=== PATIENT | male | born 1945 | race Caucasian/White ===

== ENCOUNTER 2016-09-07 09:17 | Inpatient (IN) ==
[2016-09-07] MEDS ORDERED: ONDANSETRON 4 MG/2 ML VIAL ONE (09:23)
[2016-09-07] MEDS ORDERED: HYDROmorphone 2 MG/1 ML VIAL ONE (09:23)
[2016-09-07] MEDS ORDERED: methylPREDNISolone SOD SUC 125 MG/2 ML VIAL IV STA (10:00)
[2016-09-07] MEDS ORDERED: cefTRIAXone 1,000 MG in SODIUM CHLORIDE 0.9% 100 ML IV STA (10:00)
[2016-09-07] MEDS ORDERED: ALBUTEROL/IPRATROPIUM 3 ML NEB RESP TX STA (10:00)
[2016-09-07] MEDS ORDERED: KETOROLAC 30 MG/1 ML VIAL IV STA (10:00)
--- NOTE | 2016-09-07 10:21 | Emergency Department Note ---
Arrival - Arrival Chief Complaint: Fall Stated Complaint: fall ED Nursing Triage Note: pt was found by a home health worker this morning on the floor without his o2 on. pt reports that he fell last night. pt has congested cough that he reports started last night. c/o pain to back of head and neck. Mode of Arrival: Stretcher Limitations: No Limitations Source: Patient Time Seen by Provider: 09/07/16 10:00 - History of Present Illness HPI Narrative: This 71-year-old white male chronic pain patient with multiple cervical and lumbar disc disorders presents after falling last night and not being able to get up. Both he and the family reports this would be the case if he did fall because of his chronic pain syndrome and in fact, the patient denies any significant injuries with the fall, he just could not get himself back up again. Of note the patient has had significant problems with a flare of his COPD and has just recently come off antibiotics for bronchitis and was bothered by particularly severe paroxysm of cough when he tripped and fell. In association with this he does have complaints of chills, fever, wheeze, and purulent secretions even after antibiotic therapy. He does not state any of his chronic pain is any worse after the fall though his neck was particularly uncomfortable immediately after the fall but has resolved to a great extent. Currently he appears in no acute distress. Onset (ago): hour(s) (Patient presents 8 hours post incident) Allergies/Adverse Reactions: Allergies Allergy/AdvReac Type Severity Reaction Status Date / Time No Known Allergies Allergy Verified 11/04/15 12:24 Review of System - Review of System 12 point system: reviewed and no additional remarkable complaints except as stated - Review of System Constitutional: Present: as per HPI Respiratory: Present: as per HPI Musculoskeletal: Present: as per HPI Neurological: Present: as per HPI Medical,Surgical,& Family Hx - Medical History Cardio: History of: Hypertension Respiratory: History of: COPD Musculoskeletal: History of: Back/Neck Problems - Social History Smoking Status: Unknown if ever smoked Exam Physical Examination: GENERAL: Well developed, well nourished white male in no acute distress. HEENT: Normocephalic. No trauma. Moist mucous membranes. Absent right eye. ENT NML NECK: Supple. Paraspinal muscular spasm with limitations to range of motion due to long-standing pain. No adenopathy. CARDIAC: Regular. No murmurs. Heart rate 100 CHEST: Scattered expiratory wheeze. No respiratory distress. O2 sat 91% ABDOMEN: Soft. Nontender. Active bowel sounds. EXTREMITIES: No trauma. Limited range of motion lumbar spine. No pedal edema. SKIN: No diaphoresis. No rash. NEURO: Alert. Oriented 3. Motor, sensory, vibratory intact, no focal deficits. Vital Signs: Vital Signs Temperature 98.2 F 09/07/16 11:40 Pulse Rate 94 H 09/07/16 11:40 Respiratory Rate 20 09/07/16 11:40 Blood Pressure 137/64 09/07/16 11:40 O2 Sat by Pulse Oximetry 93 L 09/07/16 10:57 Course - Reevaluation(s) Reevaluation #1: Discussed situation with patient and family and the need for hospitalization. - Consultations Consultation #1: Discussed with hospitalist service who will admit for further evaluation treatment. Results - Labs CBC & BMP: 09/07/16 10:58 09/07/16 10:58 Labs: I reviewed the laboratory and noted the elevated white blood cell count. - Diagnostic Findings Procedure: Chest x-ray: image reviewed by me, report reviewed by me (Right- sided infiltrate versus mass), CT - chest: image reviewed by me, report reviewed by me (50 x 42 cm right hilar mass with postobstructive pneumonia.), CT : image reviewed by me, report reviewed by me (Head: Microvascular ischemia and cerebral atrophy with no acute injury noted. Sinuses revealed right maxillary frontal and ethmoid sinusitis disease. 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 Likewise C7- T1 extensive DJD disease.), X-ray: image reviewed by me, report reviewed by me ( Pelvis: No acute fractures) Disposition Clinical Impression: Right hilar mass, Postobstructive pneumonia, Severe cervical disc disease, Chronic pain syndrome Case discussed with: patient, patient's family Disposition: Still a Patient Condition: Guarded Time of Disposition: 13:05
[2016-09-07] MEDS ORDERED: methylPREDNISolone SOD SUC 125 MG/2 ML VIAL ONE (10:31)
[2016-09-07] MEDS ORDERED: cefTRIAXone 1,000 MG VIAL ONE (10:31)
[2016-09-07] MEDS ORDERED: KETOROLAC 30 MG/1 ML VIAL ONE (10:31)
--- NOTE | 2016-09-07 10:36 | CT Report ---
CT head/brain wo con Indication: Fall. CT BRAIN WITHOUT CONTRAST DLP: 1073 mGy*cm. One or more of the following dose reduction techniques was used: Automated exposure control, adjustment of the mA and/or kV according the patient size, or use of iterative reconstruction techniques. Comparison: 02/17/2008. Date of admission: 09/07/2016. Technique: Axial noncontrast CT images of the brain were obtained. Findings: A nucleated right globe again shown. Mucosal thickening of the right frontal, ethmoid and right maxillary sinuses present. No bony destruction. No calvarial fractures. No intracranial hemorrhage, mass or mass effect. Patchy periventricular white matter hypodensity is present and there is mild generalized atrophy. 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 Cortical antony-white junction is maintained. Impression: No acute intracranial pathology. Generalized atrophy and chronic small vessel ischemic change. Sinusitis. PROCEDURE INTERPRETED AT [facility] DEPARTMENT OF RADIOLOGY Final Report Signed by: Braulio Contreras M.D.
--- NOTE | 2016-09-07 10:41 | CT Report ---
CT cervical spine wo con Indication: Neck pain. Fall. CT CERVICAL SPINE WITHOUT CONTRAST DLP: 375 mGy*cm. One or more of the following dose reduction techniques was used: Automated exposure control, adjustment of the mA and/or kV according the patient size, or use of iterative reconstruction techniques. Comparison: 04/19/2009 Technique: Axial noncontrast CT images of the cervical spine were obtained. Coronal and sagittal reconstructions were provided. Findings: Cervical spine is not immobilized. Reversal of cervical lordosis noted, likely positional. There is, however, stairstep anterolisthesis of C2 on 3, C3 on 4, C4 on 5 and C5 on C6, never greater than 2 mm, likely degenerative in nature and/or positional. C6-7 and C7-T1 alignment is normal. C6-7 disc space narrowing is severe with endplate reactive sclerosis and endplate osteophytes. These changes are stable since previous study. Pannus development at the tip of the odontoid is moderately severe, also stable. Diffuse facet joint arthropathy is present. Mild bilateral C3-4, C4-5 and C5-6 foraminal stenosis is present. Left C6-7 is narrowed as well. No acute fracture identified. No paraspinous hematoma. No cervical chain lymphadenopathy. Airways patent. Visualized pulmonary apices demonstrate emphysema but appear otherwise clear. Impression: Extensive degenerative changes as described. No acute bony injury is shown. Emphysema. PROCEDURE INTERPRETED AT [facility] DEPARTMENT OF RADIOLOGY Final Report Signed by: Braulio Contreras M.D.
--- NOTE | 2016-09-07 11:05 | XRay Report ---
Portable chest Date: 09/07/2016 Clinical history: Shortness of breath, fall Comparison: 03/13/2012 Technique: Portable AP supine chest Findings: The heart is borderline in size with uncoiling of the aorta. The parenchymal findings in the right infrahilar location extending to the right lung base with atelectasis and possible small pleural effusion. There is irregular increased density in the right infrahilar location. Minimal atelectasis at the left lung base. Degenerative changes are noted. Impression: Interval development of parenchymal pathology in the right infrahilar location extending to the right lung base. These findings could be related to pneumonia with associated atelectasis but it is difficult to exclude underlying mass with possible small right pleural effusion. Minimal atelectasis at the left lung base. CT recommended for further evaluation. PROCEDURE INTERPRETED AT [facility] DEPARTMENT OF RADIOLOGY Final Report Signed by: Dr. Patricia Kendrick
--- NOTE | 2016-09-07 11:07 | XRay Report ---
Exam: XR pelvis AP 1 or 2 Views Date: 09/07/2016 10:01 AM Comparison: None Indication: Pelvic pain, fall Technique:[AP pelvis] Findings: Bilateral hip joint space narrowing with sclerosis and osteophytes. Vascular, articular, and prostate calcifications are noted. No definite fracture or dislocation. Impression: Minimal to moderate DJD with findings more pronounced in the right hip. It is difficult to exclude small loose bodies with the articular calcification. No definite fracture dislocation is identified. Arterial and prostate calcifications. PROCEDURE INTERPRETED AT [facility] DEPARTMENT OF RADIOLOGY Final Report Signed by: Dr. Patricia Kendrick
[2016-09-07 11:26] LABS: Basophils % 0.2 % (0.0-0.8); Eosinophils # 0.1 10*3/uL (0.0-0.87); Eosinophils % 0.4 % (0.00-10.9); Hemoglobin 13.4 GM/DL (14.0-18.0); Immature Granulocytes % 0.3 %; Immature Granulocytes Absolute 0.05 #; Lymphocytes # 2.1 10*3/uL (1.4-4.0); Lymphocytes % 12.8 % (21.2-54.2); Mean Corpuscular HGB Conc 34.4 GM/DL (32-36); Mean Corpuscular Hemoglobin 34 PG (27-34); Mean Corpuscular Volume 97.7 FL (87-102); Mean Platelet Volume 9.7 FL (9.6-12.0); Monocytes # 1.2 10*3/uL (0.11-0.8); Monocytes % 7.4 % (1.7-12.7); Neutrophils # 12.8 10*3/uL (1.4-7.4); Neutrophils % 78.9 % (38.7-73.9); Platelet Count 291 T/CUMM (130-400); Red Blood Count 3.99 MC/CUMM (3.8-5.5); Red Cell Distribution Width 12.7 % (9.3-17.3); White Blood Count 16.2 T/CUMM (4-12)
[2016-09-07 11:35] LABS: INR 1.1; PT Patient Result 11.2 SECS
[2016-09-07 11:46] LABS: Band Neutrophils 5 % (0-10); Hypochromasia 1+; Lymphocytes 11 % (20-55); Platelet Estimate Adequate; Segmented Neutrophils 74 % (50-85)
[2016-09-07 11:48] LABS: Total Cells Counted 100
[2016-09-07 12:04] LABS: Alanine Aminotransferase 36 U/L (16-61); Albumin 3.6 G/DL (3.4-5.0); Alkaline Phosphatase 94 U/L (45-117); Aspartate Amino Transferase 37 U/L (0-37); Blood Urea Nitrogen 17 MG/DL (7-18); Calcium 8.4 MG/DL (8.5-10.1); Glucose 121 MG/DL (74-106); Osmolality,Calculated 277.7 MOS/KG (273-304); Potassium 3.9 MMOL/L (3.5-5.1); Sodium 138 MMOL/L (136-145); Total Protein 6.9 G/DL (6.4-8.3); Troponin I Only < 0.015 NG/ML (0.00-0.045)
--- NOTE | 2016-09-07 12:56 | CT Report ---
Exam: CT chest w con Date: 09/07/2016 11:24 AM Comparison: Chest x-ray 09/07/2016 Indication: Right hilar mass Technique:[Sequential scans of the chest were obtained following the injection 80 cc of Omnipaque 350. Coronal and sagittal 2-D reconstructions were obtained. Total DLP: 339.90] Findings: The heart is minimally enlarged with cardiac fat pads and coronary artery calcifications. No evidence of aortic dissection or definite pulmonary emboli. 50 x 42 x 40 mm right hilar mass which extends into the right lower lobe. There is associated right hilar adenopathy. Additional mediastinal nodes which are borderline in size to minimally enlarged. There is associated bronchial compression with peripheral atelectasis/consolidation which extends to the pleural surface in the right lower lobe. Mixed type bullous emphysema with additional multifocal areas of atelectasis/infiltration especially in the right middle lobe, lingula, and left lower lobe. Associated cylindrical bronchiectasis essentially in the right middle lobe. Left subcutaneous pleural fat deposition. Fatty infiltration of the liver with prior cholecystectomy. Impression: 50 x 42 x 40 mm right hilar mass consistent with probable carcinoma of the lung. There is associated mediastinal and hilar adenopathy which could be related to graciela metastasis and postobstructive pneumonia. Additional multifocal areas of atelectasis/infiltration/scarring in both lungs with minimal bullous emphysema. Minimal cardiomegaly with coronary artery calcifications, fatty infiltration of the liver, and prior cholecystectomy. This CT exam was performed using one or more the following dose reduction techniques: Automated exposure control, adjustment of the MA and/or KV according to patient size, or use of iterative reconstruction technique. PROCEDURE INTERPRETED AT [facility] DEPARTMENT OF RADIOLOGY Final Report Signed by: Dr. Patricia Kendrick
[2016-09-07] MEDS ORDERED: ONDANSETRON 4 MG/2 ML VIAL IV PRN (13:55)
[2016-09-07] MEDS ORDERED: diphenhydrAMINE CAP 25 MG CAPSULE PO PRN (13:55)
[2016-09-07] MEDS ORDERED: ACETAMINOPHEN 325 MG TABLET PO PRN (13:55)
[2016-09-07] MEDS ORDERED: DOCUSATE SODIUM 100 MG CAPSULE PO PRN (13:55)
[2016-09-07] MEDS ORDERED: MORPHINE 2 MG/1 ML SYRINGE IV PRN (13:55)
--- NOTE | 2016-09-07 13:55 | Hospitalist History & Physical ---
<Julissa Daniel - Last Filed: 09/07/16 13:42> Assessment and Plan - Time spent with patient Time spent with patient: Greater than 30 minutes (1) Pneumonia Status: Acute Assessment and plan: Mr. Gabriel is a 71-year-old white male with history of hypertension, COPD on home O2, and chronic pain admitted by the hospitalist service with pneumonia and a new right hilar mass with adenopathy. Will consult Dr. Bailey his pulmonary doctor for further evaluation. We will go ahead and start antibiotics , breathing treatments, steroids if indicated. Patient's home medicines have not been entered in the chart yet so these will be restarted once they are posted. Patient's case has been discussed with and further recommendations to follow. Current Visit: Yes (2) Leukocytosis Status: Acute Current Visit: Yes (3) Hilar mass Status: Acute Current Visit: Yes (4) Adenopathy, hilar Status: Acute Current Visit: Yes History of Present Illness Chief complaint: Shortness of breath History of present illness: Mr. Gabriel is a 71 year old male with history of COPD, hypertension, and chronic pain presenting to the ED after falling last night and spending the night on the floor. History was obtained from the daughter who is in the room. Patient was lethargic from pain medicine given in the ED since patient missed his normal dose of pain medicines this morning. Patient's daughter states that about 8:00 last night he fell getting up from his recliner and he could not get up off the floor. She states that he was able to drag himself to an upright position against the back of the couch. He could not reach his phone to call for help. His cleaning lady came over this morning and found him on the floor. Patient's daughter also states he has been complaining of increased epigastric pain for the last couple of months. Patient had recently come off antibiotics for bronchitis. He told the ED physician that he was still having chills, fever, wheezing, and purulent secretions even after the antibiotics were stopped. Patient is normally on home oxygen, his pulmonary doctor is Dr. Bailey, and his family doctor is Dr. Vargas. Patient denies headache, dysphasia, chest pain, abdominal pain, constipation, or lower extremity swelling. Patient had C-spine CT, head CT, and pelvic x-ray in the ED that were all showing no acute process. His chest x-ray showed an interval development of parenchymal pathology in the right infrahilar location extending into the right lung base. He was questionable pneumonia with associated atelectasis but it was difficult to exclude an underlying mass with right pleural effusion. CT of the chest was done where they found a 50 x 42 x 40 mm right hilar mass consistent with probable carcinoma of the lung. There was associated mediastinal and hilar adenopathy and postobstructive pneumonia. Patient is afebrile and his vital signs are stable and he is satting 93% percent on 2 L. Patient is lethargic due to his pain medicine. He will awaken but he is difficult to understand and can not answer questions appropriately. Patient is audibly coarse bilaterally you can hear from the doorway. Patient's WBCs are elevated at 16.2. After discussion with Dr. Krueger in the ED and Dr. Garvin the hospitalist it was decided patient will be admitted for further [facility] Medications Medication Instructions Recorded Confirmed Type Baclofen Tab [Lioresal] 10 mg PO TID 09/07/16 09/07/16 History Biotin 5,000 mcg PO DAILY 09/07/16 09/07/16 History [place] Oil 1 tablespoon PO DIRECTED 09/07/16 09/07/16 History Cholecalciferol (Vitamin D3) 1 capsule DIRECTED 09/07/16 09/07/16 History [Vitamin D3] Docusate Sodium 250 mg PO DAILY 09/07/16 09/07/16 History Docusate Sodium [Colace] 1 capsule PO DIRECTED 09/07/16 09/07/16 History Gabapentin 400 mg PO TID 09/07/16 09/07/16 History HYDROcodone/ACETAMIN 10-325 [[place] 1 tablet PO TID 09/07/16 09/07/16 History 10-325] Hydrocodone/Acetaminophen [[place] 1 each PO TID PRN 09/07/16 09/07/16 History 10-325 Tablet] Meloxicam 15 mg PO DAILY 09/07/16 09/07/16 History Methadone [(None)] 10 mg PO QID 09/07/16 09/07/16 History Mirtazapine 30 mg PO BEDTIME 09/07/16 09/07/16 History Mv-Mins/Folic/Lycopene/Ginkgo [One 1 each PO DAILY 09/07/16 09/07/16 History Daily Men's 50+ Tablet] Potassium Chloride 20 meq PO DAILY 09/07/16 09/07/16 History Potassium Chloride [Klor-Con 10] 20 meq PO DAILY 09/07/16 09/07/16 History Pravastatin Sodium 80 mg PO DAILY 09/07/16 09/07/16 History Venlafaxine HCl [Venlafaxine HCl 150 mg PO BID 09/07/16 09/07/16 History ER] cloNIDine TAB [Catapres Tab] 0.1 mg PO BID 09/07/16 09/07/16 History clonazePAM [Clonazepam] 1 mg PO DAILY 09/07/16 09/07/16 History Allergies Allergy/AdvReac Type Severity Reaction Status Date / Time No Known Allergies Allergy Verified 11/04/15 12:24 Medical,Surgical,& Family Hx - Medical History Cardio: History of: Hypertension Respiratory: History of: COPD Musculoskeletal: History of: Back/Neck Problems - Surgical History HEENT Surgeries: Surgical HX of: Eye Surgery Abdominal Surgeries: Surgical HX of: Cholecystectomy - Family History Family History: Reports;: Family Heart Disease - Social History Smoking Status: Former smoker Frequency of Alcohol Use: None Type of Drug Use: None Lives With:: Alone Functional capacity: independent ambulation Review of systems: A complete 10 system review of systems was obtained and pertinent negatives and positives per HPI Exam - Constitutional Vitals: Period Temp Pulse Resp BP Sys/Yanes Pulse Ox Last 24 Hr 98.2 F-98.2 F 94-105 20-22 137-137/64-64 91-93 Exam: Constitutional System: No distress. No tremulousness. Head: Normocephalic, atraumatic. Ears, Nose and Throat System: No evidence of Otitis or Mastoiditis. No epistaxis or discharge Eyes System: Pupils on the left equal, round, and reactive. Extraocular muscles intact. 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 No thyromegaly, neck mass, or prior surgery apparent. Respiratory System: Chest coarse bilaterally to auscultation. Cardiovascular System: Heart with regular rate and rhythm. No murmur. GI System: Abdomen soft, nontender. Normo active bowel sounds present. Musculoskeletal System: limbs with no pedal edema. Full distal pulses. Neurological System: No discernable sensory deficit. No aphasia Psychiatric System: Conversation is difficult to understand Results - Labs CBC & BMP: 09/07/16 10:58 09/07/16 10:58 Lab Results: I have reviewed the past 24 hour labs - Diagnostic Findings Procedure: Chest x-ray: report reviewed by me (Interval development of parenchymal pathology in the right infrahilar location extending to the right lung base. Could be related to pneumonia with associated atelectasis but difficult to exclude underlying mass with possible small right pleural effusion) , CT - chest: report reviewed by me (55 42 x 40 mm right hilar mass consistent with probable carcinoma of the lung. Associated mediastinal and hilar adenopathy which could be related to known metastatic cysts and postobstructive pneumonia), X-ray: report reviewed by me (Pelvic x-ray shows minimal to moderate DJD) <Ansley Garvin - Last Filed: 09/07/16 17:11> History of Present Illness History of present illness: Mr. Gabriel is a 71 year old male with multiple medical issues is on admission of pneumonia. CT chest revealed a lung mass. Plan Pulm consult IR consult IV antibiotics continue with pain meds, home meds. Exam - Constitutional Vitals: Period Temp Pulse Resp BP Sys/Yanes Pulse Ox Last 24 Hr 97.4 F 79-80 16-16 123-126/64-66 90-90 Results - Labs CBC & BMP: 09/07/16 10:58 09/07/16 10:58
[2016-09-07] MEDS ORDERED: ALBUTEROL 2.5 MG/3 ML NEB RESP TX PRN (14:00)
[2016-09-07] MEDS: PANTOPRAZOLE 40 MG TABLET PO SCH (15:21)
[2016-09-07] MEDS ORDERED: LEVOFLOXACIN INJ 750 MG in PREMIX 1 EACH IV SCH (15:30)
[2016-09-07] MEDS: ENOXAPARIN 40 MG/0.4 ML SYRINGE SUBCUT SCH (16:01)
[2016-09-07] MEDS: SODIUM CHLORIDE 0.9% 1,000 ML IV SCH (16:01)
--- NOTE | 2016-09-07 16:53 | Pulmonology Consult Note ---
History of Present Illness Chief complaint: None resolved pneumonia. Right chest mass. COPD. History of present illness: Mr. 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 I been asked see this patient in pulmonary consultation. I saw him along with his daughter and several other family members and Guicho Wang nurse practitioner. This patient was found on the floor this morning by his patternmaker helper. He could not get up. He was lethargic. He had fallen getting up out of his recliner. He could not get up off the floor. Daughter says he has been having increased problems with epigastric pain and increased gastroesophageal reflux. He was tender in the mid upper epigastrium when I pressed in this area. The patient has been treated for several weeks as an outpatient with for a right lower lung pneumonia. The remainder the review of systems is negative. Allergies. None listed in the hospital. Patient has previously said that he was allergic to Keflex and sulfur. Home medicines. See below Hospital medicines. See below Past history. Degenerative joint disease. History of abscess of the chin secondary to MRSA in 2009. Perirectal abscess secondary to MRSA in 2009. Chronic pain managed by Dr. huerta. COPD. High blood pressure. Pernicious anemia secondary to B12 deficiency. Hyperlipidemia. High blood pressure. Chronic anxiety depression. Eye surgery. Cholecystectomy. Hernia surgery. Knee surgery. Tonsillectomy. Uses home oxygen. Social history. Patient smoked for 27 years. He stopped smoking somewhere between 2009 and 2011. He is a retired network security administrator [employer]. He denies alcohol. He is previously been followed by Dr. Tacho Ruiz and more recently he has seen Dr. Iam medrano and Guicho Wang nurse practitioner. He has been followed from a urology standpoint by Dr. Oscar anne. Family history. His mother had arthritis colon polyps diabetes type 2 and kidney stones. Pulmonary function test done 530 2000-04-09 showed moderate obstructive lung disease. Echocardiogram done [address] Mik Aguilar showed an ejection fraction of 60% with mild diastolic dysfunction and trace of tricuspid regurgitation. Chest x-ray. 09/07/2016. mild cardiomegaly. Prominent right hilum. Mass- effect that is in the area of the inferior right hilum. This is a E PA film only. Right lower lung infiltrate CT of the chest. 09/07/2016. Hilar and mediastinal adenopathy and right lower lung mass that measures 40 x 42 x 52 mm. Right lower lung infiltrate compatible with pneumonia. CT of the brain. 09/07/2016. Generalized cerebral atrophy. Microvascular disease. Cervical x-rays. 09/07/2016. Severe degenerative disease. No acute changes. Lab. H&H 13.4/39.0 with normal indices red blood cell distribution with platelets of 291,000 with normal MPV white blood cell count is 16,279 segs 13 lymphs. INR is 1.1. Electrolytes are normal. Creatinine is 0.8 with a BUN of 17. Glucoses are normal. Calcium is slightly low at 8.4. Liver function tests are normal. Troponin is normal. Protein albumin and globulins are normal. Microbiology. No reports. Physical exam. Vital signs. See below General. Lethargic and hard to wake up. Able to answer questions appropriately but falls right back to sleep. His daughter says he is this way often. Neurologic. Cranial nerves are intact. Moves all 4 extremities. Sensory exam was not done. Gait was not tested. Pupils irises sclera conjunctiva normal. Face is symmetrical. Salivary glands are normal. Lips and tongue are normal. Neck. Kyphotic. No masses. No meningismus. Decreased range of motion. Lymphatics. No submandibular cervical supraclavicular adenopathy Chest. No chest wall tenderness. Large airway congestion. Few inspiratory squeaks at the bases. Heart. No gallop. Abdomen. Obese. Tender in the mid upper epigastrium. No organs can be palpated bowel sounds are present Lower extremities. No edema. No evidence of deep venous thrombophlebitis. Skin. Hands face feet show no infectious or cancerous lesions. No other areas of skin were examined. Venous exam of the neck upper and lower extremities are normal. The remainder the physical exam is negative. Impression. 1. Right lower lung pneumonia. Outpatient treatment failure. Possibly complicated by partial obstruction from lung mass 2. Right lung lung mass. Suspicious for cancer. Next #3 long history of tobacco abuse. Stop smoking 2009 2011 4. COPD 5. Lethargy. Look for CO2 retention. 6. Chronic pain. The care of Dr. Michael huerta 7. Degenerative joint disease 8. See past history 9. Mid upper epigastric pain and increased gastroesophageal reflux. Consider GI evaluation Plan 1. ABGs #2 thyroid function tests 3. Follow-up chest x-ray 4. Decrease Levaquin 500 mg daily 5. Add Fortaz 1 g IV piggyback every 8 hours. Begin with test dose. 6. Inhalation therapy 4 times daily 7. Sputum for Gram stain culture and sensitivity 8. Cold agglutinins 9. Legionella titer #10 see orders. Home Medications Medication Instructions Recorded Confirmed Type Baclofen Tab [Lioresal] 10 mg PO TID 09/07/16 09/07/16 History Biotin 5,000 mcg PO DAILY 09/07/16 09/07/16 History [place] Oil 1 tablespoon PO DIRECTED 09/07/16 09/07/16 History Cholecalciferol (Vitamin D3) 1 capsule DIRECTED 09/07/16 09/07/16 History [Vitamin D3] Docusate Sodium 250 mg PO DAILY 09/07/16 09/07/16 History Docusate Sodium [Colace] 1 capsule PO DIRECTED 09/07/16 09/07/16 History Gabapentin 400 mg PO TID 09/07/16 09/07/16 History HYDROcodone/ACETAMIN 10-325 [Filley 1 tablet PO TID 09/07/16 09/07/16 History 10-325] Hydrocodone/Acetaminophen [Filley 1 each PO TID PRN 09/07/16 09/07/16 History 10-325 Tablet] Meloxicam 15 mg PO DAILY 09/07/16 09/07/16 History Methadone [(None)] 10 mg PO QID 09/07/16 09/07/16 History Mirtazapine 30 mg PO BEDTIME 09/07/16 09/07/16 History Mv-Mins/Folic/Lycopene/Ginkgo [One 1 each PO DAILY 09/07/16 09/07/16 History Daily Men's 50+ Tablet] Potassium Chloride 20 meq PO DAILY 09/07/16 09/07/16 History Potassium Chloride [Klor-Con 10] 20 meq PO DAILY 09/07/16 09/07/16 History Pravastatin Sodium 80 mg PO DAILY 09/07/16 09/07/16 History Venlafaxine HCl [Venlafaxine HCl 150 mg PO BID 09/07/16 09/07/16 History ER] cloNIDine TAB [Catapres Tab] 0.1 mg PO BID 09/07/16 09/07/16 History clonazePAM [Clonazepam] 1 mg PO DAILY 09/07/16 09/07/16 History Allergies Allergy/AdvReac Type Severity Reaction Status Date / Time No Known Allergies Allergy Verified 11/04/15 12:24 Exam (Pulmonay) H&P - Constitutional Vitals: Period Temp Pulse Resp BP Sys/Yanes Pulse Ox Last 24 Hr 97.4 F 79-80 16-16 123-126/64-66 90-90 Medical,Surgical,& Family Hx - Medical History Cardio: History of: Hypertension Respiratory: History of: COPD Musculoskeletal: History of: Back/Neck Problems - Surgical History HEENT Surgeries: Surgical HX of: Eye Surgery Abdominal Surgeries: Surgical HX of: Cholecystectomy - Family History Family History: Reports;: Family Heart Disease - Social History Smoking Status: Former smoker Frequency of Alcohol Use: None Type of Drug Use: None Results - Labs CBC & BMP: 09/07/16 10:58 09/07/16 10:58
[2016-09-07] MEDS ORDERED: DOCUSATE SODIUM 100 MG CAPSULE PO SCH (17:00)
[2016-09-07 17:04] LABS: Thyroid Stimulating Hormone 1.94 uIU/ml (0.358-3.74)
[2016-09-07 18:02] LABS: ABG Base Excess -2.9 MMOL/L (-2.5-2.5); ABG HCO3 21.8 MMOL/L (20-26); ABG Oxygen Saturation 89.2 % (95-100); ABG PCO2 34.4 MM HG (35-48); ABG PH 7.397 (7.35-7.45); ABG PO2 55.4 MM HG (80-95); ABG TCO2 18.5 MMOL/L (23-27)
[2016-09-07] MEDS: ALBUTEROL/IPRATROPIUM 3 ML NEB RESP TX SCH (19:05)
[2016-09-07] MEDS: BACLOFEN 10 MG TABLET PO SCH (20:52)
[2016-09-07] MEDS: VENLAFAXINE XR 75 MG CAPSULE PO SCH (20:52)
[2016-09-07] MEDS: MIRTAZAPINE 30 MG TABLET PO SCH (20:52)
[2016-09-07] MEDS: METHADONE 10 MG TABLET PO SCH (21:31)
[2016-09-08] MEDS: ALBUTEROL/IPRATROPIUM 3 ML NEB RESP TX SCH ×4 (01:06→20:00)
[2016-09-08] MEDS: SODIUM CHLORIDE 0.9% 1,000 ML IV SCH ×2 (03:18→17:16)
[2016-09-08 07:10] LABS: Basophils % 0.1 % (0.0-0.8); Eosinophils % 0.1 % (0.00-10.9); Hematocrit 34.7 VOL% (42.0-52.0); Hemoglobin 11.8 GM/DL (14.0-18.0); Immature Granulocytes % 0.3 %; Immature Granulocytes Absolute 0.05 #; Lymphocytes # 2.2 10*3/uL (1.4-4.0); Lymphocytes % 14.9 % (21.2-54.2); Mean Corpuscular Hemoglobin 33 PG (27-34); Mean Corpuscular Volume 97.7 FL (87-102); Mean Platelet Volume 9.6 FL (9.6-12.0); Monocytes % 6.5 % (1.7-12.7); Neutrophils # 11.7 10*3/uL (1.4-7.4); Neutrophils % 78.1 % (38.7-73.9); Platelet Count 260 T/CUMM (130-400); Red Blood Count 3.55 MC/CUMM (3.8-5.5); Red Cell Distribution Width 12.7 % (9.3-17.3)
[2016-09-08 07:40] LABS: Calcium 8.2 MG/DL (8.5-10.1); Potassium 3.8 MMOL/L (3.5-5.1)
[2016-09-08 07:49] LABS: Hypochromasia 1+
--- NOTE | 2016-09-08 09:09 | XRay Report ---
XR chest 2V Indication: Shortness of breath Comparison: 07 Sep 2016 Findings: The heart and mediastinum are stable in size and configuration. The pulmonary vascularity is normal in caliber. Right lower lung density is similar to previous exam. No other lung infiltrates, effusions, pneumothorax or other abnormality is demonstrated. Impression: No significant change PROCEDURE INTERPRETED AT [facility] DEPARTMENT OF RADIOLOGY Final Report Signed by: Dr. Ha Manley
[2016-09-08] MEDS: METHADONE 10 MG TABLET PO SCH ×4 (09:25→20:42)
[2016-09-08] MEDS: PRAVASTATIN 40 MG TABLET PO SCH (09:25)
[2016-09-08] MEDS: PANTOPRAZOLE 40 MG TABLET PO SCH (09:25)
[2016-09-08] MEDS: BACLOFEN 10 MG TABLET PO SCH ×3 (09:25→20:42)
[2016-09-08] MEDS: MELOXICAM 7.5 MG TABLET PO SCH (09:26)
[2016-09-08] MEDS: VENLAFAXINE XR 75 MG CAPSULE PO SCH ×2 (09:26→20:42)
--- NOTE | 2016-09-08 12:16 | CT Report ---
CT brain Indication: Confusion, metastasis Comparison: 07 Sep 2016 Technique: Axial CT imaging of the brain is performed without contrast with 3 mm increments. Findings: No evidence of hemorrhage, mass mass effect midline shift or acute infarct seen. There is moderate diffuse cerebral atrophy. Otherwise the brain parenchyma attenuation and differentiation appears within normal limits. The ventricles and cisterns are normal in caliber. No cranial or skull base abnormality is identified. Impression: No evidence of acute process or interval change. This CT exam was performed using one or more the following dose reduction techniques: Automated exposure control, adjustment of the MA and/or KV according to patient size, or use of iterative reconstruction technique. PROCEDURE INTERPRETED AT [facility] DEPARTMENT OF RADIOLOGY Final Report Signed by: Dr. Ha Manley
[2016-09-08] MEDS: ENOXAPARIN 40 MG/0.4 ML SYRINGE SUBCUT SCH (15:54)
[2016-09-08] MEDS: LEVOFLOXACIN INJ 500 MG in PREMIX 1 EACH IV SCH (15:54)
--- NOTE | 2016-09-08 16:04 | Hospitalist Progress Note ---
Assessment and Plan (1) Pneumonia Status: Acute Assessment and plan: CT of the chest. 09/07/2016. Hilar and mediastinal adenopathy and right lower lung mass that measures 40 x 42 x 52 mm. Right lower lung infiltrate compatible with pneumonia.BC-negative so far. continue with IV antibiotics, follow Pulm's recommendations. Current Visit: Yes (2) Hilar mass Status: Acute Assessment and plan: with adenopathy. Pulm is following Current Visit: Yes (3) HTN (hypertension) Status: Acute Assessment and plan: resume home meds, follow response Current Visit: Yes (4) Hyperlipidemia Status: Acute Assessment and plan: on statins Current Visit: Yes (5) COPD (chronic obstructive pulmonary disease) Status: Acute Assessment and plan: stable Current Visit: Yes Hospitalist: Subjective Interval history: Patient was sitting up on his bed. He seemed a bit forgetful but CT head was unremarkable. Exam - Constitutional Vitals: Period Temp Pulse Resp BP Sys/Yanes Pulse Ox Last 24 Hr 97.4 F-98.8 F 75-108 12-20 117-163/57-81 87-99 General appearance: no acute distress - Head Head exam: Present: normal inspection - Respiratory Respiratory exam: Present: clear to auscultation bilaterally - Cardiovascular Cardiovascular exam: Present: regular rate and rhythm - GI/Abdominal GI/Abdominal exam: Present: normal bowel sounds - Extremities Exam Extremities exam: Present: normal inspection Results - Labs CBC & BMP: 09/08/16 06:38 09/08/16 06:38 Lab Results: I have reviewed the past 24 hour labs
--- NOTE | 2016-09-08 18:26 | Pulmonology Progress Note ---
Pulmonary - PN: Subj Interval history: 71-year-old male admitted for non-resolving pneumonia and found to have a right pulmonary parenchymal mass. Patient did well overnight without acute events. This morning he admits to significant improvement in symptoms. He continues on antibiotics with sputum cultures pending. No new events or concerns today. Exam (Progress Note) - Constitutional Vitals: Period Temp Pulse Resp BP Sys/Yanes Pulse Ox Last 24 Hr 97.4 F-98.8 F 75-108 12-20 117-163/57-81 87-99 General appearance: over weight - Head Head exam: Present: normal inspection - Eye Eye exam: Present: EOMI Pupils: Present: NATE - Neck Neck exam: Present: normal inspection - Respiratory Respiratory exam: Present: clear to auscultation bilaterally. Absent: wheezes - Cardiovascular Cardiovascular exam: Present: regular rate and rhythm - GI/Abdominal GI/Abdominal exam: Present: normal bowel sounds, soft. Absent: tenderness - Extremities Exam Extremities exam: Present: normal inspection - Neurological Exam Neurological exam: Present: alert, oriented X3 - Psychiatric Psychiatric exam: Present: normal affect, normal mood - Skin Skin exam: Present: warm, dry Results - Labs CBC & BMP: 09/08/16 06:38 09/08/16 06:38 - Diagnostic Findings Procedure: Chest x-ray: report reviewed by me, image reviewed by me (Right hilar mass and right lower lung infiltrate unchanged.), CT: report reviewed by me (No acute intracranial pathology.) Assessment and Plan (1) Hilar mass Status: Acute Assessment and plan: Suspicious for cancer. Patient will likely need bronchoscopy early next week for further evaluation. Current Visit: Yes (2) Pneumonia Status: Acute Assessment and plan: Patient admits to significant clinical improvement this morning with current therapy. Pneumonia is concerning for postobstructive pneumonia due to lung mass. Continue antibiotics and he will likely need bronchoscopy early next week. Current Visit: Yes Qualifiers: Pneumonia type: due to unspecified organism Laterality: right Lung location: lower lobe of lung Qualified Code(s): J18.1 - Lobar pneumonia, unspecified organism
[2016-09-08] MEDS: cloNIDine 0.1 MG TABLET PO SCH (20:42)
[2016-09-08] MEDS: MIRTAZAPINE 30 MG TABLET PO SCH (20:42)
[2016-09-09] MEDS: SODIUM CHLORIDE 0.9% 1,000 ML IV SCH ×2 (00:05→14:20)
[2016-09-09] MEDS: ALBUTEROL/IPRATROPIUM 3 ML NEB RESP TX SCH ×4 (01:20→19:24)
[2016-09-09] MEDS: DOCUSATE SODIUM 100 MG CAPSULE PO SCH ×2 (09:18→09:19)
[2016-09-09] MEDS: VENLAFAXINE XR 75 MG CAPSULE PO SCH ×2 (09:18→20:04)
[2016-09-09] MEDS: cloNIDine 0.1 MG TABLET PO SCH ×2 (09:18→20:04)
[2016-09-09] MEDS: MELOXICAM 7.5 MG TABLET PO SCH (09:18)
[2016-09-09] MEDS: BACLOFEN 10 MG TABLET PO SCH ×3 (09:18→20:04)
[2016-09-09] MEDS: PANTOPRAZOLE 40 MG TABLET PO SCH (09:20)
[2016-09-09] MEDS: CASTOR OIL PO SCH ×2 (09:20→17:22)
[2016-09-09] MEDS: Biotin [Biotin] 5,000 MCG PO SCH ×2 (09:21)
[2016-09-09] MEDS: METHADONE 10 MG TABLET PO SCH ×4 (09:27→20:04)
[2016-09-09] MEDS: PRAVASTATIN 40 MG TABLET PO SCH (09:27)
--- NOTE | 2016-09-09 14:57 | Hospitalist Progress Note ---
Assessment and Plan (1) Pneumonia Status: Acute Assessment and plan: CT of the chest. 09/07/2016. Hilar and mediastinal adenopathy and right lower lung mass that measures 40 x 42 x 52 mm. Right lower lung infiltrate compatible with pneumonia.BC-negative so far. continue with IV antibiotics, Patient will likely need bronchoscopy early next week for further evaluation.Pulm is following. Current Visit: Yes Qualifiers: Pneumonia type: due to unspecified organism Laterality: right Lung location: lower lobe of lung Qualified Code(s): J18.1 - Lobar pneumonia, unspecified organism (2) Hilar mass Status: Acute Assessment and plan: with adenopathy. Patient will likely need bronchoscopy early next week for further evaluation. Pulm is following Current Visit: Yes (3) HTN (hypertension) Status: Acute Assessment and plan: stable Current Visit: Yes (4) Hyperlipidemia Status: Acute Assessment and plan: on statins Current Visit: Yes (5) COPD (chronic obstructive pulmonary disease) Status: Acute Assessment and plan: stable Current Visit: Yes Hospitalist: Subjective Interval history: Patient states he feels a lot better.He had a good night. Exam - Constitutional Vitals: Period Temp Pulse Resp BP Sys/Yanes Pulse Ox Last 24 Hr 97.7 F-98.9 F 77-108 12-95 135-164/62-87 88-99 General appearance: no acute distress - Respiratory Respiratory exam: Present: clear to auscultation bilaterally - Cardiovascular Cardiovascular exam: Present: regular rate and rhythm - GI/Abdominal GI/Abdominal exam: Present: normal bowel sounds - Extremities Exam Extremities exam: Present: normal inspection Results - Labs CBC & BMP: 09/08/16 06:38 09/08/16 06:38 Lab Results: I have reviewed the past 24 hour labs
[2016-09-09] MEDS: ENOXAPARIN 40 MG/0.4 ML SYRINGE SUBCUT SCH (17:21)
[2016-09-09] MEDS: LEVOFLOXACIN INJ 500 MG in PREMIX 1 EACH IV SCH (17:21)
--- NOTE | 2016-09-09 17:32 | Pulmonology Progress Note ---
Pulmonary - PN: Subj Interval history: 71-year-old male admitted for non-resolving pneumonia and found to have a right pulmonary parenchymal mass. Patient did well overnight without acute events. Today he admits to significant improvement in symptoms. He continues on antibiotics with sputum cultures pending. No new events or concerns today. Exam (Progress Note) - Constitutional Vitals: Period Temp Pulse Resp BP Sys/Yanes Pulse Ox Last 24 Hr 97.7 F-98.9 F 77-98 16-95 135-164/62-87 90-99 General appearance: over weight - Head Head exam: Present: normal inspection - Eye Eye exam: Present: EOMI Pupils: Present: NATE - Neck Neck exam: Present: normal inspection - Respiratory Respiratory exam: Present: clear to auscultation bilaterally. Absent: rales, rhonchi, wheezes - Cardiovascular Cardiovascular exam: Present: regular rate and rhythm - GI/Abdominal GI/Abdominal exam: Present: normal bowel sounds, soft. Absent: tenderness - Extremities Exam Extremities exam: Present: normal inspection - Neurological Exam Neurological exam: Present: alert, oriented X3 - Psychiatric Psychiatric exam: Present: normal affect, normal mood - Skin Skin exam: Present: warm, dry Results - Labs CBC & BMP: 09/08/16 06:38 09/08/16 06:38 Assessment and Plan (1) Hilar mass Status: Acute Assessment and plan: Suspicious for cancer. Patient will likely need bronchoscopy early next week for further evaluation. Will make patient n.p.o. after midnight and hold Lovenox for possibility of bronchoscopy tomorrow. Current Visit: Yes (2) Pneumonia Status: Acute Assessment and plan: Patient admits to significant clinical improvement this morning with current therapy. Pneumonia is concerning for postobstructive pneumonia due to lung mass. Continue antibiotics and he will likely need bronchoscopy early next week , possibly tomorrow. Will repeat chest x-ray in the morning Current Visit: Yes Qualifiers: Pneumonia type: due to unspecified organism Laterality: right Lung location: lower lobe of lung Qualified Code(s): J18.1 - Lobar pneumonia, unspecified organism
[2016-09-09] MEDS: MIRTAZAPINE 30 MG TABLET PO SCH (20:05)
[2016-09-10] MEDS: ALBUTEROL/IPRATROPIUM 3 ML NEB RESP TX SCH ×5 (00:56→19:58)
[2016-09-10 07:04] LABS: Basophils % 0.2 % (0.0-0.8); Eosinophils # 0.5 10*3/uL (0.0-0.87); Eosinophils % 5.1 % (0.00-10.9); Hematocrit 33.5 VOL% (42.0-52.0); Hemoglobin 11.5 GM/DL (14.0-18.0); Immature Granulocytes % 0.4 %; Immature Granulocytes Absolute 0.04 #; Lymphocytes # 2.8 10*3/uL (1.4-4.0); Mean Corpuscular HGB Conc 34.3 GM/DL (32-36); Mean Corpuscular Hemoglobin 33 PG (27-34); Mean Corpuscular Volume 96.8 FL (87-102); Mean Platelet Volume 10.1 FL (9.6-12.0); Monocytes # 0.6 10*3/uL (0.11-0.8); Monocytes % 6.3 % (1.7-12.7); Neutrophils # 5.2 10*3/uL (1.4-7.4); Platelet Count 272 T/CUMM (130-400); Red Blood Count 3.46 MC/CUMM (3.8-5.5); Red Cell Distribution Width 12.7 % (9.3-17.3); White Blood Count 9.2 T/CUMM (4-12)
[2016-09-10] MEDS: SODIUM CHLORIDE 0.9% 1,000 ML IV SCH ×2 (07:05→21:35)
[2016-09-10 07:10] LABS: PT Patient Result 10.9 SECS
[2016-09-10 07:25] LABS: Giant Platelets Few; Hypochromasia Slight; Platelet Estimate Adequate
[2016-09-10 07:28] LABS: Magnesium 1.9 MG/DL (1.8-2.4); Osmolality,Calculated 277.3 MOS/KG (273-304); Potassium 3.6 MMOL/L (3.5-5.1)
[2016-09-10] MEDS: cloNIDine 0.1 MG TABLET PO SCH ×3 (08:13→21:15)
[2016-09-10] MEDS: guaiFENesin/DM ER 600-30 MG TABLET PO PRN (08:13)
[2016-09-10] MEDS: MELOXICAM 7.5 MG TABLET PO SCH (08:13)
[2016-09-10] MEDS: VENLAFAXINE XR 75 MG CAPSULE PO SCH ×2 (08:13→21:13)
[2016-09-10] MEDS: BACLOFEN 10 MG TABLET PO SCH ×3 (08:13→21:13)
[2016-09-10] MEDS: PRAVASTATIN 40 MG TABLET PO SCH (08:15)
[2016-09-10] MEDS: METHADONE 10 MG TABLET PO SCH ×4 (08:15→21:31)
[2016-09-10] MEDS: PANTOPRAZOLE 40 MG TABLET PO SCH (08:15)
[2016-09-10] MEDS: Biotin [Biotin] 5,000 MCG PO SCH (08:15)
[2016-09-10] MEDS: DOCUSATE SODIUM 100 MG CAPSULE PO SCH (08:15)
--- NOTE | 2016-09-10 09:10 | XRay Report ---
XR chest 2V Date: 09/10/2016 4:00 AM History: Pneumonia Comparison: 09/08/2016 Technique: PA and lateral chest Findings: The heart is normal in size. The lungs remain overexpanded with progressive atelectasis/infiltration at the right lung base with irregular density in the right infrahilar location. No definite change in the appearance of the left lung are osseous structures. Prior cholecystectomy. Impression: Progressive atelectasis/infiltration of right lung base with underlying right hilar mass. COPD. PROCEDURE INTERPRETED AT [facility] DEPARTMENT OF RADIOLOGY Final Report Signed by: Dr. Patricia Kendrick
--- NOTE | 2016-09-10 10:44 | Physician Query Form ---
CLICK EDIT DOCUMENT TO SELECT QUERY ANSWER --> OK --> SIGN Lauren Lozada RN Clinical Development Rep W) [phone] (f) [phone] [email or web address] PROVIDERS: Make your selection(s) from the choices in EACH section by typing an "x" and enter comments in the comment section. Please use your independent medical judgment in providing your response. This request does not imply that any particular answer is desired or expected. CLINICAL INDICATORS: (Providers should not edit this section) Pt. has a history of COPD. Based on documentation of "on home O2". Based on the above, could you clarify the appropriate diagnosis, if significant , that supports the above abnormalities and additional evaluation, monitoring, and/or treatment rendered: (x ) Pt. has chronic respiratory failure ( ) Pt. does not have chronic respiratory failure ( ) Other, please specify: ( ) Clinically unable to determine COMMENTS: PLEASE ALSO DOCUMENT RESPONSE IN PROGRESS NOTES AND/OR DISCHARGE SUMMARY Use of terms such as suspected, likely, or probable (associated with a specific diagnosis that is being evaluated, monitored, or treated as if it exists) are acceptable and can be restated in the discharge summary if not ruled out. NELYD
--- NOTE | 2016-09-10 11:27 | Pulmonology Progress Note ---
Pulmonary - PN: Subj Interval history: Guicho Wang, ANP-BC, GNP-BC, acting as scribe for Dr. Tristen Bailey Mr. Gabriel is a 71-year-old white male who we saw in initial pulmonary consultation on 09/07/2016. At that time, our impressions were: 1. Right lower lung pneumonia. Outpatient treatment failure. Possibly complicated by partial obstruction from lung mass 2. Right lung lung mass. Suspicious for cancer. Next #3 long history of tobacco abuse. Stop smoking 2009 2011 4. COPD 5. Lethargy. Look for CO2 retention. 6. Chronic pain. The care of Dr. Michael huerta 7. Degenerative joint disease 8. See past history 9. Mid upper epigastric pain and increased gastroesophageal reflux. Consider GI evaluation. 09/10/2016. Patient was seen today along with Mary Stewart RN, and the patient' s daughter. Today the patient is much more awake and alert. He states that he is feeling better. We discussed the CT changes with the patient and his daughter to their understanding. We feel he is now medically stable to proceed with fiberoptic bronchoscopy. The preop orders have been placed in the EMR. Will proceed with bronchoscopy in the morning under fluoroscopy. 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 He is concerned about this coming out during bronchoscopy. Will order a patch placed over the right eye prior to bronch. Medications have been reviewed. Labs have been reviewed. White count is 9200 with a normal differential; H&H 11.5/33.5; platelet count 272,000; INR 1.0; creatinine 0.60, BUN 11, electrolytes are normal ABGs on 09/07/2016 on an unlisted FiO2 showed a pH of 7.397, PCO2 34.4, PO2 55.4 , bicarb 21.8, and oxygen saturation 89.2%. Exam (Progress Note) - Constitutional Vitals: Period Temp Pulse Resp BP Sys/Yanes Pulse Ox Last 24 Hr 97.0 F-99 F 69-91 16-20 135-167/69-95 90-99 Exam: Chest is fairly clear Heart no gallop Abdomen is nontender nondistended; bowel sounds are positive 4 Extremities with nothing to suggest acute deep venous femoral phlebitis Psychiatric oriented 3 Neurologic unchanged Plan: Repeat ABGs today on present FiO2. Ammonia level. Bronchoscopy under fluoroscopy on 09/11/2016 at approximately 0830. Preop orders are in the EMR. Results - Labs CBC & BMP: 09/10/16 05:56 09/10/16 05:56
--- NOTE | 2016-09-10 13:08 | Hospitalist Progress Note ---
Assessment and Plan (1) Pneumonia Status: Acute Assessment and plan: CT of the chest. 09/07/2016. Hilar and mediastinal adenopathy and right lower lung mass that measures 40 x 42 x 52 mm. Right lower lung infiltrate compatible with pneumonia.BC-negative so far. continue with IV antibiotics, Patient will likely need bronchoscopy early next week for further evaluation.Pulm is following. Current Visit: Yes Qualifiers: Pneumonia type: due to unspecified organism Laterality: right Lung location: lower lobe of lung Qualified Code(s): J18.1 - Lobar pneumonia, unspecified organism (2) Hilar mass Status: Acute Assessment and plan: with adenopathy. Patient will likely need bronchoscopy early next week for further evaluation. Pulm is following Current Visit: Yes (3) HTN (hypertension) Status: Acute Assessment and plan: will increase Clonidine to tid, follow response. Current Visit: Yes (4) Hyperlipidemia Status: Acute Assessment and plan: on statins Current Visit: Yes (5) COPD (chronic obstructive pulmonary disease) Status: Acute Assessment and plan: stable Current Visit: Yes Hospitalist: Subjective Interval history: Patient requests for his klonopin to be restarted for his restless leg syndrome Exam - Constitutional Vitals: Period Temp Pulse Resp BP Sys/Yanes Pulse Ox Last 24 Hr 97.0 F-99 F 69-92 16-18 138-167/70-95 91-98 General appearance: no acute distress - Head Head exam: Present: normal inspection - Respiratory Respiratory exam: Present: clear to auscultation bilaterally - Cardiovascular Cardiovascular exam: Present: regular rate and rhythm - GI/Abdominal GI/Abdominal exam: Present: normal bowel sounds - Extremities Exam Extremities exam: Present: normal inspection Results - Labs CBC & BMP: 09/10/16 05:56 09/10/16 05:56 Lab Results: I have reviewed the past 24 hour labs
[2016-09-10] MEDS: clonazePAM 0.5 MG TABLET PO SCH ×3 (13:39→21:13)
[2016-09-10 13:46] LABS: ABG Base Excess -1.8 MMOL/L (-2.5-2.5); ABG HCO3 22.8 MMOL/L (20-26); ABG Oxygen Saturation 92.5 % (95-100); ABG PCO2 37.5 MM HG (35-48); ABG PH 7.391 (7.35-7.45); ABG PO2 65.8 MM HG (80-95); ABG TCO2 20.2 MMOL/L (23-27); Allen Test Positive
[2016-09-10] MEDS: GABAPENTIN 400 MG CAPSULE PO SCH ×2 (14:04→21:31)
[2016-09-10] MEDS: CASTOR OIL PO SCH (15:45)
[2016-09-10] MEDS: LEVOFLOXACIN INJ 500 MG in PREMIX 1 EACH IV SCH (15:58)
[2016-09-10] MEDS: MIRTAZAPINE 30 MG TABLET PO SCH (21:13)
[2016-09-11] MEDS: ALBUTEROL/IPRATROPIUM 3 ML NEB RESP TX SCH ×4 (01:06→20:35)
[2016-09-11 05:29] LABS: Basophils % 0.2 % (0.0-0.8); Eosinophils # 0.4 10*3/uL (0.0-0.87); Eosinophils % 3.5 % (0.00-10.9); Hematocrit 33.3 VOL% (42.0-52.0); Hemoglobin 11.2 GM/DL (14.0-18.0); Immature Granulocytes % 0.8 %; Immature Granulocytes Absolute 0.08 #; Lymphocytes # 3.8 10*3/uL (1.4-4.0); Lymphocytes % 35.5 % (21.2-54.2); Mean Corpuscular HGB Conc 33.6 GM/DL (32-36); Mean Corpuscular Hemoglobin 33 PG (27-34); Mean Corpuscular Volume 96.8 FL (87-102); Mean Platelet Volume 9.3 FL (9.6-12.0); Monocytes # 0.6 10*3/uL (0.11-0.8); Monocytes % 5.9 % (1.7-12.7); Neutrophils # 5.7 10*3/uL (1.4-7.4); Neutrophils % 54.1 % (38.7-73.9); Platelet Count 319 T/CUMM (130-400); Red Blood Count 3.44 MC/CUMM (3.8-5.5); Red Cell Distribution Width 12.7 % (9.3-17.3); White Blood Count 10.6 T/CUMM (4-12)
[2016-09-11 05:46] LABS: PT Patient Result 10.9 SECS; Partial Thromboplastin Time 29.4 SECS (0-40)
[2016-09-11] MEDS ORDERED: BENZONATATE 100 MG CAPSULE PO ONE (07:00)
[2016-09-11] MEDS ORDERED: diphenhydrAMINE 50 MG/1 ML VIAL IM ONE (07:00)
[2016-09-11] MEDS ORDERED: MEPERIDINE 50 MG/1 ML VIAL IM ONE (07:00)
[2016-09-11] MEDS ORDERED: LIDOCAINE 1% 20 ML VIAL MISC INJ ONE (07:30)
[2016-09-11] MEDS ORDERED: LIDOCAINE 4% TOP SOLN 50 ML BOTTLE RESP TX ONE (07:30)
[2016-09-11] MEDS ORDERED: LIDOCAINE 2% VISCOUS 100 ML BOTTLE SWISH/SPIT ONE (07:30)
[2016-09-11] MEDS ORDERED: EPINEPHrine 1 MG/ML VIAL ET ONE (09:21)
[2016-09-11] MEDS ORDERED: EPINEPHrine 1 MG/ML VIAL ONE (09:51)
--- NOTE | 2016-09-11 10:36 | Event Note ---
In hospital diagnostic and therapeutic fiberoptic bronchoscopy. Biopsies from the right lower lung medial basal segment and the right lower lung superior segment were sent. Brushes under fluoroscopic guidance from the superior segment and the medial basal segment of the right lower lung were sent for studies. Studies requested include cytology, pathology, Gram stain, bacterial cultures, AFB stains and culture, fungal stains and cultures. Specimens labeled bilateral lavage were sent and these involved lavages from the right upper lobe right middle lung right lower lung left upper lung and left lower lung. Also specimens were sent and label lavage from superior segment and medial basal segment of the right lower lung. This was a long detailed procedure. This is a 71-year-old white male. He has COPD. He has a chronic cough. His cough is ineffective and is unable to mobilize his sputum. His chest x-ray and CT scans have shown a mass in the right lower lung. This is medial and behind the inferior right hilum. It tends to be posterior but not quite as far posterior as one would expect with either the superior segment or the medial basal segment. These reasons patient's evaluated with fiberoptic bronchoscopy. Vocal cords were normal. Trachea was normal. Jayashree was sharp. The left mainstem bronchus was nearly totally occluded by thick tenacious secretions. These were removed with suctioning. These involve the left upper lung and the left lower lung. Both of these lobes were lavaged until clear. There was mild to moderate collapsibility of large and small airways. There were areas of erythema. There were no endobronchial lesion to suggest cancer. Lavage from this area were sent for the studies mentioned above The right mainstem bronchus was occluded with thick tenacious secretions which extended into the right upper lung the right middle lung and right lower lung. These areas were lavaged until clear and the specimens were sent for the studies mentioned above. Afterwards lavages were taken from the superior segment and the medial basal segment of the right lower lung. The orifice to the superior segment and the orifice to the medial basal segment of the right lower lung were erythematous and friable. These areas were biopsied. Attempts were made to brush the right lower lung seen on chest x-ray and CT scan. These were done under fluoroscopy. The lesion could never be entered and it appeared that this lesion did not connect to any subsegmental bronchi. There was easy bleeding from these areas and topical dilute epinephrine and iced saline were required to control the bleeding. This was controlled at the end of the procedure. Patient tolerated procedure well. There were no complications. Follow-up chest x-rays pending. Findings were discussed with the patient and with his daughter. Impression. 1. COPD 2. Retained secretions 3. Ineffective cough 4. Erosive friable bronchitis in the superior segment medial basal segment of the right lower lung. 5. Right lower lung mass that does not appear to have an endobronchial connection. 6. History of tobacco abuse Plan. 1. Follow-up chest x-ray 2. Check bronchoscopy specimens 3. There is a small possibility of a mass will disappear with the largest that were done today. If that happens this means that it is an atypical infiltrate. If not at a later date we need to consider transthoracic needle biopsy. This will be done by interventional radiology.
--- NOTE | 2016-09-11 10:46 | Pulmonology Progress Note ---
Pulmonary - PN: Subj Interval history: Mr. Gabriel is a 71-year-old white male who we saw in initial pulmonary consultation on 09/07/2016. At that time, our impressions were: 1. Right lower lung pneumonia. Outpatient treatment failure. Possibly complicated by partial obstruction from lung mass 2. Right lung lung mass. Suspicious for cancer. Next #3 long history of tobacco abuse. Stop smoking 2009 2011 4. COPD 5. Lethargy. Look for CO2 retention. 6. Chronic pain. The care of Dr. Michael huerta 7. Degenerative joint disease 8. See past history 9. Mid upper epigastric pain and increased gastroesophageal reflux. Consider GI evaluation. 09/10/2016. Patient was seen today along with Mary Stewart RN, and the patient' s daughter. Today the patient is much more awake and alert. He states that he is feeling better. We discussed the CT changes with the patient and his daughter to their understanding. We feel he is now medically stable to proceed with fiberoptic bronchoscopy. The preop orders have been placed in the EMR. Will proceed with bronchoscopy in the morning under fluoroscopy. 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 He is concerned about this coming out during bronchoscopy. Will order a patch placed over the right eye prior to bronch. 09/11/2016. Earlier today the patient had a fiberoptic bronchoscopy. He was loaded with secretions bilaterally. These were removed. He had erosive friable bronchitis in the superior segment and the medial basal segment of the right lower lung. Biopsies were taken from these areas and segments were lavaged. Attempt was made to brush right lower lung mass under fluoroscopic guidance but it did not appear that there was an endobronchial connection. Each segment was lavaged and the specimens have been sent for cytology as well as studies for bacterial fungus and AFB. Follow-up chest x-ray is ordered for tomorrow. There is a small possibility that lavage could have resolved an atypical appearing pneumonia. If not we are left with a mass cannot be reached with bronchoscope and will require a transthoracic biopsy. This would be done by interventional radiology. So far there are no positive cultures. CBC is stable. INR is 1.0. Medications have been reviewed. Labs have been reviewed. White count is 9200 with a normal differential; H&H 11.5/33.5; platelet count 272,000; INR 1.0; creatinine 0.60, BUN 11, electrolytes are normal ABGs on 09/07/2016 on an unlisted FiO2 showed a pH of 7.397, PCO2 34.4, PO2 55.4 , bicarb 21.8, and oxygen saturation 89.2%. Physical exam. Vital signs. See below Psychiatric. Oriented 3 alert and oriented Neurologic. Cranial nerves are intact long track motor functions intact Face is symmetrical with a false eye on the right. Lips and tongue are normal. Neck. Symmetrical. No meningismus. Lymphatics. No submandibular cervical supraclavicular or epitrochlear adenopathy Chest. Large airway congestion. No chest wall tenderness Heart. No gallop. Abdomen. Nontender. Positive bowel sounds Lower extremities. Nothing to suggest deep venous thrombophlebitis The remainder the physical exam is negative. Plan. 1. Check fiberoptic bronchoscopy specimens. (09/11/2016) 2. Pending the results of #1 we may want to consider a transthoracic needle biopsy of the right lower lung mass. 3. 09/11/2016. Continue present treatment. Ex Exam (Progress Note) - Constitutional Vitals: Period Temp Pulse Resp BP Sys/Yanes Pulse Ox Last 24 Hr 97.5 F-98.8 F 76-108 12-26 141-195/71-98 88-99 Results - Labs CBC & BMP: 09/11/16 05:14 09/10/16 05:56
[2016-09-11] MEDS: Biotin [Biotin] 5,000 MCG PO SCH (11:52)
[2016-09-11] MEDS: PRAVASTATIN 40 MG TABLET PO SCH (11:52)
[2016-09-11] MEDS: PANTOPRAZOLE 40 MG TABLET PO SCH (11:53)
[2016-09-11] MEDS: MELOXICAM 7.5 MG TABLET PO SCH (11:53)
[2016-09-11] MEDS: DOCUSATE SODIUM 100 MG CAPSULE PO SCH (11:53)
[2016-09-11] MEDS: METHADONE 10 MG TABLET PO SCH ×4 (11:54→20:58)
[2016-09-11] MEDS: VENLAFAXINE XR 75 MG CAPSULE PO SCH ×2 (11:55→20:57)
[2016-09-11] MEDS: cloNIDine 0.1 MG TABLET PO SCH ×3 (11:55→20:58)
[2016-09-11] MEDS: GABAPENTIN 400 MG CAPSULE PO SCH ×3 (11:55→20:58)
[2016-09-11] MEDS: BACLOFEN 10 MG TABLET PO SCH ×3 (11:55→20:57)
[2016-09-11] MEDS: SODIUM CHLORIDE 0.9% 1,000 ML IV SCH ×2 (13:28→17:03)
--- NOTE | 2016-09-11 13:36 | Hospitalist Progress Note ---
Assessment and Plan (1) Pneumonia Status: Acute Assessment and plan: CT of the chest. 09/07/2016. Hilar and mediastinal adenopathy and right lower lung mass that measures 40 x 42 x 52 mm. Right lower lung infiltrate compatible with pneumonia.BC-negative so far. Patient had a fiberoptic bronchoscopy today. If bronchosopy was not enough for the biopsy, IR may need to do a transthoracic biopsy. So far there are no positive cultures. Plan continue with IV antibiotics, follow Pulm's recommendations Current Visit: Yes Qualifiers: Pneumonia type: due to unspecified organism Laterality: right Lung location: lower lobe of lung Qualified Code(s): J18.1 - Lobar pneumonia, unspecified organism (2) Hilar mass Status: Acute Assessment and plan: with adenopathy. Patient will likely need bronchoscopy early next week for further evaluation. Pulm is following, as stated above Current Visit: Yes (3) HTN (hypertension) Status: Acute Assessment and plan: will add Coreg 12.5 mg bid, follow response. TSH, UA Current Visit: Yes (4) Hyperlipidemia Status: Acute Assessment and plan: on statins Current Visit: Yes (5) COPD (chronic obstructive pulmonary disease) Status: Acute Assessment and plan: stable Current Visit: Yes Hospitalist: Subjective Interval history: Patient had a fibreroptic bronchoscopy today. Exam - Constitutional Vitals: Period Temp Pulse Resp BP Sys/Yanes Pulse Ox Last 24 Hr 97.5 F-98.8 F 76-108 12-26 141-195/71-98 88-99 General appearance: no acute distress, other (artificial right eye) - Head Head exam: Present: normal inspection - Respiratory Respiratory exam: Present: rales - Cardiovascular Cardiovascular exam: Present: regular rate and rhythm - GI/Abdominal GI/Abdominal exam: Present: normal bowel sounds - Extremities Exam Extremities exam: Present: normal inspection Results - Labs CBC & BMP: 09/11/16 05:14 09/10/16 05:56 Lab Results: I have reviewed the past 24 hour labs
[2016-09-11 14:06] LABS: Free T4 (Free Thyroxine) 1.14 NG/DL (0.76-1.46); Thyroid Stimulating Hormone 3.21 uIU/ml (0.358-3.74)
[2016-09-11] MEDS: CARVEDILOL 12.5 MG TABLET PO SCH ×2 (17:01→20:59)
[2016-09-11] MEDS: ENOXAPARIN 40 MG/0.4 ML SYRINGE SUBCUT SCH (17:02)
[2016-09-11] MEDS: CASTOR OIL PO SCH (17:03)
[2016-09-11] MEDS: LEVOFLOXACIN INJ 500 MG in PREMIX 1 EACH IV SCH (17:03)
[2016-09-11] MEDS: MIRTAZAPINE 30 MG TABLET PO SCH (20:57)
[2016-09-11] MEDS: clonazePAM 0.5 MG TABLET PO SCH (20:58)
[2016-09-11 23:22] LABS: Apearance,Urine CLEAR (Clear); Bilirubin,Urine Negative (Negative); Blood, Urine Negative (Negative); Glucose,Urine (UA) Negative (Negative); Ketones,Urine 20 mg/dL (Negative); Mucus,Urine Moderate /LPF (Occasional); Nitrite,Urine Negative (Negative); Protein,Urine 30 MG/DL; RBC,Urine 4 /HPF (0-4); Urine Color Yellow (Yellow); Urine Specific Gravity 1.023 (1.001-1.035); Urine Urobilinogen < 2.0 EU/DL (0.2-1.0); WBC,Urine 4 /HPF (0-6)
[2016-09-12] MEDS: ALBUTEROL/IPRATROPIUM 3 ML NEB RESP TX SCH ×4 (00:59→18:55)
--- NOTE | 2016-09-12 08:52 | XRay Report ---
Exam: XR chest 2V Date: 09/12/2016 4:00 AM Indication: Pneumonia post bronchoscopy Comparison: 09/10/2016 Technical:PA lateral Findings: A left-sided PICC line has been placed. There is a low volume right effusion and atelectatic change. The examination reveals a masslike density in the right infrahilar region measuring approximately 4.8 x 3.3 cm. Bony structures are unremarkable. The mediastinum is intact. Impression: 1. Interval placement of a left-sided PICC line with the distal tip in the right atrium 2. Mass lesion in the right infrahilar region posteriorly medially measuring up to 4.[address] scan revealed mass in this region. This is highly suspicious for malignancy PROCEDURE INTERPRETED AT [facility] DEPARTMENT OF RADIOLOGY Final Report Signed by: Dr. Tristen Turner
--- NOTE | 2016-09-12 09:16 | Post Interventional Procedure ---
Pre-op diagnosis: Pneumonia Post-op diagnosis: same Procedure: Left upper extremity PICC line Flouroscopy: 0.1 minute Radiologist: Braulio Contreras Anesthesia: local Specimens: none sent Estimated blood loss: none Complications: none Condition: stable
[2016-09-12] MEDS: cloNIDine 0.1 MG TABLET PO SCH ×3 (09:26→21:15)
[2016-09-12] MEDS: GABAPENTIN 400 MG CAPSULE PO SCH ×3 (09:26→21:15)
[2016-09-12] MEDS: BACLOFEN 10 MG TABLET PO SCH ×3 (09:26→21:15)
[2016-09-12] MEDS: CARVEDILOL 12.5 MG TABLET PO SCH ×2 (09:26→21:15)
[2016-09-12] MEDS: MELOXICAM 7.5 MG TABLET PO SCH (09:26)
[2016-09-12] MEDS: PRAVASTATIN 40 MG TABLET PO SCH (09:26)
[2016-09-12] MEDS: DOCUSATE SODIUM 100 MG CAPSULE PO SCH (09:27)
[2016-09-12] MEDS: PANTOPRAZOLE 40 MG TABLET PO SCH (09:27)
[2016-09-12] MEDS: Biotin [Biotin] 5,000 MCG PO SCH (09:27)
[2016-09-12] MEDS: METHADONE 10 MG TABLET PO SCH ×4 (09:35→21:26)
[2016-09-12] MEDS: VENLAFAXINE XR 75 MG CAPSULE PO SCH ×2 (09:35→21:14)
--- NOTE | 2016-09-12 10:43 | Interventional Radiology Rpt ---
IR PICC line insertion, US guide vascular access Indication: Pneumonia requiring IV antibiotics. Unable to maintain peripheral IV access. PICC LINE Description: A formal timeout was performed. Maximum sterile barrier technique was used. Sonographic evaluation of the right upper extremity demonstrates patent and compressible basilic vein. The upper arm was prepped and draped in sterile fashion. 3 cc 1% lidocaine was administered subcutaneously. Under sonographic guidance, a micropuncture needle was advanced into the vein. A captured sonographic image documents the position of the needle. Needle was exchanged over a wire for a peel-away sheath. A dual lumen power PICC, cut to 48 cm, was advanced over the wire until the tip was at the RA-SVC junction. The position of the catheter was confirmed with fluoroscopic guidance and an image stored in PACS. The wire and sheath were removed. Both ports of the PICC were aspirated and flushed with heparinized saline. The device was secured with a StatLock. Fluoroscopy: 0.1 minute. Impression: PICC line ready for immediate use. Routine catheter care. PROCEDURE INTERPRETED AT [facility] DEPARTMENT OF RADIOLOGY Final Report Signed by: Braulio Contreras M.D.
--- NOTE | 2016-09-12 12:06 | Pulmonology Progress Note ---
Pulmonary - PN: Subj Interval history: Guicho Wang, ANP-BC, GNP-BC, acting as scribe for Dr. Tristen Bailey Mr. Gabriel is a 71-year-old white male who we saw in initial pulmonary consultation on 09/07/2016. At that time, our impressions were: 1. Right lower lung pneumonia. Outpatient treatment failure. Possibly complicated by partial obstruction from lung mass 2. Right lung lung mass. Suspicious for cancer. Next #3 long history of tobacco abuse. Stop smoking 2009 2011 4. COPD 5. Lethargy. Look for CO2 retention. 6. Chronic pain. The care of Dr. Michael huerta 7. Degenerative joint disease 8. See past history 9. Mid upper epigastric pain and increased gastroesophageal reflux. Consider GI evaluation. 09/10/2016. Patient was seen today along with Mary Stewart RN, and the patient' s daughter. Today the patient is much more awake and alert. He states that he is feeling better. We discussed the CT changes with the patient and his daughter to their understanding. We feel he is now medically stable to proceed with fiberoptic bronchoscopy. The preop orders have been placed in the EMR. Will proceed with bronchoscopy in the morning under fluoroscopy. 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 He is concerned about this coming out during bronchoscopy. Will order a patch placed over the right eye prior to bronch. 09/11/2016. Earlier today the patient had a fiberoptic bronchoscopy. He was loaded with secretions bilaterally. These were removed. He had erosive friable bronchitis in the superior segment and the medial basal segment of the right lower lung. Biopsies were taken from these areas and segments were lavaged. Attempt was made to brush right lower lung mass under fluoroscopic guidance but it did not appear that there was an endobronchial connection. Each segment was lavaged and the specimens have been sent for cytology as well as studies for bacterial fungus and AFB. Follow-up chest x-ray is ordered for tomorrow. There is a small possibility that lavage could have resolved an atypical appearing pneumonia. If not we are left with a mass cannot be reached with bronchoscope and will require a transthoracic biopsy. This would be done by interventional radiology. So far there are no positive cultures. CBC is stable. INR is 1.0. 09/12/16. The patient was seen today along with his daughter and Marguerite Leach RN. The patient underwent FOB yesterday. The official report has not been completed, but Dr. Bailey spoke with Dr. Anderson and there were no malignant cells. Dr. Bailey was unable to access this area by bronchoscopy. Please see the FOB event note for more information. We discussed this with the patient and his daughter. We will consult IR for possible needle biopsy. The patient had a PICC placed earlier today. Medications have been reviewed. Labs have been reviewed. ABGs on 09/07/2016 on an unlisted FiO2 showed a pH of 7.397, PCO2 34.4, PO2 55.4 , bicarb 21.8, and oxygen saturation 89.2%. Exam (Progress Note) - Constitutional Vitals: Period Temp Pulse Resp BP Sys/Yanes Pulse Ox Last 24 Hr 97.3 F-98.6 F 62-116 17-20 103-162/57-84 90-98 Exam: Chest is fairly clear Heart no gallop Abdomen is nontender nondistended; bowel sounds are positive 4 Extremities with nothing to suggest acute deep venous thrombophlebitis Psychiatric oriented 3 Neurologic unchanged Plan: Consult IR for consideration of needle biopsy. Continue present treatment. See orders. Results - Labs CBC & BMP: 09/11/16 05:14 09/10/16 05:56
[2016-09-12] MEDS: ENOXAPARIN 40 MG/0.4 ML SYRINGE SUBCUT SCH (14:30)
--- NOTE | 2016-09-12 15:58 | IR History and Physical Update ---
IR Pre-Procedure - History and Physical H&P was reviewed, the patient examined and there: are no changes in the patients condition since last H&P was completed. Reason for procedure:: 71-year-old male with right hilar mass, unknown etiology. Needs biopsy. Nondiagnostic bronchoscopy. - Dictation Physical: refer to H&P completed by admitting physician - Physical Exam Vital Signs: Last Vital Signs Temp 98.1 F 09/12/16 11:37 Pulse 62 09/12/16 13:19 Resp 18 09/12/16 13:19 BP 162/80 09/12/16 11:37 Pulse Ox 99 09/12/16 13:19 Mental Status: alert and oriented - Sedation IR anesthesia plan for sedation: none ASA Class: II - Risks Risks: Procedures explained. Risks discussed include, but not limited to, the following:[Pneumothorax, chest tube placement, bleeding including hemoptysis ] All questions answered. The following alternatives were discussed:[ observation, surgery] Risks and benefits discussed with: patient Consent obtained from: patient Assessment and Plan - Time spent with patient Time spent with patient: Less than 30 minutes (1) Hilar mass Status: Acute Assessment and plan: Assessment: Right perihilar mass. Plan: CT guided biopsy tomorrow morning. N.p.o. after midnight tonight. Current Visit: Yes
[2016-09-12] MEDS: SODIUM CHLORIDE 0.45% 1,000 ML IV SCH (16:10)
[2016-09-12] MEDS: CASTOR OIL PO SCH (16:45)
[2016-09-12] MEDS: LEVOFLOXACIN INJ 500 MG in PREMIX 1 EACH IV SCH (16:45)
--- NOTE | 2016-09-12 19:33 | Hospitalist Progress Note ---
Assessment and Plan (1) Pneumonia Status: Acute Assessment and plan: CT of the chest. 09/07/2016. Hilar and mediastinal adenopathy and right lower lung mass that measures 40 x 42 x 52 mm. Right lower lung infiltrate compatible with pneumonia.BC-negative so far. S/P fiberoptic bronchoscopy today. IR to do a CT guided biopsy of Right perihilar mass tomorrow. Plan continue with IV antibiotics, follow Pulm's recommendations Current Visit: Yes Qualifiers: Pneumonia type: due to unspecified organism Laterality: right Lung location: lower lobe of lung Qualified Code(s): J18.1 - Lobar pneumonia, unspecified organism (2) Hilar mass Status: Acute Assessment and plan: with adenopathy. Pulm is following, as stated above Current Visit: Yes (3) HTN (hypertension) Status: Acute Assessment and plan: stable Current Visit: Yes (4) Hyperlipidemia Status: Acute Assessment and plan: on statins Current Visit: Yes (5) COPD (chronic obstructive pulmonary disease) Status: Acute Assessment and plan: stable Current Visit: Yes Hospitalist: Subjective Interval history: Patient seen sitting up in a chair and has no new complaints. He is scheduled for a CT guided biopsy of Right perihilar mass tomorrow. Exam - Constitutional Vitals: Period Temp Pulse Resp BP Sys/Yanes Pulse Ox Last 24 Hr 97.3 F-98.5 F 62-88 17-20 103-162/57-80 90-99 General appearance: no acute distress, other (right artificial eye) - Head Head exam: Present: normal inspection - Respiratory Respiratory exam: Present: clear to auscultation bilaterally - Cardiovascular Cardiovascular exam: Present: regular rate and rhythm - GI/Abdominal GI/Abdominal exam: Present: normal bowel sounds - Extremities Exam Extremities exam: Present: normal inspection Results - Labs CBC & BMP: 09/11/16 05:14 09/10/16 05:56 Lab Results: I have reviewed the past 24 hour labs
[2016-09-12] MEDS: MIRTAZAPINE 30 MG TABLET PO SCH (21:14)
[2016-09-12] MEDS: clonazePAM 0.5 MG TABLET PO SCH (21:16)
[2016-09-13] MEDS: ALBUTEROL/IPRATROPIUM 3 ML NEB RESP TX SCH ×4 (00:17→19:16)
[2016-09-13] MEDS ORDERED: DIAZEPAM 5 MG TABLET PO ONE (05:00)
[2016-09-13] MEDS: BENZONATATE 100 MG CAPSULE PO PRN (09:19)
[2016-09-13] MEDS: BACLOFEN 10 MG TABLET PO SCH ×4 (10:18→20:49)
[2016-09-13] MEDS: VENLAFAXINE XR 75 MG CAPSULE PO SCH ×3 (10:18→20:48)
[2016-09-13] MEDS: Biotin [Biotin] 5,000 MCG PO SCH (10:18)
[2016-09-13] MEDS: CARVEDILOL 12.5 MG TABLET PO SCH ×3 (10:18→20:49)
[2016-09-13] MEDS: cloNIDine 0.1 MG TABLET PO SCH ×4 (10:18→20:48)
[2016-09-13] MEDS: DOCUSATE SODIUM 100 MG CAPSULE PO SCH (10:18)
[2016-09-13] MEDS: METHADONE 10 MG TABLET PO SCH ×5 (10:18→20:49)
[2016-09-13] MEDS: PRAVASTATIN 40 MG TABLET PO SCH ×2 (10:19→11:03)
[2016-09-13] MEDS: PANTOPRAZOLE 40 MG TABLET PO SCH ×2 (10:19→11:02)
[2016-09-13] MEDS: MELOXICAM 7.5 MG TABLET PO SCH ×2 (10:19→11:04)
[2016-09-13] MEDS: GABAPENTIN 400 MG CAPSULE PO SCH ×4 (10:19→20:49)
--- NOTE | 2016-09-13 10:26 | Post Interventional Procedure ---
Pre-op diagnosis: Right hilar mass Post-op diagnosis: same Procedure: CT guided bx Radiologist: Braulio Contreras Anesthesia: local Specimens: other (2 x 18 ga cores) Estimated blood loss: none Complications: none Condition: stable Assessment and Plan - Time spent with patient Time spent with patient: Less than 30 minutes (1) Hilar mass Status: Acute Assessment and plan: Assessment: Right perihilar mass. Plan: CT guided biopsy tomorrow morning. N.p.o. after midnight tonight. Current Visit: Yes
--- NOTE | 2016-09-13 10:34 | XRay Report ---
Exam: XR chest post procedure Date: 09/13/2016 Indication: Post lung biopsy Comparison: 09/12/2016 Technical: Inspiration and expiration imaging. Findings: Left-sided PICC line is present. A mass is present in the right infrahilar region. Low volume right effusion. No pneumothorax. The heart is normal in size. Mediastinum is otherwise intact. Impression: 1. Right infrahilar mass without pneumothorax with tiny low volume effusion. 2. Stable position of left-sided PICC line with distal tip in the superior vena cava. PROCEDURE INTERPRETED AT [facility] DEPARTMENT OF RADIOLOGY Final Report Signed by: Dr. Tristen Turner
--- NOTE | 2016-09-13 10:40 | Pulmonology Progress Note ---
Pulmonary - PN: Subj Interval history: Mr. Gabriel is a 71-year-old white male who we saw in initial pulmonary consultation on 09/07/2016. At that time, our impressions were: 1. Right lower lung pneumonia. Outpatient treatment failure. Possibly complicated by partial obstruction from lung mass 2. Right lung lung mass. Suspicious for cancer. Next #3 long history of tobacco abuse. Stop smoking 2009 2011 4. COPD 5. Lethargy. Look for CO2 retention. 6. Chronic pain. The care of Dr. Michael huerta 7. Degenerative joint disease 8. See past history 9. Mid upper epigastric pain and increased gastroesophageal reflux. Consider GI evaluation. 09/10/2016. Patient was seen today along with Mary Stewart RN, and the patient' s daughter. Today the patient is much more awake and alert. He states that he is feeling better. We discussed the CT changes with the patient and his daughter to their understanding. We feel he is now medically stable to proceed with fiberoptic bronchoscopy. The preop orders have been placed in the EMR. Will proceed with bronchoscopy in the morning under fluoroscopy. 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 He is concerned about this coming out during bronchoscopy. Will order a patch placed over the right eye prior to bronch. 09/11/2016. Earlier today the patient had a fiberoptic bronchoscopy. He was loaded with secretions bilaterally. These were removed. He had erosive friable bronchitis in the superior segment and the medial basal segment of the right lower lung. Biopsies were taken from these areas and segments were lavaged. Attempt was made to brush right lower lung mass under fluoroscopic guidance but it did not appear that there was an endobronchial connection. Each segment was lavaged and the specimens have been sent for cytology as well as studies for bacterial fungus and AFB. Follow-up chest x-ray is ordered for tomorrow. There is a small possibility that lavage could have resolved an atypical appearing pneumonia. If not we are left with a mass cannot be reached with bronchoscope and will require a transthoracic biopsy. This would be done by interventional radiology. So far there are no positive cultures. CBC is stable. INR is 1.0. 09/12/16. The patient was seen today along with his daughter and Marguerite Leach RN. The patient underwent FOB yesterday. The official report has not been completed, but Dr. Bailey spoke with Dr. Sprayberry and there were no malignant cells. Dr. Bailey was unable to access this area by bronchoscopy. Please see the FOB event note for more information. We discussed this with the patient and his daughter. We will consult IR for possible needle biopsy. The patient had a PICC placed earlier today. Medications have been reviewed. Labs have been reviewed. ABGs on 09/07/2016 on an unlisted FiO2 showed a pH of 7.397, PCO2 34.4, PO2 55.4 , bicarb 21.8, and oxygen saturation 89.2%. 09/13/2016. Patient's for interventional radiology transthoracic biopsy of right lower lung mass today. His chest is clear and he is breathing comfortably lying flat in bed. He has no new complaints no new requests. His bronchoscopy specimens are growing a gram-positive cocci which has not been identified and there are no sensitivities available. INR is 1.0. Thyroid function tests are normal. Labs been reviewed. Medicines have been reviewed. Exam (Progress Note) - Constitutional Vitals: Period Temp Pulse Resp BP Sys/Yanes Pulse Ox Last 24 Hr 97.3 F-98.6 F 62-116 17-20 103-162/57-84 90-98 Exam: Face. Symmetrical. Lips and tongue are normal. Neck. Symmetrical. No meningismus. Lymphatics. No submandibular cervical supraclavicular or epitrochlear adenopathy. Chest is fairly clear Heart no gallop Abdomen is nontender nondistended; bowel sounds are positive 4 Extremities with nothing to suggest acute deep venous thrombophlebitis Psychiatric oriented 3 Neurologic unchanged. Cranial nerves are intact long track motor functions intact The remainder the physical exam is noncontributory and negative Plan. 1. Transthoracic biopsy of right lower lung mass today. 2. Continue present medicines. Patient made very good progress from a pulmonary standpoint. Exam (Progress Note) - Constitutional Vitals: Period Temp Pulse Resp BP Sys/Yanes Pulse Ox Last 24 Hr 97.1 F-98.5 F 62-88 16-24 132-179/64-81 30-99 Results - Labs CBC & BMP: 09/11/16 05:14 09/10/16 05:56
--- NOTE | 2016-09-13 11:37 | CT Report ---
CT biopsy lung wo coreRT Indication: Right hilar mass. CT-GUIDED BIOPSY RIGHT HILAR MASS Description: A formal timeout was performed. Patient was placed right lateral decubitus on the CT table and relocation specialist imaging obtained. The right back skin overlying the target lesion was prepped and draped in a sterile fashion. 5 cc 1% lidocaine was injected. Under CT fluoroscopic guidance, a 17-gauge guide needle was advanced into the lesion. Multiple 18-gauge core biopsies were obtained. Specimen was sent for routine pathology. The needle was removed and final CT imaging showed no evidence of pneumothorax. Patient tolerated the procedure well. Specimen: 3 x 18 gauge core samples right hilar mass. Impression: CT-guided biopsy right hilar pulmonary mass. PROCEDURE INTERPRETED AT [facility] DEPARTMENT OF RADIOLOGY Final Report Signed by: Braulio Contreras M.D.
--- NOTE | 2016-09-13 12:56 | CT Report ---
Exam: CT abdomen pelvis w con Date: 09/13/2016 8:44 AM Comparison: CT chest 09/07/2016 Indication: Mass right lung Total DLP: 1010.5 mGy*cm Technical: Oral contrast was administered. Images were obtained from the lung bases to the iliac crest continuation through the pelvis with 100 cc of Omnipaque 350 with axial sagittal coronal imaging available for review. Dose reduction was performed with decreasing kv and mA and automated exposure Findings: Lung bases: Large mass in the right base posteriorly measuring approximately 3.5 x 4.2 cm with an area of satellite nodularity present in the right base posteriorly measuring 2 cm with some postobstructive pneumonitis changes. Left lung is clear. Small area of nodularity is present in the anterior right base measuring 2.2 cm. Liver and Spleen: Mild fatty infiltration of the liver present. The hepatic and portal veins unremarkable. The spleen is intact. Gallbladder and Pancreas: Prior cholecystectomy. The pancreas reveals mild fatty infiltration. Adrenals: Unremarkable Kidneys: Both kidneys are equally perfused and demonstrate no evidence for obstructive uropathy. Stomach: Incomplete distended with air-fluid and debris with contrast present. Retroperitoneum: No enlarged lymph nodes. Aorta and IVC: Vascular plaque in the aortoiliac vessels. Near occlusion of the right common iliac artery is present. The IVC is patent. Bowel and Mesentery: Large findings stool in the right colon. Diverticular changes present in the rectosigmoid colon. Pelvis: Bladder: Incompletely distended with contrast Fluid: No free fluid identified. Lymph nodes: No enlarged lymph nodes. Fat-containing inguinal canal present on the left Pelvic organs: Prostate calcifications are present. The prostate gland is not significantly enlarged. Osseous structures: No suspicious appearing osseous abnormalities noted. Impression: 1. Mass lesions multiple levels in the right chest with post obstructive pneumonitis changes. 2. Fatty infiltration of the liver 3. Diverticulosis without diverticulitis. 4. Prostate calcifications 5. Prior cholecystectomy. PROCEDURE INTERPRETED AT [facility] DEPARTMENT OF RADIOLOGY Final Report Signed by: Dr. Tristen Turner
--- NOTE | 2016-09-13 13:03 | XRay Report ---
Exam: XR chest inspiration/expiration Date: 09/13/2016 1:00 PM Indication: Postbiopsy Comparison: 10:08 AM same date Technical: Inspiration and expiration imaging Findings: Left-sided PICC line is present. A right infrahilar hilar mass present with atelectatic change trading effusion in the right base without pneumothorax. Oxygen tubing is present. Heart is mildly prominent. Left lung is clear Impression: 1. No pneumothorax following lung biopsy with stable position of the PICC line left-sided approach with mass in the right hilar infrahilar region and right basilar atelectatic change and effusion PROCEDURE INTERPRETED AT [facility] DEPARTMENT OF RADIOLOGY Final Report Signed by: Dr. Tristen Turner
--- NOTE | 2016-09-13 13:38 | Hospitalist Progress Note ---
Assessment and Plan (1) Pneumonia Status: Acute Assessment and plan: CT of the chest. 09/07/2016. Hilar and mediastinal adenopathy and right lower lung mass that measures 40 x 42 x 52 mm. Right lower lung infiltrate compatible with pneumonia.BC-negative so far. S/P fiberoptic bronchoscopy, bronchial washings growing a gram-positive cocci which has not been identified and there are no sensitivities available IR to do a CT guided biopsy of Right perihilar mass today Plan will give a dose of IV vanc continue with IV Levaquin Follow Pulm's recommendations and biopsy report when taken Current Visit: Yes Qualifiers: Pneumonia type: due to unspecified organism Laterality: right Lung location: lower lobe of lung Qualified Code(s): J18.1 - Lobar pneumonia, unspecified organism (2) Hilar mass Status: Acute Assessment and plan: with adenopathy. Pulm is following, as stated above CT abd/pelvis-noted Current Visit: Yes (3) HTN (hypertension) Status: Acute Assessment and plan: stable Current Visit: Yes (4) Hyperlipidemia Status: Acute Assessment and plan: on statins Current Visit: Yes (5) COPD (chronic obstructive pulmonary disease) Status: Acute Assessment and plan: stable Current Visit: Yes Hospitalist: Subjective Interval history: 71yr old admitted for pneumonia, CT showing a lung mass which is scheduled for a CT guided biopsy today. Pt had no new issues this am.. Exam - Constitutional Vitals: Period Temp Pulse Resp BP Sys/Yanes Pulse Ox Last 24 Hr 97.1 F-98.5 F 63-88 16-24 132-179/64-92 30-98 General appearance: no acute distress, other (right artificial eye) - Head Head exam: Present: normal inspection - Respiratory Respiratory exam: Present: clear to auscultation bilaterally - Cardiovascular Cardiovascular exam: Present: regular rate and rhythm - GI/Abdominal GI/Abdominal exam: Present: normal bowel sounds - Extremities Exam Extremities exam: Present: normal inspection Results - Labs CBC & BMP: 09/11/16 05:14 09/10/16 05:56 Lab Results: I have reviewed the past 24 hour labs
[2016-09-13] MEDS ORDERED: VANCOMYCIN INJ 1,000 MG in SODIUM CHLORIDE 0.9% 250 ML IV ONE (14:00)
[2016-09-13] MEDS: ENOXAPARIN 40 MG/0.4 ML SYRINGE SUBCUT SCH (15:34)
[2016-09-13] MEDS: SODIUM CHLORIDE 0.45% 1,000 ML IV SCH (15:48)
[2016-09-13] MEDS: CASTOR OIL PO SCH (16:47)
[2016-09-13] MEDS: LEVOFLOXACIN INJ 500 MG in PREMIX 1 EACH IV SCH (17:30)
[2016-09-13] MEDS: clonazePAM 0.5 MG TABLET PO SCH (20:48)
[2016-09-13] MEDS: MIRTAZAPINE 30 MG TABLET PO SCH (20:49)
[2016-09-14] MEDS: ALBUTEROL/IPRATROPIUM 3 ML NEB RESP TX SCH ×4 (00:30→18:50)
[2016-09-14 07:35] LABS: Basophils % 0.2 % (0.0-0.8); Eosinophils # 0.4 10*3/uL (0.0-0.87); Eosinophils % 4.5 % (0.00-10.9); Hematocrit 32.6 VOL% (42.0-52.0); Hemoglobin 10.9 GM/DL (14.0-18.0); Immature Granulocytes % 0.6 %; Immature Granulocytes Absolute 0.06 #; Lymphocytes # 3.4 10*3/uL (1.4-4.0); Lymphocytes % 35.3 % (21.2-54.2); Mean Corpuscular HGB Conc 33.4 GM/DL (32-36); Mean Corpuscular Hemoglobin 33 PG (27-34); Mean Corpuscular Volume 97.9 FL (87-102); Mean Platelet Volume 9.4 FL (9.6-12.0); Monocytes # 0.8 10*3/uL (0.11-0.8); Monocytes % 8.5 % (1.7-12.7); Neutrophils # 4.9 10*3/uL (1.4-7.4); Neutrophils % 50.9 % (38.7-73.9); Platelet Count 291 T/CUMM (130-400); Red Blood Count 3.33 MC/CUMM (3.8-5.5); Red Cell Distribution Width 13.2 % (9.3-17.3); White Blood Count 9.7 T/CUMM (4-12)
[2016-09-14 08:07] LABS: Bilirubin,Total 0.5 MG/DL (0.2-1.0); Calcium 8.4 MG/DL (8.5-10.1); Osmolality,Calculated 281.1 MOS/KG (273-304); Potassium 3.5 MMOL/L (3.5-5.1)
[2016-09-14] MEDS: CARVEDILOL 12.5 MG TABLET PO SCH ×2 (08:07→22:37)
[2016-09-14] MEDS: VENLAFAXINE XR 75 MG CAPSULE PO SCH ×2 (08:07→22:37)
[2016-09-14] MEDS: BACLOFEN 10 MG TABLET PO SCH ×3 (08:07→22:36)
[2016-09-14] MEDS: GABAPENTIN 400 MG CAPSULE PO SCH ×3 (08:08→22:35)
[2016-09-14] MEDS: METHADONE 10 MG TABLET PO SCH ×4 (08:08→22:35)
[2016-09-14] MEDS: MELOXICAM 7.5 MG TABLET PO SCH (08:08)
[2016-09-14] MEDS: PANTOPRAZOLE 40 MG TABLET PO SCH (08:08)
[2016-09-14] MEDS: DOCUSATE SODIUM 100 MG CAPSULE PO SCH (08:08)
[2016-09-14] MEDS: PRAVASTATIN 40 MG TABLET PO SCH (08:08)
[2016-09-14] MEDS: cloNIDine 0.1 MG TABLET PO SCH ×3 (08:08→22:36)
[2016-09-14] MEDS: Biotin [Biotin] 5,000 MCG PO SCH (08:08)
--- NOTE | 2016-09-14 09:32 | XRay Report ---
History: Status post lung biopsy. Right hilar mass Date: 09/14/2016 at 9:20 AM Study: Chest x-ray PA and lateral Comparison exam: 09/13/2016 The left PICC line is well-positioned. The cardiac silhouette is not enlarged. The mediastinal contour is unchanged. There is soft tissue mass in the right infrahilar area as before. There is a small right-sided pleural effusion. There is mild strandy subsegmental atelectasis in the right lung base. There is no pneumothorax. Osseous structures are unchanged. Impression: There is no evidence of a pneumothorax. Mild right basilar subsegmental atelectasis and pleural effusion. Right infrahilar mass as before. Stable appearance of the PICC line PROCEDURE INTERPRETED AT [facility] DEPARTMENT OF RADIOLOGY Final Report Signed by: Dr. Rebecca Michael
--- NOTE | 2016-09-14 11:12 | Pulmonology Progress Note ---
Pulmonary - PN: Subj Interval history: Guicho Wang, ANP-BC, GNP-BC, acting as scribe for Dr. Tristen Bailey Mr. Gabriel is a 71-year-old white male who we saw in initial pulmonary consultation on 09/07/2016. At that time, our impressions were: 1. Right lower lung pneumonia. Outpatient treatment failure. Possibly complicated by partial obstruction from lung mass 2. Right lung lung mass. Suspicious for cancer. Next #3 long history of tobacco abuse. Stop smoking 2009 2011 4. COPD 5. Lethargy. Look for CO2 retention. 6. Chronic pain. The care of Dr. Michael huerta 7. Degenerative joint disease 8. See past history 9. Mid upper epigastric pain and increased gastroesophageal reflux. Consider GI evaluation. 09/10/2016. Patient was seen today along with Mary Stewart RN, and the patient' s daughter. Today the patient is much more awake and alert. He states that he is feeling better. We discussed the CT changes with the patient and his daughter to their understanding. We feel he is now medically stable to proceed with fiberoptic bronchoscopy. The preop orders have been placed in the EMR. Will proceed with bronchoscopy in the morning under fluoroscopy. 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 He is concerned about this coming out during bronchoscopy. Will order a patch placed over the right eye prior to bronch. 09/11/2016. Earlier today the patient had a fiberoptic bronchoscopy. He was loaded with secretions bilaterally. These were removed. He had erosive friable bronchitis in the superior segment and the medial basal segment of the right lower lung. Biopsies were taken from these areas and segments were lavaged. Attempt was made to brush right lower lung mass under fluoroscopic guidance but it did not appear that there was an endobronchial connection. Each segment was lavaged and the specimens have been sent for cytology as well as studies for bacterial fungus and AFB. Follow-up chest x-ray is ordered for tomorrow. There is a small possibility that lavage could have resolved an atypical appearing pneumonia. If not we are left with a mass cannot be reached with bronchoscope and will require a transthoracic biopsy. This would be done by interventional radiology. So far there are no positive cultures. CBC is stable. INR is 1.0. 09/12/16. The patient was seen today along with his daughter and Marguerite Leach RN. The patient underwent FOB yesterday. The official report has not been completed, but Dr. Bailey spoke with Dr. Anderson and there were no malignant cells. Dr. Bailey was unable to access this area by bronchoscopy. Please see the FOB event note for more information. We discussed this with the patient and his daughter. We will consult IR for possible needle biopsy. The patient had a PICC placed earlier today. 09/13/2016. Patient's for interventional radiology transthoracic biopsy of right lower lung mass today. His chest is clear and he is breathing comfortably lying flat in bed. He has no new complaints no new requests. His bronchoscopy specimens are growing a gram-positive cocci which has not been identified and there are no sensitivities available. INR is 1.0. Thyroid function tests are normal. Labs been reviewed. Medicines have been reviewed. 09/14/2016. Patient was seen today along with Kaveh Howell RN. Patient underwent needle biopsy by interventional radiology yesterday. Pathology is pending. CT of the abdomen and pelvis was done yesterday. This showed a large mass in the right base posteriorly measuring approximately 3.5 x 4.2 cm with an area of satellite nodularity present in the right base posteriorly measuring 2 cm with some postobstructive pneumonitis changes. Left lung is clear. There is a small area of nodularity present in the anterior right base measuring 2.2 cm. There is fatty infiltration of the liver, diverticulosis without diverticulitis , prostate calcifications, and evidence of prior cholecystectomy. Bronchoscopy lavage culture has grown MRSA. He is on Fortaz and Levaquin. Medications have been reviewed. We made no changes today. Labs have been reviewed. White count is 9700 with 50.9% segs; H&H 10.9/32.6; platelet count 291,000; creatinine 0.50, BUN 13, electrolytes are normal; liver function tests are normal ABGs on 09/07/2016 on an unlisted FiO2 showed a pH of 7.397, PCO2 34.4, PO2 55.4 , bicarb 21.8, and oxygen saturation 89.2%. Exam (Progress Note) - Constitutional Vitals: Period Temp Pulse Resp BP Sys/Yanes Pulse Ox Last 24 Hr 96.3 F-98.2 F 65-86 16-20 120-158/69-92 90-98 Exam: Chest is fairly clear Heart no gallop Abdomen is nontender nondistended; bowel sounds are positive 4 Extremities with nothing to suggest acute deep venous thrombophlebitis Psychiatric oriented 3 Neurologic unchanged Plan: Follow-up needle biopsy pathology when available. Repeat chest x-ray on Saturday. Continue present treatment. See orders. Results - Labs CBC & BMP: 09/14/16 06:51 09/14/16 06:51
--- NOTE | 2016-09-14 14:42 | Hospitalist Progress Note ---
Assessment and Plan (1) Pneumonia Status: Acute Assessment and plan: Continue current antibiotics that include Levofloxacin 500 mg IV every 24 hours vancomycin was 1 g IV every 12 and ceftazidime 1 g every 8. I will raise the levofloxacin to 750 mg daily. Involved pharmacy in pharmacokinetics of vancomycin. Current Visit: Yes Qualifiers: Pneumonia type: due to unspecified organism Laterality: right Lung location: lower lobe of lung Qualified Code(s): J18.1 - Lobar pneumonia, unspecified organism (2) Leukocytosis Status: Acute Assessment and plan: Vision has pneumonia or repeated serial hemograms Current Visit: Yes (3) Hilar mass Status: Acute Assessment and plan: Patient has had biopsy of this mass. From what I get it is neuroendocrine tumor small cell high-grade pulmonary is on the case, We need to involve oncology. Current Visit: Yes (4) HTN (hypertension) Status: Acute Assessment and plan: Continue current medication this is controlled Current Visit: Yes (5) COPD (chronic obstructive pulmonary disease) Status: Acute Assessment and plan: Continue current treatment Current Visit: Yes Hospitalist: Subjective Interval history: Patient has been seen interviewed and examined and chart has been reviewed.This is my first encounter on assignment with this patient. On 07 September this patient was admitted to the hospital with right-sided pneumonia associated with a right perihilar mass. Patient is consulted to pulmonology. The attention is greatly appreciated. Patient has had a biopsy of this mass. 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 Exam - Constitutional Vitals: Period Temp Pulse Resp BP Sys/Yanes Pulse Ox Last 24 Hr 96.3 F-98.2 F 62-77 16-20 120-158/64-80 88-98 General appearance: normal weight - Head Head exam: Present: normal inspection - Eye Eye exam: Present: EOMI Pupils: Present: NATE - ENT ENT exam: Present: normal exam - Neck Neck exam: Present: normal inspection - Respiratory Respiratory exam: Present: other (There are to auscultation the right upper lung but no respiratory distress) - Cardiovascular Cardiovascular exam: Present: regular rate and rhythm - GI/Abdominal GI/Abdominal exam: Present: normal bowel sounds - Extremities Exam Extremities exam: Present: normal inspection, full ROM - Back Exam Back exam: Present: normal inspection, other (Has a bandage in the mid upper lung chest wall posteriorly site of recent biopsy) - Neurological Exam Neurological exam: Present: alert, oriented X3, CN II-XII intact - Psychiatric Psychiatric exam: Present: normal affect, normal mood - Skin Skin exam: Present: normal color, warm, dry Results - Labs CBC & BMP: 09/14/16 06:51 09/14/16 06:51 Lab Results: I have reviewed the past 24 hour labs
[2016-09-14] MEDS: LEVOFLOXACIN INJ 500 MG in PREMIX 1 EACH IV SCH (15:02)
[2016-09-14] MEDS: SODIUM CHLORIDE 0.45% 1,000 ML IV SCH (15:02)
[2016-09-14] MEDS: ENOXAPARIN 40 MG/0.4 ML SYRINGE SUBCUT SCH (15:02)
[2016-09-14] MEDS: CASTOR OIL PO SCH (15:58)
[2016-09-14] MEDS: VANCOMYCIN INJ 1,250 MG in SODIUM CHLORIDE 0.9% 250 ML IV SCH (17:25)
[2016-09-14] MEDS ORDERED: TUBERCULIN SKIN TEST 0.1 ML SYRINGE INTRADERM ONE (19:00)
[2016-09-14] MEDS: MIRTAZAPINE 30 MG TABLET PO SCH (22:36)
[2016-09-14] MEDS: clonazePAM 0.5 MG TABLET PO SCH (22:37)
[2016-09-14] MEDS: BENZONATATE 100 MG CAPSULE PO PRN (22:46)
[2016-09-15] MEDS: ALBUTEROL/IPRATROPIUM 3 ML NEB RESP TX SCH ×4 (00:30→19:00)
[2016-09-15] MEDS: VANCOMYCIN INJ 1,250 MG in SODIUM CHLORIDE 0.9% 250 ML IV SCH ×2 (05:00→17:55)
[2016-09-15] MEDS: PANTOPRAZOLE 40 MG TABLET PO SCH (08:07)
[2016-09-15] MEDS: PRAVASTATIN 40 MG TABLET PO SCH (08:08)
[2016-09-15] MEDS: CARVEDILOL 12.5 MG TABLET PO SCH ×2 (08:08→20:48)
[2016-09-15] MEDS: METHADONE 10 MG TABLET PO SCH ×5 (08:08→20:47)
[2016-09-15] MEDS: DOCUSATE SODIUM 100 MG CAPSULE PO SCH (08:08)
[2016-09-15] MEDS: BENZONATATE 100 MG CAPSULE PO PRN ×2 (08:08→20:48)
[2016-09-15] MEDS: BACLOFEN 10 MG TABLET PO SCH ×3 (08:09→20:48)
[2016-09-15] MEDS: GABAPENTIN 400 MG CAPSULE PO SCH ×3 (08:09→20:48)
[2016-09-15] MEDS: MELOXICAM 7.5 MG TABLET PO SCH (08:09)
[2016-09-15] MEDS: VENLAFAXINE XR 75 MG CAPSULE PO SCH ×2 (08:09→20:47)
[2016-09-15] MEDS: cloNIDine 0.1 MG TABLET PO SCH ×3 (08:09→20:48)
[2016-09-15] MEDS: Biotin [Biotin] 5,000 MCG PO SCH (08:12)
--- NOTE | 2016-09-15 09:51 | Oncology Consult Note ---
History of Present Illness History of present illness: Mr. Gabriel is a 71 year old male who has been diagnosed as having neuroendocrine carcinoma, small cell, high-grade from right hilar mass biopsy was done September 13, 2016. The pathology report number is [id number]. From the pulmonary standpoint, he had very few symptoms. He had a cough but no hemoptysis or any type of painful respiration or pleurisy. On this admission, the patient was found on the floor this morning by his ict support engineer. He could not get up. He was lethargic. He had fallen getting up out of his recliner. He could not get up off the floor. His daughter stated that he has been having increased problems with epigastric pain and increased gastroesophageal reflux. He was tender in the mid upper epigastrium when I pressed in this area. However, he has had no upper or lower GI bleeding. He has had a cholecystectomy in the past. The patient has been treated for several weeks as an outpatient with for a right lower lung pneumonia. Studies done recently included a chest x-ray on September 07, 2016 that demonstrated prominence of the right hilum and a mass-effect in the inferior right hilum. He had a CT of the chest done Sep 07 2016 that demonstrated hilar and mediastinal adenopathy with a right lower lung mass measures 40 x 42 [address] brain scan done September 07, 2016 demonstrates microvascular disease and generalized cerebral atrophy. Cervical spine x-rays done September 07, 2016 demonstrate degenerative changes. Echocardiogram done [address] Mik Aguilar showed an ejection fraction of 60% with mild diastolic dysfunction and trace of tricuspid regurgitation. Lab work done September 14, 2016 demonstrates a hemoglobin of 10.9 with a white cell counts that she normal at 9700 with an absolute neutrophil count of 4900. His platelet count is 291,000. The comprehensive metabolic profile done September 14 demonstrates a low serum creatinine of 0.5 with a low total protein of 6.0 and a low serum albumin of 3.0 suggesting malnutrition. A TSH done September 11 was 3.21 which is within normal range and free T4 was normal at 1.14. Allergies. None listed in the hospital. Patient has previously said that he was allergic to Keflex and sulfur. Past history. Degenerative joint disease. History of abscess of the chin secondary to MRSA in 2009. Perirectal abscess secondary to MRSA in 2009. Chronic pain managed by Dr. huerta. COPD. High blood pressure. Pernicious anemia secondary to B12 deficiency. Hyperlipidemia. High blood pressure. Chronic anxiety depression. Eye surgery. Cholecystectomy. Hernia surgery. Knee surgery. Tonsillectomy. Uses home oxygen. Social history. Patient smoked for 27 years. He stopped smoking somewhere between 2009 and 2011. 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 He denies alcohol. He is previously been followed by Dr. Tacho Ruiz and more recently he has seen Dr. Iam medrano and Guicho Wang nurse practitioner. He has been followed from a urology standpoint by Dr. Oscar anne. 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 Family history. His mother had arthritis colon polyps diabetes type 2 and kidney stones. ROS Gen.: He has had years of arthritic complaints including neck and lumbar spine. Eyes: He has lost vision in his right eye after undergoing multiple retinal and other surgical procedures. He has had cataract surgery of the left eye as well as a retinal detachment of the left eye. ENT: No history of chronic infections, epistaxis, chronic sore throat Lungs: No history of asthma, emphysema, hemoptysis, chronic pleurisy or long- term or chronic infections Cardiovascular: He has not been followed by atmospheric physics professor in the past. No history of angina, coronary artery disease, congestive heart failure, cardiovascular surgery or DVT/VTE GI: He has had cholecystectomy. No history of upper or lower GI bleeding, melena, dysphagia, odynophagia, liver disease or pancreatic disease. : No history of kidney stones, chronic kidney infections or hematuria. Musculoskeletal: He has had significant arthritic problems involving the cervical and the lumbar spine. Neurologic: No history of seizures, convulsions or paralysis. Psychiatric: No history of chronic psychiatric illness or psychiatric medications. Lymphatic: No history of significant or long-term lymphadenopathy Hematologic: No history of anemia, bleeding disorders or blood dyscrasias or long-term elevation or depression white cell count or petechiae. Skin: No history of chronic skin infections or rashes or significant skin lesions. Physical examination: General: He appears somewhat chronically ill and although he is oriented and alert he seems lethargic. 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 The left demonstrates prior cataract surgery. ENT: His teeth are in only fair repair. His hearing appears normal. His oral mucosa and pharynx are normal. Neck: Decreased range of motion. His thyroid is normal. There are no neck masses. Lungs: He has coarse breath sounds without rubs, rales or rhonchi. There is symmetrical unlabored chest motion with respiration. Breath sounds are decreased generally. Cardiovascular: His heart rhythm is regular without murmur, gallop or rub. There is no jugular venous distention, clubbing or cyanosis. Radial pulses are normal. Abdomen: There is no abdominal distention, ascites, tenderness or organomegaly and I feel no masses. Musculoskeletal: He appears to have relatively significant degenerative change with decreased range of motion of the axial spine. Neurologic: Cranial nerves II through XII are intact except that he is blind in his right eye. Nodes: There is no submental, submandibular, cervical, supraclavicular or axillary adenopathy. Skin: Cursory examination is normal. Psychiatric: The patient is oriented to time, place, person and situation. Impression: #1: Small cell, high-grade, neuroendocrine carcinoma of the right lung. Staging is not complete yet. #2: COPD, although the patient has surprisingly clear lungs. #3: long history of tobacco abuse. Stop smoking 2009 2011 #4. COPD #5: Significant degenerative disease of the axial spine. I have given the patient information from Up[facility]To[facility]Date on small cell neuroendocrine carcinoma of the lung. I am going to go ahead and order a bone scan and CT of the abdomen and pelvis with contrast in order to stage him further. In addition, if he elects to take treatment, we will need to consider a PET scan. Also, if he elects to undergo treatment, they will. He certainly include chemotherapy and he will need a Mediport. I explained to him that response rate of this cancer to chemotherapy is approximately 85% but deteriorated significantly less. Treatment plan would include chemotherapy using etoposide and carboplatin as well as radiation therapy. Thank you. Home Medications Medication Instructions Recorded Confirmed Type Baclofen Tab [Lioresal] 10 mg PO TID 09/07/16 09/07/16 History Biotin 5,000 mcg PO DAILY 09/07/16 09/07/16 History Avery Oil 1 tablespoon PO DIRECTED 09/07/16 09/07/16 History Cholecalciferol (Vitamin D3) 1 capsule DIRECTED 09/07/16 09/07/16 History [Vitamin D3] Docusate Sodium 250 mg PO DAILY 09/07/16 09/07/16 History Docusate Sodium [Colace] 1 capsule PO DIRECTED 09/07/16 09/07/16 History Gabapentin 400 mg PO TID 09/07/16 09/07/16 History HYDROcodone/ACETAMIN 10-325 [Max 1 tablet PO TID 09/07/16 09/07/16 History 10-325] Hydrocodone/Acetaminophen [Max 1 each PO TID PRN 09/07/16 09/07/16 History 10-325 Tablet] Meloxicam 15 mg PO DAILY 09/07/16 09/07/16 History Methadone [(None)] 10 mg PO QID 09/07/16 09/07/16 History Mirtazapine 30 mg PO BEDTIME 09/07/16 09/07/16 History Mv-Mins/Folic/Lycopene/Ginkgo [One 1 each PO DAILY 09/07/16 09/07/16 History Daily Men's 50+ Tablet] Potassium Chloride 20 meq PO DAILY 09/07/16 09/07/16 History Potassium Chloride [Klor-Con 10] 20 meq PO DAILY 09/07/16 09/07/16 History Pravastatin Sodium 80 mg PO DAILY 09/07/16 09/07/16 History Venlafaxine HCl [Venlafaxine HCl 150 mg PO BID 09/07/16 09/07/16 History ER] cloNIDine TAB [Catapres Tab] 0.1 mg PO BID 09/07/16 09/07/16 History clonazePAM [Clonazepam] 1 mg PO DAILY 09/07/16 09/07/16 History Allergies Allergy/AdvReac Type Severity Reaction Status Date / Time No Known Allergies Allergy Verified 11/04/15 12:24 Medical,Surgical,& Family Hx - Medical History Cardio: History of: Hypertension Neurology: No history of: Seizures Respiratory: History of: COPD Musculoskeletal: History of: Back/Neck Problems - Surgical History HEENT Surgeries: Surgical HX of: Eye Surgery Abdominal Surgeries: Surgical HX of: Cholecystectomy - Family History Family History: Reports;: Family Heart Disease - Social History Smoking Status: Former smoker Frequency of Alcohol Use: None Type of Drug Use: None Exam - Constitutional Vitals: Period Temp Pulse Resp BP Sys/Yanes Pulse Ox Last 24 Hr 97.2 F-98.9 F 62-84 18-20 126-159/64-82 87-98 Results - Labs CBC & BMP: 09/14/16 06:51 09/14/16 06:51
--- NOTE | 2016-09-15 09:56 | Pulmonology Progress Note ---
Pulmonary - PN: Subj Interval history: This 71-year-old white male had a needle biopsy of a right lung mass 2 days ago. 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 Oncology has been consulted. Dr. Hamm is to see him today. Patient is feeling a little better. Not coughing up blood. No fever. 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 Will need further evaluation for staging. Dr. Hamm is to see today for oncology. Likely will be treated with chemotherapy. Exam (Progress Note) - Constitutional Vitals: Period Temp Pulse Resp BP Sys/Yanes Pulse Ox Last 24 Hr 97.2 F-98.9 F 62-84 18-20 126-159/64-82 87-98 Exam: He is alert oriented afebrile. Throat is clear. Neck supple no bruits. Chest reveals some rhonchi at the right base. Heart normal rate rhythm no murmurs. Abdomen soft nontender no masses. Extremities no clubbing cyanosis edema. Results - Labs CBC & BMP: 09/14/16 06:51 09/14/16 06:51 Lab Results: I have reviewed the past 24 hour labs
[2016-09-15] MEDS: ENOXAPARIN 40 MG/0.4 ML SYRINGE SUBCUT SCH (14:19)
[2016-09-15] MEDS: LEVOFLOXACIN INJ 500 MG in PREMIX 1 EACH IV SCH (15:34)
--- NOTE | 2016-09-15 15:43 | CT Report ---
CT abdomen pelvis w con Indication: Small cell lung carcinoma. Comparison: CT abdomen and pelvis 09/13/2016. Technique: CT of the abdomen and pelvis was performed following administration of intravenous contrast. The CT examination was performed using one or more of the following dose reduction techniques: Automatic exposure control, adjustment of the mA and kV according to patient size, or iterative reconstruction techniques. Findings: Subpleural pulmonary nodule within the right lower lobe has changed little in size since comparison study measuring up to 17-18 mm in transverse dimension. Distally within the right lower lobe, there are minimally thickened intralobular septal lines and areas of low attenuation possibly within bronchi or pulmonary arteries thickened reflecting a thrombus within the vessels. These have heterogeneous attenuation and possible enhancement but is not completely imaged. Additional subpleural pulmonary nodule medial right lower lobe image #7 is probably changed little since comparison study. Diffusely low attenuation of the liver compatible with hepatic steatosis is present. The gallbladder is surgically absent. Spleen is normal in size. Punctate calcifications within the spleen could reflect sequelae of prior granulomatous disease. Pancreas demonstrates no significant abnormality. Adrenal glands and kidneys demonstrate no significant abnormality. Stomach, duodenum, and small bowel demonstrate no significant abnormalities. Colonic diverticula are demonstrated within the sigmoid colon and descending colon. No inflammatory changes are present. Large and small bowel otherwise demonstrate no significant abnormalities. Portacaval lymph nodes are stable in size and appearance. No pathologically enlarged lymph nodes are suggested within abdomen or pelvis. Diffuse intimal calcification of the aorta and iliac arteries appears stable. Bony structures demonstrate no specific evidence of osseous metastatic disease. No acute osseous pathology is demonstrated. Soft tissues and muscular structures of the body wall demonstrate no significant abnormalities. Impression: 1. There is no evidence of metastatic disease within the abdomen or pelvis. 2. Pulmonary nodules within the right lower lobe remain present. Additional linear areas of low attenuation that heterogeneous appearance could reflect tumor within the right lower lobe vasculature. [place] thrombus could be considered. This imaging feature is only partially imaged on this study. 3. Subpleural pulmonary nodule image #1 has changed little in size since comparison. 4. Not mentioned above oval-shaped attenuating structure adjacent to the right atrial margin is stable in size and appearance and may represent pericardial cyst. 09/15/2016 3:35 PM PROCEDURE INTERPRETED AT [facility] DEPARTMENT OF RADIOLOGY Final Report Signed by: Dr. Juan Francisco Rodriguez
--- NOTE | 2016-09-15 15:51 | Hospitalist Progress Note ---
Assessment and Plan (1) Pneumonia Status: Acute Assessment and plan: Continue current antibiotics that include Levofloxacin 500 mg IV every 24 hours vancomycin was 1 g IV every 12 and ceftazidime 1 g every 8. I will raise the levofloxacin to 750 mg daily. Involved pharmacy in pharmacokinetics of vancomycin. Current Visit: Yes Qualifiers: Pneumonia type: due to unspecified organism Laterality: right Lung location: lower lobe of lung Qualified Code(s): J18.1 - Lobar pneumonia, unspecified organism (2) Leukocytosis Status: Acute Assessment and plan: Vision has pneumonia or repeated serial hemograms, To be done tomorrow Current Visit: Yes (3) Hilar mass Status: Acute Assessment and plan: Patient has had biopsy of this mass. From what I get it is neuroendocrine tumor small cell high-grade pulmonary is on the case, We need to involve oncology. Please attend to the recommendation from oncology. Current Visit: Yes (4) HTN (hypertension) Status: Acute Assessment and plan: Continue current medication this is controlled Current Visit: Yes (5) COPD (chronic obstructive pulmonary disease) Status: Acute Assessment and plan: Continue current treatment Current Visit: Yes Hospitalist: Subjective Interval history: Patient has been seen interviewed and examined and chart has been reviewed. He has no particular complaints at this point. Gentleman is rather elderly man with neuroendocrine tumor found on biopsy of the home mass. He is consulted to oncology and pulmonary. Recommendations from oncology is this point to do bone scan and CT of the abdomen and pelvis. The CT scan was done with contrast. These were purposes of staging. On the limited patient will consider PET scan. For discussion on the treatment is not been done however chemotherapy seems to be soft that will help to be considered. Details of these is in oncology note. Exam - Constitutional Vitals: Period Temp Pulse Resp BP Sys/Yanes Pulse Ox Last 24 Hr 97.2 F-98.9 F 64-84 12-20 126-159/61-82 92-98 General appearance: normal weight - Head Head exam: Present: normocephalic, atraumatic - Eye Eye exam: Present: EOMI Pupils: Present: NATE - ENT ENT exam: Present: normal oropharynx - Neck Neck exam: Present: normal inspection, other (Midline trachea supple neck no generalized adenopathy) - Respiratory Respiratory exam: Present: clear to auscultation bilaterally - Cardiovascular Cardiovascular exam: Present: regular rate and rhythm - GI/Abdominal GI/Abdominal exam: Present: normal bowel sounds, soft - Extremities Exam Extremities exam: Present: full ROM, other (Slow transfer was generalized with) - Neurological Exam Neurological exam: Present: alert, oriented X3, CN II-XII intact - Psychiatric Psychiatric exam: Present: normal affect, normal mood - Skin Skin exam: Present: normal color, warm, dry Results - Labs CBC & BMP: 09/14/16 06:51 09/14/16 06:51 Lab Results: I have reviewed the past 24 hour labs
[2016-09-15] MEDS: SODIUM CHLORIDE 0.45% 1,000 ML IV SCH (16:40)
[2016-09-15] MEDS: CASTOR OIL PO SCH (16:40)
[2016-09-15] MEDS: MIRTAZAPINE 30 MG TABLET PO SCH (20:47)
[2016-09-15] MEDS: clonazePAM 0.5 MG TABLET PO SCH (20:48)
[2016-09-15] MEDS ORDERED: HEPARIN LOCK FLUSH 500 UNIT/5 ML SYRINGE IV SCH (21:00)
[2016-09-15] MEDS ORDERED: BISACODYL 5 MG TABLET PO ONE (21:00)
[2016-09-16] MEDS: ALBUTEROL/IPRATROPIUM 3 ML NEB RESP TX SCH ×4 (00:20→19:15)
[2016-09-16] MEDS: VANCOMYCIN INJ 1,250 MG in SODIUM CHLORIDE 0.9% 250 ML IV SCH ×2 (05:46→18:39)
[2016-09-16 06:52] LABS: Basophils % 0.3 % (0.0-0.8); Eosinophils # 0.4 10*3/uL (0.0-0.87); Eosinophils % 3.7 % (0.00-10.9); Hematocrit 35.4 VOL% (42.0-52.0); Hemoglobin 11.7 GM/DL (14.0-18.0); Immature Granulocytes % 0.6 %; Immature Granulocytes Absolute 0.06 #; Lymphocytes # 2.6 10*3/uL (1.4-4.0); Lymphocytes % 24.7 % (21.2-54.2); Mean Corpuscular HGB Conc 33.1 GM/DL (32-36); Mean Corpuscular Hemoglobin 33 PG (27-34); Mean Corpuscular Volume 99.2 FL (87-102); Mean Platelet Volume 9.2 FL (9.6-12.0); Monocytes # 0.7 10*3/uL (0.11-0.8); Neutrophils # 6.8 10*3/uL (1.4-7.4); Neutrophils % 63.7 % (38.7-73.9); Platelet Count 310 T/CUMM (130-400); Red Blood Count 3.57 MC/CUMM (3.8-5.5); Red Cell Distribution Width 13.4 % (9.3-17.3); White Blood Count 10.6 T/CUMM (4-12)
[2016-09-16 07:27] LABS: Calcium 8.6 MG/DL (8.5-10.1); Magnesium 1.9 MG/DL (1.8-2.4); Potassium 3.5 MMOL/L (3.5-5.1)
[2016-09-16] MEDS: Biotin [Biotin] 5,000 MCG PO SCH (08:11)
[2016-09-16] MEDS: VENLAFAXINE XR 75 MG CAPSULE PO SCH ×2 (08:22→22:01)
[2016-09-16] MEDS: BACLOFEN 10 MG TABLET PO SCH ×3 (08:22→22:00)
[2016-09-16] MEDS: cloNIDine 0.1 MG TABLET PO SCH ×3 (08:22→21:59)
[2016-09-16] MEDS: BENZONATATE 100 MG CAPSULE PO PRN ×2 (08:22→22:01)
[2016-09-16] MEDS: MELOXICAM 7.5 MG TABLET PO SCH (08:22)
[2016-09-16] MEDS: PANTOPRAZOLE 40 MG TABLET PO SCH (08:22)
[2016-09-16] MEDS: METHADONE 10 MG TABLET PO SCH ×4 (08:22→22:00)
[2016-09-16] MEDS: DOCUSATE SODIUM 100 MG CAPSULE PO SCH (08:22)
[2016-09-16] MEDS: PRAVASTATIN 40 MG TABLET PO SCH (08:22)
[2016-09-16] MEDS: GABAPENTIN 400 MG CAPSULE PO SCH ×3 (08:23→22:01)
[2016-09-16] MEDS: CARVEDILOL 12.5 MG TABLET PO SCH ×2 (08:23→22:01)
--- NOTE | 2016-09-16 09:50 | Oncology Progress Note ---
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 I have given him information only from [facility]. Staging is in progress. On CT of the abdomen and pelvis the patient appears to have parietal and visceral pleural involvement but I do not see any mention of abdominal involvement including liver metastases. My plan is to give the patient information on the etoposide and carboplatin and possibly even proceed with a course of chemotherapy using a PICC line before placing a Mediport catheter. However, if we could get a Mediport placed quickly , that would be acceptable. Exam - Constitutional Vitals: Period Temp Pulse Resp BP Sys/Yanes Pulse Ox Last 24 Hr 96.1 F-98.0 F 64-96 12-20 133-162/61-89 92-98 Results - Labs CBC & BMP: 09/16/16 06:18 09/16/16 06:18
--- NOTE | 2016-09-16 10:49 | Pulmonology Progress Note ---
Pulmonary - PN: Subj Interval history: This 71-year-old white male had a needle biopsy of a right lung mass 2 days ago. 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 Oncology has been consulted. Dr. Hamm is to see him today. Patient is feeling a little better. Not coughing up blood. No fever. 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 Will need further evaluation for staging. Dr. Hamm is to see today for oncology. Likely will be treated with chemotherapy. 09/16/16 patient has been seen by Dr. Hamm. Chemotherapy plans being arranged. Abdominal CT did not show any signs of abdominal or pelvic metastatic disease. Exam (Progress Note) - Constitutional Vitals: Period Temp Pulse Resp BP Sys/Yanes Pulse Ox Last 24 Hr 96.1 F-98.0 F 64-96 12-20 133-162/61-89 92-98 Exam: He is alert oriented afebrile. Throat is clear. Neck supple no bruits. Chest reveals some rhonchi at the right base. Heart normal rate rhythm no murmurs. Abdomen soft nontender no masses. Extremities no clubbing cyanosis edema. Little change from yesterday. Results - Labs CBC & BMP: 09/16/16 06:18 09/16/16 06:18 Lab Results: I have reviewed the past 24 hour labs Assessment and Plan (1) Small cell lung cancer Status: Acute Assessment and plan: Being addressed by oncology. Metastatic survey underway. Current Visit: Yes (2) COPD (chronic obstructive pulmonary disease) Status: Acute Assessment and plan: Continuing bronchodilators Current Visit: Yes
--- NOTE | 2016-09-16 12:48 | Hospitalist Progress Note ---
Assessment and Plan (1) Pneumonia Status: Acute Assessment and plan: Continue current antibiotics that include Levofloxacin 500 mg IV every 24 hours vancomycin was 1 g IV every 12 and ceftazidime 1 g every 8. I will raise the levofloxacin to 750 mg daily. Involved pharmacy in pharmacokinetics of vancomycin. Intention is to reevaluate the patient tomorrow with the plan to de -escalating the antibiotics. Repeat his CBC amongst the labs to be done tomorrow. Current Visit: Yes Qualifiers: Pneumonia type: due to unspecified organism Laterality: right Lung location: lower lobe of lung Qualified Code(s): J18.1 - Lobar pneumonia, unspecified organism (2) Leukocytosis Status: Acute Assessment and plan: Repeat CBC to be done tomorrow Current Visit: Yes (3) Hilar mass Status: Acute Assessment and plan: Patient has had biopsy of this mass. From what I get it is neuroendocrine tumor small cell high-grade pulmonary is on the case, oncology is on the case. This plan to start chemotherapy as soon as possible. Patient needs a Mediport Current Visit: Yes (4) HTN (hypertension) Status: Acute Assessment and plan: Continue current medication this is controlled Current Visit: Yes (5) COPD (chronic obstructive pulmonary disease) Status: Acute Assessment and plan: Patient is a lot better in this regard. Continue current treatment Current Visit: Yes Hospitalist: Subjective Interval history: Patient has been seen interviewed and examined chart has been reviewed no acute complaints today. Gentleman is made of the hospital with pneumonia, exacerbation of COPD and incidental finding of mediastinal lung mass. This turns out to be a small cell neuroendocrine tumor. He is consulted to both pulmonology and oncology at this point. And is to start him on chemotherapy possibly etoposide and carboplatin. Notes from the consulting services have been reviewed and recommendations are greatly appreciated. Putting in a consultation to neurosurgery for [facility] in preparation for his chemotherapy. Exam - Constitutional Vitals: Period Temp Pulse Resp BP Sys/Yanes Pulse Ox Last 24 Hr 96.1 F-97.8 F 66-96 16-20 135-162/70-89 92-98 General appearance: normal weight - Head Head exam: Present: normal inspection, normocephalic, atraumatic - Eye Eye exam: Present: EOMI - ENT ENT exam: Present: normal exam - Neck Neck exam: Present: normal inspection - Respiratory Respiratory exam: Present: clear to auscultation bilaterally - Cardiovascular Cardiovascular exam: Present: regular rate and rhythm - Extremities Exam Extremities exam: Present: full ROM - Back Exam Back exam: Present: normal inspection - Neurological Exam Neurological exam: Present: alert, oriented X3, CN II-XII intact - Psychiatric Psychiatric exam: Present: normal affect, normal mood - Skin Skin exam: Present: normal color, warm, dry Results - Labs CBC & BMP: 09/16/16 06:18 09/16/16 06:18 Lab Results: I have reviewed the past 24 hour labs
--- NOTE | 2016-09-16 12:52 | Oncology Progress Note ---
Oncology Subjective PN Interval history: I have given Mr. Gabriel information from [facility] on small cell neuroendocrine lung cancer. I am giving him information today only etoposide and carboplatin. I will be discussing chemotherapy with him further as well. Exam - Constitutional Vitals: Period Temp Pulse Resp BP Sys/Yanes Pulse Ox Last 24 Hr 96.1 F-97.8 F 66-96 16-20 135-162/70-89 92-98 Results - Labs CBC & BMP: 09/16/16 06:18 09/16/16 06:18
[2016-09-16] MEDS: LEVOFLOXACIN INJ 500 MG in PREMIX 1 EACH IV SCH (16:32)
[2016-09-16] MEDS: SODIUM CHLORIDE 0.45% 1,000 ML IV SCH (16:32)
[2016-09-16] MEDS: CASTOR OIL PO SCH (16:32)
[2016-09-16] MEDS: ENOXAPARIN 40 MG/0.4 ML SYRINGE SUBCUT SCH (16:38)
[2016-09-16] MEDS: MIRTAZAPINE 30 MG TABLET PO SCH (21:59)
[2016-09-16] MEDS: clonazePAM 0.5 MG TABLET PO SCH (22:00)
[2016-09-17] MEDS: ALBUTEROL/IPRATROPIUM 3 ML NEB RESP TX SCH ×4 (00:22→19:28)
[2016-09-17] MEDS: VANCOMYCIN INJ 1,250 MG in SODIUM CHLORIDE 0.9% 250 ML IV SCH (06:32)
--- NOTE | 2016-09-17 08:09 | Oncology Progress Note ---
Oncology Subjective PN Interval history: CAT scan results reviewed. I did not see the previous reported CT scans of the abdomen and pelvis that were done recently. The patient was drowsy when I questioned him about them and he told me that he had not had them done. However , some were done. He has no evidence of metastatic disease below the diaphragm. He is receptive to chemotherapy so far and he needs a Mediport catheter. My plan is to proceed with his first course of chemotherapy and patient in order to monitor him for side effects and for toxicity including tumor lysis. He is oriented and alert today. We spent a lot of time discussing side effects of chemotherapy and treatment plan. My plan is to proceed with at least 4 and possibly 8 courses of this chemotherapy with consideration for radiation therapy at some point during the chemotherapy or after the chemotherapy. He has debility that was present prior to this present illness and I plan to watch him closely for side effects. I have explained to him that the response rate is high but the cure rate is significantly lower and I have discussed the acute and chronic toxicities with him. Exam - Constitutional Vitals: Period Temp Pulse Resp BP Sys/Yanes Pulse Ox Last 24 Hr 96.9 F-98.2 F 66-87 16-20 128-160/70-87 90-99 Results - Labs CBC & BMP: 09/21/16 04:05 09/21/16 04:05
--- NOTE | 2016-09-17 08:44 | XRay Report ---
XR chest 2V Date: 09/17/2016 4:00 AM History: Pneumonia, lung mass Comparison: 09/14/2016 Technique: PA and lateral chest Findings: The heart is normal in size. A left arm PICC line. The lungs remain underexpanded with stable mass in the right infrahilar location. Residual small right pleural effusion with additional mass noted posteriorly in the right lower lobe location. Stable mediastinum and osseous structures. Impression: COPD with residual atelectasis/infiltration at the lung bases with small right pleural effusion. Right infrahilar mass with additional mass projecting posteriorly in the right lower lobe with known carcinoma the lung. PROCEDURE INTERPRETED AT [facility] DEPARTMENT OF RADIOLOGY Final Report Signed by: Dr. Patricia Kendrick
--- NOTE | 2016-09-17 09:08 | General Surgery Consult Note ---
Assessment and Plan - Time spent with patient Time spent with patient: Less than 30 minutes (1) Small cell lung cancer Status: Acute Assessment and plan: Impression: 1. Small spell cancer of the right lung needs venous access for chemotherapy Plan: Mediport placement left cephalic or subclavian vein Current Visit: Yes History of Present Illness Chief complaint: Small cell cancer of the lung History of present illness: Mr. Gabriel is a 71 year old male white who has small cell cancer of the right lung and now needs some venous access for chemotherapy. Patient is alert and awake and seems to be fairly stable no unusual history of any other surgical problems other than his right hand that he is going to need surgery on. Because of that we will try to go on the left side so that if he does does have to have future surgery on the right than the Mediport to be other way. Home Medications Medication Instructions Recorded Confirmed Type Baclofen Tab [Lioresal] 10 mg PO TID 09/07/16 09/07/16 History Biotin 5,000 mcg PO DAILY 09/07/16 09/07/16 History [place] Oil 1 tablespoon PO DIRECTED 09/07/16 09/07/16 History Cholecalciferol (Vitamin D3) 1 capsule DIRECTED 09/07/16 09/07/16 History [Vitamin D3] Docusate Sodium 250 mg PO DAILY 09/07/16 09/07/16 History Docusate Sodium [Colace] 1 capsule PO DIRECTED 09/07/16 09/07/16 History Gabapentin 400 mg PO TID 09/07/16 09/07/16 History HYDROcodone/ACETAMIN 10-325 [[place] 1 tablet PO TID 09/07/16 09/07/16 History 10-325] Hydrocodone/Acetaminophen [[place] 1 each PO TID PRN 09/07/16 09/07/16 History 10-325 Tablet] Meloxicam 15 mg PO DAILY 09/07/16 09/07/16 History Methadone [(None)] 10 mg PO QID 09/07/16 09/07/16 History Mirtazapine 30 mg PO BEDTIME 09/07/16 09/07/16 History Mv-Mins/Folic/Lycopene/Ginkgo [One 1 each PO DAILY 09/07/16 09/07/16 History Daily Men's 50+ Tablet] Potassium Chloride 20 meq PO DAILY 09/07/16 09/07/16 History Potassium Chloride [Klor-Con 10] 20 meq PO DAILY 09/07/16 09/07/16 History Pravastatin Sodium 80 mg PO DAILY 09/07/16 09/07/16 History Venlafaxine HCl [Venlafaxine HCl 150 mg PO BID 09/07/16 09/07/16 History ER] cloNIDine TAB [Catapres Tab] 0.1 mg PO BID 09/07/16 09/07/16 History clonazePAM [Clonazepam] 1 mg PO DAILY 09/07/16 09/07/16 History Allergies Allergy/AdvReac Type Severity Reaction Status Date / Time No Known Allergies Allergy Verified 11/04/15 12:24 Medical,Surgical,& Family Hx - Medical History Cardio: History of: Hypertension Neurology: No history of: Seizures Respiratory: History of: COPD Musculoskeletal: History of: Back/Neck Problems - Surgical History HEENT Surgeries: Surgical HX of: Eye Surgery Abdominal Surgeries: Surgical HX of: Cholecystectomy - Family History Family History: Reports;: Family Heart Disease - Social History Smoking Status: Former smoker Frequency of Alcohol Use: None Type of Drug Use: None 12 point system: reviewed and no additional remarkable complaints except as stated Exam - Constitutional Vitals: Period Temp Pulse Resp BP Sys/Yanes Pulse Ox Last 24 Hr 96.9 F-98.2 F 66-87 16-20 128-160/70-87 90-99 General appearance: mild distress - Head Head exam: Present: normal inspection - ENT ENT exam: Present: normal exam - Neck Neck exam: Present: normal inspection - Respiratory Respiratory exam: Present: rales, rhonchi - Cardiovascular Cardiovascular exam: Present: RRR - GI/Abdominal GI/Abdominal exam: Present: normal bowel sounds, soft - Extremities Exam Extremities exam: Present: normal inspection - Back Exam Back exam: Present: normal inspection - Neurological Exam Neurological exam: Present: alert, oriented X3, CN II-XII intact - Skin Skin exam: Present: normal color, warm, dry Results - Labs CBC & BMP: 09/16/16 06:18 09/16/16 06:18 Lab Results: I have reviewed the past 24 hour labs
--- NOTE | 2016-09-17 09:24 | EKG Report ---
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
[2016-09-17] MEDS: cloNIDine 0.1 MG TABLET PO SCH ×3 (09:48→23:09)
[2016-09-17] MEDS: Biotin [Biotin] 5,000 MCG PO SCH (09:48)
[2016-09-17] MEDS: CARVEDILOL 12.5 MG TABLET PO SCH ×2 (09:49→20:46)
[2016-09-17] MEDS: BACLOFEN 10 MG TABLET PO SCH ×3 (09:49→20:46)
[2016-09-17] MEDS: VENLAFAXINE XR 75 MG CAPSULE PO SCH ×2 (09:49→20:47)
[2016-09-17] MEDS: MELOXICAM 7.5 MG TABLET PO SCH (09:49)
[2016-09-17] MEDS: DOCUSATE SODIUM 100 MG CAPSULE PO SCH (09:49)
[2016-09-17] MEDS: METHADONE 10 MG TABLET PO SCH ×4 (09:49→23:07)
[2016-09-17] MEDS: PANTOPRAZOLE 40 MG TABLET PO SCH (09:50)
[2016-09-17] MEDS: PRAVASTATIN 40 MG TABLET PO SCH (09:50)
[2016-09-17] MEDS: GABAPENTIN 400 MG CAPSULE PO SCH ×3 (09:50→20:47)
--- NOTE | 2016-09-17 10:37 | Pulmonology Progress Note ---
Pulmonary - PN: Subj Interval history: Guicho Wang, ANP-BC, GNP-BC, acting as scribe for Dr. Tristen Bailey Mr. Gabriel is a 71-year-old white male who we saw in initial pulmonary consultation on 09/07/2016. At that time, our impressions were: 1. Right lower lung pneumonia. Outpatient treatment failure. Possibly complicated by partial obstruction from lung mass 2. Right lung lung mass. Suspicious for cancer. Next #3 long history of tobacco abuse. Stop smoking 2009 2011 4. COPD 5. Lethargy. Look for CO2 retention. 6. Chronic pain. The care of Dr. Michael huerta 7. Degenerative joint disease 8. See past history 9. Mid upper epigastric pain and increased gastroesophageal reflux. Consider GI evaluation. 09/10/2016. Patient was seen today along with Mary Stewart RN, and the patient' s daughter. Today the patient is much more awake and alert. He states that he is feeling better. We discussed the CT changes with the patient and his daughter to their understanding. We feel he is now medically stable to proceed with fiberoptic bronchoscopy. The preop orders have been placed in the EMR. Will proceed with bronchoscopy in the morning under fluoroscopy. 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 He is concerned about this coming out during bronchoscopy. Will order a patch placed over the right eye prior to bronch. 09/11/2016. Earlier today the patient had a fiberoptic bronchoscopy. He was loaded with secretions bilaterally. These were removed. He had erosive friable bronchitis in the superior segment and the medial basal segment of the right lower lung. Biopsies were taken from these areas and segments were lavaged. Attempt was made to brush right lower lung mass under fluoroscopic guidance but it did not appear that there was an endobronchial connection. Each segment was lavaged and the specimens have been sent for cytology as well as studies for bacterial fungus and AFB. Follow-up chest x-ray is ordered for tomorrow. There is a small possibility that lavage could have resolved an atypical appearing pneumonia. If not we are left with a mass cannot be reached with bronchoscope and will require a transthoracic biopsy. This would be done by interventional radiology. So far there are no positive cultures. CBC is stable. INR is 1.0. 09/12/16. The patient was seen today along with his daughter and Marguerite Leach RN. The patient underwent FOB yesterday. The official report has not been completed, but Dr. Bailey spoke with Dr. Anderson and there were no malignant cells. Dr. Bailey was unable to access this area by bronchoscopy. Please see the FOB event note for more information. We discussed this with the patient and his daughter. We will consult IR for possible needle biopsy. The patient had a PICC placed earlier today. 09/13/2016. Patient's for interventional radiology transthoracic biopsy of right lower lung mass today. His chest is clear and he is breathing comfortably lying flat in bed. He has no new complaints no new requests. His bronchoscopy specimens are growing a gram-positive cocci which has not been identified and there are no sensitivities available. INR is 1.0. Thyroid function tests are normal. Labs been reviewed. Medicines have been reviewed. 09/14/2016. Patient was seen today along with Kaveh Howell RN. Patient underwent needle biopsy by interventional radiology yesterday. Pathology is pending. CT of the abdomen and pelvis was done yesterday. This showed a large mass in the right base posteriorly measuring approximately 3.5 x 4.2 cm with an area of satellite nodularity present in the right base posteriorly measuring 2 cm with some postobstructive pneumonitis changes. Left lung is clear. There is a small area of nodularity present in the anterior right base measuring 2.2 cm. There is fatty infiltration of the liver, diverticulosis without diverticulitis , prostate calcifications, and evidence of prior cholecystectomy. Bronchoscopy lavage culture has grown MRSA. He is on Fortaz and Levaquin. 09/17/2016. 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 He has been seen in oncology consultation by Dr. Hamm. He has been seen in surgery consultation by Dr. Pérez. Patient is for Mediport placement today to begin chemotherapy. CT of abdomen and pelvis done 09/15/2016 showed no evidence of metastatic disease within the abdomen or pelvis. He continues on IV Fortaz, vancomycin, and Levaquin. Previous bronchoscopy lavage grew MRSA. Medications have been reviewed. We made no changes today. Labs have been reviewed. No new labs were drawn today. Vancomycin is being managed by pharmacology. Vancomycin trough initially on 09/16/2016 was elevated at 23.9, but later that evening was 12.1. ABGs on 09/07/2016 on an unlisted FiO2 showed a pH of 7.397, PCO2 34.4, PO2 55.4 , bicarb 21.8, and oxygen saturation 89.2%. Exam (Progress Note) - Constitutional Vitals: Period Temp Pulse Resp BP Sys/Yanes Pulse Ox Last 24 Hr 96.4 F-98.2 F 66-87 16-20 128-160/67-87 90-99 Exam: Chest is fairly clear Heart no gallop Abdomen is nontender nondistended; bowel sounds are positive 4 Extremities with nothing to suggest acute deep venous thrombophlebitis Psychiatric oriented 3; somewhat flat affect today Neurologic unchanged Plan: Mediport placement today. Continue present treatment. Results - Labs CBC & BMP: 09/16/16 06:18 09/16/16 06:18
[2016-09-17] MEDS ORDERED: HEPARIN 5,000 UNIT/1 ML VIAL ONE (11:47)
[2016-09-17] MEDS ORDERED: BUPIVACAINE MPF 0.25% /EPI 30 ML VIAL ONE (11:47)
[2016-09-17] MEDS ORDERED: TISSUE ADHESIVE 1 EACH APPLICATOR TOP ONE (11:47)
--- NOTE | 2016-09-17 12:08 | Hospitalist Progress Note ---
Assessment and Plan (1) Pneumonia Status: Acute Assessment and plan: Today we did would de-escalate the antibiotics. Discontinue vancomycin. Put patient on levofloxacin 500 mg daily for the next 5 days. Gently will be started on chemotherapy. Recommendation of oncology. Attention paid to the patient is greatly appreciated. Current Visit: Yes Qualifiers: Pneumonia type: due to unspecified organism Laterality: right Lung location: lower lobe of lung Qualified Code(s): J18.1 - Lobar pneumonia, unspecified organism (2) Leukocytosis Status: Acute Assessment and plan: Repeat CBC white count is 10,600 which is a lot better. Antibiotics are being de-escalated. Current Visit: Yes (3) Hilar mass Status: Acute Assessment and plan: Patient has had biopsy of this mass. From what I get it is neuroendocrine tumor small cell high-grade pulmonary is on the case, oncology is on the case. This plan to start chemotherapy as soon as possible. Patient is getting Mediport Current Visit: Yes (4) HTN (hypertension) Status: Acute Assessment and plan: Continue current medication this is controlled Current Visit: Yes (5) COPD (chronic obstructive pulmonary disease) Status: Acute Assessment and plan: Patient is a lot better in this regard. Continue current treatment Current Visit: Yes Hospitalist: Subjective Interval history: Patient has been seen interviewed and examined and chart has been reviewed. Is gone for a MediPort placement this morning. This nice gentleman admitted to the hospital initially for management of exacerbation of COPD and pneumonia who was found to have a mediastinal lesion. Patient underwent biopsy of this region that reveals a high-grade small cell carcinoma that needs further treatment. Is consulted to oncology and as of now plan is to give him some chemotherapy with etoposide and carboplatin. For this he needed to have a Mediport placed. Exam - Constitutional Vitals: Period Temp Pulse Resp BP Sys/Yanes Pulse Ox Last 24 Hr 96.4 F-98.2 F 66-87 16-20 128-160/67-87 90-99 General appearance: normal weight - Head Head exam: Present: normocephalic, atraumatic - Eye Eye exam: Present: EOMI Pupils: Present: NATE - ENT ENT exam: Present: normal exam - Neck Neck exam: Present: normal inspection - Respiratory Respiratory exam: Present: other (No wheezing no rales. Breath sounds in the left base.) - Cardiovascular Cardiovascular exam: Present: regular rate and rhythm - GI/Abdominal GI/Abdominal exam: Present: normal bowel sounds, soft - Extremities Exam Extremities exam: Present: full ROM, other (Because of generalized weakness of chronic disease) - Psychiatric Psychiatric exam: Present: normal affect, normal mood - Skin Skin exam: Present: normal color, warm, dry Results - Labs CBC & BMP: 09/16/16 06:18 09/16/16 06:18 Lab Results: I have reviewed the past 24 hour labs Quality Measures - VTE Contraindication to Pharmacological VTE Prophylaxis: High Risk of Bleeding
[2016-09-17] MEDS ORDERED: ceFAZolin 1,000 MG VIAL ONE (12:17)
[2016-09-17] MEDS ORDERED: LIDOCAINE 2% 5 ML VIAL ONE (13:55)
[2016-09-17] MEDS ORDERED: PROPOFOL 200 MG/20 ML VIAL IV ONE (13:55)
[2016-09-17] MEDS ORDERED: oxyCODONE/ACETAMINOPHEN 5-325 MG TABLET PO PRN (15:12)
[2016-09-17] MEDS ORDERED: HYDROmorphone 2 MG/1 ML VIAL IV PRN (15:12)
--- NOTE | 2016-09-17 15:25 | Operative Note ---
Date of procedure: 09/17/16 Pre-op diagnosis: Cancer of the right lung needing venous access for chemotherapy Post-op diagnosis: same Procedure: Operative note: Preoperative diagnosis: Carcinoma of the right long needing venous access for chemotherapy Postoperative diagnosis: Same Procedure: Insertion of PowerPort left subclavian vein Surgeon Dr. Pérez Payroll Accounting Clerk Tiffanie Galdamez, [facility] ACN Anesthesia was managed anesthetic care with local Brief history: 71-year-old white male with small spelled cancer of the right lung needing venous access for chemotherapy for long-term treatment. Generally in fair shape at this time I will no anticoagulation so would like to bring them down at this time get this inserted. Procedure: With patient in supine position prepped and draped in a sterile fashion timeout and antibiotics completed approaches area of the left subclavian region where the deltopectoral groove was noted in the left chest the infraclavicular area. We then infiltrated in this area of the deltopectoral groove and then made an incision with a 15 knife blade through the skin subtenons tissue. Bleeding was controlled with electrocauterization. We carefully dissected down into the deltopectoral groove area and identified the vein but look pretty small. I was able to isolate approximately with a 2-0 Vicryl tie and did not get beyond as far as I could distally to get around it. We had him in Trendelenburg at this time I made a small venotomy incision and attempted a dilated up to thread the catheter. But was clearly too small and the vein Tearing at this point. I had to go ahead and clipped the ends of the veins to secure the area and then plan to go ahead with a subclavian stick. At this point we went ahead and put some local underneath clavicle at this time that I took the needle and syringe and made 2 passes the first 1 with no resultant cycle we got into the vein and it was allowed us to thread the wire easily without any problems. We then brought C arm up and the detail with the wire was in good position. With C arm guidance we were able to put the introducer dilator into the subclavian vein without difficulty. Once we did that we were able to advance the peel-away sheath and removed the wire and the inner cannula so that we could put a catheter through the peel-away sheath into the vein. Carefully position the vein and position and we carefully backed out the peel-away sheath peeling it away as we did. Once peel-away sheath was completely out we went back and reposition the tip of the catheter to we had it in the position and we warranted. In the right atrium superior vena caval area. We then aspirated and irrigated and aspirated irrigated easily. At that point we then put a pursestring suture of 2-0 Vicryl around the entrance of the catheter into the muscle and tied that down securely and then tied that Vicryl to the catheter itself. Once we did that and everything looked in good position and we began to create a pocket inferior to this on top of the muscle using sharp and blunt dissection. Once we had a good pocket then we cut off the excess of the catheter and placed it onto the reservoir and locked it in position with a locking device. We then aspirated and irrigated through the reservoir and aspirated irrigated easily through the reservoir. At that point we sutured the reservoir into the pocket with 2-0 Vicryl suture in the distal part of the pocket on either side keep it from rotating. Once that was in good position and s.c. arm came up and gave her some individual pictures showing that we had a good smooth course and it was in good position at this time and we began to irrigate out the pocket with the Ancef solution. We then closed subtenons tissue with a running 4-0 Vicryl we closed the skin running 4-0 Monocryl Dermabond was applied. The reservoir was then accessed and irrigated and the and flushed easily. With that completed then dressings were applied and the patient taken recovery room. Sponge counts correct 2 Drains none Complications none Condition stable satisfactory Anesthesia: MAC, local (0.25% Marcaine with epinephrine mixed [id number] 1% Xylocaine plain) Surgeon / Physician: Louis Pérez Payroll Accounting Clerk: Tiffanie Galdamez Estimated blood loss: other (10 cc) Specimens: none sent Condition: stable Disposition: floor Results - Labs CBC & BMP: 09/16/16 06:18 09/16/16 06:18 Discharge Plan - Discharge Medications No Action Mv-Mins/Folic/Lycopene/Ginkgo [One Daily Men's 50+ Tablet] 1 each PO DAILY Biotin 5,000 mcg PO DAILY Mirtazapine 30 mg PO BEDTIME Baclofen Tab [Lioresal] 10 mg PO TID cloNIDine TAB [Catapres Tab] 0.1 mg PO BID Pravastatin Sodium 80 mg PO DAILY Hydrocodone/Acetaminophen [[place] 10-325 Tablet] 1 each PO TID PRN PRN Reason: Pain Potassium Chloride 20 meq PO DAILY Gabapentin 400 mg PO TID HYDROcodone/ACETAMIN 10-325 [[place] 10-325] 1 tablet PO TID Methadone [(None)] 10 mg PO QID Docusate Sodium 250 mg PO DAILY Meloxicam 15 mg PO DAILY Venlafaxine HCl [Venlafaxine HCl ER] 150 mg PO BID clonazePAM [Clonazepam] 1 mg PO DAILY Potassium Chloride [Klor-Con 10] 20 meq PO DAILY Docusate Sodium [Colace] 1 capsule PO DIRECTED Cholecalciferol (Vitamin D3) [Vitamin D3] 1 capsule DIRECTED [place] Oil 1 tablespoon PO DIRECTED - Follow Up or Referral - Forms/Instructions
--- NOTE | 2016-09-17 15:49 | XRay Report ---
Portable chest Date: 09/17/2016 Clinical history: MediPort placement Comparison: 09/17/2016 Technique: Portable AP sitting chest Findings: The heart is slightly larger in size with interval removal of a left arm PICC line. Insertion of left Mediport catheter with tip in right atrium. No pneumothorax is identified. Progressive parenchymal findings at the lung bases with larger small right pleural effusion. Persistent right infrahilar mass. Degenerative changes are noted. Impression: Removal of the left arm PICC line. Insertion of left Mediport catheter with tip in right atrium. No pneumothorax. Persistent right infrahilar mass with progressive atelectasis/infiltration/edema at the lung bases with larger small right pleural effusion. PROCEDURE INTERPRETED AT [facility] DEPARTMENT OF RADIOLOGY Final Report Signed by: Dr. Patricia Kendrick
--- NOTE | 2016-09-17 16:19 | Interventional Radiology Rpt ---
Exam: IR fluoro guide cv cath Date: 09/17/2016 12:00 AM Comparison: 05/04/2009 Indication: MediPort insertion Technique:[Fluoroscopy time of 1.36 minutes documented. 2 AP films were submitted for review.] Findings: Insertion left subclavian MediPort catheter with tip in right atrium. Impression: Insertion of left Mediport catheter with tip in right atrium. PROCEDURE INTERPRETED AT [facility] DEPARTMENT OF RADIOLOGY Final Report Signed by: Dr. Patricia Kendrick
[2016-09-17] MEDS: ENOXAPARIN 40 MG/0.4 ML SYRINGE SUBCUT SCH (16:32)
[2016-09-17] MEDS: SODIUM CHLORIDE 0.45% 1,000 ML IV SCH (16:32)
[2016-09-17] MEDS: LEVOFLOXACIN INJ 500 MG in PREMIX 1 EACH IV SCH (17:27)
[2016-09-17] MEDS: CASTOR OIL PO SCH (17:30)
[2016-09-17] MEDS: clonazePAM 0.5 MG TABLET PO SCH (20:47)
[2016-09-17] MEDS: MIRTAZAPINE 30 MG TABLET PO SCH (20:47)
[2016-09-17] MEDS: VANCOMYCIN INJ 1,500 MG in SODIUM CHLORIDE 0.9% 500 ML IV SCH (22:46)
[2016-09-18] MEDS ORDERED: KETAMINE 500 MG/10 ML VIAL ONE (00:28)
[2016-09-18] MEDS ORDERED: MIDAZOLAM 2 MG/2 ML VIAL ONE (00:28)
--- NOTE | 2016-09-18 00:36 | Anesthesia Post-Op ---
Anesthesia Post OP - Post Ansesthetic Evaluation Patient seen in post op: Yes Resp: within normal limits CV: within normal limits Mental: within normal limits Temp: within normal limits [id number]: within normal limits Nausea and Vomiting: within normal limits Pain: within normal limits
[2016-09-18] MEDS: ALBUTEROL/IPRATROPIUM 3 ML NEB RESP TX SCH ×4 (01:20→19:25)
[2016-09-18] MEDS: ceFAZolin 2,000 MG in PREMIX 1 EACH IV SCH ×2 (01:50→04:31)
[2016-09-18] MEDS: VANCOMYCIN INJ 1,500 MG in SODIUM CHLORIDE 0.9% 500 ML IV SCH (05:04)
--- NOTE | 2016-09-18 07:38 | Oncology Progress Note ---
Oncology Subjective PN Interval history: Mr. Gabriel will have a Mediport catheter placed later today. It will need to heal so he can be discharged after his placed if he is strong enough to go home. I would actually prefer to start chemotherapy next week but we can proceed with it this week with the patient inpatient if he is too debilitated to go home. He probably needs to be monitored closely with this first course of chemotherapy anyway since the first course causes most of the acute side effects including tumor lysis syndrome and anaphylactic reactions. I am starting him on allopurinol today and will probably proceed with chemotherapy tomorrow. He could not lie on the hard surface for the bone scan. The nurses tried twice. We will not try it again but will consider a possible PET scan at some point although it may be after we complete the initial chemotherapy. I anticipate beginning chemotherapy tomorrow so that we can go ahead with the first course as an inpatient and monitor him for toxicity. Exam - Constitutional Vitals: Period Temp Pulse Resp BP Sys/Yanes Pulse Ox Last 24 Hr 96.4 F-99 F 62-104 13-103 130-188/65-89 93-99 Results - Labs CBC & BMP: 09/16/16 06:18 09/16/16 06:18 Quality Measures - VTE Contraindication to Pharmacological VTE Prophylaxis: High Risk of Bleeding
[2016-09-18 09:21] LABS: Basophils % 0.3 % (0.0-0.8); Eosinophils # 0.3 10*3/uL (0.0-0.87); Eosinophils % 2.8 % (0.00-10.9); Hematocrit 35.4 VOL% (42.0-52.0); Hemoglobin 12.2 GM/DL (14.0-18.0); Immature Granulocytes % 0.5 %; Immature Granulocytes Absolute 0.05 #; Lymphocytes # 2.5 10*3/uL (1.4-4.0); Lymphocytes % 25.8 % (21.2-54.2); Mean Corpuscular HGB Conc 34.5 GM/DL (32-36); Mean Corpuscular Hemoglobin 33 PG (27-34); Mean Corpuscular Volume 96.2 FL (87-102); Mean Platelet Volume 9.5 FL (9.6-12.0); Monocytes # 0.6 10*3/uL (0.11-0.8); Monocytes % 5.9 % (1.7-12.7); Neutrophils # 6.3 10*3/uL (1.4-7.4); Neutrophils % 64.7 % (38.7-73.9); Platelet Count 320 T/CUMM (130-400); Red Blood Count 3.68 MC/CUMM (3.8-5.5); Red Cell Distribution Width 13.2 % (9.3-17.3); White Blood Count 9.8 T/CUMM (4-12)
[2016-09-18] MEDS: MELOXICAM 7.5 MG TABLET PO SCH (09:26)
[2016-09-18] MEDS: BACLOFEN 10 MG TABLET PO SCH ×3 (09:26→21:54)
[2016-09-18] MEDS: Biotin [Biotin] 5,000 MCG PO SCH (09:26)
[2016-09-18] MEDS: METHADONE 10 MG TABLET PO SCH ×4 (09:27→21:55)
[2016-09-18] MEDS: DOCUSATE SODIUM 100 MG CAPSULE PO SCH (09:27)
[2016-09-18] MEDS: GABAPENTIN 400 MG CAPSULE PO SCH ×3 (09:27→21:55)
[2016-09-18] MEDS: VENLAFAXINE XR 75 MG CAPSULE PO SCH ×2 (09:27→21:54)
[2016-09-18] MEDS: CARVEDILOL 12.5 MG TABLET PO SCH ×2 (09:27→22:16)
[2016-09-18] MEDS: PANTOPRAZOLE 40 MG TABLET PO SCH (09:27)
[2016-09-18] MEDS: cloNIDine 0.1 MG TABLET PO SCH ×3 (09:27→21:56)
[2016-09-18] MEDS: guaiFENesin/DM ER 600-30 MG TABLET PO PRN (09:27)
[2016-09-18] MEDS: PRAVASTATIN 40 MG TABLET PO SCH (09:27)
[2016-09-18] MEDS: ALLOPURINOL 300 MG TABLET PO SCH (09:31)
[2016-09-18 09:58] LABS: Calcium 8.5 MG/DL (8.5-10.1); Osmolality,Calculated 281.1 MOS/KG (273-304); Potassium 3.4 MMOL/L (3.5-5.1)
--- NOTE | 2016-09-18 10:21 | Pulmonology Progress Note ---
Pulmonary - PN: Subj Interval history: Guicho Wang, ANP-BC, GNP-BC, acting as scribe for Dr. Tristen Bailey Mr. Gabriel is a 71-year-old white male who we saw in initial pulmonary consultation on 09/07/2016. At that time, our impressions were: 1. Right lower lung pneumonia. Outpatient treatment failure. Possibly complicated by partial obstruction from lung mass 2. Right lung lung mass. Suspicious for cancer. Next #3 long history of tobacco abuse. Stop smoking 2009 2011 4. COPD 5. Lethargy. Look for CO2 retention. 6. Chronic pain. The care of Dr. Michael huerta 7. Degenerative joint disease 8. See past history 9. Mid upper epigastric pain and increased gastroesophageal reflux. Consider GI evaluation. 09/10/2016. Patient was seen today along with Mary Stewart RN, and the patient' s daughter. Today the patient is much more awake and alert. He states that he is feeling better. We discussed the CT changes with the patient and his daughter to their understanding. We feel he is now medically stable to proceed with fiberoptic bronchoscopy. The preop orders have been placed in the EMR. Will proceed with bronchoscopy in the morning under fluoroscopy. 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 He is concerned about this coming out during bronchoscopy. Will order a patch placed over the right eye prior to bronch. 09/11/2016. Earlier today the patient had a fiberoptic bronchoscopy. He was loaded with secretions bilaterally. These were removed. He had erosive friable bronchitis in the superior segment and the medial basal segment of the right lower lung. Biopsies were taken from these areas and segments were lavaged. Attempt was made to brush right lower lung mass under fluoroscopic guidance but it did not appear that there was an endobronchial connection. Each segment was lavaged and the specimens have been sent for cytology as well as studies for bacterial fungus and AFB. Follow-up chest x-ray is ordered for tomorrow. There is a small possibility that lavage could have resolved an atypical appearing pneumonia. If not we are left with a mass cannot be reached with bronchoscope and will require a transthoracic biopsy. This would be done by interventional radiology. So far there are no positive cultures. CBC is stable. INR is 1.0. 09/12/16. The patient was seen today along with his daughter and Marguerite Leach RN. The patient underwent FOB yesterday. The official report has not been completed, but Dr. Bailey spoke with Dr. Anderson and there were no malignant cells. Dr. Bailey was unable to access this area by bronchoscopy. Please see the FOB event note for more information. We discussed this with the patient and his daughter. We will consult IR for possible needle biopsy. The patient had a PICC placed earlier today. 09/13/2016. Patient's for interventional radiology transthoracic biopsy of right lower lung mass today. His chest is clear and he is breathing comfortably lying flat in bed. He has no new complaints no new requests. His bronchoscopy specimens are growing a gram-positive cocci which has not been identified and there are no sensitivities available. INR is 1.0. Thyroid function tests are normal. Labs been reviewed. Medicines have been reviewed. 09/14/2016. Patient was seen today along with Kaveh Howell RN. Patient underwent needle biopsy by interventional radiology yesterday. Pathology is pending. CT of the abdomen and pelvis was done yesterday. This showed a large mass in the right base posteriorly measuring approximately 3.5 x 4.2 cm with an area of satellite nodularity present in the right base posteriorly measuring 2 cm with some postobstructive pneumonitis changes. Left lung is clear. There is a small area of nodularity present in the anterior right base measuring 2.2 cm. There is fatty infiltration of the liver, diverticulosis without diverticulitis , prostate calcifications, and evidence of prior cholecystectomy. Bronchoscopy lavage culture has grown MRSA. He is on Fortaz and Levaquin. 09/17/2016. 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 He has been seen in oncology consultation by Dr. Hamm. He has been seen in surgery consultation by Dr. Pérez. Patient is for Mediport placement today to begin chemotherapy. CT of abdomen and pelvis done 09/15/2016 showed no evidence of metastatic disease within the abdomen or pelvis. He continues on IV Fortaz, vancomycin, and Levaquin. Previous bronchoscopy lavage grew MRSA. 09/18/2016. The patient was seen today along with Kaveh Howell RN. Mr. Gabriel had a Mediport placed yesterday by Dr. Pérez. There were no complications from this. Patient is doing reasonably well this morning. He appears slightly depressed and understandably so. Dr. Hamm plans to give him his first dose of chemotherapy tomorrow. The patient states he is in agreement with this. Medications have been reviewed. We made no changes today. Labs have been reviewed. White count is 9800 with 64.7% segs, 25.8% lymphs, and 5.9% monos; H&H 12.2/35.4 with normal indices and normal red blood cell distribution with; platelet count 320,000; creatinine 0.60, BUN 9, sodium 142, potassium 3.4 ABGs on 09/07/2016 on an unlisted FiO2 showed a pH of 7.397, PCO2 34.4, PO2 55.4 , bicarb 21.8, and oxygen saturation 89.2%. ABGs on 09/10/2016 on an FiO2 of 28 % showed a pH of 7.391, PCO2 37.5, PO2 65.8, bicarb 22.8, and oxygen saturation 92.5%. Microbiology has been reviewed. Blood cultures grew no organisms. Bronchoscopy lavage Gram stain showed no organisms, but culture grew MRSA. There is no AFB or fungus seen on smears. AFB and fungal cultures are still pending. Exam (Progress Note) - Constitutional Vitals: Period Temp Pulse Resp BP Sys/Yanes Pulse Ox Last 24 Hr 97.7 F-99 F 62-104 13-103 130-188/65-89 93-99 Exam: Chest is fairly clear Heart no gallop Abdomen is nontender nondistended; bowel sounds are positive 4 Extremities with nothing to suggest acute deep venous thrombophlebitis Psychiatric oriented 3; somewhat flat affect Neurologic unchanged Plan: The patient is stable from a pulmonary standpoint. He had his Mediport placed yesterday. He is to get his first dose of chemotherapy tomorrow. We will sign off. Please reconsult as needed. Results - Labs CBC & BMP: 09/18/16 08:21 09/18/16 08:21
--- NOTE | 2016-09-18 11:36 | Hospitalist Progress Note ---
Assessment and Plan (1) Pneumonia Status: Acute Assessment and plan: Today we did would de-escalate the antibiotics. Discontinue vancomycin. Put patient on levofloxacin 500 mg daily for the next 5 days. Gently will be started on chemotherapy. Recommendation of oncology. Attention paid to the patient is greatly appreciated. Current Visit: Yes Qualifiers: Pneumonia type: due to unspecified organism Laterality: right Lung location: lower lobe of lung Qualified Code(s): J18.1 - Lobar pneumonia, unspecified organism (2) Leukocytosis Status: Acute Assessment and plan: Repeat CBC white count is 10,600 which is a lot better. Patient should be off antibiotics Current Visit: Yes (3) Hilar mass Status: Acute Assessment and plan: Patient has had biopsy of this mass. From what I get it is neuroendocrine tumor small cell high-grade pulmonary is on the case, oncology is on the case. This plan to start chemotherapy as soon as possible. Patient has a Mediport for cancer chemotherapy. Current Visit: Yes (4) HTN (hypertension) Status: Acute Assessment and plan: Continue current medication this is controlled Current Visit: Yes (5) COPD (chronic obstructive pulmonary disease) Status: Acute Assessment and plan: Patient is a lot better in this regard. Continue current treatment Current Visit: Yes Hospitalist: Subjective Interval history: Patient has been seen interviewed and examined and chart has been reviewed. I have reviewed oncology notes pulmonology notes. 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 Is been planned for chemotherapy. Mediport was put in yesterday. My understanding of the notes that this chemotherapy will be started while he is in the hospital and can be closely monitored for possibility of tumor lysis. Discharge therefore going to be pending initiation of decision for chemotherapy. Also discussed with Dr. Hamm she would like to assume total care of this patient. Once decision for treatment is made patient may need to be transferred to [facility]. Exam - Constitutional Vitals: Period Temp Pulse Resp BP Sys/Yanes Pulse Ox Last 24 Hr 96.7 F-99 F 62-104 13-103 130-188/65-89 93-99 General appearance: normal weight - Head Head exam: Present: normocephalic, atraumatic - Eye Eye exam: Present: other (Patient has 1eye) Pupils: Present: NATE - ENT ENT exam: Present: normal exam - Neck Neck exam: Present: normal inspection - Respiratory Respiratory exam: Present: clear to auscultation bilaterally - Cardiovascular Cardiovascular exam: Present: regular rate and rhythm - GI/Abdominal GI/Abdominal exam: Present: normal bowel sounds, soft - Extremities Exam Extremities exam: Present: full ROM - Back Exam Back exam: Present: normal inspection - Neurological Exam Neurological exam: Present: alert, oriented X3, CN II-XII intact Results - Labs CBC & BMP: 09/18/16 08:21 09/18/16 08:21 Lab Results: I have reviewed the past 24 hour labs Quality Measures - VTE Contraindication to Pharmacological VTE Prophylaxis: High Risk of Bleeding
--- NOTE | 2016-09-18 12:16 | General Surgery Progress Note ---
Assessment and Plan (1) Small cell lung cancer Status: Acute Assessment and plan: Impression: 1. Small spell cancer of the right lung needs venous access for chemotherapy Plan: Mediport placement left cephalic or subclavian vein 09/18/2016. Patient is stable post insertion Mediport left subclavian vein. He does have a slightly more induration than we normally see, so we will watch this closely for signs of hematoma. The port is usable at this time. Current Visit: Yes Exam - Constitutional Vitals: Period Temp Pulse Resp BP Sys/Yanes Pulse Ox Last 24 Hr 96.7 F-99 F 62-104 13-103 130-188/65-89 93-99 General appearance: no acute distress, other (Family is present.) - ENT Mouth exam: Present: normal external inspection, normal voice - Neck Neck exam: Present: other (Left infraclavicular port site has no drainage. There is a little more induration than one would expect, however very minimal ecchymosis or erythema. He is not tender. There is no subcu air. Chest x-ray reported no pneumothorax.) - Respiratory Respiratory exam: Present: rhonchi Results - Labs CBC & BMP: 09/18/16 08:21 09/18/16 08:21 Lab Results: I have reviewed the past 24 hour labs (Stop labs are stable. Chest x-ray obtained in PACU revealed no pneumothorax.) Quality Measures - VTE Contraindication to Pharmacological VTE Prophylaxis: High Risk of Bleeding
[2016-09-18] MEDS: ENOXAPARIN 40 MG/0.4 ML SYRINGE SUBCUT SCH (14:27)
[2016-09-18] MEDS: CASTOR OIL PO SCH (17:40)
[2016-09-18] MEDS: MIRTAZAPINE 30 MG TABLET PO SCH (21:57)
[2016-09-18] MEDS: SODIUM CHLORIDE 0.45% 1,000 ML IV SCH (22:16)
[2016-09-19] MEDS: ALBUTEROL/IPRATROPIUM 3 ML NEB RESP TX SCH ×4 (01:10→19:15)
[2016-09-19 05:04] LABS: Basophils % 0.4 % (0.0-0.8); Eosinophils # 0.4 10*3/uL (0.0-0.87); Eosinophils % 4.6 % (0.00-10.9); Hematocrit 32.2 VOL% (42.0-52.0); Immature Granulocytes % 0.4 %; Immature Granulocytes Absolute 0.03 #; Lymphocytes % 35.6 % (21.2-54.2); Mean Corpuscular HGB Conc 34.2 GM/DL (32-36); Mean Corpuscular Hemoglobin 33 PG (27-34); Mean Platelet Volume 9.4 FL (9.6-12.0); Monocytes # 0.5 10*3/uL (0.11-0.8); Neutrophils # 4.6 10*3/uL (1.4-7.4); Platelet Count 298 T/CUMM (130-400); Red Blood Count 3.32 MC/CUMM (3.8-5.5); Red Cell Distribution Width 13.1 % (9.3-17.3); White Blood Count 8.6 T/CUMM (4-12)
[2016-09-19 05:30] LABS: Alanine Aminotransferase 13 U/L (16-61); Albumin 3.1 G/DL (3.4-5.0); Alkaline Phosphatase 68 U/L (45-117); Aspartate Amino Transferase 20 U/L (0-37); Bilirubin,Total < 0.39 MG/DL (0.2-1.0); Blood Urea Nitrogen 12 MG/DL (7-18); Calcium 8.4 MG/DL (8.5-10.1); Glucose 92 MG/DL (74-106); Osmolality,Calculated 282.1 MOS/KG (273-304); Potassium 3.4 MMOL/L (3.5-5.1); Sodium 142 MMOL/L (136-145)
--- NOTE | 2016-09-19 08:26 | Oncology Progress Note ---
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 The carboplatin dose was reduced from what was actually calculated, which I considered excessive. I am checking lab work daily. And will continue to check it through this chemotherapy. I would hope to discharge him on Saturday if he has no adverse effects from the chemotherapy and we will plan to repeat this chemotherapy every 4 weeks, probably administering it daily for 3 days and repeating it for between 4 and 8 courses with consideration for possible radiation therapy at some point. He has COPD as well as the lung cancer. In addition, he is on pain medications measured by Dr. Serrano. Exam - Constitutional Vitals: Period Temp Pulse Resp BP Sys/Yanes Pulse Ox Last 24 Hr 97.9 F-98.5 F 59-82 18-20 147-181/73-83 91-99 Results - Labs CBC & BMP: 09/21/16 04:05 09/21/16 04:05 Quality Measures - VTE Contraindication to Pharmacological VTE Prophylaxis: High Risk of Bleeding
[2016-09-19] MEDS: GABAPENTIN 400 MG CAPSULE PO SCH ×3 (09:34→21:56)
[2016-09-19] MEDS: DOCUSATE SODIUM 100 MG CAPSULE PO SCH (09:34)
[2016-09-19] MEDS: VENLAFAXINE XR 75 MG CAPSULE PO SCH ×2 (09:34→21:55)
[2016-09-19] MEDS: CARVEDILOL 12.5 MG TABLET PO SCH ×2 (09:34→21:56)
[2016-09-19] MEDS: PRAVASTATIN 40 MG TABLET PO SCH (09:34)
[2016-09-19] MEDS: MELOXICAM 7.5 MG TABLET PO SCH (09:35)
[2016-09-19] MEDS: PANTOPRAZOLE 40 MG TABLET PO SCH (09:35)
[2016-09-19] MEDS: cloNIDine 0.1 MG TABLET PO SCH ×3 (09:35→21:56)
[2016-09-19] MEDS: BACLOFEN 10 MG TABLET PO SCH ×3 (09:35→21:55)
[2016-09-19] MEDS: METHADONE 10 MG TABLET PO SCH ×4 (09:35→21:56)
[2016-09-19] MEDS: ALLOPURINOL 300 MG TABLET PO SCH (09:35)
[2016-09-19] MEDS: Biotin [Biotin] 5,000 MCG PO SCH (09:37)
--- NOTE | 2016-09-19 10:27 | Pulmonology Progress Note ---
Pulmonary - PN: Subj Interval history: Chart reviewed. I agree with plans to place a Pleurx pleural drain. This should help the patient had a great deal. I will sign off. Reconsult whenever you need me. Exam (Progress Note) - Constitutional Vitals: Period Temp Pulse Resp BP Sys/Yanes Pulse Ox Last 24 Hr 97.9 F-98.5 F 59-82 18-20 147-181/73-83 90-99 Results - Labs CBC & BMP: 09/19/16 04:00 09/19/16 04:00
--- NOTE | 2016-09-19 10:54 | Event Note ---
09/19/2016. Patient has now been transferred to [facility] for initiation of chemotherapy. He is sitting up in the edge of bed with family present. Denies complaints. Denies pain. He said he is mildly uncomfortable in his port site, but not unusually so. His incision is clean and dry, there is no unusual swelling, no unusual ecchymosis or fluctuance to suggest seroma. I do not see evidence of an advancing hematoma at this time. It certainly perfectly safe to go ahead and continue using support, and there is nothing seen at this point to suggest a hematoma. We will continue following with you.
[2016-09-19] MEDS: DEXAMETHASONE INJ 20 MG in SODIUM CHLORIDE 0.9% 50 ML IV SCH (13:29)
[2016-09-19] MEDS: GRANISETRON 1 MG/1 ML VIAL IV SCH (13:29)
[2016-09-19] MEDS: ETOPOSIDE 200 MG in SODIUM CHLORIDE 0.9% 500 ML IV SCH (14:55)
[2016-09-19] MEDS: ENOXAPARIN 40 MG/0.4 ML SYRINGE SUBCUT SCH (15:38)
[2016-09-19] MEDS ORDERED: HEPARIN LOCK FLUSH 500 UNIT/5 ML SYRINGE IV ONE (16:02)
[2016-09-19] MEDS: CASTOR OIL PO SCH (17:49)
[2016-09-19] MEDS: MIRTAZAPINE 30 MG TABLET PO SCH (21:55)
[2016-09-20] MEDS: ALBUTEROL/IPRATROPIUM 3 ML NEB RESP TX SCH ×4 (00:40→20:53)
[2016-09-20 07:11] LABS: Calcium 8.5 MG/DL (8.5-10.1)
[2016-09-20 07:12] LABS: Alanine Aminotransferase 16 U/L (16-61); Albumin 3.4 G/DL (3.4-5.0); Aspartate Amino Transferase 19 U/L (0-37); Bilirubin,Total < 0.39 MG/DL (0.2-1.0); Blood Urea Nitrogen 18 MG/DL (7-18); Glucose 125 MG/DL (74-106); Total Protein 6.6 G/DL (6.4-8.3)
[2016-09-20 07:13] LABS: Alkaline Phosphatase 69 U/L (45-117); Osmolality,Calculated 279.5 MOS/KG (273-304); Potassium 3.7 MMOL/L (3.5-5.1); Sodium 139 MMOL/L (136-145)
[2016-09-20 07:36] LABS: Basophils % 0.1 % (0.0-0.8); Hematocrit 32.7 VOL% (42.0-52.0); Immature Granulocytes % 0.3 %; Immature Granulocytes Absolute 0.03 #; Lymphocytes # 1.1 10*3/uL (1.4-4.0); Lymphocytes % 10.4 % (21.2-54.2); Mean Corpuscular HGB Conc 33.6 GM/DL (32-36); Mean Corpuscular Hemoglobin 32 PG (27-34); Mean Corpuscular Volume 96.2 FL (87-102); Mean Platelet Volume 9.3 FL (9.6-12.0); Monocytes # 0.2 10*3/uL (0.11-0.8); Monocytes % 1.8 % (1.7-12.7); Neutrophils % 87.4 % (38.7-73.9); Platelet Count 328 T/CUMM (130-400); Red Cell Distribution Width 12.9 % (9.3-17.3); White Blood Count 10.3 T/CUMM (4-12)
[2016-09-20] MEDS ORDERED: CARBOplatin 600 MG in SODIUM CHLORIDE 0.9% 250 ML IV ONE (09:00)
[2016-09-20] MEDS: BACLOFEN 10 MG TABLET PO SCH ×3 (09:45→22:54)
[2016-09-20] MEDS: VENLAFAXINE XR 75 MG CAPSULE PO SCH ×2 (09:45→22:58)
[2016-09-20] MEDS: MELOXICAM 7.5 MG TABLET PO SCH (09:45)
[2016-09-20] MEDS: CARVEDILOL 12.5 MG TABLET PO SCH ×2 (09:46→22:55)
[2016-09-20] MEDS: METHADONE 10 MG TABLET PO SCH ×4 (09:46→22:54)
[2016-09-20] MEDS: PANTOPRAZOLE 40 MG TABLET PO SCH (09:46)
[2016-09-20] MEDS: ALLOPURINOL 300 MG TABLET PO SCH (09:46)
[2016-09-20] MEDS: GABAPENTIN 400 MG CAPSULE PO SCH ×3 (09:46→23:00)
[2016-09-20] MEDS: cloNIDine 0.1 MG TABLET PO SCH ×3 (09:46→22:55)
[2016-09-20] MEDS: DOCUSATE SODIUM 100 MG CAPSULE PO SCH (09:46)
[2016-09-20] MEDS: Biotin [Biotin] 5,000 MCG PO SCH (09:46)
[2016-09-20] MEDS: PRAVASTATIN 40 MG TABLET PO SCH ×2 (09:48→22:55)
--- NOTE | 2016-09-20 12:15 | Oncology Progress Note ---
Oncology Subjective PN Interval history: This patient has stage III small cell neuroendocrine carcinoma and was started on chemotherapy yesterday using etoposide and carboplatin. He will actually receive carboplatin today, which is day 2 of the chemotherapy. The etoposide is repeated daily for 3 days. If he tolerates it well, he will be discharged tomorrow. The remainder of his chemotherapy can be given outpatient as long as he is tolerating it well. Lab work today includes a white cell count of 10,300 with a hemoglobin of 11.0 and a platelet count of 328,000. The patient's comprehensive metabolic profile today is essentially normal except for an LDH of 272. His electrolytes are normal and he has a normal anion gap. We had a prolonged discussion today. He has had no nausea or vomiting and has had very little in the way of side effects from the chemotherapy. I answered quite a few of his questions including how long we would keep treating him. I told him that we would treat him with this combination for between 4 and 8 treatments and consider radiation sometime after about 4 treatments. He requested additional assistance at home. In fact, he is still weak and debilitated and expressed concern about being discharged before next week. I can understand this. He was already disabled and is now having to deal with this malignancy and the dyspnea from it. I will recheck lab work tomorrow and will discuss management of this cancer tomorrow again. Exam - Constitutional Vitals: Period Temp Pulse Resp BP Sys/Yanes Pulse Ox Last 24 Hr 97.4 F-98.3 F 57-89 18-20 149-179/66-80 90-98 Results - Labs CBC & BMP: 09/20/16 04:00 09/20/16 04:00 Quality Measures - VTE Contraindication to Pharmacological VTE Prophylaxis: High Risk of Bleeding
[2016-09-20] MEDS: GRANISETRON 1 MG/1 ML VIAL IV SCH (12:59)
[2016-09-20] MEDS: DEXAMETHASONE INJ 20 MG in SODIUM CHLORIDE 0.9% 50 ML IV SCH (13:02)
[2016-09-20] MEDS: ETOPOSIDE 200 MG in SODIUM CHLORIDE 0.9% 500 ML IV SCH (13:48)
[2016-09-20] MEDS: ENOXAPARIN 40 MG/0.4 ML SYRINGE SUBCUT SCH (14:59)
[2016-09-20] MEDS ORDERED: HEPARIN LOCK FLUSH 500 UNIT/5 ML SYRINGE IV ONE (16:20)
[2016-09-20] MEDS: CASTOR OIL PO SCH (16:23)
[2016-09-20] MEDS ORDERED: PANTOPRAZOLE 40 MG TABLET PO SCH (21:00)
[2016-09-20] MEDS: guaiFENesin/DM ER 600-30 MG TABLET PO PRN (22:54)
[2016-09-20] MEDS: MIRTAZAPINE 30 MG TABLET PO SCH (22:54)
[2016-09-21] MEDS: ALBUTEROL/IPRATROPIUM 3 ML NEB RESP TX SCH ×4 (00:10→19:36)
[2016-09-21 05:25] LABS: Basophils % 0.1 % (0.0-0.8); Hematocrit 33.5 VOL% (42.0-52.0); Hemoglobin 11.3 GM/DL (14.0-18.0); Immature Granulocytes % 0.4 %; Immature Granulocytes Absolute 0.04 #; Lymphocytes # 1.3 10*3/uL (1.4-4.0); Lymphocytes % 11.3 % (21.2-54.2); Mean Corpuscular HGB Conc 33.7 GM/DL (32-36); Mean Corpuscular Hemoglobin 33 PG (27-34); Mean Corpuscular Volume 96.8 FL (87-102); Mean Platelet Volume 10.3 FL (9.6-12.0); Monocytes # 0.4 10*3/uL (0.11-0.8); Neutrophils # 9.3 10*3/uL (1.4-7.4); Neutrophils % 84.2 % (38.7-73.9); Platelet Count 398 T/CUMM (130-400); Red Blood Count 3.46 MC/CUMM (3.8-5.5); White Blood Count 11.1 T/CUMM (4-12)
[2016-09-21 05:43] LABS: Alanine Aminotransferase 17 U/L (16-61); Albumin 3.7 G/DL (3.4-5.0); Alkaline Phosphatase 72 U/L (45-117); Aspartate Amino Transferase 17 U/L (0-37); Bilirubin,Total < 0.39 MG/DL (0.2-1.0); Blood Urea Nitrogen 23 MG/DL (7-18); Calcium 8.8 MG/DL (8.5-10.1); Glucose 119 MG/DL (74-106); Osmolality,Calculated 277.8 MOS/KG (273-304); Potassium 4.3 MMOL/L (3.5-5.1); Sodium 137 MMOL/L (136-145)
--- NOTE | 2016-09-21 07:51 | Oncology Progress Note ---
Oncology Subjective PN Interval history: This is day #3 of this patient's first course of chemotherapy for small cell carcinoma of the lung. He has had very little in the way of side effects. He has had essentially no nausea or vomiting and no discomfort. His white cell count is 11,100 with a hemoglobin of 11.3 and a platelet count of 398,000. His comprehensive metabolic profile and LDH are essentially normal except for a slightly high urea nitrogen of 23 but he is on steroids. His LDH is also slightly high at 272. He has a new problem. He is growing yeast in his sputum. This was actually documented on bronchial washings. I am starting voriconazole. He has extensive arthritic problems of the cervical and thoracic spine and Dr. Serrano is his pain doctor. I am not managing his medications. I will start him on treatment for the yeast infection and will continue to observe him at least for couple more days. I am going to go ahead and set up an appointment for him to see me in 3 weeks for follow-up in case he is well enough to discharge later this weekend. Exam - Constitutional Vitals: Period Temp Pulse Resp BP Sys/Yanes Pulse Ox Last 24 Hr 96.7 F-98.1 F 66-80 16-20 132-192/74-89 90-98 Results - Labs CBC & BMP: 09/21/16 04:05 09/21/16 04:05 Quality Measures - VTE Contraindication to Pharmacological VTE Prophylaxis: High Risk of Bleeding
[2016-09-21] MEDS: ALLOPURINOL 300 MG TABLET PO SCH (08:55)
[2016-09-21] MEDS: BACLOFEN 10 MG TABLET PO SCH ×3 (08:55→21:14)
[2016-09-21] MEDS: GABAPENTIN 400 MG CAPSULE PO SCH ×3 (08:55→21:12)
[2016-09-21] MEDS: MELOXICAM 7.5 MG TABLET PO SCH (08:56)
[2016-09-21] MEDS: DOCUSATE SODIUM 100 MG CAPSULE PO SCH (08:56)
[2016-09-21] MEDS: PANTOPRAZOLE 40 MG TABLET PO SCH (08:57)
[2016-09-21] MEDS: METHADONE 10 MG TABLET PO SCH ×4 (08:58→21:13)
[2016-09-21] MEDS: VENLAFAXINE XR 75 MG CAPSULE PO SCH ×2 (08:59→21:13)
[2016-09-21] MEDS: CARVEDILOL 12.5 MG TABLET PO SCH ×2 (08:59→21:14)
[2016-09-21] MEDS: cloNIDine 0.1 MG TABLET PO SCH ×3 (08:59→21:14)
[2016-09-21] MEDS: GRANISETRON 1 MG/1 ML VIAL IV SCH (09:00)
[2016-09-21] MEDS: Biotin [Biotin] 5,000 MCG PO SCH (10:14)
[2016-09-21] MEDS: VORICONAZOLE 200 MG TABLET PO SCH (11:25)
[2016-09-21] MEDS: DEXAMETHASONE INJ 20 MG in SODIUM CHLORIDE 0.9% 50 ML IV SCH (11:26)
[2016-09-21] MEDS: ETOPOSIDE 200 MG in SODIUM CHLORIDE 0.9% 500 ML IV SCH (12:07)
[2016-09-21] MEDS: ENOXAPARIN 40 MG/0.4 ML SYRINGE SUBCUT SCH (16:14)
[2016-09-21] MEDS: CASTOR OIL PO SCH (17:23)
[2016-09-21] MEDS: PRAVASTATIN 40 MG TABLET PO SCH (21:13)
[2016-09-21] MEDS: MIRTAZAPINE 30 MG TABLET PO SCH (21:14)
[2016-09-22] MEDS: ALBUTEROL/IPRATROPIUM 3 ML NEB RESP TX SCH ×4 (01:07→19:58)
[2016-09-22 05:06] LABS: Hematocrit 32.9 VOL% (42.0-52.0); Hemoglobin 11.2 GM/DL (14.0-18.0); Immature Granulocytes % 0.2 %; Immature Granulocytes Absolute 0.01 #; Lymphocytes # 0.8 10*3/uL (1.4-4.0); Lymphocytes % 12.9 % (21.2-54.2); Mean Corpuscular Hemoglobin 33 PG (27-34); Mean Corpuscular Volume 97.3 FL (87-102); Mean Platelet Volume 10.1 FL (9.6-12.0); Monocytes # 0.1 10*3/uL (0.11-0.8); Monocytes % 2.4 % (1.7-12.7); Neutrophils # 4.9 10*3/uL (1.4-7.4); Neutrophils % 84.5 % (38.7-73.9); Platelet Count 356 T/CUMM (130-400); Red Blood Count 3.38 MC/CUMM (3.8-5.5); Red Cell Distribution Width 12.8 % (9.3-17.3); White Blood Count 5.8 T/CUMM (4-12)
[2016-09-22 05:38] LABS: Albumin 3.6 G/DL (3.4-5.0); Bilirubin,Total 0.4 MG/DL (0.2-1.0); Calcium 8.8 MG/DL (8.5-10.1); Osmolality,Calculated 278.8 MOS/KG (273-304); Potassium 4.1 MMOL/L (3.5-5.1); Total Protein 6.9 G/DL (6.4-8.3)
[2016-09-22] MEDS: METHADONE 10 MG TABLET PO SCH ×4 (09:00→21:45)
[2016-09-22] MEDS: VENLAFAXINE XR 75 MG CAPSULE PO SCH ×2 (09:00→21:46)
[2016-09-22] MEDS: PANTOPRAZOLE 40 MG TABLET PO SCH (09:01)
[2016-09-22] MEDS: guaiFENesin/DM ER 600-30 MG TABLET PO PRN (09:02)
[2016-09-22] MEDS: VORICONAZOLE 200 MG TABLET PO SCH (09:02)
[2016-09-22] MEDS: DOCUSATE SODIUM 100 MG CAPSULE PO SCH (09:02)
[2016-09-22] MEDS: BACLOFEN 10 MG TABLET PO SCH ×3 (09:03→21:45)
[2016-09-22] MEDS: MELOXICAM 7.5 MG TABLET PO SCH (09:03)
[2016-09-22] MEDS: GABAPENTIN 400 MG CAPSULE PO SCH ×3 (09:04→21:45)
[2016-09-22] MEDS: CARVEDILOL 12.5 MG TABLET PO SCH ×2 (09:04→21:45)
[2016-09-22] MEDS: ALLOPURINOL 300 MG TABLET PO SCH (09:04)
[2016-09-22] MEDS: cloNIDine 0.1 MG TABLET PO SCH ×3 (09:04→21:45)
[2016-09-22] MEDS: Biotin [Biotin] 5,000 MCG PO SCH (11:53)
--- NOTE | 2016-09-22 14:22 | Oncology Progress Note ---
Oncology Subjective PN Interval history: Patient with small cell lung cancer recently diagnosed in fact during this hospitalization as I believe. He was admitted September 07. He completed chemotherapy earlier this week. He is ambulatory and nontoxic in appearance. Awake alert and oriented. He is breathing comfortable but does have supplemental O2 in place. His basic labs are unremarkable. His bronc washings are notable for Saritha albicans and MRSA. Voriconazole is his only antimicrobial at this point Exam - Constitutional Vitals: Period Temp Pulse Resp BP Sys/Yanes Pulse Ox Last 24 Hr 97.1 F-98.5 F 60-87 16-20 168-200/72-94 92-99 Results - Labs CBC & BMP: 09/22/16 03:49 09/22/16 03:49 Quality Measures - VTE Contraindication to Pharmacological VTE Prophylaxis: High Risk of Bleeding
[2016-09-22] MEDS: ENOXAPARIN 40 MG/0.4 ML SYRINGE SUBCUT SCH (15:55)
[2016-09-22] MEDS ORDERED: MAGNESIUM HYDROXIDE SUSP 30 ML UDCUP PO PRN (20:21)
[2016-09-22] MEDS: MIRTAZAPINE 30 MG TABLET PO SCH (21:45)
[2016-09-22] MEDS: PRAVASTATIN 40 MG TABLET PO SCH (21:45)
[2016-09-22] MEDS: CASTOR OIL PO SCH (21:46)
[2016-09-23] MEDS: ALBUTEROL/IPRATROPIUM 3 ML NEB RESP TX SCH ×4 (01:00→19:15)
[2016-09-23 05:19] LABS: Basophils % 0.1 % (0.0-0.8); Eosinophils % 0.2 % (0.00-10.9); Hematocrit 33.7 VOL% (42.0-52.0); Hemoglobin 11.3 GM/DL (14.0-18.0); Immature Granulocytes % 0.5 %; Immature Granulocytes Absolute 0.04 #; Lymphocytes # 2.3 10*3/uL (1.4-4.0); Lymphocytes % 25.4 % (21.2-54.2); Mean Corpuscular HGB Conc 33.5 GM/DL (32-36); Mean Corpuscular Hemoglobin 33 PG (27-34); Mean Corpuscular Volume 96.8 FL (87-102); Mean Platelet Volume 10.2 FL (9.6-12.0); Monocytes # 0.2 10*3/uL (0.11-0.8); Monocytes % 2.6 % (1.7-12.7); Neutrophils # 6.3 10*3/uL (1.4-7.4); Neutrophils % 71.2 % (38.7-73.9); Platelet Count 407 T/CUMM (130-400); Red Blood Count 3.48 MC/CUMM (3.8-5.5); Red Cell Distribution Width 12.6 % (9.3-17.3); White Blood Count 8.9 T/CUMM (4-12)
[2016-09-23 05:51] LABS: Albumin 3.9 G/DL (3.4-5.0); Bilirubin,Total 0.6 MG/DL (0.2-1.0); Osmolality,Calculated 277.1 MOS/KG (273-304); Potassium 4.2 MMOL/L (3.5-5.1); Total Protein 6.9 G/DL (6.4-8.3)
[2016-09-23] MEDS: VENLAFAXINE XR 75 MG CAPSULE PO SCH ×2 (09:38→21:08)
[2016-09-23] MEDS: PANTOPRAZOLE 40 MG TABLET PO SCH (09:38)
[2016-09-23] MEDS: VORICONAZOLE 200 MG TABLET PO SCH (09:38)
[2016-09-23] MEDS: METHADONE 10 MG TABLET PO SCH ×4 (09:38→21:08)
[2016-09-23] MEDS: GABAPENTIN 400 MG CAPSULE PO SCH ×3 (09:38→21:08)
[2016-09-23] MEDS: CARVEDILOL 12.5 MG TABLET PO SCH ×2 (09:39→21:09)
[2016-09-23] MEDS: ALLOPURINOL 300 MG TABLET PO SCH (09:39)
[2016-09-23] MEDS: MELOXICAM 7.5 MG TABLET PO SCH (09:39)
[2016-09-23] MEDS: cloNIDine 0.1 MG TABLET PO SCH ×3 (09:39→21:09)
[2016-09-23] MEDS: BACLOFEN 10 MG TABLET PO SCH ×3 (09:39→21:08)
[2016-09-23] MEDS: DOCUSATE SODIUM 100 MG CAPSULE PO SCH (09:40)
[2016-09-23] MEDS: Biotin [Biotin] 5,000 MCG PO SCH (09:44)
--- NOTE | 2016-09-23 11:11 | Oncology Progress Note ---
Oncology Subjective PN Interval history: Patient remained stable with small cell lung cancer, underlying COPD, and Saritha albicans from bronchial specimens. Patient also with positive MRSA. He is stable this morning lying flat comfortable on 2 L of O2. He has no peripheral edema and heart rhythm is regular. He should be able to be discharged soon Exam - Constitutional Vitals: Period Temp Pulse Resp BP Sys/Yanes Pulse Ox Last 24 Hr 96.3 F-98.6 F 63-87 17-20 155-182/72-83 91-98 Results - Labs CBC & BMP: 09/23/16 04:13 09/23/16 04:13 Quality Measures - VTE Contraindication to Pharmacological VTE Prophylaxis: High Risk of Bleeding
[2016-09-23] MEDS: ENOXAPARIN 40 MG/0.4 ML SYRINGE SUBCUT SCH (14:39)
[2016-09-23] MEDS: MIRTAZAPINE 30 MG TABLET PO SCH (21:08)
[2016-09-23] MEDS: PRAVASTATIN 40 MG TABLET PO SCH (21:09)
[2016-09-23] MEDS: CASTOR OIL PO SCH (21:10)
[2016-09-24] MEDS: ALBUTEROL/IPRATROPIUM 3 ML NEB RESP TX SCH ×4 (01:15→19:26)
[2016-09-24 06:37] LABS: Basophils % 0.2 % (0.0-0.8); Eosinophils # 0.1 10*3/uL (0.0-0.87); Eosinophils % 1.9 % (0.00-10.9); Hematocrit 35.1 VOL% (42.0-52.0); Hemoglobin 11.7 GM/DL (14.0-18.0); Immature Granulocytes % 0.2 %; Immature Granulocytes Absolute 0.01 #; Lymphocytes # 2.7 10*3/uL (1.4-4.0); Lymphocytes % 46.2 % (21.2-54.2); Mean Corpuscular HGB Conc 33.3 GM/DL (32-36); Mean Corpuscular Hemoglobin 33 PG (27-34); Mean Corpuscular Volume 97.8 FL (87-102); Mean Platelet Volume 10.2 FL (9.6-12.0); Monocytes # 0.1 10*3/uL (0.11-0.8); Neutrophils % 50.5 % (38.7-73.9); Platelet Count 404 T/CUMM (130-400); Red Blood Count 3.59 MC/CUMM (3.8-5.5); Red Cell Distribution Width 12.8 % (9.3-17.3); White Blood Count 5.8 T/CUMM (4-12)
[2016-09-24 07:18] LABS: Albumin 3.7 G/DL (3.4-5.0); Bilirubin,Total 0.4 MG/DL (0.2-1.0); Calcium 8.7 MG/DL (8.5-10.1); Total Protein 6.8 G/DL (6.4-8.3)
[2016-09-24 07:19] LABS: Osmolality,Calculated 278.8 MOS/KG (273-304); Potassium 4.4 MMOL/L (3.5-5.1)
[2016-09-24] MEDS: cloNIDine 0.1 MG TABLET PO SCH ×3 (08:54→21:05)
[2016-09-24] MEDS: MELOXICAM 7.5 MG TABLET PO SCH (08:54)
[2016-09-24] MEDS: GABAPENTIN 400 MG CAPSULE PO SCH ×3 (08:54→21:08)
[2016-09-24] MEDS: ALLOPURINOL 300 MG TABLET PO SCH (08:54)
[2016-09-24] MEDS: VENLAFAXINE XR 75 MG CAPSULE PO SCH ×2 (08:54→21:06)
[2016-09-24] MEDS: VORICONAZOLE 200 MG TABLET PO SCH (08:54)
[2016-09-24] MEDS: PANTOPRAZOLE 40 MG TABLET PO SCH (08:54)
[2016-09-24] MEDS: BACLOFEN 10 MG TABLET PO SCH ×3 (08:54→21:06)
[2016-09-24] MEDS: CARVEDILOL 12.5 MG TABLET PO SCH ×2 (08:54→21:05)
[2016-09-24] MEDS: DOCUSATE SODIUM 100 MG CAPSULE PO SCH (08:54)
[2016-09-24] MEDS: Biotin [Biotin] 5,000 MCG PO SCH (08:55)
[2016-09-24] MEDS: METHADONE 10 MG TABLET PO SCH ×4 (08:55→21:07)
[2016-09-24] MEDS: ENOXAPARIN 40 MG/0.4 ML SYRINGE SUBCUT SCH (14:10)
--- NOTE | 2016-09-24 15:27 | Oncology Progress Note ---
Oncology Subjective PN Interval history: Small cell lung cancer status post cycle 1 chemotherapy. Patient appears stable and nontoxic today. Consider for discharge tomorrow Exam - Constitutional Vitals: Period Temp Pulse Resp BP Sys/Yanes Pulse Ox Last 24 Hr 97.0 F-98.1 F 61-77 17-169 110-164/60-82 92-99 Results - Labs CBC & BMP: 09/24/16 04:00 09/24/16 04:00 Quality Measures - VTE Contraindication to Pharmacological VTE Prophylaxis: High Risk of Bleeding
[2016-09-24] MEDS: CASTOR OIL PO SCH (17:29)
[2016-09-24] MEDS: MIRTAZAPINE 30 MG TABLET PO SCH (21:08)
[2016-09-24] MEDS: PRAVASTATIN 40 MG TABLET PO SCH (21:08)
[2016-09-25] MEDS: ALBUTEROL/IPRATROPIUM 3 ML NEB RESP TX SCH ×2 (00:49→07:23)
--- NOTE | 2016-09-25 06:49 | Oncology Progress Note ---
Oncology Subjective PN Interval history: Diagnoses: (1) postobstructive pneumonia with MRSA reported on bronchoscopy (2) small cell neuroendocrine lung carcinoma, stage IIIB (3) HTN (hypertension) (4) Hyperlipidemia (5) COPD (chronic obstructive pulmonary disease) (7) chronic pain due to extensive degenerative arthritis, managed by Dr. Serrano. I do not plan to prescribe pain medications. 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 Gabriel remains hospitalized with small cell neuroendocrine carcinoma of the lung complicated by severe COPD and severe degenerative degenerative arthritis. He has chronic pain and is being followed by Dr. Serrano for this. His first chemotherapy was given September 19 - September 21 and it consisted of etoposide 200 mg IV on all 3 days along with carboplatin 600 mg IV on September 20 only. Lab work done today includes white cell count of 6100 with a hemoglobin of 11.4 and a platelet count of 328,000. Absolute neutrophil count is 2400 and falling. X-rays done on this patient include: CT brain scan without contrast done September 07, 2016 that does not demonstrate any acute abnormalities or evidence of metastatic disease CT of the abdomen and pelvis with contrast done September 15, 2016 that was negative for evidence of metastatic disease below the diaphragm. CT of the chest with contrast done September 07, 2016 that demonstrated a 50 x 42 x 40 mm right hilar mass with mediastinal and hilar adenopathy, bullous emphysema , COPD and the patient was also noted to have subpleural pulmonary nodules within the right lower lobe there were actually mentioned on the abdominal CT of September 13, 2016. Hepatic steatosis was mentioned and there was also mention of diverticula primarily in the sigmoid and descending colon. Exam - Constitutional Vitals: Period Temp Pulse Resp BP Sys/Yanes Pulse Ox Last 24 Hr 96.0 F-97.5 F 65-77 17-21 110-152/61-75 90-100 Results - Labs CBC & BMP: 09/25/16 07:01 09/25/16 07:01 Quality Measures - VTE Contraindication to Pharmacological VTE Prophylaxis: High Risk of Bleeding
[2016-09-25 07:10] LABS: Basophils % 0.5 % (0.0-0.8); Eosinophils # 0.2 10*3/uL (0.0-0.87); Eosinophils % 3.8 % (0.00-10.9); Hematocrit 33.8 VOL% (42.0-52.0); Hemoglobin 11.4 GM/DL (14.0-18.0); Immature Granulocytes % 0.2 %; Immature Granulocytes Absolute 0.01 #; Lymphocytes # 3.4 10*3/uL (1.4-4.0); Lymphocytes % 55.8 % (21.2-54.2); Mean Corpuscular HGB Conc 33.7 GM/DL (32-36); Mean Corpuscular Hemoglobin 33 PG (27-34); Mean Corpuscular Volume 97.7 FL (87-102); Mean Platelet Volume 9.5 FL (9.6-12.0); Monocytes # 0.1 10*3/uL (0.11-0.8); Monocytes % 0.8 % (1.7-12.7); Neutrophils # 2.4 10*3/uL (1.4-7.4); Neutrophils % 38.9 % (38.7-73.9); Platelet Count 328 T/CUMM (130-400); Red Blood Count 3.46 MC/CUMM (3.8-5.5); Red Cell Distribution Width 12.8 % (9.3-17.3); White Blood Count 6.1 T/CUMM (4-12)
[2016-09-25 07:42] LABS: Albumin 3.6 G/DL (3.4-5.0); Bilirubin,Total 0.4 MG/DL (0.2-1.0); Osmolality,Calculated 278.8 MOS/KG (273-304); Potassium 4.1 MMOL/L (3.5-5.1); Total Protein 6.5 G/DL (6.4-8.3)
--- NOTE | 2016-09-25 07:52 | Discharge Summary ---
Hospital Course - Hospital Course Hospital Course: Patient Name: Oh Gabriel Date of : 1945 Patient Status: Inpatient Attending Provider: Braulio Dowling Date: 09/25/16 06:48 Initialization Date: 09/25/16 06:48 Oncology Subjective PN Interval history: Diagnoses: (1) postobstructive pneumonia with MRSA reported on bronchoscopy (2) small cell neuroendocrine lung carcinoma, stage IIIB (3) HTN (hypertension) (4) Hyperlipidemia (5) COPD (chronic obstructive pulmonary disease) (7) chronic pain due to extensive degenerative arthritis, managed by Dr. Serrano. I do not plan to prescribe pain medications. 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 Mr. Gabriel remains hospitalized with small cell neuroendocrine carcinoma of the lung complicated by severe COPD and with postobstructive pneumonia and severe degenerative arthritis. He has chronic pain and is being followed by Dr. Serrano for this. His first chemotherapy was given September 19 - September 21 and it consisted of etoposide 200 mg IV on all 3 days along with carboplatin 600 mg IV on September 20 only. Lab work done today includes white cell count of 6100 with a hemoglobin of 11.4 and a platelet count of 328,000. Absolute neutrophil count is 2400 and falling. X-rays done on this patient include: CT brain scan without contrast done September 07, 2016 that does not demonstrate any acute abnormalities or evidence of metastatic disease CT of the abdomen and pelvis with contrast done September 15, 2016 that was negative for evidence of metastatic disease below the diaphragm. CT of the chest with contrast done September 07, 2016 that demonstrated a 50 x 42 x 40 mm right hilar mass with mediastinal and hilar adenopathy, bullous emphysema , COPD and the patient was also noted to have subpleural pulmonary nodules within the right lower lobe there were actually mentioned on the abdominal CT of September 13, 2016. Hepatic steatosis was mentioned and there was also mention of diverticula primarily in the sigmoid and descending colon. My plan is to give him granulocyte colony-stimulating factor, 300 mg subcu today. Discharge medications include: Voriconazole 200 mg p.o. daily for 5 more days Bactrim DS 1 tablet daily with a prescription for 30 written and 1 refill I will set him up an appointment to see me in 2 weeks. My plan is to repeat this chemotherapy combination every 4 weeks and to adjust the dose as necessary. I will plan to treat him for between 4 and 8 courses with radiation to be considered at some point. Discharge Plan - Discharge Data Disposition: Disch To Home/Self Care Condition at Discharge: Guarded Discharge Diet: advance to your usual diet Activity: resume usual activities as tolerated Hygiene: no restrictions Weight Bearing at Discharge: weight bear as tolerated Driving: other Contact your physician if you experience:: fever over 101, Difficulty voiding, Redness or swelling, Nausea/Vomiting, Shortness of breath, Bleeding, pain uncontrolled by pain medications - Discharge Medications New Methadone 10 mg PO QID tablet Continue Mv-Mins/Folic/Lycopene/Ginkgo [One Daily Men's 50+ Tablet] 1 each PO DAILY Biotin 5,000 mcg PO DAILY Mirtazapine 30 mg PO BEDTIME Baclofen Tab [Lioresal] 10 mg PO TID cloNIDine TAB [Catapres Tab] 0.1 mg PO BID Pravastatin Sodium 80 mg PO DAILY Potassium Chloride 20 meq PO DAILY Gabapentin 400 mg PO TID HYDROcodone/ACETAMIN 10-325 [Pantego 10-325] 1 tablet PO TID Docusate Sodium 250 mg PO DAILY Meloxicam 15 mg PO DAILY Venlafaxine HCl [Venlafaxine HCl ER] 150 mg PO BID clonazePAM [Clonazepam] 1 mg PO DAILY Docusate Sodium [Colace] 1 capsule PO DIRECTED Cholecalciferol (Vitamin D3) [Vitamin D3] 1 capsule DIRECTED [place] Oil 1 tablespoon PO DIRECTED Discontinued Methadone [(None)] 10 mg PO QID No Action Hydrocodone/Acetaminophen [Pantego 10-325 Tablet] 1 each PO TID PRN PRN Reason: Pain Potassium Chloride [Klor-Con 10] 20 meq PO DAILY - Follow Up or Referral - Forms/Instructions Additional Discharge Instructions: Discharge today after the patient receives Neupogen. Appointment to see me in 2 weeks with CBC, CMP, LDH and chest x-ray PA and lateral. I am handwriting the patient a prescription for Bactrim DS with 30 tablets and 1 refill to take 1 daily. I am also writing a prescription for voriconazole 200 mg with 5 tablets to take 1 daily for the next 5 days. In addition, with the patient received granulocyte colony-stimulating factor III 100 mcg subcu today before discharge. Exam - Constitutional Vitals: Period Temp Pulse Resp BP Sys/Yanes Pulse Ox Last 24 Hr 96.0 F-97.5 F 65-77 17-21 110-152/61-75 90-100 Discharge Results Procedures and tests throughout hospitalization: Pending Orders 09/11/16 AFB Culture/Smears Stat Fungal Culture w/ Prep Stat 09/26/16 04:00 Comp Blood Count Auto Diff IN AM Comprehensive Metabolic Panel IN AM LDH [Lactate Dehydrogenase] IN AM 09/27/16 04:00 Comp Blood Count Auto Diff IN AM Comprehensive Metabolic Panel IN AM LDH [Lactate Dehydrogenase] IN AM 09/28/16 04:00 Comp Blood Count Auto Diff IN AM Comprehensive Metabolic Panel IN AM LDH [Lactate Dehydrogenase] IN AM 09/29/16 04:00 Comp Blood Count Auto Diff IN AM Comprehensive Metabolic Panel IN AM LDH [Lactate Dehydrogenase] IN AM 09/30/16 04:00 Comp Blood Count Auto Diff IN AM Comprehensive Metabolic Panel IN AM LDH [Lactate Dehydrogenase] IN AM 10/01/16 04:00 Comp Blood Count Auto Diff IN AM Comprehensive Metabolic Panel IN AM Labs on day of discharge: Labs from last 24 hours 09/25/16 09/25/16 07:01 07:01 WBC 6.1 RBC 3.46 L Hgb 11.4 L Hct 33.8 L MCV 97.7 MCH 33 MCHC 33.7 RDW 12.8 Plt Count 328 MPV 9.5 L Neut % (Auto) 38.9 Lymph % (Auto) 55.8 H [place] % (Auto) 0.8 L Eos % (Auto) 3.8 Baso % (Auto) 0.5 Neut # (Auto) 2.4 Lymph # (Auto) 3.4 [place] # (Auto) 0.1 L Eos # (Auto) 0.2 Baso # (Auto) 0.0 Immature Gran % 0.2 Nucleated RBC % 0.0 Immature Gran # 0.01 Nucleated RBCs # 0.00 Sodium 137 Potassium 4.1 Chloride 101 Carbon Dioxide 29 Anion Gap 11.1 BUN 32 H Creatinine 0.70 GFR Calculation 107 BUN/Creatinine Ratio 45.00 H Glucose 84 Calculated Osmolality 278.8 Calcium 9.0 Total Bilirubin 0.40 AST 42 H ALT 40 Alkaline Phosphatase 72 Lactate Dehydrogenase 228 Total Protein 6.5 Albumin 3.6 Globulin 2.9 Albumin/Globulin Ratio 1.2 Preliminary micro results at discharge 05/16/17 Unknown Fungal Culture - Preliminary Bronchial Bryant Lavage Saritha albicans 09/11/16 Unknown Mycobacterial Culture - Preliminary Bronchial Bryant Lavage No AFB isolated at 1 week DS: Provider Date of admission: 09/07/16 13:07 Primary care physician: Nabeel Vargas DO Attending physician on admission: Braulio Dowling MD Consults: 09/07/16 13:55 Consult to Physician [CONS] Routine Comment: pt of yours w pneumonia and hilar mass Consulting Provider: Tristen Bailey When should Consulting Provider be notified: Now Person Notified: aware Date Notified: 09/07/16 Time Notified: 15:12 09/14/16 14:37 Consult to Pharmacy [CONS] Routine Reason for Pharmacy Consult: Dose/Manage Vancomycin 09/14/16 14:52 Consult to Physician [CONS] Routine Comment: On-call physician/malignant neoplasm Consulting Provider: Braulio Dowling Consult to Specialist Group: Oncology When should Consulting Provider be notified: Now Person Notified: DR. DOWLING Date Notified: 09/14/16 Time Notified: 16:49 09/14/16 17:47 PT [Consult to Physical Therapy] [CONS] Routine Reason for Physical Therapy: Weakness Evaluate and Treat 09/14/16 17:48 Consult to Case Mgmt/Social Srvs [CONS] Routine Reason for Case Mgmt/Social Srvs: Swingbed/SNF/Long-Term 09/16/16 12:44 Consult to Physician [CONS] Routine Comment: On-call physician/need of Mediport Consulting Provider: Louis Pérez Consult to Specialist Group: Surgery When should Consulting Provider be notified: In am Person Notified: aware Date Notified: 09/17/16 Time Notified: 08:03 09/17/16 09:08 Consult to Anesthesiology [CONS] Routine Consulting Provider: Reason for Anesthesiology: Pre-op Clearance Discharging clinician: Braulio Dowling MD
[2016-09-25 08:08] LABS: Hypochromasia 1+; Microcytosis Slight
[2016-09-25] MEDS: VORICONAZOLE 200 MG TABLET PO SCH (08:56)
[2016-09-25] MEDS: VENLAFAXINE XR 75 MG CAPSULE PO SCH (08:56)
[2016-09-25] MEDS: MELOXICAM 7.5 MG TABLET PO SCH (08:56)
[2016-09-25] MEDS: DOCUSATE SODIUM 100 MG CAPSULE PO SCH (08:56)
[2016-09-25] MEDS: ALLOPURINOL 300 MG TABLET PO SCH (08:57)
[2016-09-25] MEDS: BACLOFEN 10 MG TABLET PO SCH (08:57)
[2016-09-25] MEDS: cloNIDine 0.1 MG TABLET PO SCH (08:57)
[2016-09-25] MEDS: PANTOPRAZOLE 40 MG TABLET PO SCH (08:57)
[2016-09-25] MEDS: METHADONE 10 MG TABLET PO SCH (08:58)
[2016-09-25] MEDS: GABAPENTIN 400 MG CAPSULE PO SCH (08:58)
[2016-09-25] MEDS: CARVEDILOL 12.5 MG TABLET PO SCH (08:58)
[2016-09-25] MEDS: Biotin [Biotin] 5,000 MCG PO SCH (08:58)
[2016-09-25] MEDS ORDERED: FILGRASTIM-SNDZ 300 MCG/0.5 ML SYRINGE SUBCUT SCH (09:00)
[2016-09-25] MEDS ORDERED: HEPARIN LOCK FLUSH 500 UNIT/5 ML SYRINGE IV ONE (10:16)
[2016-09-25 12:46] VITALS: BP 122/63
--- NOTE | 2016-09-25 13:18 | Physician Query Form ---
CLICK EDIT DOCUMENT TO SELECT QUERY ANSWER --> OK --> SIGN Lauren Lozada RN Clinical Railway Switch Operator W) [phone] (f) [phone] [email or web address] PROVIDERS: Make your selection(s) from the choices in EACH section by typing an "x" and enter comments in the comment section. Please use your independent medical judgment in providing your response. This request does not imply that any particular answer is desired or expected. CLINICAL INDICATORS: (Providers should not edit this section) Pt. admitted with pneumonia. Based on documentation of "His bronch washings are notable for Saritha albicans and MRSA". Pt. treated with IV Vancomycin. Community Acquired and Healthcare Acquired are both unspecified terms and require further specificity. Based on the above, could you please clarify further specificity regarding the type of pneumonia you are treating (even if specific organism may not be known) ? ( ) Gram negative pneumonia ( ) Gram positive pneumonia (X ) Bacterial pneumonia due to, please specify organism (if known): MRSA ( ) Viral pneumonia ( ) Post procedural ( ) Radiation Pneumonitis ( ) Pneumonia due to, please specify: ( ) Clinically unable to determine ( ) Other, please specify: COMMENTS: PLEASE ALSO DOCUMENT RESPONSE IN PROGRESS NOTES AND/OR DISCHARGE SUMMARY Use of terms such as suspected, likely, or probable (associated with a specific diagnosis that is being evaluated, monitored, or treated as if it exists) are acceptable and can be restated in the discharge summary if not ruled out. MTDD
--- NOTE | 2016-10-01 13:00 | Physician Query Form ---
CLICK EDIT DOCUMENT TO SELECT QUERY ANSWER --> OK --> SIGN Lauren Lozada RN Clinical Field Horticultural Specialty Grower W) [phone] (f) [phone] [email or web address] PROVIDERS: Make your selection(s) from the choices in EACH section by typing an "x" and enter comments in the comment section. Please use your independent medical judgment in providing your response. This request does not imply that any particular answer is desired or expected. CLINICAL INDICATORS: (Providers should not edit this section) Based on documentation in bronchoscope report of "specimens were sent and label lavage from superior segment and medial basal segment of the right lower lung". Pathology report states "right lower lobe bronchial biopsies". Based on the above, could you clarify the appropriate diagnosis, if significant , that supports the above abnormalities and additional evaluation, monitoring, and/or treatment rendered: ( ) Biopsy taken from lung tissue (X ) Biopsy taken from endobronchial tissue ( ) Other, please specify: ( ) Clinically unable to determine COMMENTS: PLEASE ALSO DOCUMENT RESPONSE IN PROGRESS NOTES AND/OR DISCHARGE SUMMARY Use of terms such as suspected, likely, or probable (associated with a specific diagnosis that is being evaluated, monitored, or treated as if it exists) are acceptable and can be restated in the discharge summary if not ruled out. MTDD
== END 2016-09-25 13:10 | disposition home or self-care (01) | DRG 843 ==
LOC: EDUNIT# → EDBD → N.ED 09:17 → SUATTDRO 13:07 → N.EDINP 13:07 → N.5E 14:57 → N.4E 09-18 14:53
PROVIDERS: ADMIT Specialist; ATTEND Specialist
PROC: BRONCHB (2016-09-11 08:50)

== ENCOUNTER 2016-11-24 09:07 | Inpatient (IN) ==
[2016-11-24] MEDS ORDERED: ASPIRIN 325 MG TABLET PO STA (09:28)
--- NOTE | 2016-11-24 09:32 | EKG Report ---
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
[2016-11-24] MEDS ORDERED: ASPIRIN 325 MG TABLET ONE (09:36)
[2016-11-24 09:48] LABS: Basophils % 0.2 % (0.0-0.8); Eosinophils % 0.4 % (0.00-10.9); Hematocrit 26.8 VOL% (42.0-52.0); Immature Granulocytes % 1.3 %; Immature Granulocytes Absolute 0.07 #; Lymphocytes # 0.9 10*3/uL (1.4-4.0); Lymphocytes % 17.8 % (21.2-54.2); Mean Corpuscular HGB Conc 34.7 GM/DL (32-36); Mean Corpuscular Hemoglobin 33 PG (27-34); Mean Corpuscular Volume 95.7 FL (87-102); Mean Platelet Volume 10.2 FL (9.6-12.0); Monocytes # 0.3 10*3/uL (0.11-0.8); Monocytes % 5.1 % (1.7-12.7); Neutrophils % 75.2 % (38.7-73.9); Red Cell Distribution Width 13.7 % (9.3-17.3); White Blood Count 5.3 T/CUMM (4-12)
[2016-11-24 09:50] LABS: Hemoglobin 9.3 GM/DL (14.0-18.0); Platelet Count 85 T/CUMM (130-400)
[2016-11-24] MEDS ORDERED: CLINDAMYCIN INJ 900 MG in PREMIX 1 EACH IV STA (09:59)
--- NOTE | 2016-11-24 10:02 | XRay Report ---
XR chest 1V portable Indication: Chest pain. Comparison: Chest x-ray 09/17/2016 Technique: Portable AP chest was performed. Findings: Heart size is normal. Pulmonary vasculature appears within normal limits. No significant abnormality of the mediastinal contours demonstrated. Lungs are clear. Bones and soft tissues demonstrate no significant abnormalities. Left-sided venous access device terminates at the cavoatrial junction. Impression: 1. No evidence of acute pathology. 11/24/2016 9:59 AM PROCEDURE INTERPRETED AT [facility] DEPARTMENT OF RADIOLOGY Final Report Signed by: Dr. Juan Francisco Rodriguez
[2016-11-24] MEDS ORDERED: CLINDAMYCIN INJ 50 ML IV ONE (10:06)
[2016-11-24 10:08] LABS: Band Neutrophils 1 % (0-10); Eosinophils 1 % (0-10); Lymphocytes 21 % (20-55); Platelet Estimate Decreased; Segmented Neutrophils 71 % (50-85); Total Cells Counted 100
[2016-11-24 10:09] LABS: Hypochromasia 1+; Microcytosis Slight; Ovalocytes Slight
[2016-11-24 10:14] LABS: Albumin 3.8 G/DL (3.4-5.0); Bilirubin,Total 0.5 MG/DL (0.2-1.0); Calcium 8.6 MG/DL (8.5-10.1); Potassium 3.8 MMOL/L (3.5-5.1)
[2016-11-24 10:15] LABS: Lactic Acid 1.7 MMOL/L (0.4-2.0)
--- NOTE | 2016-11-24 11:55 | CT Report ---
CT chest PE study Indication: Shortness of breath. Pleuritic chest pain. Comparison: None. Technique: CT of the chest was performed following the administration of intravenous contrast. In addition to multiple contiguous axial source images obtained from the thoracic inlet through the upper abdomen, coronal and sagittal MPR series were performed as were thin slab MIP reconstructions in the coronal and sagittal plane. The CT examination was performed using one or more of the following dose reduction techniques: Automatic exposure control, adjustment of the mA and kV according to patient size, or iterative reconstruction techniques. Findings: Left and right pulmonary arteries are enlarged. The right pulmonary artery measures 3 cm. The left pulmonary artery measures 2.6 cm. These findings are suggestive of, but not diagnostic for pulmonary arterial hypertension. No filling defects of the pulmonary artery present to suggest pulmonary artery embolus. Aorta demonstrates normal 3 vessel arch anatomy. The great vessel origins are unremarkable. Mural thrombus is noted throughout the aorta. The heart size is normal. The esophagus demonstrates no significant abnormality. Heterogeneous nonsolid nodular airspace attenuation within the right lung apex measures up to 9 mm maximum dimension. Moderately severe emphysematous changes are present bilaterally. Additional stranding in the right middle lobe is noted which may reflect scarring. No pleural effusions are present. No endobronchial lesions are demonstrated. The heart size appears normal. Coronary artery calcifications are present within the left and right coronary circulation. The esophagus demonstrates nonspecific wall thickening. No adenopathy is noted within the axilla, val, or mediastinum. The bony structures of the chest demonstrate no evidence of acute pathology. Soft tissues and musculature of the chest wall demonstrate no acute findings. Bilateral subareolar attenuation may reflect gynecomastia. The imaged portion of the upper abdomen demonstrates no acute findings.. Impression: 1. No evidence of pulmonary artery embolus. 2. Enlargement of the bilateral pulmonary arteries suggests pulmonary arterial hypertension. 3. Moderately advanced centrilobular emphysematous changes are demonstrated. 4. Focal airspace attenuation within the right upper lobe has differential considerations including focal airspace disease such as infection, scarring, developing cavitary lesion, and small focal neoplasm. Follow-up CT in 3 months is recommended to assess stability. 11/24/2016 11:47 AM PROCEDURE INTERPRETED AT [facility] DEPARTMENT OF RADIOLOGY Final Report Signed by: Dr. Juan Francisco Rodriguez
[2016-11-24 12:00] LABS: Apearance,Urine CLEAR (Clear); Bilirubin,Urine Negative (Negative); Blood, Urine Negative (Negative); Glucose,Urine (UA) Negative (Negative); Ketones,Urine Negative (Negative); Nitrite,Urine Negative (Negative); Protein,Urine Negative; RBC,Urine 1 /HPF (0-4); Urine Color Yellow (Yellow); Urine Specific Gravity 1.013 (1.001-1.035); Urine Urobilinogen < 2.0 EU/DL (0.2-1.0); WBC,Urine <1 /HPF (0-6)
[2016-11-24] MEDS ORDERED: CEFTAROLINE 600 MG in SODIUM CHLORIDE 0.9% 100 ML IV STA (12:37)
[2016-11-24] MEDS ORDERED: BENZTROPINE 2 MG/2 ML AMP IV PRN (12:41)
[2016-11-24] MEDS ORDERED: ALPRAZolam 0.25 MG TABLET PO PRN (12:41)
[2016-11-24] MEDS ORDERED: LOPERAMIDE 2 MG CAPSULE PO PRN ×2 (12:41)
[2016-11-24] MEDS ORDERED: MYLANTA/LIDO VISC 2:1 300 ML BOTTLE SWISH/SWAL PRN (12:41)
[2016-11-24] MEDS ORDERED: ONDANSETRON 4 MG/2 ML VIAL IV PRN (12:41)
[2016-11-24] MEDS ORDERED: PROMETHAZINE INJ 25 MG in SODIUM CHLORIDE 0.9% 50 ML IV PRN (12:41)
[2016-11-24] MEDS ORDERED: guaiFENesin 200 MG/10 ML UDCUP PO PRN (12:41)
[2016-11-24] MEDS ORDERED: LACTULOSE 20 GM/30 ML UDCUP PO PRN (12:41)
[2016-11-24] MEDS ORDERED: MAGNESIUM HYDROXIDE SUSP 30 ML UDCUP PO PRN (12:41)
[2016-11-24] MEDS ORDERED: ALUMINUM/MAGNES/SIMETH MAX STR 30 ML UDCUP PO PRN (12:41)
[2016-11-24] MEDS ORDERED: chlorproMAZINE 25 MG TABLET PO PRN (12:41)
[2016-11-24] MEDS ORDERED: MYLANTA/LIDO VISC 2:1 300 ML BOTTLE SWISH/SPIT PRN (12:41)
[2016-11-24] MEDS ORDERED: ACETAMINOPHEN 325 MG TABLET PO PRN (12:41)
[2016-11-24] MEDS ORDERED: TEMAZEPAM 7.5 MG CAPSULE PO PRN (12:41)
[2016-11-24] MEDS ORDERED: diphenhydrAMINE CAP 25 MG CAPSULE PO PRN (12:41)
[2016-11-24] MEDS ORDERED: traMADol 50 MG TABLET PO PRN (12:41)
--- NOTE | 2016-11-24 12:41 | Emergency Department Note ---
Samuel Randall Rolonda, am scribing for, and in the presence of, Rusty Carballo MD 09:33. Haris Randall Doug C, MD, personally performed the services described in this documentation, ascribed by Naz Baker in my presence, and it is both accurate and complete 241 . Arrival - Arrival Chief Complaint: Chest Pain ED Nursing Triage Note: pt had chest wall pain worse with movement and palpation. +sob. hx of lung ca. onset this am. Mode of Arrival: Stretcher Limitations: No Limitations Source: Patient, Old Records Reviewed, RN Notes Reviewed Time Seen by Provider: 11/24/16 09:28 - History of Present Illness HPI Narrative: Patient 71-year-old white male presents emergency room complaining of some increasing shortness of breath and pleuritic left-sided chest pain that started yesterday. Patient states she has not had any fever or chills associated with this. Patient states he had his last round of chemotherapy about 2 weeks ago. Patient also has painful swelling of his lower lip as well this is been present for several days. Patient states he had this once before when he had chemotherapy. Patient denies any nausea vomiting or diarrhea. His appetite is diminished and he feels diffusely weak. Onset (ago): hour(s) Consistency: constant Severity: moderate Severity scale (1-10): 4 Allergies/Adverse Reactions: Allergies Allergy/AdvReac Type Severity Reaction Status Date / Time No Known Allergies Allergy Verified 11/04/15 12:24 Home Medications: Home Medications Medication Instructions Recorded Confirmed Type Baclofen Tab [Lioresal] 10 mg PO TID 09/07/16 11/24/16 History [place] Oil 1 tablespoon PO DAILY PRN 09/07/16 11/24/16 History Docusate Sodium 500 mg PO BEDTIME 09/07/16 11/24/16 History Gabapentin 400 mg PO TID 09/07/16 11/24/16 History Hydrocodone/Acetaminophen [[place] 1 each PO TID PRN 09/07/16 11/24/16 History 10-325 Tablet] Meloxicam 15 mg PO QAM 09/07/16 11/24/16 History Mirtazapine 30 mg PO BEDTIME 09/07/16 11/24/16 History Mv-Mins/Folic/Lycopene/Ginkgo [One 1 each PO QAM 09/07/16 11/24/16 History Daily Men's 50+ Tablet] Potassium Chloride [Klor-Con 10] 20 meq PO DAILY W/BREAKFAST 09/07/16 11/24/16 History Pravastatin Sodium 80 mg PO QPM 09/07/16 11/24/16 History Venlafaxine HCl [Venlafaxine HCl 150 mg PO BID 09/07/16 11/24/16 History ER] cloNIDine TAB [Catapres Tab] 0.1 mg PO BID 09/07/16 11/24/16 History clonazePAM [Clonazepam] 1 mg PO BEDTIME 09/07/16 11/24/16 History Methadone 10 mg PO QID tablet 09/25/16 11/24/16 Rx Review of System - Review of System 12 point system: reviewed and no additional remarkable complaints except as stated - Review of System Constitutional: Absent: chills, fever Eyes: Absent: discharge, redness Head/Ears/Nose/Throat: Absent: earache, epistaxis Respiratory: Present: respiratory distress (SOB). Absent: cough, wheezing Cardiovascular: Present: chest pain (left side). Absent: palpitations Gastrointestinal: Absent: abdominal pain, nausea, vomiting Genitourinary male: Absent: urgency, dysuria Musculoskeletal: Absent: arm pain, back pain, leg pain, neck pain Skin: Present: change in color (lower lip erythematous) Neurological: Absent: headache Psychiatric: Absent: anxiety Endocrine: Absent: cold intolerance Hematological/Lymphatic: Absent: easy bleeding Allergic/Immunologic: Absent: facial swelling Medical,Surgical,& Family Hx - Medical History Cardio: History of: Hypertension Neurology: No history of: Seizures Respiratory: History of: COPD Musculoskeletal: History of: Back/Neck Problems - Surgical History HEENT Surgeries: Surgical HX of: Eye Surgery Abdominal Surgeries: Surgical HX of: Cholecystectomy - Family History Family History: Reports;: Family Heart Disease - Social History Smoking Status: Former smoker Frequency of Alcohol Use: None Type of Drug Use: None Exam Vital Signs: Vital Signs Temperature 98.3 F 11/24/16 09:12 Pulse Rate 106 H 11/24/16 09:12 Respiratory Rate 18 11/24/16 09:25 Blood Pressure 162/77 11/24/16 09:12 O2 Sat by Pulse Oximetry 99 11/24/16 09:40 - General General appearance: alert, in no apparent distress - Head Head exam: Present: atraumatic, normocephalic - Eye Eye exam: Present: PERRL, EOMI - ENT ENT exam: Present: mucous membranes moist. Absent: normal exam (Patient has an eschar over lesion on his lower lip and prominent swelling and erythema of his lower lip and chin area.), mucous membranes dry - Neck Neck exam: Present: full ROM. Absent: tenderness - Chest Chest inspection: Present: symmetric chest wall rise. Absent: tenderness - Respiratory Respiratory exam: Absent: normal lung sounds bilaterally (diminished breath sounds more on the left compared to the right) - Cardiovascular Cardiovascular exam: Present: regular rate, normal rhythm, normal heart sounds. Absent: bradycardia - Abdominal Exam Abdominal exam: Present: soft, tenderness (Diffusely), normal bowel sounds. Absent: guarding, rebound - Extremities Exam Extremities exam: Present: full ROM. Absent: tenderness - Back Exam Back exam: Present: full ROM. Absent: tenderness - Neurological Exam Neurological exam: Present: alert, oriented X3, CN II-XII intact. Absent: motor sensory deficit - Psychiatric Psychiatric exam: Present: normal affect, normal mood - Skin Skin exam: Present: warm, dry, other (cellulitis on the chin; pustule on the lower lip). Absent: normal color Course Course Narrative: Patient's clinical presentation, laboratory radiograph findings were discussed with Dr. Hamm. Patient will be admitted to his services for 24 hour observation. IV Teflaro was begun in the emergency room at his request. Results - Labs CBC & BMP: 11/24/16 09:18 11/24/16 09:18 Lab Results: I have reviewed the patients labs Labs: Laboratory Tests 11/24/16 09:18 WBC 5.3 RBC 2.80 L Hgb 9.3 L Hct 26.8 L Plt Count 85 L Neut % (Auto) 75.2 H Lymph % (Auto) 17.8 L Lymph # (Auto) 0.9 L Laboratory Tests 11/24/16 09:18 D-Dimer, Quantitative 0.8 Laboratory Tests 11/24/16 11/24/16 09:18 09:18 Sodium 136 Potassium 3.8 Chloride 100 Carbon Dioxide 29 BUN 12 Creatinine 0.60 L GFR Calculation 114 Glucose 112 H Calculated Osmolality 272.0 L AST 34 C-Reactive Protein 6.14 H - Diagnostic Findings Procedure: Chest x-ray: report reviewed by me (No evidence of acute pathology.) , CT - chest: report reviewed by me (No evidence of pulmonary embolus.) Disposition Clinical Impression: Cellulitis of lip, Pleurodynia Case discussed with: patient, patient's family Disposition: Still a Patient Condition: Stable Time of Disposition: 12:40
[2016-11-24] MEDS ORDERED: SODIUM CHLORIDE 0.9% 100 ML IV ONE (13:00)
[2016-11-24] MEDS ORDERED: CEFTAROLINE 600 MG VIAL IV ONE (13:00)
[2016-11-24] MEDS ORDERED: CASTOR OIL 59 ML BOTTLE PO PRN (14:04)
[2016-11-24] MEDS: CEFTAROLINE 600 MG in SODIUM CHLORIDE 0.9% 100 ML IV SCH (14:40)
[2016-11-24] MEDS: SODIUM CHLORIDE 0.9% 1,000 ML IV SCH (15:23)
[2016-11-24] MEDS: METHADONE 10 MG TABLET PO SCH ×3 (15:24→20:06)
[2016-11-24] MEDS: BACLOFEN 10 MG TABLET PO SCH ×2 (15:24→20:07)
[2016-11-24] MEDS: ENOXAPARIN 40 MG/0.4 ML SYRINGE SUBCUT SCH (15:25)
[2016-11-24] MEDS: GABAPENTIN 400 MG CAPSULE PO SCH ×2 (15:25→20:06)
[2016-11-24] MEDS ORDERED: PRAVASTATIN 40 MG TABLET PO SCH (19:00)
[2016-11-24] MEDS: clonazePAM 0.5 MG TABLET PO SCH (20:07)
[2016-11-24] MEDS: cloNIDine 0.1 MG TABLET PO SCH (20:07)
[2016-11-24] MEDS: MIRTAZAPINE 30 MG TABLET PO SCH (20:07)
[2016-11-24] MEDS: VENLAFAXINE 75 MG TABLET PO SCH (20:07)
[2016-11-25] MEDS: SODIUM CHLORIDE 0.9% 1,000 ML IV SCH ×2 (01:32→13:29)
[2016-11-25] MEDS: CEFTAROLINE 600 MG in SODIUM CHLORIDE 0.9% 100 ML IV SCH ×2 (01:33→13:29)
[2016-11-25 05:21] LABS: Eosinophils % 1.2 % (0.00-10.9); Hematocrit 25.1 VOL% (42.0-52.0); Hemoglobin 8.5 GM/DL (14.0-18.0); Immature Granulocytes % 0.9 %; Immature Granulocytes Absolute 0.03 #; Lymphocytes # 0.7 10*3/uL (1.4-4.0); Mean Corpuscular HGB Conc 33.9 GM/DL (32-36); Mean Corpuscular Hemoglobin 33 PG (27-34); Mean Corpuscular Volume 97.3 FL (87-102); Mean Platelet Volume 10.3 FL (9.6-12.0); Monocytes # 0.2 10*3/uL (0.11-0.8); Monocytes % 7.1 % (1.7-12.7); Neutrophils # 2.3 10*3/uL (1.4-7.4); Neutrophils % 70.8 % (38.7-73.9); Red Blood Count 2.58 MC/CUMM (3.8-5.5); White Blood Count 3.3 T/CUMM (4-12)
[2016-11-25 05:24] LABS: Platelet Count 49 T/CUMM (130-400)
[2016-11-25 05:58] LABS: Albumin 3.2 G/DL (3.4-5.0); Bilirubin,Total 0.5 MG/DL (0.2-1.0); Calcium 7.6 MG/DL (8.5-10.1); Potassium 3.4 MMOL/L (3.5-5.1); Total Protein 6.3 G/DL (6.4-8.3)
[2016-11-25 06:09] LABS: Uric Acid 5.4 MG/DL (3.5-7.2)
[2016-11-25] MEDS: METHADONE 10 MG TABLET PO SCH ×4 (08:14→20:30)
--- NOTE | 2016-11-25 09:54 | Oncology History&Physical ---
History of Present Illness Chief complaint: MRSA sepsis History of present illness: Mr. Garbiel is a 71 year old male who has been diagnosed as having neuroendocrine carcinoma, small cell, high-grade from right hilar mass biopsy was done September 13, 2016. The pathology report number is [id number]. He is admitted with MRSA sepsis probably developed from cellulitis of his chin. Blood cultures were obtained yesterday and reported at this morning without sensitivities coming out yet. He has been on chemotherapy using etoposide and carboplatin and apparently has achieved a complete remission according to the CT scan done in the emergency room on the day of this admission. He was actually hospitalized last with cellulitis of his face due to MRSA. His chemotherapy has consisted of etoposide 200 mg IV daily for 3 days and carboplatin 600 mg IV on day 2 only. He received his third course of this combination on November 13 - November 15. The plan is to continue for 4 courses and then refer him for consideration for radiation therapy. The following dictation is from a previous admission of September 07, 2016. It is included to clarify the patient's illness. From the pulmonary standpoint, he had very few symptoms. He had a cough but no hemoptysis or any type of painful respiration or pleurisy. Studies done recently included a chest x-ray on September 07, 2016 that demonstrated prominence of the right hilum and a mass-effect in the inferior right hilum. He had a CT of the chest done Sep 07 2016 that demonstrated hilar and mediastinal adenopathy with a right lower lung mass measures 40 x 42 x [address] brain scan done September 07, 2016 demonstrates microvascular disease and generalized cerebral atrophy. Cervical spine x-rays done September 07, 2016 demonstrate degenerative changes. Echocardiogram done [address] Mik Aguilar showed an ejection fraction of 60% with mild diastolic dysfunction and trace of tricuspid regurgitation. Allergies. None listed in the hospital. Patient has previously said that he was allergic to Keflex and sulfur. Past history. Degenerative joint disease. History of abscess of the chin secondary to MRSA in 2009. Perirectal abscess secondary to MRSA in 2009. Chronic pain managed by Dr. huerta. COPD. High blood pressure. Pernicious anemia secondary to B12 deficiency. Hyperlipidemia. High blood pressure. Chronic anxiety depression. Eye surgery. Cholecystectomy. Hernia surgery. Knee surgery. Tonsillectomy. Uses home oxygen. Social history. Patient smoked for 27 years. He stopped smoking somewhere between 2009 and 2011. 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 He denies alcohol. He is previously been followed by Dr. Tacho Ruiz and more recently he has seen Dr. Iam medrano and Guicho Wang nurse practitioner. He has been followed from a urology standpoint by Dr. Oscar anne. 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 Family history. His mother had arthritis colon polyps diabetes type 2 and kidney stones. ROS Gen.: He has had years of arthritic complaints including neck and lumbar spine. Eyes: He has lost vision in his right eye after undergoing multiple retinal and other surgical procedures. He has an artificial right eye. He has had cataract surgery of the left eye as well as a retinal detachment of the left eye. ENT: No history of chronic infections, epistaxis, chronic sore throat. He has had a previous episode of cellulitis around his nose. Lungs: He has COPD. Also at the time of his last hospitalization cultures from bronchoscopy grew MRSA. No history of asthma, hemoptysis, chronic pleurisy or long-term or chronic infections Cardiovascular: He has not been followed by powerhouse tender in the past. No history of angina, coronary artery disease, congestive heart failure, cardiovascular surgery or DVT/VTE. He had an echocardiogram done a couple of months ago and we are going to repeat it to check his heart valves. GI: He has had cholecystectomy. No history of upper or lower GI bleeding, melena, dysphagia, odynophagia, liver disease or pancreatic disease. : No history of kidney stones, chronic kidney infections or hematuria. Musculoskeletal: He has had significant arthritic problems involving the cervical and the lumbar spine. Neurologic: No history of seizures, convulsions or paralysis. Psychiatric: No history of chronic psychiatric illness or psychiatric medications. Lymphatic: No history of significant or long-term lymphadenopathy Hematologic: No history of anemia, bleeding disorders or blood dyscrasias or long-term elevation or depression white cell count or petechiae. Skin: No history of chronic skin infections or rashes before onset of his lung cancer and chemotherapy that has produced immunosuppression with cellulitis of the chin on one prior occasion.. Physical examination: General: The patient appears acutely ill. However he is responsive and oriented. Eyes: He has an artificial right eye and his vision is only fair in his left eye. ENT: His oral mucosa and pharynx are normal. His trachea is midline and he has no neck masses. Lungs: Breath sounds are decreased throughout his lungs and he has a prolonged expiratory phase of respiration. There is no chest wall tenderness and he does not appear to have any respiratory distress with respiration. I hear no rubs, rales or rhonchi. Cardiovascular: His heart rhythm is regular without murmur, gallop or rub. There is no jugular venous distention, clubbing, cyanosis or edema. Abdomen: No abdominal masses or organomegaly and no ascites or tenderness. He is obese. Musculoskeletal: No focal muscle atrophy or bone or joint deformity. Neurologic: Cranial nerves II through XII are intact. The no focal neurologic deficits. Psychiatric: He is oriented to time, place, person and situation. Skin: His Kaushik is bandaged. He has a large area of cellulitis with drainage and pustular formation. 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 We will monitor closely. COPD, loss of right eye with prosthesis Home Medications Medication Instructions Recorded Confirmed Type Baclofen Tab [Lioresal] 10 mg PO TID 09/07/16 11/24/16 History [place] Oil 1 tablespoon PO DAILY PRN 09/07/16 11/24/16 History Docusate Sodium 500 mg PO BEDTIME 09/07/16 11/24/16 History Gabapentin 400 mg PO TID 09/07/16 11/24/16 History Hydrocodone/Acetaminophen [Colp 1 each PO TID PRN 09/07/16 11/24/16 History 10-325 Tablet] Meloxicam 15 mg PO QAM 09/07/16 11/24/16 History Mirtazapine 30 mg PO BEDTIME 09/07/16 11/24/16 History Mv-Mins/Folic/Lycopene/Ginkgo [One 1 each PO QAM 09/07/16 11/24/16 History Daily Men's 50+ Tablet] Potassium Chloride [Klor-Con 10] 20 meq PO DAILY W/BREAKFAST 09/07/16 11/24/16 History Pravastatin Sodium 80 mg PO QPM 09/07/16 11/24/16 History Venlafaxine HCl [Venlafaxine HCl 150 mg PO BID 09/07/16 11/24/16 History ER] cloNIDine TAB [Catapres Tab] 0.1 mg PO BID 09/07/16 11/24/16 History clonazePAM [Clonazepam] 1 mg PO BEDTIME 09/07/16 11/24/16 History Methadone 10 mg PO QID tablet 09/25/16 11/24/16 Rx Biotin 5 mg PO DAILY 11/24/16 11/24/16 History Hydrocodone/Acetaminophen [Colp 1 each PO TID PRN 11/24/16 11/24/16 History 10-325 Tablet] Allergies Allergy/AdvReac Type Severity Reaction Status Date / Time No Known Allergies Allergy Verified 11/04/15 12:24 Medical,Surgical,& Family Hx - Medical History Cardio: History of: Hypertension Psychological: History of: Depression (on antidepressant) Neurology: No history of: Seizures Respiratory: History of: COPD Musculoskeletal: History of: Back/Neck Problems (carpel tunnel) Other: History of: Cancer (lung) - Surgical History Neurologic Surgeries: Patient denies: Neurologic Surgery (did have cysts removed from scalp) HEENT Surgeries: Surgical HX of: Eye Surgery Abdominal Surgeries: Surgical HX of: Abdominal Surgery, Cholecystectomy, Hernia Repair Orthopedic Surgeries: Surgical HX of;: Total Knee Replacement (bilateral) - Family History Family History: Reports;: Family Heart Disease - Social History Smoking Status: Former smoker Frequency of Alcohol Use: None Type of Drug Use: None Exam - Constitutional Vitals: Period Temp Pulse Resp BP Sys/Yanes Pulse Ox Last 24 Hr 97.7 F-102.2 F 99-116 19-24 127-164/61-84 83-97 Results - Labs CBC & BMP: 11/25/16 04:00 11/25/16 04:15
[2016-11-25] MEDS: cloNIDine 0.1 MG TABLET PO SCH ×2 (10:31→20:34)
[2016-11-25] MEDS: POTASSIUM CHLORIDE 20 MEQ TABLET PO SCH (10:31)
[2016-11-25] MEDS: MELOXICAM 7.5 MG TABLET PO SCH (10:32)
[2016-11-25] MEDS: VANCOMYCIN INJ 1,000 MG in SODIUM CHLORIDE 0.9% 250 ML IV SCH ×2 (10:33→21:33)
[2016-11-25] MEDS: GABAPENTIN 400 MG CAPSULE PO SCH ×3 (10:33→20:31)
[2016-11-25] MEDS: VENLAFAXINE 75 MG TABLET PO SCH ×2 (10:33→20:27)
[2016-11-25] MEDS: BACLOFEN 10 MG TABLET PO SCH ×3 (10:33→20:27)
[2016-11-25] MEDS: FILGRASTIM-SNDZ 300 MCG/0.5 ML SYRINGE SUBCUT SCH (11:56)
[2016-11-25] MEDS: CHLORHEXIDINE 4% SOLN 118 ML BOTTLE TOP SCH (11:57)
[2016-11-25] MEDS: MUPIROCIN 2% OINT 22 GM TUBE TOP SCH ×2 (13:29→20:29)
[2016-11-25] MEDS: ENOXAPARIN 40 MG/0.4 ML SYRINGE SUBCUT SCH (13:29)
--- NOTE | 2016-11-25 17:21 | ECHO Report ---
Oh Gabriel Exam Date: 11/25/2016 10:43 Referring Physician: Technologist: Alyssa Villanueva RDCS Age: 71 Ht (in): 68 Wt (lb): 179 Gender: M Exam Location: [facility] Echo Indications: Chest pain, unspecified, Dyspnea, unspecified, Essential (primary) hypertension, COPD, Neuroendocrine carcinoma, Cellulitis of chin, MRSA BP: 135 / 62 HR: 111 Rhythm: Sinus Technical Quality: Very technically difficult study - limited IMPRESSIONS Normal left ventricular wall thickness. Left ventricular ejection fraction is estimated at 55-60 %. Grade I/IV diastolic dysfunction (abnormal relaxation filling pattern), normal to mildly elevated filling pressures. The right ventricle is normal in size and function. The right atrium is mildly enlarged. The left atrium is mildly enlarged. Morphologically normal mitral valve. Trace mitral valve regurgitation. Aortic valve sclerosis. No aortic valve regurgitation. Mild tricuspid valve regurgitation. [id number]. Pulmonic valve not well visualized. No pericardial effusion. Normal ascending aorta dimension. Technically difficult study. MEASUREMENTS (Male / Female) Normal Values 2D ECHO LV Diastolic Diameter PLAX 4.7 cm 4.2 - 5.9 / 3.9 - 5.3 cm LV Systolic Diameter PLAX 3.2 cm LV Fractional Shortening PLAX 32.9 % IVS Diastolic Thickness 0.9 cm 0.6 - 1.0 / 0.6 - 0.9 cm LVPW Diastolic Thickness 0.9 cm 0.6 - 1.0 / 0.6 - 0.9 cm RV Internal Dim ED PLAX 2.7 cm Aortic Root Diameter 2.8 cm LA Systolic Diameter LX 3.4 cm 3.0 - 4.0 / 2.7 - 3.8 cm DOPPLER TR Peak Velocity 280.0 cm/s TR Peak Gradient 31.4 mmHg FINDINGS Left Ventricle Normal left ventricular cavity size. Normal left ventricular wall thickness. Left ventricular ejection fraction is estimated at 55-60 %. Grade I/IV diastolic dysfunction (abnormal relaxation filling pattern), normal to mildly elevated filling pressures. Right Ventricle The right ventricle is normal in size and function. Right Atrium The right atrium is mildly enlarged. Left Atrium The left atrium is mildly enlarged. Mitral Valve Morphologically normal mitral valve. Trace mitral valve regurgitation. Aortic Valve Aortic valve sclerosis. No aortic valve regurgitation. Tricuspid Valve Morphologically normal tricuspid valve. Mild tricuspid valve regurgitation. [id number]. Pulmonic Valve Pulmonic valve not well visualized. Pericardium No pericardial effusion. Aorta Normal ascending aorta dimension. Alexis Barone (Electronically Signed) Final Date: 25 November 2016 17:20
[2016-11-25] MEDS: MIRTAZAPINE 30 MG TABLET PO SCH (20:27)
[2016-11-25] MEDS: clonazePAM 0.5 MG TABLET PO SCH (20:30)
[2016-11-25] MEDS: PRAVASTATIN 40 MG TABLET PO SCH (20:33)
[2016-11-26] MEDS: CEFTAROLINE 600 MG in SODIUM CHLORIDE 0.9% 100 ML IV SCH ×2 (01:33→18:58)
[2016-11-26] MEDS: SODIUM CHLORIDE 0.9% 1,000 ML IV SCH ×3 (02:04→19:00)
[2016-11-26 06:12] LABS: Eosinophils # 0.1 10*3/uL (0.0-0.87); Hematocrit 23.3 VOL% (42.0-52.0); Hemoglobin 7.8 GM/DL (14.0-18.0); Immature Granulocytes % 0.3 %; Immature Granulocytes Absolute 0.01 #; Lymphocytes # 0.8 10*3/uL (1.4-4.0); Mean Corpuscular HGB Conc 33.5 GM/DL (32-36); Mean Corpuscular Hemoglobin 33 PG (27-34); Mean Corpuscular Volume 98.7 FL (87-102); Mean Platelet Volume 11.3 FL (9.6-12.0); Monocytes # 0.2 10*3/uL (0.11-0.8); Monocytes % 5.9 % (1.7-12.7); Neutrophils % 64.8 % (38.7-73.9); Red Blood Count 2.36 MC/CUMM (3.8-5.5); Red Cell Distribution Width 14.5 % (9.3-17.3); White Blood Count 3.1 T/CUMM (4-12)
[2016-11-26 06:41] LABS: Albumin 2.9 G/DL (3.4-5.0); Bilirubin,Total 0.4 MG/DL (0.2-1.0); Calcium 7.4 MG/DL (8.5-10.1); Osmolality,Calculated 271.8 MOS/KG (273-304); Potassium 3.5 MMOL/L (3.5-5.1); Total Protein 5.9 G/DL (6.4-8.3)
[2016-11-26 06:42] LABS: Platelet Count 34 T/CUMM (130-400)
--- NOTE | 2016-11-26 06:48 | Oncology Progress Note ---
Oncology Subjective PN Interval history: MRSA sepsis: This patient was admitted with MRSA sepsis and cellulitis of the chin. He has small cell carcinoma of the lung that has achieved a complete remission using etoposide and carboplatin. I question how good his hygiene is because he has not demonstrated good hygiene to the nurses or to me. He probably needs decolonization. Infection control has been consulted. His fever went to 102.9 on the evening of November 24. He is afebrile presently. He tells me that his chin is feeling better today. 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 He received his third course of this combination on November 13 - November 15. The plan is to continue for 4 courses and then refer him for consideration for radiation therapy. Monitoring for toxicity of chemotherapy and antibiotics:He is on IV vancomycin and we are monitoring for toxicity. His serum creatinine today is 0.5. Anemia of chronic disease: He is also anemic with a hemoglobin of 7.8 and I am transfusing today. Leukopenia: Lab work today includes a white cell count of 3100. He is on Neupogen and his absolute neutrophil count is 2000. Thrombocytopenia: In addition, his platelet count is falling. It is 34,000. COPD: He has significant COPD. It seems to be relatively stable presently. Exam - Constitutional Vitals: Period Temp Pulse Resp BP Sys/Yanes Pulse Ox Last 24 Hr 97.7 F-99.5 F 100-113 18-24 134-169/61-71 83-99 Results - Labs CBC & BMP: 11/26/16 05:41 11/26/16 05:41
[2016-11-26] MEDS ORDERED: SODIUM CHLORIDE 0.9% 250 ML IV PRN (06:55)
[2016-11-26 07:31] LABS: Band Neutrophils 7 % (0-10); Eosinophils 4 % (0-10); Lymphocytes 28 % (20-55); Segmented Neutrophils 53 % (50-85); Total Cells Counted 100
[2016-11-26 07:34] LABS: Hypochromasia Slight
[2016-11-26 07:35] LABS: Microcytosis Slight; Platelet Estimate Decreased
[2016-11-26] MEDS: VENLAFAXINE 75 MG TABLET PO SCH ×2 (09:26→20:36)
[2016-11-26] MEDS: MELOXICAM 7.5 MG TABLET PO SCH (09:26)
[2016-11-26] MEDS: GABAPENTIN 400 MG CAPSULE PO SCH ×3 (09:26→20:36)
[2016-11-26] MEDS: BACLOFEN 10 MG TABLET PO SCH ×3 (09:26→20:36)
[2016-11-26] MEDS: METHADONE 10 MG TABLET PO SCH ×4 (09:26→20:37)
[2016-11-26] MEDS: MUPIROCIN 2% OINT 22 GM TUBE TOP SCH ×2 (09:27→20:38)
[2016-11-26] MEDS: VANCOMYCIN INJ 1,000 MG in SODIUM CHLORIDE 0.9% 250 ML IV SCH ×2 (09:27→21:19)
[2016-11-26] MEDS: cloNIDine 0.1 MG TABLET PO SCH ×2 (09:27→20:37)
[2016-11-26] MEDS: CHLORHEXIDINE 4% SOLN 118 ML BOTTLE TOP SCH (09:27)
[2016-11-26] MEDS: FILGRASTIM-SNDZ 300 MCG/0.5 ML SYRINGE SUBCUT SCH (09:27)
[2016-11-26] MEDS: POTASSIUM CHLORIDE 20 MEQ TABLET PO SCH (09:27)
[2016-11-26] MEDS: ENOXAPARIN 40 MG/0.4 ML SYRINGE SUBCUT SCH (14:37)
[2016-11-26] MEDS: clonazePAM 0.5 MG TABLET PO SCH (20:36)
[2016-11-26] MEDS: MIRTAZAPINE 30 MG TABLET PO SCH (20:36)
[2016-11-26] MEDS: PRAVASTATIN 40 MG TABLET PO SCH (20:37)
[2016-11-27] MEDS: CEFTAROLINE 600 MG in SODIUM CHLORIDE 0.9% 100 ML IV SCH ×2 (01:30→16:40)
[2016-11-27] MEDS ORDERED: HEPARIN LOCK FLUSH 500 UNIT/5 ML SYRINGE IV ONE (03:57)
[2016-11-27 05:10] LABS: Eosinophils # 0.1 10*3/uL (0.0-0.87); Eosinophils % 2.4 % (0.00-10.9); Hematocrit 25.2 VOL% (42.0-52.0); Hemoglobin 8.4 GM/DL (14.0-18.0); Immature Granulocytes % 4.8 %; Lymphocytes # 0.7 10*3/uL (1.4-4.0); Lymphocytes % 32.9 % (21.2-54.2); Mean Corpuscular HGB Conc 33.3 GM/DL (32-36); Mean Corpuscular Hemoglobin 32 PG (27-34); Mean Corpuscular Volume 95.5 FL (87-102); Mean Platelet Volume 11.9 FL (9.6-12.0); Monocytes # 0.2 10*3/uL (0.11-0.8); Monocytes % 11.6 % (1.7-12.7); Neutrophils % 48.3 % (38.7-73.9); Red Blood Count 2.64 MC/CUMM (3.8-5.5); Red Cell Distribution Width 15.8 % (9.3-17.3); White Blood Count 2.1 T/CUMM (4-12)
[2016-11-27 05:26] LABS: Albumin 2.5 G/DL (3.4-5.0); Bilirubin,Total 1.3 MG/DL (0.2-1.0); Calcium 7.3 MG/DL (8.5-10.1); Osmolality,Calculated 279.3 MOS/KG (273-304); Potassium 3.5 MMOL/L (3.5-5.1); Total Protein 5.3 G/DL (6.4-8.3)
[2016-11-27 05:52] LABS: Platelet Count 35 T/CUMM (130-400)
[2016-11-27 06:13] LABS: Band Neutrophils 5 % (0-10); Eosinophils 2 % (0-10); Hypochromasia 2+; Lymphocytes 33 % (20-55); Microcytosis 2+; Platelet Estimate Decreased; Segmented Neutrophils 51 % (50-85); Total Cells Counted 100
--- NOTE | 2016-11-27 06:46 | Oncology Progress Note ---
Oncology Subjective PN Interval history: MRSA sepsis: This patient was admitted with MRSA sepsis and cellulitis of the chin. He has small cell carcinoma of the lung that has achieved a complete remission using etoposide and carboplatin. I question how good his hygiene is because he has not demonstrated good hygiene to the nurses or to me. He probably needs decolonization. Infection control has been consulted. His fever went to 102.9 on the evening of November 24. He is afebrile presently. He tells me that his chin is improving daily. 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 He received his third course of this combination on November 13 - November 15. The plan is to continue for 4 courses and then refer him for consideration for radiation therapy. Monitoring for toxicity of chemotherapy and antibiotics: He is on IV vancomycin and we are monitoring for toxicity. His serum creatinine today is 0.5. Anemia of chronic disease: He is also anemic with a hemoglobin of 8.4 and I am transfusing more blood today. Leukopenia: Lab work today includes a white cell count 2100 with absolute neutrophil count of 1000 He is on Neupogen and his absolute neutrophil count is 2000. Thrombocytopenia: In addition, his platelet count is 35,000. COPD: He has significant COPD. I am consulting Dr. Bailey today because of worsening pulmonary congestion. Exam - Constitutional Vitals: Period Temp Pulse Resp BP Sys/Yanes Pulse Ox Last 24 Hr 97.0 F-99.1 F 56-118 16-20 114-130/53-79 90-96 Results - Labs CBC & BMP: 11/27/16 04:00 11/27/16 04:00
[2016-11-27] MEDS ORDERED: SODIUM CHLORIDE 0.9% 250 ML IV PRN (06:48)
[2016-11-27] MEDS ORDERED: ALBUTEROL/IPRATROPIUM 3 ML NEB RESP TX PRN (09:21)
--- NOTE | 2016-11-27 09:46 | Pulmonology Consult Note ---
History of Present Illness Chief complaint: Lung cancer. COPD. Pulmonary HTN History of present illness: Guicho Wang, [facility], acting as scribe for Dr. Tristen Bailey Mr. 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 We have been asked see this patient in pulmonary consultation. The request for consultation was made by Dr. Hamm. He was admitted 11/26/2016 the emergency room. That day he presented with complaints of increasing shortness of breath and pleuritic left-sided chest pain that started the day before admission. He denies any fever or chills. He also had painful swelling of his lower lip have been present for several days. On evaluation, he was diagnosed with cellulitis of the lip and pleurodynia. He was admitted to Dr. Hamm service. He has since been found to have MRSA sepsis and cellulitis of the lip secondary to MRSA. Note, Dr. Hamm is noted that the patient's cancer is in complete remission. He has had some worsening dyspnea on exertion. There has been no cardiac angina or palpitations. No change in bowel or bladder habits. No bleeding from any site. No TIA symptoms or syncope. All other systems were reviewed and were negative. Allergies. Sulfa. Patient has previously said that he was also allergic to Keflex. Home medicines: See list. Hospital medicines: See list. Past history: [facility] hospitalization 09/07/2016 through 09/25/2016. During that admission he was found to have neuroendocrine carcinoma, small cell, high- grade from right hilar mass biopsy done September 03, 2016. Degenerative joint disease. History of abscess of the chin secondary to MRSA in 2009. Perirectal abscess secondary to MRSA in 2009. Chronic pain managed by Dr. Serrano. COPD. High blood pressure. Pernicious anemia secondary to B12 deficiency. Hyperlipidemia. High blood pressure. Chronic anxiety depression. Eye surgery. Cholecystectomy. Hernia surgery. Knee surgery. Tonsillectomy. Uses home oxygen. Social history: Patient smoked for 27 years. He stopped smoking somewhere between 2009 and 2011. 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 He denies alcohol. He is previously been followed by Dr. Tacho Ruiz and more recently he has seen Dr. Iam medrano and Guicho Wang nurse practitioner. He has been followed from a urology standpoint by Dr. Oscar anne. Family history: His mother had arthritis, colon polyps, diabetes type 2, and kidney stones. Pulmonary function test done 09/26/11 showed moderate obstructive lung disease. Echocardiogram. Done 11/25/[address] Barone. Ejection fraction estimated at 55-60%, grade 1 diastolic dysfunction, mildly enlarged right atrium , mildly enlarged left atrium, trace mitral regurgitation, aortic valve sclerosis, no aortic valve regurgitation, mild tricuspid valve regurgitation, and pulmonary artery pressure 42 mmHg. Echocardiogram done in [address] Mik Aguilar showed an ejection fraction of 60% with mild diastolic dysfunction and trace of tricuspid regurgitation. Chest x-ray. 11/26/16. My interpretation. Mild cardiomegaly. Prominent right hilum. Possible RUL infiltrate. CT of the chest. 11/24/16. No evidence of pulmonary artery embolus. Enlargement of the bilateral pulmonary arteries suggesting pulmonary arterial hypertension. Moderately advanced centrilobular emphysematous changes. Focal airspace attenuation within the right upper lobe. CT of the chest. 09/07/2016. There is a 50 x 42 x 40 mm right hilar mass consistent with probable carcinoma of the lung. There is associated mediastinal and hilar adenopathy which was noted could be related to graciela metastasis and postobstructive pneumonia. Additional multifocal areas of atelectasis/infiltration/scarring in both lungs with minimal bullous emphysema. Minimal cardiomegaly with coronary artery calcifications, fatty infiltration of liver, and prior cholecystectomy. CT of the brain. 09/07/2016. Generalized cerebral atrophy. Microvascular disease. Cervical x-rays. 09/07/2016. Severe degenerative disease. No acute changes. Lab: White count is 2100 with 48.3% segs, 32.9% lymphs, and 11.6% monos; H&H 8.4 /25.2 with normal indices and normal red blood cell distribution with; platelet count 35,000; creatinine 0.50, BUN 10, sodium 141, potassium 3.5; total bilirubin 1.30; liver function tests within normal limits; LDH 148; calcium low at 7.3 reflecting a low albumin of 2.5, total protein 5.3; globulin 2.8; troponin was negative; at admission C-reactive protein was elevated at 6.14; uric acid 5.4; lactic acid 1.7; d-dimer at admission was 0.8; urinalysis showed no evidence of infection Microbiology: Wound and blood cultures have grown MRSA. Home Medications Medication Instructions Recorded Confirmed Type Baclofen Tab [Lioresal] 10 mg PO TID 09/07/16 11/24/16 History Rut[place] Oil 1 tablespoon PO DAILY PRN 09/07/16 11/24/16 History Docusate Sodium 500 mg PO BEDTIME 09/07/16 11/24/16 History Gabapentin 400 mg PO TID 09/07/16 11/24/16 History Hydrocodone/Acetaminophen [Smackover 1 each PO TID PRN 09/07/16 11/24/16 History 10-325 Tablet] Meloxicam 15 mg PO QAM 09/07/16 11/24/16 History Mirtazapine 30 mg PO BEDTIME 09/07/16 11/24/16 History Mv-Mins/Folic/Lycopene/Ginkgo [One 1 each PO QAM 09/07/16 11/24/16 History Daily Men's 50+ Tablet] Potassium Chloride [Klor-Con 10] 20 meq PO DAILY W/BREAKFAST 09/07/16 11/24/16 History Pravastatin Sodium 80 mg PO QPM 09/07/16 11/24/16 History Venlafaxine HCl [Venlafaxine HCl 150 mg PO BID 09/07/16 11/24/16 History ER] cloNIDine TAB [Catapres Tab] 0.1 mg PO BID 09/07/16 11/24/16 History clonazePAM [Clonazepam] 1 mg PO BEDTIME 09/07/16 11/24/16 History Methadone 10 mg PO QID tablet 09/25/16 11/24/16 Rx Biotin 5 mg PO DAILY 11/24/16 11/24/16 History Hydrocodone/Acetaminophen [Smackover 1 each PO TID PRN 11/24/16 11/24/16 History 10-325 Tablet] Allergies Allergy/AdvReac Type Severity Reaction Status Date / Time Sulfa (Sulfonamide AdvReac Mild Abdominal Verified 11/25/16 14:52 Antibiotics) Pain Exam (Pulmonay) H&P - Constitutional Vitals: Period Temp Pulse Resp BP Sys/Yanes Pulse Ox Last 24 Hr 97.0 F-100.5 F 56-113 16-20 114-158/53-106 90-96 Exam: Psych: Oriented x 3; a pleasant and cooperative patient who is acutely and chronically ill appearing HEENT: Pupils, irises, sclera, conjunctiva, and eyelids are normal on the left. He has an artificial right eye. The face is symmetrical without rash or masses. Lips, tongue, buccal mucosa, soft and hard palates, and phayrnx are WNL Neck: Symmetrical. Thyroid was not palpated. Lymphatics: No submandibular, cervical, or supraclavicular adenopathy Chest: Symmetrical with laryngeal and tracheal wheeze; expiration is prolonged and incomplete CV: Regular with a short grade 1/6 systolic ejection murmur at the left sternal border that does not radiate Arterial: Carotids with a fair upstroke. There is no bruit. Upper extremity pulses are palpable. Lower extremity pulses are non-palpable, but I see no evidence of ischemia. Venous: Exam of the neck, upper, and lower extremities is normal Abd: No appreciable organomegaly, masses, tenderness, or bruit; Bowel sounds are positive 4; The aorta was not palpated /Rectal: Deferred Extremities: No clubbing, cyanosis, significant edema, or obvious DVT; there is a compression glove on his right hand secondary to severe carpal tunnel by his report Skin: No cancerous lesions of the exposed, examined skin; his chin is bandaged but this was the site of cellulitis with drainage and pustular formation at admission; the perineal area was not examined M/S: Age appropriate loss of the normal curvature of the cervical, thoracic, and lumbar spine Neurological: Cranial nerves are intact, Long tract motor function is intact; Sensory exam was not done; gait was not tested. The remainder of the exam was noncontributory. Impression: #1: Acute cellulitis of the chin secondary to MRSA #2: Sepsis secondary to MRSA #3: Neuroendocrine carcinoma of the lung, small cell, high-grade from right hilar mass biopsy done 09/13/2016. Note, Dr. Shetty states this is in remission. #4: COPD #5: Long history of tobacco abuse. Note, the patient stopped smoking sometime between 2009 and 2011. #6: Chronic pain. Under the care of Dr. Serrano. #7: Degenerative joint disease #8: Anemia #9: Thrombocytopenia #10: Pulmonary hypertension as noted on echocardiogram 11/25/2016. Pulmonary artery pressure 42 mmHg. #11: Possible early right upper lung infiltrate #12: See past history Plan: #1: Agree with present antibiotics of Teflaro and vancomycin #2: Start inhalation therapy with DuoNeb 4 times daily and as needed #3: Start Singulair 10 mg p.o. daily #4: With regards pulmonary hypertension, will start Norvasc 5 mg daily and follow his response #5: Repeat chest x-ray in the morning #6: Sputum for Gram stain, culture and sensitivity #7: See orders We appreciate this consult and will follow along with you. Medical,Surgical,& Family Hx - Medical History Cardio: History of: Hypertension Psychological: History of: Depression (on antidepressant) Neurology: No history of: Seizures Respiratory: History of: COPD Musculoskeletal: History of: Back/Neck Problems (carpel tunnel) Other: History of: Cancer (lung) - Surgical History Neurologic Surgeries: Patient denies: Neurologic Surgery (did have cysts removed from scalp) HEENT Surgeries: Surgical HX of: Eye Surgery Abdominal Surgeries: Surgical HX of: Abdominal Surgery, Cholecystectomy, Hernia Repair Orthopedic Surgeries: Surgical HX of;: Total Knee Replacement (bilateral) - Family History Family History: Reports;: Family Heart Disease - Social History Smoking Status: Former smoker Frequency of Alcohol Use: None Type of Drug Use: None Results - Labs CBC & BMP: 11/27/16 04:00 11/27/16 04:00
[2016-11-27] MEDS: METHADONE 10 MG TABLET PO SCH ×4 (10:01→21:25)
[2016-11-27] MEDS: VENLAFAXINE 75 MG TABLET PO SCH ×2 (10:03→21:24)
[2016-11-27] MEDS: POTASSIUM CHLORIDE 20 MEQ TABLET PO SCH (10:03)
[2016-11-27] MEDS: MELOXICAM 7.5 MG TABLET PO SCH (10:03)
[2016-11-27] MEDS: BACLOFEN 10 MG TABLET PO SCH ×3 (10:04→21:24)
[2016-11-27] MEDS: cloNIDine 0.1 MG TABLET PO SCH ×2 (10:04→21:24)
[2016-11-27] MEDS: GABAPENTIN 400 MG CAPSULE PO SCH ×3 (10:04→21:24)
[2016-11-27] MEDS: FILGRASTIM-SNDZ 300 MCG/0.5 ML SYRINGE SUBCUT SCH (10:07)
[2016-11-27] MEDS: PANTOPRAZOLE 40 MG TABLET PO SCH (11:18)
[2016-11-27] MEDS: MONTELUKAST 10 MG TABLET PO SCH (11:18)
[2016-11-27] MEDS: amLODIPine 5 MG TABLET PO SCH (11:18)
[2016-11-27] MEDS: VANCOMYCIN INJ 1,000 MG in SODIUM CHLORIDE 0.9% 250 ML IV SCH ×2 (11:27→21:30)
[2016-11-27] MEDS: ALBUTEROL/IPRATROPIUM 3 ML NEB RESP TX SCH ×2 (12:00→20:00)
[2016-11-27] MEDS: ENOXAPARIN 40 MG/0.4 ML SYRINGE SUBCUT SCH (14:35)
[2016-11-27] MEDS: CHLORHEXIDINE 4% SOLN 118 ML BOTTLE TOP SCH (14:36)
[2016-11-27] MEDS: MUPIROCIN 2% OINT 22 GM TUBE TOP SCH ×2 (14:36→21:25)
[2016-11-27] MEDS: SODIUM CHLORIDE 0.9% 1,000 ML IV SCH ×2 (16:13→21:26)
[2016-11-27] MEDS: MIRTAZAPINE 30 MG TABLET PO SCH (21:24)
[2016-11-27] MEDS: clonazePAM 0.5 MG TABLET PO SCH (21:24)
[2016-11-27] MEDS: PRAVASTATIN 40 MG TABLET PO SCH (21:24)
[2016-11-28] MEDS: ALBUTEROL/IPRATROPIUM 3 ML NEB RESP TX SCH ×4 (01:12→20:18)
[2016-11-28] MEDS: CEFTAROLINE 600 MG in SODIUM CHLORIDE 0.9% 100 ML IV SCH ×2 (02:18→15:04)
[2016-11-28] MEDS ORDERED: HEPARIN LOCK FLUSH 500 UNIT/5 ML SYRINGE IV ONE (03:47)
[2016-11-28 05:14] LABS: Basophils % 0.4 % (0.0-0.8); Eosinophils # 0.1 10*3/uL (0.0-0.87); Eosinophils % 3.6 % (0.00-10.9); Hematocrit 30.6 VOL% (42.0-52.0); Hemoglobin 10.2 GM/DL (14.0-18.0); Immature Granulocytes % 13.8 %; Immature Granulocytes Absolute 0.31 #; Lymphocytes # 0.9 10*3/uL (1.4-4.0); Lymphocytes % 38.4 % (21.2-54.2); Mean Corpuscular HGB Conc 33.3 GM/DL (32-36); Mean Corpuscular Hemoglobin 31 PG (27-34); Mean Corpuscular Volume 93.9 FL (87-102); Mean Platelet Volume 11.4 FL (9.6-12.0); Monocytes # 0.4 10*3/uL (0.11-0.8); Monocytes % 19.6 % (1.7-12.7); NRBC # 0.03 10*3/uL; Neutrophils # 0.5 10*3/uL (1.4-7.4); Neutrophils % 24.2 % (38.7-73.9); Red Blood Count 3.26 MC/CUMM (3.8-5.5); Red Cell Distribution Width 15.4 % (9.3-17.3); White Blood Count 2.2 T/CUMM (4-12)
[2016-11-28 05:24] LABS: Platelet Count 60 T/CUMM (130-400)
[2016-11-28 06:01] LABS: Atypical Lymphocytes Few; Band Neutrophils 4 % (0-10); Eosinophils 2 % (0-10); Hypochromasia Slight; Lymphocytes 39 % (20-55); Ovalocytes Slight; Platelet Estimate Decreased; Segmented Neutrophils 34 % (50-85); Total Cells Counted 100
[2016-11-28 06:02] LABS: Microcytosis 1+
[2016-11-28 06:15] LABS: Albumin 2.6 G/DL (3.4-5.0); Bilirubin,Total 0.4 MG/DL (0.2-1.0); Calcium 7.6 MG/DL (8.5-10.1); Osmolality,Calculated 276.4 MOS/KG (273-304); Potassium 3.5 MMOL/L (3.5-5.1); Total Protein 5.8 G/DL (6.4-8.3)
[2016-11-28 07:17] LABS: Allen Test Positive
[2016-11-28 07:18] LABS: ABG HCO3 23.4 MMOL/L (20-26); ABG Oxygen Saturation 84.8 % (95-100); ABG PCO2 46.1 MM HG (35-48); ABG PH 7.342 (7.35-7.45); ABG PO2 50.2 MM HG (80-95); ABG TCO2 22.8 MMOL/L (23-27)
--- NOTE | 2016-11-28 07:19 | Oncology Progress Note ---
Oncology Subjective PN Interval history: MRSA sepsis: This patient was admitted with MRSA sepsis and cellulitis of the chin. He has small cell carcinoma of the lung that has achieved a complete remission using etoposide and carboplatin. I question how good his hygiene is because he has not demonstrated good hygiene to the nurses or to me. He probably needs decolonization. Infection control has been consulted. His fever went to 102.9 on the evening of November 24. His last temperature elevation was 100.5 on November 27 at 07:58. 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 He received his third course of this combination on November 13 - November 15. The plan is to continue for 4 courses and then refer him for consideration for radiation therapy. Monitoring for toxicity of chemotherapy and antibiotics: He is on IV vancomycin and we are monitoring for toxicity. His serum creatinine today is 0.5. Anemia of chronic disease: He is also anemic with a hemoglobin of 8.4 and I am transfusing more blood today. Leukopenia: Lab work today includes a white cell count 2200 with absolute neutrophil count of 500. It was 1000 yesterday. He is on Neupogen. Thrombocytopenia: In addition, his platelet count is 60,000. COPD: Mr. Gabriel became extremely dyspneic and cyanotic this morning. FERRYBOAT DECKHAND was called. We are getting a portable chest x-ray and arterial blood gases. The episode of dyspnea has resolved, partly. He is still tachypneic. He is responsive and he denies having any chest pain during the episode. He says that he just suddenly became short of breath. On physical examination, he has rales in his right lung and he may be fluid overloaded. Chest x-ray reviewed. He has increasing vascular markings and I am ordering Lasix. This could be diffuse pneumonitis. We have notified pulmonary. He is on subcu Lovenox as DVT prophylaxis. Dr. Bailey has ordered Dopplers of the lower extremities. Exam - Constitutional Vitals: Period Temp Pulse Resp BP Sys/Yanes Pulse Ox Last 24 Hr 96.7 F-100.5 F 80-121 16-34 111-161/52-106 80-98 Results - Labs CBC & BMP: 11/28/16 04:00 11/28/16 04:00
[2016-11-28] MEDS ORDERED: FUROSEMIDE 40 MG/4 ML VIAL IV ONE (07:30)
--- NOTE | 2016-11-28 07:31 | XRay Report ---
XR chest 1V portable Indication: Respiratory distress Comparison: Chest x-ray dated November 24, 2016 Technique: Single frontal view of the chest. Findings: Left-sided port catheter appears grossly unchanged. The cardiomediastinal silhouette is stable in configuration. Interval development of bilateral mid and lower lung opacification suspicious for pneumonia or pulmonary edema. Visualized osseous and surrounding soft tissue structures appear grossly unchanged. IMPRESSION: Interval development of bilateral mid and lower lung opacification suspicious for pneumonia or pulmonary edema. PROCEDURE INTERPRETED AT [facility] DEPARTMENT OF RADIOLOGY Final Report Signed by: Dr Parveen Calderon
--- NOTE | 2016-11-28 07:47 | EKG Report ---
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
[2016-11-28] MEDS: amLODIPine 5 MG TABLET PO SCH (08:36)
[2016-11-28] MEDS: BACLOFEN 10 MG TABLET PO SCH ×3 (08:36→20:33)
[2016-11-28] MEDS: MELOXICAM 7.5 MG TABLET PO SCH (08:36)
[2016-11-28] MEDS: POTASSIUM CHLORIDE 20 MEQ TABLET PO SCH (08:36)
[2016-11-28] MEDS: GABAPENTIN 400 MG CAPSULE PO SCH ×3 (08:36→20:33)
[2016-11-28] MEDS: MONTELUKAST 10 MG TABLET PO SCH (08:36)
[2016-11-28] MEDS: PANTOPRAZOLE 40 MG TABLET PO SCH (08:37)
[2016-11-28] MEDS: cloNIDine 0.1 MG TABLET PO SCH ×2 (08:37→20:33)
[2016-11-28] MEDS: METHADONE 10 MG TABLET PO SCH ×4 (08:37→20:33)
[2016-11-28] MEDS: VENLAFAXINE 75 MG TABLET PO SCH ×2 (08:37→20:33)
[2016-11-28] MEDS: FILGRASTIM-SNDZ 300 MCG/0.5 ML SYRINGE SUBCUT SCH (08:37)
[2016-11-28] MEDS: MUPIROCIN 2% OINT 22 GM TUBE TOP SCH ×2 (08:39→20:35)
[2016-11-28] MEDS: CHLORHEXIDINE 4% SOLN 118 ML BOTTLE TOP SCH (08:39)
--- NOTE | 2016-11-28 09:24 | Ultrasound Report ---
US venous doppler LE BI Indication: Possible DVT, SOB. Comparison: None. Technique: Grayscale, spectral, and color Doppler interrogation of the bilateral lower extremity veins was performed. Augmentation and compression was performed. Findings: Grayscale, color Doppler, and pulsed Doppler evaluation of the veins of the bilateral lower extremity demonstrates no evidence of deep venous thrombosis. IMPRESSION: No evidence of deep venous thrombosis in either lower extremity. PROCEDURE INTERPRETED AT [facility] DEPARTMENT OF RADIOLOGY Final Report Signed by: Dr Parveen Calderon
[2016-11-28] MEDS: SODIUM CHLORIDE 0.9% 1,000 ML IV SCH ×2 (09:33→18:27)
[2016-11-28] MEDS: VANCOMYCIN INJ 1,000 MG in SODIUM CHLORIDE 0.9% 250 ML IV SCH ×2 (09:33→22:29)
--- NOTE | 2016-11-28 09:54 | Pulmonology Progress Note ---
Pulmonary - PN: Subj Interval history: This is a 71-year-old white male whom I saw in pulmonary consultation on 2016. My impressions were. #1: Acute cellulitis of the chin secondary to MRSA #2: Sepsis secondary to MRSA #3: Neuroendocrine carcinoma of the lung, small cell, high-grade from right hilar mass biopsy done 09/13/2016. Note, Dr. Shetty states this is in remission. #4: COPD #5: Long history of tobacco abuse. Note, the patient stopped smoking sometime between 2009 and 2011. #6: Chronic pain. Under the care of Dr. Serrano. #7: Degenerative joint disease #8: Anemia #9: Thrombocytopenia #10: Pulmonary hypertension as noted on echocardiogram 11/25/2016. Pulmonary artery pressure 42 mmHg. #11: Possible early right upper lung infiltrate #12: See past history 11/28/2016. This morning the patient had hypoxemia and increased shortness of breath. His chest x-ray showed acute pulmonary edema. He was given 40 of Lasix IV push in the digits improved significantly. Doppler venograms were done and these showed no evidence of deep venous thrombophlebitis. Patient has recently had pulmonary arteriograms and these were negative. He has chronic hypoxemia and uses oxygen at home. His EKG shows no acute changes. Nitrated peptide was 190. Electrolytes are normal. Creatinine is 0.5 with a BUN of 7. H&H is 10.2/30.6 white count is 2200 and platelet count is 60,000. Total protein and albumin are low at 5.8 and 2.6 respectively. Physical exam. Vital signs. See below General. Patient sitting on side of his bed but easily eating deleon ingredients. He is not short of breath and he is in no apparent distress Psychiatric oriented 3. Face. Asymmetrically. No swelling of lips and tongue. Neck. Symmetrical. No meningismus. Lymphatics. No submandibular cervical supraclavicular or epitrochlear adenopathy Chest. Hyperinflated with prolonged expiration. No wheezing no rales Heart. Slightly lateral PMI and a grade 1/6 systolic ejection murmur at left sternal border without radiation Abdomen. Nontender bowel sounds are positive. Extremities. Trace of pedal and pretibial edema bilaterally. Neurologic. Cranial nerves are intact. 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 Long track motor functions intact. Neurological exam was not done. Gait was not tested The remainder the physical exam is negative Plan: 11/27/2006 #1: Agree with present antibiotics of Teflaro and vancomycin #2: Start inhalation therapy with DuoNeb 4 times daily and as needed #3: Start Singulair 10 mg p.o. daily #4: With regards pulmonary hypertension, will start Norvasc 5 mg daily and follow his response #5: Repeat chest x-ray in the morning #6: Sputum for Gram stain, culture and sensitivity #7: See orders 11/28/2016 1. Agree with Lasix 2. Chest x-ray and ABGs in the morning 3. Doppler venograms are negative for deep venous thrombophlebitis 4. See today's note Exam (Progress Note) - Constitutional Vitals: Period Temp Pulse Resp BP Sys/Yanes Pulse Ox Last 24 Hr 96.7 F-98.4 F 80-121 16-34 111-145/52-76 80-98 Results - Labs CBC & BMP: 11/28/16 04:00 11/28/16 04:00
[2016-11-28] MEDS: ENOXAPARIN 40 MG/0.4 ML SYRINGE SUBCUT SCH (15:04)
[2016-11-28] MEDS: MIRTAZAPINE 30 MG TABLET PO SCH (20:33)
[2016-11-28] MEDS: clonazePAM 0.5 MG TABLET PO SCH (20:33)
[2016-11-28] MEDS: PRAVASTATIN 40 MG TABLET PO SCH (20:33)
[2016-11-29] MEDS: ALBUTEROL/IPRATROPIUM 3 ML NEB RESP TX SCH ×4 (01:16→20:16)
[2016-11-29] MEDS: CEFTAROLINE 600 MG in SODIUM CHLORIDE 0.9% 100 ML IV SCH ×2 (02:34→14:38)
[2016-11-29 03:14] LABS: Pt O2 Delivery Device Venturi Mask
[2016-11-29 03:15] LABS: ABG Base Excess 3.8 MMOL/L (-2.5-2.5); ABG HCO3 27.7 MMOL/L (20-26); ABG Oxygen Saturation 89.5 % (95-100); ABG PCO2 56.5 MM HG (35-48); ABG PH 7.344 (7.35-7.45); ABG PO2 58.6 MM HG (80-95); ABG TCO2 28.1 MMOL/L (23-27)
[2016-11-29 05:24] LABS: Basophils # 0.1 10*3/uL (0.0-0.2); Basophils % 1.1 % (0.0-0.8); Eosinophils # 0.1 10*3/uL (0.0-0.87); Eosinophils % 1.9 % (0.00-10.9); Hematocrit 30.9 VOL% (42.0-52.0); Hemoglobin 10.4 GM/DL (14.0-18.0); Immature Granulocytes % 8.9 %; Immature Granulocytes Absolute 0.41 #; Lymphocytes # 1.1 10*3/uL (1.4-4.0); Mean Corpuscular HGB Conc 33.7 GM/DL (32-36); Mean Corpuscular Hemoglobin 32 PG (27-34); Mean Corpuscular Volume 94.2 FL (87-102); Mean Platelet Volume 11.7 FL (9.6-12.0); Monocytes # 0.7 10*3/uL (0.11-0.8); Monocytes % 14.9 % (1.7-12.7); NRBC # 0.13 10*3/uL; Neutrophils # 2.3 10*3/uL (1.4-7.4); Neutrophils % 49.2 % (38.7-73.9); Platelet Count 98 T/CUMM (130-400); Red Blood Count 3.28 MC/CUMM (3.8-5.5); Red Cell Distribution Width 15.6 % (9.3-17.3); White Blood Count 4.6 T/CUMM (4-12)
[2016-11-29 05:55] LABS: Band Neutrophils 4 % (0-10); Lymphocytes 29 % (20-55); Nucleated Red Blood Cells 4 (0-5); Promyelocytes 1 %; Segmented Neutrophils 49 % (50-85); Total Cells Counted 100
[2016-11-29 05:56] LABS: Hypochromasia 1+; Microcytosis 1+; Ovalocytes Slight; Platelet Estimate Decreased
[2016-11-29 05:58] LABS: Albumin 2.5 G/DL (3.4-5.0); Bilirubin,Total 0.6 MG/DL (0.2-1.0); Calcium 7.7 MG/DL (8.5-10.1); Osmolality,Calculated 274.5 MOS/KG (273-304); Potassium 3.4 MMOL/L (3.5-5.1); Total Protein 5.8 G/DL (6.4-8.3)
--- NOTE | 2016-11-29 06:56 | Oncology Progress Note ---
Oncology Subjective PN Interval history: MRSA sepsis: This patient was admitted with MRSA sepsis and cellulitis of the chin. He has small cell carcinoma of the lung that has achieved a complete remission using etoposide and carboplatin. I question how good his hygiene is because he has not demonstrated good hygiene to the nurses or to me. He probably needs decolonization. Infection control has been consulted.The serum creatinine today is 0.5 which is acceptable. We are monitoring vancomycin toxicity. He is only at 4 MRSA sepsis. We are also continuing decolonization of the patient. His fever went to 102.9 on the evening of November 24. His last temperature elevation was 100.5 on November 27 at 07:58. His temperature is 99.0 this morning. 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 He received his third course of this combination on November 13 - November 15. The plan is to continue for 4 courses and then refer him for consideration for radiation therapy. His next dose of chemotherapy will be due December 11. I had planned to give full courses and then refer him for radiation. Monitoring for toxicity of chemotherapy and antibiotics: He is on IV vancomycin and we are monitoring for toxicity. His serum creatinine today is 0.5. Anemia of chronic disease: He is also anemic with a hemoglobin of 10.4 today, up from 8.4 yesterday before blood transfusion. Leukopenia:White cell count is finally back up to normal at 4600. Absolute neutrophil count is 2300, also normal. He is on Neupogen. Thrombocytopenia: In addition, his platelet count is 98,000. COPD: Mr. Gabriel became extremely dyspneic and cyanotic yesterday morning. [employer] was called. It appears that he was fluid overloaded. He was treated with Lasix and his IV fluid rate was slowed. He is better but am repeating Lasix today. He still has coarse breath sounds with scattered rales in his left lung. Exam - Constitutional Vitals: Period Temp Pulse Resp BP Sys/Yanes Pulse Ox Last 24 Hr 97.7 F-100.1 F 93-110 14-25 111-165/59-90 22-96 Results - Labs CBC & BMP: 11/29/16 04:00 11/29/16 04:00
[2016-11-29] MEDS ORDERED: FUROSEMIDE 40 MG/4 ML VIAL IV ONE (07:56)
--- NOTE | 2016-11-29 08:28 | XRay Report ---
XR chest 1V portable Indication: Lung cancer, hypoxemia Comparison: Chest x-ray dated November 28, 2016 Technique: Single frontal view of the chest. Findings: Port catheter appears grossly unchanged. Continued cardiomegaly. Continued bilateral interstitial prominence suspicious for interstitial pulmonary edema or interstitial pneumonia. There has been minimally improved bibasilar atelectasis/consolidation. Continued right upper/lateral lung infiltrate. Visualized osseous and surrounding soft tissue structures appear grossly unchanged. IMPRESSION: As above. PROCEDURE INTERPRETED AT [facility] DEPARTMENT OF RADIOLOGY Final Report Signed by: Dr Parveen Calderon
[2016-11-29] MEDS ORDERED: POTASSIUM CHLORIDE 20 MEQ TABLET PO SCH (09:23)
[2016-11-29] MEDS ORDERED: POTASSIUM CHLORIDE 10 MEQ TABLET PO ONE (09:24)
--- NOTE | 2016-11-29 09:26 | Pulmonology Progress Note ---
Pulmonary - PN: Subj Interval history: This is a 71-year-old white male whom I saw in pulmonary consultation on 2016. My impressions were. #1: Acute cellulitis of the chin secondary to MRSA #2: Sepsis secondary to MRSA #3: Neuroendocrine carcinoma of the lung, small cell, high-grade from right hilar mass biopsy done 09/13/2016. Note, Dr. Shetty states this is in remission. #4: COPD #5: Long history of tobacco abuse. Note, the patient stopped smoking sometime between 2009 and 2011. #6: Chronic pain. Under the care of Dr. Serrano. #7: Degenerative joint disease #8: Anemia #9: Thrombocytopenia #10: Pulmonary hypertension as noted on echocardiogram 11/25/2016. Pulmonary artery pressure 42 mmHg. #11: Possible early right upper lung infiltrate #12: See past history 11/28/2016. This morning the patient had hypoxemia and increased shortness of breath. His chest x-ray showed acute pulmonary edema. He was given 40 of Lasix IV push in the digits improved significantly. Doppler venograms were done and these showed no evidence of deep venous thrombophlebitis. Patient has recently had pulmonary arteriograms and these were negative. He has chronic hypoxemia and uses oxygen at home. His EKG shows no acute changes. Nitrated peptide was 190. Electrolytes are normal. Creatinine is 0.5 with a BUN of 7. H&H is 10.2/30.6 white count is 2200 and platelet count is 60,000. Total protein and albumin are low at 5.8 and 2.6 respectively. 11/29/2016. Today's chest x-ray shows cardiomegaly. Central vascular fullness. Patient has developed a generalized alveolar filling picture with associated interstitial edema. With his recent methicillin-resistant staph aureus sepsis I think we have to assume that this is adult respiratory distress syndrome. I have started the patient on Solu-Medrol. Will watch his status closely and if he deteriorates, he may end Up on mechanical ventilation. ABGs today on FiO2 of 50% show pH is 7.344, PCO2 of 56.5, PO2 of 58.6 and a bicarb of 27.7. I am going to start this patient on Diamox 250 IV push every morning. First dose today. Potassium is 3.4 and I will start KCl 10 mEq daily in addition to the 20 mEq per day he is already on. LDH is elevated 351. Alkaline Carla is elevated at 126. Natruretic peptide is 149. White count is improved to 4600. H&H is stable at 10.4/30.9 and platelets are improved to 98,000.. Physical exam. Vital signs. See below General. Patient sitting on side of his bed but easily eating deleon ingredients. He is not short of breath and he is in no apparent distress Psychiatric oriented 3. Face. Asymmetrically. No swelling of lips and tongue. Neck. Symmetrical. No meningismus. Lymphatics. No submandibular cervical supraclavicular or epitrochlear adenopathy Chest. Hyperinflated with prolonged expiration. No wheezing no rales Heart. Slightly lateral PMI and a grade 1/6 systolic ejection murmur at left sternal border without radiation Abdomen. Nontender bowel sounds are positive. Extremities. Trace of pedal and pretibial edema bilaterally. Neurologic. Cranial nerves are intact. 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 Long track motor functions intact. Neurological exam was not done. Gait was not tested The remainder the physical exam is negative Plan: 11/27/2006 #1: Agree with present antibiotics of Teflaro and vancomycin #2: Start inhalation therapy with DuoNeb 4 times daily and as needed #3: Start Singulair 10 mg p.o. daily #4: With regards pulmonary hypertension, will start Norvasc 5 mg daily and follow his response #5: Repeat chest x-ray in the morning #6: Sputum for Gram stain, culture and sensitivity #7: See orders 11/28/2016 1. Agree with Lasix 2. Chest x-ray and ABGs in the morning 3. Doppler venograms are negative for deep venous thrombophlebitis 4. See today's note 11/29/2016. 1. See today's note above 2. Solu-Medrol 3. Probable adult respiratory distress syndrome 4. Daily chest x-ray ABGs. If deteriorates will need intubation mechanical ventilation. 5. Diamox 6. Increase KCl replete 7. Dr. Valentín Hamm and I have discussed the case and coordinated our care Exam (Progress Note) - Constitutional Vitals: Period Temp Pulse Resp BP Sys/Yanes Pulse Ox Last 24 Hr 97.7 F-100.1 F 93-112 14-24 111-165/59-90 22-96 Results - Labs CBC & BMP: 11/29/16 04:00 11/29/16 04:00
[2016-11-29] MEDS: amLODIPine 5 MG TABLET PO SCH (10:01)
[2016-11-29] MEDS: BACLOFEN 10 MG TABLET PO SCH ×3 (10:01→20:39)
[2016-11-29] MEDS: MELOXICAM 7.5 MG TABLET PO SCH (10:01)
[2016-11-29] MEDS: METHADONE 10 MG TABLET PO SCH ×4 (10:02→20:39)
[2016-11-29] MEDS: POTASSIUM CHLORIDE 20 MEQ TABLET PO SCH (10:02)
[2016-11-29] MEDS: MONTELUKAST 10 MG TABLET PO SCH (10:02)
[2016-11-29] MEDS: GABAPENTIN 400 MG CAPSULE PO SCH ×3 (10:02→20:39)
[2016-11-29] MEDS: cloNIDine 0.1 MG TABLET PO SCH ×2 (10:02→20:39)
[2016-11-29] MEDS: VENLAFAXINE 75 MG TABLET PO SCH ×2 (10:02→20:39)
[2016-11-29] MEDS: methylPREDNISolone SOD SUC 125 MG/2 ML VIAL IV SCH ×2 (10:05→16:49)
[2016-11-29] MEDS: FILGRASTIM-SNDZ 300 MCG/0.5 ML SYRINGE SUBCUT SCH (10:09)
[2016-11-29] MEDS: PANTOPRAZOLE 40 MG TABLET PO SCH (10:09)
[2016-11-29] MEDS: MUPIROCIN 2% OINT 22 GM TUBE TOP SCH ×2 (10:12→20:40)
[2016-11-29] MEDS: CHLORHEXIDINE 4% SOLN 118 ML BOTTLE TOP SCH (10:12)
[2016-11-29] MEDS: VANCOMYCIN INJ 1,000 MG in SODIUM CHLORIDE 0.9% 250 ML IV SCH ×2 (10:13→22:07)
[2016-11-29] MEDS: ENOXAPARIN 40 MG/0.4 ML SYRINGE SUBCUT SCH (14:37)
--- NOTE | 2016-11-29 15:34 | Physician Query Form ---
CLICK EDIT DOCUMENT TO SELECT QUERY ANSWER --> OK --> SIGN Lauren Lozada RN Clinical Primary Care Provider W) [phone] (f) [phone] [email or web address] PROVIDERS: Make your selection(s) from the choices in EACH section by typing an "x" and enter comments in the comment section. Please use your independent medical judgment in providing your response. This request does not imply that any particular answer is desired or expected. CLINICAL INDICATORS: (Providers should not edit this section) Based on lab results of WBC=3.1, RBC=2.36, PLT=34. "His chemotherapy has consisted of etoposide 200 mg IV daily for 3 days and carboplatin 600 mg IV on day 2 only. He received his third course of this combination on November 13 - November 15. Based on the above, could you clarify the appropriate diagnosis, if significant , that supports the above abnormalities and additional evaluation, monitoring, and/or treatment rendered: ( x) Pt. has chemo induced pancytopenia ( ) Pt. does not have chemo induced panctopenia ( ) Other, please specify: ( ) Clinically unable to determine COMMENTS: PLEASE ALSO DOCUMENT RESPONSE IN PROGRESS NOTES AND/OR DISCHARGE SUMMARY Use of terms such as suspected, likely, or probable (associated with a specific diagnosis that is being evaluated, monitored, or treated as if it exists) are acceptable and can be restated in the discharge summary if not ruled out. MTDD
[2016-11-29] MEDS: PRAVASTATIN 40 MG TABLET PO SCH (20:39)
[2016-11-29] MEDS: clonazePAM 0.5 MG TABLET PO SCH (20:39)
[2016-11-29] MEDS: MIRTAZAPINE 30 MG TABLET PO SCH (20:39)
[2016-11-30] MEDS: ALBUTEROL/IPRATROPIUM 3 ML NEB RESP TX SCH ×4 (00:46→19:32)
[2016-11-30] MEDS: methylPREDNISolone SOD SUC 125 MG/2 ML VIAL IV SCH ×3 (01:36→18:25)
[2016-11-30] MEDS: CEFTAROLINE 600 MG in SODIUM CHLORIDE 0.9% 100 ML IV SCH ×2 (01:36→14:25)
[2016-11-30 04:17] LABS: ABG Base Excess 2.1 MMOL/L (-2.5-2.5); ABG HCO3 26.1 MMOL/L (20-26); ABG Oxygen Saturation 87.8 % (95-100); ABG PCO2 54.6 MM HG (35-48); ABG PH 7.333 (7.35-7.45); ABG PO2 57.4 MM HG (80-95); ABG TCO2 26.3 MMOL/L (23-27); Allen Test Positive; Pt O2 Delivery Device Venturi Mask
[2016-11-30 05:02] LABS: Basophils % 0.2 % (0.0-0.8); Eosinophils # 0.1 10*3/uL (0.0-0.87); Eosinophils % 0.5 % (0.00-10.9); Hematocrit 32.8 VOL% (42.0-52.0); Hemoglobin 10.9 GM/DL (14.0-18.0); Immature Granulocytes % 8.7 %; Immature Granulocytes Absolute 1.11 #; Lymphocytes # 1.6 10*3/uL (1.4-4.0); Lymphocytes % 12.7 % (21.2-54.2); Mean Corpuscular HGB Conc 33.2 GM/DL (32-36); Mean Corpuscular Hemoglobin 32 PG (27-34); Mean Corpuscular Volume 94.8 FL (87-102); Mean Platelet Volume 11.5 FL (9.6-12.0); Monocytes # 1.3 10*3/uL (0.11-0.8); Monocytes % 9.9 % (1.7-12.7); Neutrophils # 8.6 10*3/uL (1.4-7.4); Platelet Count 118 T/CUMM (130-400); Red Blood Count 3.46 MC/CUMM (3.8-5.5); Red Cell Distribution Width 15.2 % (9.3-17.3); White Blood Count 12.7 T/CUMM (4-12)
[2016-11-30 05:32] LABS: Albumin 2.4 G/DL (3.4-5.0); Bilirubin,Total 0.4 MG/DL (0.2-1.0); Osmolality,Calculated 286.3 MOS/KG (273-304); Total Protein 6.1 G/DL (6.4-8.3)
[2016-11-30 05:41] LABS: Band Neutrophils 30 % (0-10); Lymphocytes 14 % (20-55); Metamyelocytes 3 %; Myelocytes 4 %; Nucleated Red Blood Cells 3 (0-5); Platelet Estimate Adequate; Promyelocytes 1 %; Segmented Neutrophils 41 % (50-85); Total Cells Counted 100
--- NOTE | 2016-11-30 06:49 | XRay Report ---
Exam: XR chest 1V portable Date: 11/30/2016 7:57 AM Indication: Follow-up lung cancer congestive heart failure Comparison: 11/29/2016 Technical: AP portable Findings: A left subclavian port catheter is present with distal tip superior vena cava. Mild cardiac enlargement. Patchy interstitial densities are present in the lung thomas with underlying coarse bronchovascular markings. Tiny effusions are suspected bilaterally. There is again slight prominence in the right hilus similar to previous study. No pneumothorax. ASVD is present Impression: 1. No significant interval change in radiographic findings with stable appearance of the left subclavian port 2. Tiny effusions and patchy interstitial densities in the bases and perihilar regions right greater than left PROCEDURE INTERPRETED AT [facility] DEPARTMENT OF RADIOLOGY Final Report Signed by: Dr. Tristen Turner
--- NOTE | 2016-11-30 07:30 | Oncology Progress Note ---
Oncology Subjective PN Interval history: MRSA sepsis: This patient was admitted with MRSA sepsis and cellulitis of the chin. He has small cell carcinoma of the lung that has achieved a complete remission using etoposide and carboplatin. I question how good his hygiene is because he has not demonstrated good hygiene to the nurses or to me. He probably needs decolonization. Infection control has been consulted.The serum creatinine today is 0.5 which is acceptable. We are monitoring vancomycin toxicity. He is on it for MRSA sepsis. We are also continuing decolonization of the patient. His fever went to 102.9 on the evening of November 24. His temperature this morning is 97.7. 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 He received his third course of this combination on November 13 - November 15. The plan is to continue for 4 courses and then refer him for consideration for radiation therapy. His next dose of chemotherapy will be due December 11. I had planned to give 4 courses and then refer him for radiation. However, he has achieved a complete remission and I am seriously considering referring him for radiation therapy after 3 courses of chemotherapy. Monitoring for toxicity of chemotherapy and antibiotics: He is on IV vancomycin and we are monitoring for toxicity. His serum creatinine today is 0.6. Anemia of chronic disease: He is also anemic with a hemoglobin of 10.9 today, up from 8.4 on November 28, 2016 before blood transfusion. Leukopenia:White cell count is up to normal at 12,700 with an ANC of 8600. He is on Neupogen but I am discontinuing it at this point. Thrombocytopenia: In addition, his platelet count is 118,000. COPD: Mr. Gabriel became extremely more dyspneic and cyanotic earlier this week. [employer] REPRESENTATIVE was called. It appears that he was fluid overloaded. Dr. Bailey suspects the patient ARDS accompanying the MRSA sepsis. He was treated with Lasix and his IV fluid rate was slowed. The chest x-ray today appears modestly improved although there is diffuse stranding throughout both lung thomas. Hypokalemia: Potassium 3.0. Adjusting IV fluids with potassium added. Excessive sedation: He is on methadone on a regular basis and has been on it for a long time. It is not my prescription. He is difficult to awaken this morning and I have written an order to hold methadone if he appears to be excessively sedated. If he is awake and asking for the methadone, he should receive it. Exam - Constitutional Vitals: Period Temp Pulse Resp BP Sys/Yanes Pulse Ox Last 24 Hr 95.5 F-97.2 F 67-120 12-22 118-166/56-73 88-98 Results - Labs CBC & BMP: 11/30/16 04:00 11/30/16 04:00
[2016-11-30] MEDS: SODIUM CHLORIDE 0.9% 1,000 ML IV SCH (07:45)
--- NOTE | 2016-11-30 08:59 | Pulmonology Progress Note ---
Pulmonary - PN: Subj Interval history: This is a 71-year-old white male whom I saw in pulmonary consultation on 2016. My impressions were. #1: Acute cellulitis of the chin secondary to MRSA #2: Sepsis secondary to MRSA #3: Neuroendocrine carcinoma of the lung, small cell, high-grade from right hilar mass biopsy done 09/13/2016. Note, Dr. Shetty states this is in remission. #4: COPD #5: Long history of tobacco abuse. Note, the patient stopped smoking sometime between 2009 and 2011. #6: Chronic pain. Under the care of Dr. Serrano. #7: Degenerative joint disease #8: Anemia #9: Thrombocytopenia #10: Pulmonary hypertension as noted on echocardiogram 11/25/2016. Pulmonary artery pressure 42 mmHg. #11: Possible early right upper lung infiltrate #12: See past history 11/28/2016. This morning the patient had hypoxemia and increased shortness of breath. His chest x-ray showed acute pulmonary edema. He was given 40 of Lasix IV push in the digits improved significantly. Doppler venograms were done and these showed no evidence of deep venous thrombophlebitis. Patient has recently had pulmonary arteriograms and these were negative. He has chronic hypoxemia and uses oxygen at home. His EKG shows no acute changes. Nitrated peptide was 190. Electrolytes are normal. Creatinine is 0.5 with a BUN of 7. H&H is 10.2/30.6 white count is 2200 and platelet count is 60,000. Total protein and albumin are low at 5.8 and 2.6 respectively. 11/29/2016. Today's chest x-ray shows cardiomegaly. Central vascular fullness. Patient has developed a generalized alveolar filling picture with associated interstitial edema. With his recent methicillin-resistant staph aureus sepsis I think we have to assume that this is adult respiratory distress syndrome. I have started the patient on Solu-Medrol. Will watch his status closely and if he deteriorates, he may end Up on mechanical ventilation. ABGs today on FiO2 of 50% show pH is 7.344, PCO2 of 56.5, PO2 of 58.6 and a bicarb of 27.7. I am going to start this patient on Diamox 250 IV push every morning. First dose today. Potassium is 3.4 and I will start KCl 10 mEq daily in addition to the 20 mEq per day he is already on. LDH is elevated 351. Alkaline Carla is elevated at 126. Natruretic peptide is 149. White count is improved to 4600. H&H is stable at 10.4/30.9 and platelets are improved to 98,000.. 11/30/2016. This is a 71-year-old white male who has a neuroendocrine lung carcinoma which is an admission. He has cellulitis of his chin and he was admitted with septicemia secondary to methicillin-resistant staph. He has underlying COPD with chronic hypoxemia mild hypercarbia. His chest x-ray after a few days showed a 5 lobe alveolar infiltrate with increased interstitial markings. He had a minor elevation of his BNP. This was adult respiratory distress syndrome secondary to his sepsis. On 11/29/2016 I started him on high- dose steroids. His chest x-ray is markedly better today but not resolved. We will continue to follow this on a daily basis. His ABGs on FiO2 of 50% shows a pH of 7.33, PCO2 54.6, PO2 of 57.4 and a bicarb of 26.1. I am going to decrease the patient's FiO2 to 2 L/min we will repeat his blood gases. I suspect that he will only breathe to keep his PO2 is in the mid to high 50s. He is on Diamox which was begun on 11/29/2016. Potassium is dropped to 3.0 and this will be replaced. Creatinine is 0.6 with a BUN of 15. White count has risen from 2000 112,700. H&H is 10.9/32.8 and platelets of increased 218,000. Plan is to follow daily lab, ABGs and chest x-ray. Continue high-dose steroids. If the patient deteriorates he should be intubated and put on mechanical ventilation with PEEP and pressure support and treated as respiratory failure secondary to adult respiratory distress syndrome. Physical exam. Vital signs. See below General. Patient sitting on side of his bed but easily eating deleon ingredients. He is not short of breath and he is in no apparent distress Psychiatric oriented 3. Face. Asymmetrically. No swelling of lips and tongue. Neck. Symmetrical. No meningismus. Lymphatics. No submandibular cervical supraclavicular or epitrochlear adenopathy Chest. Hyperinflated with prolonged expiration. No wheezing no rales Heart. Slightly lateral PMI and a grade 1/6 systolic ejection murmur at left sternal border without radiation Abdomen. Nontender bowel sounds are positive. Extremities. Trace of pedal and pretibial edema bilaterally. Neurologic. Cranial nerves are intact. 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 Long track motor functions intact. Neurological exam was not done. Gait was not tested The remainder the physical exam is negative Plan: 11/27/2006 #1: Agree with present antibiotics of Teflaro and vancomycin #2: Start inhalation therapy with DuoNeb 4 times daily and as needed #3: Start Singulair 10 mg p.o. daily #4: With regards pulmonary hypertension, will start Norvasc 5 mg daily and follow his response #5: Repeat chest x-ray in the morning #6: Sputum for Gram stain, culture and sensitivity #7: See orders 11/28/2016 1. Agree with Lasix 2. Chest x-ray and ABGs in the morning 3. Doppler venograms are negative for deep venous thrombophlebitis 4. See today's note 11/29/2016. 1. See today's note above 2. Solu-Medrol 3. Probable adult respiratory distress syndrome 4. Daily chest x-ray ABGs. If deteriorates will need intubation mechanical ventilation. 5. Diamox 6. Increase KCl replete 7. Dr. Valentín Hamm and I have discussed the case and coordinated our care 11/30/2016. 1. See today's note above. 2. Methicillin-resistant staph aureus septicemia with adult respiratory distress syndrome. Intubate if deteriorated 3. Hypoxemia and hypercarbia. 4. Daily chest x-ray, ABGs and lab Exam (Progress Note) - Constitutional Vitals: Period Temp Pulse Resp BP Sys/Yanes Pulse Ox Last 24 Hr 95.5 F-97.7 F 67-120 12-22 114-166/56-73 88-98 Results - Labs CBC & BMP: 11/30/16 04:00 11/30/16 04:00
[2016-11-30 09:30] LABS: ABG Base Excess 2.2 MMOL/L (-2.5-2.5); ABG HCO3 26.1 MMOL/L (20-26); ABG Oxygen Saturation 84.1 % (95-100); ABG PCO2 53.7 MM HG (35-48); ABG PH 7.341 (7.35-7.45); ABG PO2 51.2 MM HG (80-95); ABG TCO2 26.2 MMOL/L (23-27); Allen Test Positive
[2016-11-30] MEDS: PANTOPRAZOLE 40 MG TABLET PO SCH (10:48)
[2016-11-30] MEDS: POTASSIUM CHLORIDE 10 MEQ TABLET PO SCH (10:48)
[2016-11-30] MEDS: cloNIDine 0.1 MG TABLET PO SCH ×2 (10:49→21:37)
[2016-11-30] MEDS: GABAPENTIN 400 MG CAPSULE PO SCH ×3 (10:49→21:36)
[2016-11-30] MEDS: MONTELUKAST 10 MG TABLET PO SCH (10:49)
[2016-11-30] MEDS: amLODIPine 5 MG TABLET PO SCH (10:49)
[2016-11-30] MEDS: BACLOFEN 10 MG TABLET PO SCH ×3 (10:50→21:37)
[2016-11-30] MEDS: METHADONE 10 MG TABLET PO SCH ×3 (10:50→21:35)
[2016-11-30] MEDS: CHLORHEXIDINE 4% SOLN 118 ML BOTTLE TOP SCH (10:50)
[2016-11-30] MEDS: MUPIROCIN 2% OINT 22 GM TUBE TOP SCH ×2 (10:50→21:39)
[2016-11-30] MEDS: VENLAFAXINE 75 MG TABLET PO SCH ×2 (10:50→21:36)
[2016-11-30] MEDS: MELOXICAM 7.5 MG TABLET PO SCH (10:50)
[2016-11-30] MEDS: VANCOMYCIN INJ 1,000 MG in SODIUM CHLORIDE 0.9% 250 ML IV SCH ×2 (10:51→21:33)
[2016-11-30] MEDS: DEXT 5% NACL 0.45% KCL 40 MEQ 40 MEQ/1,000 ML BAG IV SCH (10:57)
[2016-11-30] MEDS: ENOXAPARIN 40 MG/0.4 ML SYRINGE SUBCUT SCH (18:26)
[2016-11-30] MEDS: clonazePAM 0.5 MG TABLET PO SCH (21:35)
[2016-11-30] MEDS: MIRTAZAPINE 30 MG TABLET PO SCH (21:38)
[2016-12-01] MEDS: ALBUTEROL/IPRATROPIUM 3 ML NEB RESP TX SCH ×4 (00:33→19:45)
[2016-12-01] MEDS: CEFTAROLINE 600 MG in SODIUM CHLORIDE 0.9% 100 ML IV SCH ×2 (03:29→14:17)
[2016-12-01] MEDS: methylPREDNISolone SOD SUC 125 MG/2 ML VIAL IV SCH ×3 (03:29→18:43)
[2016-12-01] MEDS: METHADONE 10 MG TABLET PO SCH ×4 (03:33→21:16)
[2016-12-01 03:44] LABS: ABG Base Excess 0.2 MMOL/L (-2.5-2.5); ABG HCO3 24.4 MMOL/L (20-26); ABG Oxygen Saturation 88.3 % (95-100); ABG PCO2 46.1 MM HG (35-48); ABG PH 7.359 (7.35-7.45); ABG PO2 57.4 MM HG (80-95); ABG TCO2 23.4 MMOL/L (23-27)
[2016-12-01 05:27] LABS: Eosinophils % 0.2 % (0.00-10.9); Hematocrit 32.3 VOL% (42.0-52.0); Hemoglobin 10.7 GM/DL (14.0-18.0); Immature Granulocytes % 12.9 %; Immature Granulocytes Absolute 3.26 #; Lymphocytes # 3.4 10*3/uL (1.4-4.0); Lymphocytes % 13.6 % (21.2-54.2); Mean Corpuscular HGB Conc 33.1 GM/DL (32-36); Mean Corpuscular Hemoglobin 31 PG (27-34); Mean Corpuscular Volume 94.7 FL (87-102); Mean Platelet Volume 11.7 FL (9.6-12.0); Monocytes # 2.1 10*3/uL (0.11-0.8); Monocytes % 8.4 % (1.7-12.7); NRBC # 0.17 10*3/uL; Neutrophils # 16.4 10*3/uL (1.4-7.4); Neutrophils % 64.9 % (38.7-73.9); Platelet Count 152 T/CUMM (130-400); Red Blood Count 3.41 MC/CUMM (3.8-5.5); Red Cell Distribution Width 15.4 % (9.3-17.3); White Blood Count 25.2 T/CUMM (4-12)
[2016-12-01 05:54] LABS: Albumin 2.8 G/DL (3.4-5.0); Bilirubin,Total 0.7 MG/DL (0.2-1.0); Calcium 8.9 MG/DL (8.5-10.1); Osmolality,Calculated 291.1 MOS/KG (273-304); Potassium 3.2 MMOL/L (3.5-5.1); Total Protein 6.3 G/DL (6.4-8.3)
[2016-12-01 06:08] LABS: Band Neutrophils 8 % (0-10); Eosinophils 1 % (0-10); Hypochromasia 1+; Lymphocytes 12 % (20-55); Metamyelocytes 1 %; Microcytosis 1+; Promyelocytes 2 %; Segmented Neutrophils 66 % (50-85); Total Cells Counted 100
[2016-12-01 06:09] LABS: Platelet Estimate Adequate
[2016-12-01] MEDS: VANCOMYCIN INJ 1,000 MG in SODIUM CHLORIDE 0.9% 250 ML IV SCH ×2 (09:13→22:55)
[2016-12-01] MEDS: POTASSIUM CHLORIDE 10 MEQ TABLET PO SCH (09:14)
[2016-12-01] MEDS: VENLAFAXINE 75 MG TABLET PO SCH ×2 (09:14→21:16)
[2016-12-01] MEDS: MELOXICAM 7.5 MG TABLET PO SCH (09:15)
[2016-12-01] MEDS: GABAPENTIN 400 MG CAPSULE PO SCH ×3 (09:15→21:16)
[2016-12-01] MEDS: cloNIDine 0.1 MG TABLET PO SCH ×2 (09:15→21:17)
[2016-12-01] MEDS: amLODIPine 5 MG TABLET PO SCH (09:15)
[2016-12-01] MEDS: BACLOFEN 10 MG TABLET PO SCH ×3 (09:15→21:16)
[2016-12-01] MEDS: CHLORHEXIDINE 4% SOLN 118 ML BOTTLE TOP SCH (09:16)
[2016-12-01] MEDS: PANTOPRAZOLE 40 MG TABLET PO SCH (09:16)
[2016-12-01] MEDS: MUPIROCIN 2% OINT 22 GM TUBE TOP SCH ×2 (09:16→21:18)
[2016-12-01] MEDS: MONTELUKAST 10 MG TABLET PO SCH (09:16)
[2016-12-01] MEDS: DEXT 5% NACL 0.45% KCL 40 MEQ 40 MEQ/1,000 ML BAG IV SCH (09:17)
--- NOTE | 2016-12-01 09:23 | Pulmonology Progress Note ---
Pulmonary - PN: Subj Interval history: The patient is a 71-year-old white man that has COPD and has had a neuroendocrine carcinoma of the lung. He apparently has done well with therapy and is in remission. He came in with cellulitis of his face and had septicemia. He says he is feeling much better now. He says is not that short of breath and had a fairly good night. He is eating better and starting to move around more. Overall he says he is doing better. Exam (Progress Note) - Constitutional Vitals: Period Temp Pulse Resp BP Sys/Yanes Pulse Ox Last 24 Hr 96.8 F-98.0 F 71-95 16-24 114-138/51-69 88-92 General appearance: normal weight, no acute distress - Head Head exam: Present: normal inspection, normocephalic - Eye Eye exam: Present: other (He has an artificial right eye). Absent: scleral icterus - ENT ENT exam: Present: normal exam, other (His cellulitis on his face is better.) - Neck Neck exam: Absent: tenderness, thyromegaly - Respiratory Respiratory exam: Present: decreased breath sounds. Absent: rhonchi, wheezes - Cardiovascular Cardiovascular exam: Present: regular rate and rhythm. Absent: gallop, systolic murmur - GI/Abdominal GI/Abdominal exam: Present: normal bowel sounds, soft. Absent: organomegaly, tenderness - Extremities Exam Extremities exam: Absent: calf tenderness, edema - Neurological Exam Neurological exam: Present: alert, oriented X3, CN II-XII intact - Psychiatric Psychiatric exam: Present: normal affect, normal mood - Skin Skin exam: Present: warm, dry Results - Labs CBC & BMP: 12/01/16 04:31 12/01/16 04:31 - Diagnostic Findings Procedure: Chest x-ray: image reviewed by me, report reviewed by me (Chest x- ray suggest COPD changes but no acute infiltrates.) Assessment and Plan (1) Septicemia Status: Acute Assessment and plan: Patient was treated for MRSA septicemia and is doing much better now. He seems to be tolerating his antibiotics okay. Current Visit: Yes (2) HTN (hypertension) Status: Acute Assessment and plan: His blood pressure heart rate have been stable. Current Visit: No (3) COPD (chronic obstructive pulmonary disease) Status: Acute Assessment and plan: He is not having any shortness of breath at present. He will continue with bronchodilator therapy. Current Visit: No (4) Small cell lung cancer Status: Acute Assessment and plan: The patient has been in remission with his lung cancer. Current Visit: No (5) Cellulitis of lip Status: Acute Assessment and plan: The cellulitis of his face is doing much better. Current Visit: Yes
--- NOTE | 2016-12-01 09:50 | Oncology Progress Note ---
Assessment and Plan (1) COPD (chronic obstructive pulmonary disease) Status: Acute Current Visit: No (2) Small cell lung cancer Status: Acute Current Visit: No (3) Cellulitis of lip Status: Acute Current Visit: Yes (4) Septicemia Status: Acute Current Visit: Yes Oncology Subjective PN Interval history: Mr. Gabriel looks to be doing better today. He states that his shortness of breath has improved. He remains on vancomycin for staph bacteremia. Pulmonary is following him with this. We will continue with his current medications and treatment protocols. He is afebrile. Hopefully he will continue to slowly improve over the next few days. Exam - Constitutional Vitals: Period Temp Pulse Resp BP Sys/Yanes Pulse Ox Last 24 Hr 96.8 F-98.0 F 71-95 16-24 114-138/51-69 88-92 General appearance: normal weight, no acute distress - Head Head Exam: Present: normocephalic, atraumatic - Eye Eye Exam: Present: EOMI Pupils: Present: PERRL - ENT ENT exam: Present: normal exam, normal oropharynx - Neck Neck exam: Absent: lymphadenopathy, thyromegaly - Respiratory Respiratory exam: Absent: accessory muscle use, wheezes - Cardiovascular Cardiovascular exam: Present: RRR. Absent: JVD - GI/Abdominal GI/Abdominal exam: Present: soft. Absent: ascites, distended, mass - Neurological Exam Neurological exam: Present: alert, oriented X3 - Psychiatric Psychiatric exam: Present: normal affect, normal mood - Skin Skin exam: Present: warm, dry Results - Labs CBC & BMP: 12/01/16 04:31 12/01/16 04:31 Lab Results: I have reviewed the past 24 hour labs
--- NOTE | 2016-12-01 12:59 | XRay Report ---
History: Hypoxemia. Lung cancer Date: 12/01/2016 Study: Chest x-ray PA and lateral Comparison exam: 11/30/2016 A left subclavian Mediport catheter remains in stable satisfactory position. The cardiac silhouette is not enlarged. The mediastinal contours are stable. The pulmonary vasculature is slightly prominent, though improved. There is some persistent pulmonary edema, though this has improved in the interval. There is continued mild bilateral pleural effusion. Osseous structures are unchanged. Impression: Improving congestive heart failure compared to the previous study PROCEDURE INTERPRETED AT [facility] DEPARTMENT OF RADIOLOGY Final Report Signed by: Dr. Rebecca Michael
[2016-12-01] MEDS: ENOXAPARIN 40 MG/0.4 ML SYRINGE SUBCUT SCH (14:17)
[2016-12-01] MEDS: clonazePAM 0.5 MG TABLET PO SCH (21:17)
[2016-12-01] MEDS: MIRTAZAPINE 30 MG TABLET PO SCH (22:55)
[2016-12-02] MEDS: ALBUTEROL/IPRATROPIUM 3 ML NEB RESP TX SCH ×4 (00:09→19:53)
[2016-12-02] MEDS: methylPREDNISolone SOD SUC 125 MG/2 ML VIAL IV SCH ×3 (01:50→17:09)
[2016-12-02] MEDS: CEFTAROLINE 600 MG in SODIUM CHLORIDE 0.9% 100 ML IV SCH ×2 (01:50→14:22)
[2016-12-02 03:31] LABS: ABG Base Excess -2.5 MMOL/L (-2.5-2.5); ABG HCO3 22.2 MMOL/L (20-26); ABG Oxygen Saturation 91.9 % (95-100); ABG PCO2 40.3 MM HG (35-48); ABG PH 7.359 (7.35-7.45); ABG PO2 65.1 MM HG (80-95); ABG TCO2 20.4 MMOL/L (23-27); Allen Test Positive
[2016-12-02] MEDS: METHADONE 10 MG TABLET PO SCH ×4 (04:06→20:46)
[2016-12-02 04:59] LABS: Basophils # 0.2 10*3/uL (0.0-0.2); Basophils % 0.5 % (0.0-0.8); Hematocrit 32.5 VOL% (42.0-52.0); Hemoglobin 10.7 GM/DL (14.0-18.0); Immature Granulocytes % 15.4 %; Immature Granulocytes Absolute 4.33 #; Lymphocytes # 3.9 10*3/uL (1.4-4.0); Lymphocytes % 13.8 % (21.2-54.2); Mean Corpuscular HGB Conc 32.9 GM/DL (32-36); Mean Corpuscular Hemoglobin 31 PG (27-34); Mean Corpuscular Volume 95.3 FL (87-102); Mean Platelet Volume 11.1 FL (9.6-12.0); Monocytes % 7.2 % (1.7-12.7); NRBC # 0.22 10*3/uL; Neutrophils # 17.7 10*3/uL (1.4-7.4); Neutrophils % 63.1 % (38.7-73.9); Platelet Count 174 T/CUMM (130-400); Red Blood Count 3.41 MC/CUMM (3.8-5.5); Red Cell Distribution Width 15.8 % (9.3-17.3); White Blood Count 28.1 T/CUMM (4-12)
[2016-12-02 05:24] LABS: Albumin 2.9 G/DL (3.4-5.0); Bilirubin,Total 0.6 MG/DL (0.2-1.0); Calcium 8.7 MG/DL (8.5-10.1); Potassium 3.5 MMOL/L (3.5-5.1); Total Protein 6.4 G/DL (6.4-8.3)
[2016-12-02 05:36] LABS: Band Neutrophils 7 % (0-10); Lymphocytes 20 % (20-55); Metamyelocytes 2 %; Myelocytes 5 %; Nucleated Red Blood Cells 3 (0-5); Platelet Estimate Normal; Promyelocytes 1 %; Segmented Neutrophils 63 % (50-85); Total Cells Counted 100; Toxic Granulation 1+
--- NOTE | 2016-12-02 08:21 | Oncology Progress Note ---
Assessment and Plan (1) COPD (chronic obstructive pulmonary disease) Status: Acute Current Visit: No (2) Small cell lung cancer Status: Acute Current Visit: No (3) Cellulitis of lip Status: Acute Current Visit: Yes (4) Septicemia Status: Acute Current Visit: Yes Oncology Subjective PN Interval history: Mr. Gabriel seems to be doing well. He states his shortness of breath has significantly improved. He was lying in bed resting on my exam today. He is not getting up and going to the bathroom due to his significant fatigue and shortness of breath. He has no new complaints today. He denies any fever chills or night sweats. We will continue with his current treatment plan. On exam today he is awake and alert. He seems to be in good mood. His lungs are coarse bilaterally but I do not hear any audible wheezes or rales. His abdomen is protuberant but soft and nontender. His skin is warm and dry. Exam - Constitutional Vitals: Period Temp Pulse Resp BP Sys/Yanes Pulse Ox Last 24 Hr 96.6 F-97.3 F 69-90 16-20 134-163/63-87 90-98 Results - Labs CBC & BMP: 12/02/16 04:15 12/02/16 04:15 Lab Results: I have reviewed the past 24 hour labs - Diagnostic Findings Procedure: Chest x-ray: image reviewed by me
[2016-12-02] MEDS: cloNIDine 0.1 MG TABLET PO SCH ×2 (09:14→20:47)
[2016-12-02] MEDS: amLODIPine 5 MG TABLET PO SCH (09:14)
[2016-12-02] MEDS: MELOXICAM 7.5 MG TABLET PO SCH (09:14)
[2016-12-02] MEDS: BACLOFEN 10 MG TABLET PO SCH ×3 (09:14→20:46)
[2016-12-02] MEDS: POTASSIUM CHLORIDE 10 MEQ TABLET PO SCH (09:14)
[2016-12-02] MEDS: PANTOPRAZOLE 40 MG TABLET PO SCH (09:15)
[2016-12-02] MEDS: MONTELUKAST 10 MG TABLET PO SCH (09:15)
[2016-12-02] MEDS: DEXT 5% NACL 0.45% KCL 40 MEQ 40 MEQ/1,000 ML BAG IV SCH (09:15)
[2016-12-02] MEDS: VENLAFAXINE 75 MG TABLET PO SCH ×2 (09:15→20:47)
[2016-12-02] MEDS: GABAPENTIN 400 MG CAPSULE PO SCH ×3 (09:15→20:46)
[2016-12-02] MEDS: CHLORHEXIDINE 4% SOLN 118 ML BOTTLE TOP SCH (09:16)
[2016-12-02] MEDS: MUPIROCIN 2% OINT 22 GM TUBE TOP SCH ×2 (09:16→20:48)
[2016-12-02] MEDS: VANCOMYCIN INJ 1,000 MG in SODIUM CHLORIDE 0.9% 250 ML IV SCH ×2 (09:16→22:48)
--- NOTE | 2016-12-02 09:45 | Pulmonology Progress Note ---
Pulmonary - PN: Subj Interval history: The patient is a 71-year-old white man that has COPD and has had a neuroendocrine carcinoma of the lung. He apparently has done well with therapy and is in remission. He came in with cellulitis of his face and had septicemia. He says he is feeling much better now. He feels like he is eating well and his breathing is much better. He said he had a restful night. He cannot do much activity but he feels like he stable. His cellulitis has cleared up well. Exam (Progress Note) - Constitutional Vitals: Period Temp Pulse Resp BP Sys/Yanes Pulse Ox Last 24 Hr 96.1 F-97.3 F 69-90 16-22 134-163/63-87 90-98 Exam: General appearance: normal weight, no acute distress, he is comfortable sitting up eating breakfast. - Head Head exam: Present: normal inspection, normocephalic - Eye Eye exam: Present: other (He has an artificial right eye). Absent: scleral icterus - ENT ENT exam: Present: normal exam, other (His cellulitis on his face is better. This is about cleared up.) - Neck Neck exam: Absent: tenderness, thyromegaly - Respiratory Respiratory exam: Present: He has decreased breath sounds with prolonged expiration but not much wheezing or rales. - Cardiovascular Cardiovascular exam: Present: regular rate and rhythm. Absent: gallop, systolic murmur - GI/Abdominal GI/Abdominal exam: Present: normal bowel sounds, soft. Absent: organomegaly, tenderness - Extremities Exam Extremities exam: Absent: calf tenderness, edema - Neurological Exam Neurological exam: Present: alert, oriented X3, CN II-XII intact - Psychiatric Psychiatric exam: Present: normal affect, normal mood - Skin Skin exam: Present: warm, dry Results - Labs CBC & BMP: 12/02/16 04:15 12/02/16 04:15 - Diagnostic Findings Procedure: Chest x-ray: image reviewed by me, report reviewed by me (Chest x- ray is unchanged.) Assessment and Plan (1) Septicemia Status: Acute Assessment and plan: Patient was treated for MRSA septicemia and is doing much better now. He seems to be tolerating his antibiotics okay. Current Visit: Yes (2) HTN (hypertension) Status: Acute Assessment and plan: His blood pressure and heart rate have been stable. He appears to be hemodynamically stable. Current Visit: No (3) COPD (chronic obstructive pulmonary disease) Status: Acute Assessment and plan: He is not having any shortness of breath at present. He will continue with bronchodilator therapy. Overall he feels like his breathing is better. Current Visit: No (4) Small cell lung cancer Status: Acute Assessment and plan: The patient has been in remission with his lung cancer. Current Visit: No (5) Cellulitis of lip Status: Acute Assessment and plan: The cellulitis of his face is doing much better. I do not see any signs of cellulitis now. Current Visit: Yes
--- NOTE | 2016-12-02 12:33 | XRay Report ---
History: Lung cancer, hypoxemia Date: 12/02/2016 Study: Chest x-ray PA and lateral Comparison exam: 12/01/2016 The cardiomediastinal silhouette is unchanged. The pulmonary vasculature are is upper normal, though stable to improved. There is improved aeration in the lung bases. There still some minor subsegmental atelectasis in either lung base, improved. There is tiny bilateral pleural effusion, slightly improved. A left subclavian Mediport catheter is unchanged. Osseous structures are similar. Impression: Improved aeration in the lung bases compared to the previous study. There is still some mild platelike bibasilar atelectasis and minimal bilateral pleural effusion. There is no adverse interval change PROCEDURE INTERPRETED AT [facility], [place] DEPARTMENT OF RADIOLOGY Final Report Signed by: Dr. Rebecca Michael
[2016-12-02] MEDS: ENOXAPARIN 40 MG/0.4 ML SYRINGE SUBCUT SCH (14:22)
[2016-12-02] MEDS: MIRTAZAPINE 30 MG TABLET PO SCH (20:46)
[2016-12-02] MEDS: clonazePAM 0.5 MG TABLET PO SCH (20:46)
[2016-12-03] MEDS: ALBUTEROL/IPRATROPIUM 3 ML NEB RESP TX SCH ×4 (00:38→19:12)
[2016-12-03] MEDS: methylPREDNISolone SOD SUC 125 MG/2 ML VIAL IV SCH ×3 (01:30→16:46)
[2016-12-03] MEDS: CEFTAROLINE 600 MG in SODIUM CHLORIDE 0.9% 100 ML IV SCH ×2 (01:30→14:04)
[2016-12-03] MEDS: METHADONE 10 MG TABLET PO SCH ×4 (04:06→20:04)
[2016-12-03 04:53] LABS: ABG Base Excess -3.1 MMOL/L (-2.5-2.5); ABG HCO3 21.8 MMOL/L (20-26); ABG Oxygen Saturation 94.5 % (95-100); ABG PCO2 37.4 MM HG (35-48); ABG PH 7.372 (7.35-7.45); ABG PO2 76.3 MM HG (80-95); ABG TCO2 19.4 MMOL/L (23-27); Allen Test Positive
[2016-12-03 06:54] LABS: Basophils % 0.1 % (0.0-0.8); Hematocrit 33.9 VOL% (42.0-52.0); Hemoglobin 11.2 GM/DL (14.0-18.0); Immature Granulocytes % 21.6 %; Immature Granulocytes Absolute 5.36 #; Lymphocytes # 3.5 10*3/uL (1.4-4.0); Lymphocytes % 14.1 % (21.2-54.2); Mean Corpuscular Hemoglobin 32 PG (27-34); Mean Corpuscular Volume 95.5 FL (87-102); Mean Platelet Volume 11.3 FL (9.6-12.0); Monocytes # 1.2 10*3/uL (0.11-0.8); Monocytes % 4.7 % (1.7-12.7); NRBC # 0.17 10*3/uL; Neutrophils # 14.8 10*3/uL (1.4-7.4); Neutrophils % 59.5 % (38.7-73.9); Platelet Count 191 T/CUMM (130-400); Red Blood Count 3.55 MC/CUMM (3.8-5.5); Red Cell Distribution Width 15.9 % (9.3-17.3); White Blood Count 24.9 T/CUMM (4-12)
--- NOTE | 2016-12-03 07:02 | Oncology Progress Note ---
Oncology Subjective PN Interval history: MRSA sepsis: This patient was admitted with MRSA sepsis and cellulitis of the chin. He has small cell carcinoma of the lung that has achieved a complete remission using etoposide and carboplatin. I question how good his hygiene is because he has not demonstrated good hygiene to the nurses or to me. He probably needs decolonization. Infection control has been consulted.The serum creatinine today is 0.6 which is acceptable. We are monitoring vancomycin toxicity. He is on it for MRSA sepsis. We are also continuing decolonization of the patient. His fever went to 102.9 on the evening of November 24. His temperature this morning is 94.7. We are also in the process of the colonizing him for MRSA. 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 He received his third course of this combination on November 13 - November 15. The plan is to continue for 4 courses and then refer him for consideration for radiation therapy. His next dose of chemotherapy will be due December 11. I had planned to give 4 courses and then refer him for radiation. However, he has achieved a complete remission and I am seriously considering referring him for radiation therapy after 3 courses of chemotherapy. I am placing a consult to radiation oncology. Monitoring for toxicity of chemotherapy and antibiotics: He is on IV vancomycin and we are monitoring for toxicity. His serum creatinine today is 0.6. Anemia of chronic disease: He is also anemic with a hemoglobin of 11.2 today, up from 8.4 on November 28, 2016 before blood transfusion. Leukopenia:Lab work today includes a white cell count of 24,900 Thrombocytopenia: In addition, his platelet count is 191,000. COPD: Mr. Gabriel became extremely more dyspneic and cyanotic earlier this week. [facility] was called. It appears that he was fluid overloaded. Dr. Bailey suspects the patient ARDS accompanying the MRSA sepsis. He was treated with Lasix and his IV fluid rate was slowed. The chest x-ray today appears modestly improved although there is diffuse stranding throughout both lung thomas. I am consulting physical therapy at this point. Hypokalemia: Potassium 3.5 with the patient home additives. Exam - Constitutional Vitals: Period Temp Pulse Resp BP Sys/Yanes Pulse Ox Last 24 Hr 96.1 F-97.4 F 66-89 14-22 158-174/74-93 91-99 Results - Labs CBC & BMP: 12/03/16 04:20 12/03/16 04:20
[2016-12-03 07:23] LABS: Band Neutrophils 22 % (0-10); Hypochromasia Slight; Lymphocytes 8 % (20-55); Myelocytes 7 %; Platelet Estimate Adequate; Promyelocytes 2 %; Segmented Neutrophils 58 % (50-85); Total Cells Counted 100
[2016-12-03 07:29] LABS: Alanine Aminotransferase 42 U/L (16-61); Albumin 2.9 G/DL (3.4-5.0); Alkaline Phosphatase 128 U/L (45-117); Aspartate Amino Transferase 37 U/L (0-37); Bilirubin,Total < 0.39 MG/DL (0.2-1.0); Blood Urea Nitrogen 34 MG/DL (7-18); Calcium 8.3 MG/DL (8.5-10.1); Glucose 169 MG/DL (74-106); Osmolality,Calculated 292.3 MOS/KG (273-304); Potassium 3.5 MMOL/L (3.5-5.1); Sodium 141 MMOL/L (136-145); Total Protein 6.5 G/DL (6.4-8.3)
--- NOTE | 2016-12-03 08:55 | XRay Report ---
Exam: XR chest 2V Indication: Lung cancer, hypoxemia Comparison study: Prior chest radiograph dated 12/02/2016 Findings: The heart, mediastinum and bony structures are stable from prior. Left subclavian Mediport and catheter are in stable position. 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 There is no focal consolidation, pneumothorax or pleural effusion identified. Impression: Similar chronic scarring changes. Otherwise, no significant change. PROCEDURE INTERPRETED AT [facility] DEPARTMENT OF RADIOLOGY Final Report Signed by: Shashank Maurer
[2016-12-03] MEDS: MELOXICAM 7.5 MG TABLET PO SCH (09:01)
[2016-12-03] MEDS: GABAPENTIN 400 MG CAPSULE PO SCH ×3 (09:01→20:04)
[2016-12-03] MEDS: VENLAFAXINE 75 MG TABLET PO SCH ×2 (09:01→20:04)
[2016-12-03] MEDS: cloNIDine 0.1 MG TABLET PO SCH ×2 (09:02→20:04)
[2016-12-03] MEDS: BACLOFEN 10 MG TABLET PO SCH ×3 (09:02→20:04)
[2016-12-03] MEDS: amLODIPine 5 MG TABLET PO SCH (09:02)
[2016-12-03] MEDS: PANTOPRAZOLE 40 MG TABLET PO SCH (09:02)
[2016-12-03] MEDS: POTASSIUM CHLORIDE 10 MEQ TABLET PO SCH (09:02)
[2016-12-03] MEDS: MONTELUKAST 10 MG TABLET PO SCH (09:02)
[2016-12-03] MEDS: VANCOMYCIN INJ 1,000 MG in SODIUM CHLORIDE 0.9% 250 ML IV SCH ×2 (09:05→21:08)
[2016-12-03] MEDS: MUPIROCIN 2% OINT 22 GM TUBE TOP SCH ×2 (09:12→20:04)
[2016-12-03] MEDS: CHLORHEXIDINE 4% SOLN 118 ML BOTTLE TOP SCH (09:13)
--- NOTE | 2016-12-03 10:27 | Pulmonology Progress Note ---
Pulmonary - PN: Subj Interval history: This is a 71-year-old white male whom I saw in pulmonary consultation on 2016. My impressions were. #1: Acute cellulitis of the chin secondary to MRSA #2: Sepsis secondary to MRSA #3: Neuroendocrine carcinoma of the lung, small cell, high-grade from right hilar mass biopsy done 09/13/2016. Note, Dr. Shetty states this is in remission. #4: COPD #5: Long history of tobacco abuse. Note, the patient stopped smoking sometime between 2009 and 2011. #6: Chronic pain. Under the care of Dr. Serrano. #7: Degenerative joint disease #8: Anemia #9: Thrombocytopenia #10: Pulmonary hypertension as noted on echocardiogram 11/25/2016. Pulmonary artery pressure 42 mmHg. #11: Possible early right upper lung infiltrate #12: See past history 11/28/2016. This morning the patient had hypoxemia and increased shortness of breath. His chest x-ray showed acute pulmonary edema. He was given 40 of Lasix IV push in the digits improved significantly. Doppler venograms were done and these showed no evidence of deep venous thrombophlebitis. Patient has recently had pulmonary arteriograms and these were negative. He has chronic hypoxemia and uses oxygen at home. His EKG shows no acute changes. Nitrated peptide was 190. Electrolytes are normal. Creatinine is 0.5 with a BUN of 7. H&H is 10.2/30.6 white count is 2200 and platelet count is 60,000. Total protein and albumin are low at 5.8 and 2.6 respectively. 11/29/2016. Today's chest x-ray shows cardiomegaly. Central vascular fullness. Patient has developed a generalized alveolar filling picture with associated interstitial edema. With his recent methicillin-resistant staph aureus sepsis I think we have to assume that this is adult respiratory distress syndrome. I have started the patient on Solu-Medrol. Will watch his status closely and if he deteriorates, he may end Up on mechanical ventilation. ABGs today on FiO2 of 50% show pH is 7.344, PCO2 of 56.5, PO2 of 58.6 and a bicarb of 27.7. I am going to start this patient on Diamox 250 IV push every morning. First dose today. Potassium is 3.4 and I will start KCl 10 mEq daily in addition to the 20 mEq per day he is already on. LDH is elevated 351. Alkaline Carla is elevated at 126. Natruretic peptide is 149. White count is improved to 4600. H&H is stable at 10.4/30.9 and platelets are improved to 98,000.. 11/30/2016. This is a 71-year-old white male who has a neuroendocrine lung carcinoma which is an admission. He has cellulitis of his chin and he was admitted with septicemia secondary to methicillin-resistant staph. He has underlying COPD with chronic hypoxemia mild hypercarbia. His chest x-ray after a few days showed a 5 lobe alveolar infiltrate with increased interstitial markings. He had a minor elevation of his BNP. This was adult respiratory distress syndrome secondary to his sepsis. On 11/29/2016 I started him on high- dose steroids. His chest x-ray is markedly better today but not resolved. We will continue to follow this on a daily basis. His ABGs on FiO2 of 50% shows a pH of 7.33, PCO2 54.6, PO2 of 57.4 and a bicarb of 26.1. I am going to decrease the patient's FiO2 to 2 L/min we will repeat his blood gases. I suspect that he will only breathe to keep his PO2 is in the mid to high 50s. He is on Diamox which was begun on 11/29/2016. Potassium is dropped to 3.0 and this will be replaced. Creatinine is 0.6 with a BUN of 15. White count has risen from 2000 112,700. H&H is 10.9/32.8 and platelets of increased 218,000. Plan is to follow daily lab, ABGs and chest x-ray. Continue high-dose steroids. If the patient deteriorates he should be intubated and put on mechanical ventilation with PEEP and pressure support and treated as respiratory failure secondary to adult respiratory distress syndrome. 12/03/2016. This patient recently had adult respiratory distress syndrome secondary to methicillin-resistant staph aureus sepsis. As soon as this was recognized he was treated aggressively with high-dose steroids and today's chest x-ray is remarkably better. We will continue the steroids for another day and will begin a gradual taper. Patient says his breathing is much better and he feels much better. ABGs have improved significantly. On FiO2 28% pH is 7.37, PCO2 is 37.4, PO2 is 76.3 and bicarb is 21.8. Electrolytes are normal. Creatinine is 0.7. White blood cell count is 24,900. H&H 11.2/33.9 and platelets are 191,000 Physical exam. Vital signs. See below General. Patient sitting on side of his bed but easily eating deleon ingredients. He is not short of breath and he is in no apparent distress Psychiatric oriented 3. Face. Asymmetrically. No swelling of lips and tongue. Neck. Symmetrical. No meningismus. Lymphatics. No submandibular cervical supraclavicular or epitrochlear adenopathy Chest. Hyperinflated with mild prolonged expiration. No wheezing no rales Heart. Slightly lateral PMI and a grade 1/6 systolic ejection murmur at left sternal border without radiation Abdomen. Nontender bowel sounds are positive. Extremities. Trace of pedal and pretibial edema bilaterally. Neurologic. Cranial nerves are intact. 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 Long track motor functions intact. Neurological exam was not done. Gait was not tested The remainder the physical exam is negative Plan: 11/27/2006 #1: Agree with present antibiotics of Teflaro and vancomycin #2: Start inhalation therapy with DuoNeb 4 times daily and as needed #3: Start Singulair 10 mg p.o. daily #4: With regards pulmonary hypertension, will start Norvasc 5 mg daily and follow his response #5: Repeat chest x-ray in the morning #6: Sputum for Gram stain, culture and sensitivity #7: See orders 11/28/2016 1. Agree with Lasix 2. Chest x-ray and ABGs in the morning 3. Doppler venograms are negative for deep venous thrombophlebitis 4. See today's note 11/29/2016. 1. See today's note above 2. Solu-Medrol 3. Probable adult respiratory distress syndrome 4. Daily chest x-ray ABGs. If deteriorates will need intubation mechanical ventilation. 5. Diamox 6. Increase KCl replete 7. Dr. Valentín Hamm and I have discussed the case and coordinated our care 11/30/2016. 1. See today's note above. 2. Methicillin-resistant staph aureus septicemia with adult respiratory distress syndrome. Intubate if deteriorated 3. Hypoxemia and hypercarbia. 4. Daily chest x-ray, ABGs and lab 12/03/2016. 1. See today's note above. 2. Follow-up chest x-ray new 3. Probable begin taper of steroids tomorrow Exam (Progress Note) - Constitutional Vitals: Period Temp Pulse Resp BP Sys/Yanes Pulse Ox Last 24 Hr 96.1 F-97.4 F 66-79 12-20 158-174/71-93 91-99 Results - Labs CBC & BMP: 12/03/16 04:20 12/03/16 04:20 Specialty Discharge - Follow Up or Referrals Follow up with: Reuben Olivares MD [Physician] - 12/17/16 9:30 am
[2016-12-03] MEDS: ENOXAPARIN 40 MG/0.4 ML SYRINGE SUBCUT SCH (14:04)
[2016-12-03] MEDS: MIRTAZAPINE 30 MG TABLET PO SCH (20:04)
[2016-12-03] MEDS: clonazePAM 0.5 MG TABLET PO SCH (20:05)
[2016-12-04] MEDS: ALBUTEROL/IPRATROPIUM 3 ML NEB RESP TX SCH ×4 (00:47→19:21)
[2016-12-04] MEDS: methylPREDNISolone SOD SUC 125 MG/2 ML VIAL IV SCH ×5 (01:12→18:26)
[2016-12-04] MEDS: CEFTAROLINE 600 MG in SODIUM CHLORIDE 0.9% 100 ML IV SCH ×2 (01:12→14:24)
[2016-12-04] MEDS ORDERED: HEPARIN LOCK FLUSH 500 UNIT/5 ML SYRINGE IV ONE (01:48)
[2016-12-04] MEDS: METHADONE 10 MG TABLET PO SCH ×4 (03:03→21:40)
[2016-12-04 05:02] LABS: Basophils # 0.2 10*3/uL (0.0-0.2); Basophils % 0.7 % (0.0-0.8); Hematocrit 34.7 VOL% (42.0-52.0); Hemoglobin 11.7 GM/DL (14.0-18.0); Immature Granulocytes % 24.3 %; Immature Granulocytes Absolute 5.92 #; Lymphocytes # 2.9 10*3/uL (1.4-4.0); Mean Corpuscular HGB Conc 33.7 GM/DL (32-36); Mean Corpuscular Hemoglobin 32 PG (27-34); Mean Corpuscular Volume 94.3 FL (87-102); Mean Platelet Volume 10.8 FL (9.6-12.0); Monocytes # 1.2 10*3/uL (0.11-0.8); Monocytes % 4.9 % (1.7-12.7); Neutrophils # 14.2 10*3/uL (1.4-7.4); Neutrophils % 58.1 % (38.7-73.9); Platelet Count 189 T/CUMM (130-400); Red Blood Count 3.68 MC/CUMM (3.8-5.5); Red Cell Distribution Width 15.9 % (9.3-17.3); White Blood Count 24.4 T/CUMM (4-12)
[2016-12-04 05:22] LABS: Bilirubin,Total 0.7 MG/DL (0.2-1.0); Calcium 9.1 MG/DL (8.5-10.1); Osmolality,Calculated 288.4 MOS/KG (273-304); Potassium 3.5 MMOL/L (3.5-5.1); Total Protein 6.6 G/DL (6.4-8.3)
[2016-12-04 05:45] LABS: Band Neutrophils 1 % (0-10); Lymphocytes 20 % (20-55); Metamyelocytes 8 %; Myelocytes 4 %; Promyelocytes 1 %; Segmented Neutrophils 62 % (50-85); Total Cells Counted 100
[2016-12-04 05:46] LABS: Hypochromasia Slight
[2016-12-04 05:47] LABS: Microcytosis 1+; Platelet Estimate Adequate; Polychromasia Slight
--- NOTE | 2016-12-04 07:59 | Oncology Progress Note ---
Oncology Subjective PN Interval history: MRSA sepsis: This patient was admitted with MRSA sepsis and cellulitis of the chin. He has small cell carcinoma of the lung that has achieved a complete remission using etoposide and carboplatin. I question how good his hygiene is because he has not demonstrated good hygiene to the nurses or to me. He probably needs decolonization. Infection control has been consulted.The serum creatinine today is 0.6 which is acceptable. We are monitoring vancomycin toxicity. He is on it for MRSA sepsis. We are also continuing decolonization of the patient. His fever went to 102.9 on the evening of November 24. His temperature this morning is 94.7. We are also in the process of decolonizing him for MRSA. He has been on vancomycin since November 25, 2016. 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 He received his third course of this combination on November 13 - November 15. The plan is to continue for 4 courses and then refer him for consideration for radiation therapy. His next dose of chemotherapy will be due December 11. I had planned to give 4 courses and then refer him for radiation. However, he has achieved a complete remission and I am seriously considering referring him for radiation therapy after 3 courses of chemotherapy. I am placing a consult to radiation oncology. Monitoring for toxicity of chemotherapy and antibiotics: He is on IV vancomycin and we are monitoring for toxicity. His serum creatinine today is 0.6. Anemia of chronic disease: He is also anemic with a hemoglobin of 11.7 today, up from 8.4 on November 28, 2016 before blood transfusion. Leukopenia: Has resolved. Lab work today includes a white cell count of 24,400 Thrombocytopenia: Has resolved, his platelet count is 189,000. Exam - Constitutional Vitals: Period Temp Pulse Resp BP Sys/Yanes Pulse Ox Last 24 Hr 96.1 F-97.2 F 70-82 12-20 148-184/74-92 92-100 Results - Labs CBC & BMP: 12/04/16 04:00 12/04/16 04:00 Specialty Discharge - Follow Up or Referrals Follow up with: Reuben Olivares MD [Physician] - 12/17/16 9:30 am
[2016-12-04] MEDS: MELOXICAM 7.5 MG TABLET PO SCH (08:20)
[2016-12-04] MEDS: POTASSIUM CHLORIDE 10 MEQ TABLET PO SCH (08:20)
[2016-12-04] MEDS: PANTOPRAZOLE 40 MG TABLET PO SCH (08:20)
[2016-12-04] MEDS: VENLAFAXINE 75 MG TABLET PO SCH ×2 (08:21→21:39)
[2016-12-04] MEDS: MONTELUKAST 10 MG TABLET PO SCH (08:22)
[2016-12-04] MEDS: cloNIDine 0.1 MG TABLET PO SCH ×2 (08:22→21:40)
[2016-12-04] MEDS: GABAPENTIN 400 MG CAPSULE PO SCH ×3 (08:22→21:39)
[2016-12-04] MEDS: amLODIPine 5 MG TABLET PO SCH (08:22)
[2016-12-04] MEDS: BACLOFEN 10 MG TABLET PO SCH ×3 (08:22→21:39)
--- NOTE | 2016-12-04 08:37 | XRay Report ---
XR chest 2V Indication: Lung cancer, pneumonia, hypoxemia Comparison: 03 December 2016 Findings: The heart and mediastinum are similar in size and configuration. Left subclavian Port-A-Cath is unchanged in position. The pulmonary vascularity is normal in caliber. Lung volumes are increased with prominent bronchial markings. No lung infiltrates, effusions, pneumothorax or other abnormality is demonstrated. Impression: Chronic lung changes. No acute process or significant change. PROCEDURE INTERPRETED AT [facility] DEPARTMENT OF RADIOLOGY Final Report Signed by: Dr. Ha Manley
[2016-12-04] MEDS: VANCOMYCIN INJ 1,000 MG in SODIUM CHLORIDE 0.9% 250 ML IV SCH ×2 (09:00→22:44)
[2016-12-04] MEDS: DEXT 5% NACL 0.45% KCL 40 MEQ 40 MEQ/1,000 ML BAG IV SCH (10:09)
[2016-12-04] MEDS: MUPIROCIN 2% OINT 22 GM TUBE TOP SCH ×2 (10:10→21:42)
[2016-12-04] MEDS: CHLORHEXIDINE 4% SOLN 118 ML BOTTLE TOP SCH (10:10)
--- NOTE | 2016-12-04 10:29 | Pulmonology Progress Note ---
Pulmonary - PN: Subj Interval history: This is a 71-year-old white male whom I saw in pulmonary consultation on 2016. My impressions were. #1: Acute cellulitis of the chin secondary to MRSA #2: Sepsis secondary to MRSA #3: Neuroendocrine carcinoma of the lung, small cell, high-grade from right hilar mass biopsy done 09/13/2016. Note, Dr. Shetty states this is in remission. #4: COPD #5: Long history of tobacco abuse. Note, the patient stopped smoking sometime between 2009 and 2011. #6: Chronic pain. Under the care of Dr. Serrano. #7: Degenerative joint disease #8: Anemia #9: Thrombocytopenia #10: Pulmonary hypertension as noted on echocardiogram 11/25/2016. Pulmonary artery pressure 42 mmHg. #11: Possible early right upper lung infiltrate #12: See past history 11/28/2016. This morning the patient had hypoxemia and increased shortness of breath. His chest x-ray showed acute pulmonary edema. He was given 40 of Lasix IV push in the digits improved significantly. Doppler venograms were done and these showed no evidence of deep venous thrombophlebitis. Patient has recently had pulmonary arteriograms and these were negative. He has chronic hypoxemia and uses oxygen at home. His EKG shows no acute changes. Nitrated peptide was 190. Electrolytes are normal. Creatinine is 0.5 with a BUN of 7. H&H is 10.2/30.6 white count is 2200 and platelet count is 60,000. Total protein and albumin are low at 5.8 and 2.6 respectively. 11/29/2016. Today's chest x-ray shows cardiomegaly. Central vascular fullness. Patient has developed a generalized alveolar filling picture with associated interstitial edema. With his recent methicillin-resistant staph aureus sepsis I think we have to assume that this is adult respiratory distress syndrome. I have started the patient on Solu-Medrol. Will watch his status closely and if he deteriorates, he may end Up on mechanical ventilation. ABGs today on FiO2 of 50% show pH is 7.344, PCO2 of 56.5, PO2 of 58.6 and a bicarb of 27.7. I am going to start this patient on Diamox 250 IV push every morning. First dose today. Potassium is 3.4 and I will start KCl 10 mEq daily in addition to the 20 mEq per day he is already on. LDH is elevated 351. Alkaline Carla is elevated at 126. Natruretic peptide is 149. White count is improved to 4600. H&H is stable at 10.4/30.9 and platelets are improved to 98,000.. 11/30/2016. This is a 71-year-old white male who has a neuroendocrine lung carcinoma which is an admission. He has cellulitis of his chin and he was admitted with septicemia secondary to methicillin-resistant staph. He has underlying COPD with chronic hypoxemia mild hypercarbia. His chest x-ray after a few days showed a 5 lobe alveolar infiltrate with increased interstitial markings. He had a minor elevation of his BNP. This was adult respiratory distress syndrome secondary to his sepsis. On 11/29/2016 I started him on high- dose steroids. His chest x-ray is markedly better today but not resolved. We will continue to follow this on a daily basis. His ABGs on FiO2 of 50% shows a pH of 7.33, PCO2 54.6, PO2 of 57.4 and a bicarb of 26.1. I am going to decrease the patient's FiO2 to 2 L/min we will repeat his blood gases. I suspect that he will only breathe to keep his PO2 is in the mid to high 50s. He is on Diamox which was begun on 11/29/2016. Potassium is dropped to 3.0 and this will be replaced. Creatinine is 0.6 with a BUN of 15. White count has risen from 2000 112,700. H&H is 10.9/32.8 and platelets of increased 218,000. Plan is to follow daily lab, ABGs and chest x-ray. Continue high-dose steroids. If the patient deteriorates he should be intubated and put on mechanical ventilation with PEEP and pressure support and treated as respiratory failure secondary to adult respiratory distress syndrome. 12/03/2016. This patient recently had adult respiratory distress syndrome secondary to methicillin-resistant staph aureus sepsis. As soon as this was recognized he was treated aggressively with high-dose steroids and today's chest x-ray is remarkably better. We will continue the steroids for another day and will begin a gradual taper. Patient says his breathing is much better and he feels much better. ABGs have improved significantly. On FiO2 28% pH is 7.37, PCO2 is 37.4, PO2 is 76.3 and bicarb is 21.8. Electrolytes are normal. Creatinine is 0.7. White blood cell count is 24,900. H&H 11.2/33.9 and platelets are 191,000 12/04/2016. Today's chest x-ray is stable. There is a subtle increase in interstitial markings in all 5 lobes and there are scattered areas of alveolar filling. For all practical purposes the picture of adult respiratory distress syndrome has resolved. I will decrease the patient's Solu-Medrol today. We need to keep in mind that patients alveoli will be susceptible to leakage in the near future secondary to his sepsis injury. Labs been reviewed. Medicines have been reviewed. Patient is stable and has no new complete Physical exam. Vital signs. See below General. Patient sitting on side of his bed but easily eating deleon ingredients. He is not short of breath and he is in no apparent distress Psychiatric oriented 3. Face. Asymmetrically. No swelling of lips and tongue. Neck. Symmetrical. No meningismus. Lymphatics. No submandibular cervical supraclavicular or epitrochlear adenopathy Chest. Hyperinflated with mild prolonged expiration. No wheezing no rales Heart. Slightly lateral PMI and a grade 1/6 systolic ejection murmur at left sternal border without radiation Abdomen. Nontender bowel sounds are positive. Extremities. Trace of pedal and pretibial edema bilaterally. Neurologic. Cranial nerves are intact. 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 Long track motor functions intact. Neurological exam was not done. Gait was not tested The remainder the physical exam is negative Plan: 11/27/2006 #1: Agree with present antibiotics of Teflaro and vancomycin #2: Start inhalation therapy with DuoNeb 4 times daily and as needed #3: Start Singulair 10 mg p.o. daily #4: With regards pulmonary hypertension, will start Norvasc 5 mg daily and follow his response #5: Repeat chest x-ray in the morning #6: Sputum for Gram stain, culture and sensitivity #7: See orders 11/28/2016 1. Agree with Lasix 2. Chest x-ray and ABGs in the morning 3. Doppler venograms are negative for deep venous thrombophlebitis 4. See today's note 11/29/2016. 1. See today's note above 2. Solu-Medrol 3. Probable adult respiratory distress syndrome 4. Daily chest x-ray ABGs. If deteriorates will need intubation mechanical ventilation. 5. Diamox 6. Increase KCl replete 7. Dr. Valentín Hamm and I have discussed the case and coordinated our care 11/30/2016. 1. See today's note above. 2. Methicillin-resistant staph aureus septicemia with adult respiratory distress syndrome. Intubate if deteriorated 3. Hypoxemia and hypercarbia. 4. Daily chest x-ray, ABGs and lab 12/03/2016. 1. See today's note above. 2. Follow-up chest x-ray new 3. Probable begin taper of steroids tomorrow 12/04/2016. 1. Decrease steroids. 2. Watch for any tendency for adult respiratory distress syndrome to recur. Even though oxygenation and chest x-ray are better. An underlying alveolar capillary injury will take a while to heal Exam (Progress Note) - Constitutional Vitals: Period Temp Pulse Resp BP Sys/Yanes Pulse Ox Last 24 Hr 96.1 F-97.2 F 68-82 12-20 148-184/70-92 92-100 Results - Labs CBC & BMP: 12/04/16 04:00 12/04/16 04:00 Specialty Discharge - Follow Up or Referrals Follow up with: Reuben Olivares MD [Physician] - 12/17/16 9:30 am
--- NOTE | 2016-12-04 12:06 | CT Report ---
CT treatment planning Indication: Lung cancer Comparison: None. Technique: CT of the chest was obtained without the administration of intravenous contrast for purposes of treatment planning. Findings: The axial images obtained demonstrate placement of fiduciary markers and appear adequate for planning purposes of targeting radiation therapy. Impression: 1. CT appears appropriate for planned purpose. 12/04/2016 12:02 PM PROCEDURE INTERPRETED AT [facility] DEPARTMENT OF RADIOLOGY Final Report Signed by: Dr. Juan Francisco Rodriguez
[2016-12-04] MEDS: ENOXAPARIN 40 MG/0.4 ML SYRINGE SUBCUT SCH (14:24)
[2016-12-04] MEDS: clonazePAM 0.5 MG TABLET PO SCH (21:43)
[2016-12-04] MEDS: MIRTAZAPINE 30 MG TABLET PO SCH (22:44)
[2016-12-05] MEDS: ALBUTEROL/IPRATROPIUM 3 ML NEB RESP TX SCH ×4 (00:09→20:06)
[2016-12-05] MEDS: methylPREDNISolone SOD SUC 125 MG/2 ML VIAL IV SCH ×3 (03:19→18:05)
[2016-12-05] MEDS: CEFTAROLINE 600 MG in SODIUM CHLORIDE 0.9% 100 ML IV SCH ×2 (03:19→14:23)
[2016-12-05] MEDS: METHADONE 10 MG TABLET PO SCH ×4 (03:22→20:56)
[2016-12-05 04:02] LABS: ABG Base Excess -0.7 MMOL/L (-2.5-2.5); ABG HCO3 23.9 MMOL/L (20-26); ABG Oxygen Saturation 98.7 % (95-100); ABG PCO2 34.7 MM HG (35-48); ABG PH 7.432 (7.35-7.45); ABG TCO2 20.8 MMOL/L (23-27); Allen Test Positive
[2016-12-05 05:49] LABS: Basophils # 0.1 10*3/uL (0.0-0.2); Basophils % 0.3 % (0.0-0.8); Eosinophils % 0.1 % (0.00-10.9); Hemoglobin 11.5 GM/DL (14.0-18.0); Immature Granulocytes % 20.8 %; Immature Granulocytes Absolute 3.97 #; Lymphocytes # 2.4 10*3/uL (1.4-4.0); Lymphocytes % 12.5 % (21.2-54.2); Mean Corpuscular HGB Conc 33.8 GM/DL (32-36); Mean Corpuscular Hemoglobin 32 PG (27-34); Mean Corpuscular Volume 93.4 FL (87-102); Mean Platelet Volume 10.9 FL (9.6-12.0); Monocytes # 1.3 10*3/uL (0.11-0.8); NRBC # 0.05 10*3/uL; Neutrophils # 11.3 10*3/uL (1.4-7.4); Neutrophils % 59.3 % (38.7-73.9); Platelet Count 205 T/CUMM (130-400); Red Blood Count 3.64 MC/CUMM (3.8-5.5); Red Cell Distribution Width 15.6 % (9.3-17.3); White Blood Count 19.1 T/CUMM (4-12)
[2016-12-05 06:16] LABS: Band Neutrophils 3 % (0-10); Lymphocytes 16 % (20-55); Metamyelocytes 6 %; Myelocytes 2 %; Nucleated Red Blood Cells 1 (0-5); Segmented Neutrophils 67 % (50-85); Total Cells Counted 100
[2016-12-05 06:17] LABS: Albumin 2.9 G/DL (3.4-5.0); Bilirubin,Total 0.7 MG/DL (0.2-1.0); Calcium 8.7 MG/DL (8.5-10.1); Osmolality,Calculated 284.7 MOS/KG (273-304); Potassium 3.9 MMOL/L (3.5-5.1); Total Protein 6.3 G/DL (6.4-8.3)
[2016-12-05 06:17] LABS: Hypochromasia 1+; Microcytosis 1+
[2016-12-05 06:18] LABS: Platelet Estimate Normal
[2016-12-05] MEDS: POTASSIUM CHLORIDE 10 MEQ TABLET PO SCH (08:02)
--- NOTE | 2016-12-05 08:32 | Oncology Progress Note ---
Oncology Subjective PN Interval history: MRSA sepsis: This patient was admitted with MRSA sepsis and cellulitis of the chin. He has small cell carcinoma of the lung that has achieved a complete remission using etoposide and carboplatin. I question how good his hygiene is because he has not demonstrated good hygiene to the nurses or to me. He probably needs decolonization. Infection control has been consulted.The serum creatinine today is 0.6 which is acceptable. We are monitoring vancomycin toxicity. He is on it for MRSA sepsis. We are also continuing decolonization of the patient. His fever went to 102.9 on the evening of November 24. His temperature this morning is 97.5. He has been afebrile all night. We are also in the process of decolonizing him for MRSA. He has been on vancomycin since November 25, 2016. I anticipate continuing IV antibiotics through to the beginning of next week. We need to be working on placement in an LTAC. 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 He received his third course of this combination on November 13 - November 15. The plan is to continue for 4 courses and then refer him for consideration for radiation therapy. His next dose of chemotherapy will be due December 11. I had planned to give 4 courses and then refer him for radiation. However, he has achieved a complete remission and I am seriously considering referring him for radiation therapy after 3 courses of chemotherapy. I am placing a consult to radiation oncology. Monitoring for toxicity of chemotherapy and antibiotics: He is on IV vancomycin and we are monitoring for toxicity. His serum creatinine today is 0.7. Anemia of chronic disease: He is also anemic with a hemoglobin of 11.5 today, up from 8.4 on November 28, 2016 before blood transfusion. Leukopenia: Has resolved. Lab work today includes a white cell count of 19,100 Thrombocytopenia: Has resolved, his platelet count is 205,000. Exam - Constitutional Vitals: Period Temp Pulse Resp BP Sys/Yanes Pulse Ox Last 24 Hr 96.5 F-97.6 F 70-87 12-18 167-194/72-91 95-99 Results - Labs CBC & BMP: 12/05/16 04:00 12/05/16 04:31 Specialty Discharge - Follow Up or Referrals Follow up with: Reuben Olivares MD [Physician] - 12/17/16 9:30 am
--- NOTE | 2016-12-05 08:50 | XRay Report ---
XR chest 2V Indication: Lung cancer, hypoxemia Comparison: 04 December 2016 Findings: The heart and mediastinum are normal in size and configuration. Left subclavian Port-A-Cath is unchanged in position. The pulmonary vascularity is normal in caliber. Lung volumes are increased with prominent bronchial markings. No lung infiltrates, effusions, pneumothorax or other abnormality is demonstrated. Impression: Chronic lung changes. No acute process or significant change. PROCEDURE INTERPRETED AT [facility] DEPARTMENT OF RADIOLOGY Final Report Signed by: Dr. Ha Manley
[2016-12-05] MEDS: BACLOFEN 10 MG TABLET PO SCH ×3 (09:12→20:56)
[2016-12-05] MEDS: VENLAFAXINE 75 MG TABLET PO SCH ×2 (09:13→20:55)
[2016-12-05] MEDS: amLODIPine 5 MG TABLET PO SCH (09:13)
[2016-12-05] MEDS: MONTELUKAST 10 MG TABLET PO SCH (09:13)
[2016-12-05] MEDS: GABAPENTIN 400 MG CAPSULE PO SCH ×3 (09:13→20:56)
[2016-12-05] MEDS: cloNIDine 0.1 MG TABLET PO SCH ×2 (09:13→20:57)
[2016-12-05] MEDS: PANTOPRAZOLE 40 MG TABLET PO SCH (09:13)
[2016-12-05] MEDS: MELOXICAM 7.5 MG TABLET PO SCH (09:13)
[2016-12-05] MEDS ORDERED: PHENOL 1.4% THROAT SPRAY 177 ML BOTTLE PO PRN (10:26)
[2016-12-05] MEDS: VANCOMYCIN INJ 1,000 MG in SODIUM CHLORIDE 0.9% 250 ML IV SCH ×2 (10:48→23:02)
--- NOTE | 2016-12-05 10:51 | Pulmonology Progress Note ---
Pulmonary - PN: Subj Interval history: This is a 71-year-old white male whom I saw in pulmonary consultation on 2016. My impressions were. #1: Acute cellulitis of the chin secondary to MRSA #2: Sepsis secondary to MRSA #3: Neuroendocrine carcinoma of the lung, small cell, high-grade from right hilar mass biopsy done 09/13/2016. Note, Dr. Shetty states this is in remission. #4: COPD #5: Long history of tobacco abuse. Note, the patient stopped smoking sometime between 2009 and 2011. #6: Chronic pain. Under the care of Dr. Serrano. #7: Degenerative joint disease #8: Anemia #9: Thrombocytopenia #10: Pulmonary hypertension as noted on echocardiogram 11/25/2016. Pulmonary artery pressure 42 mmHg. #11: Possible early right upper lung infiltrate #12: See past history 11/28/2016. This morning the patient had hypoxemia and increased shortness of breath. His chest x-ray showed acute pulmonary edema. He was given 40 of Lasix IV push in the digits improved significantly. Doppler venograms were done and these showed no evidence of deep venous thrombophlebitis. Patient has recently had pulmonary arteriograms and these were negative. He has chronic hypoxemia and uses oxygen at home. His EKG shows no acute changes. Nitrated peptide was 190. Electrolytes are normal. Creatinine is 0.5 with a BUN of 7. H&H is 10.2/30.6 white count is 2200 and platelet count is 60,000. Total protein and albumin are low at 5.8 and 2.6 respectively. 11/29/2016. Today's chest x-ray shows cardiomegaly. Central vascular fullness. Patient has developed a generalized alveolar filling picture with associated interstitial edema. With his recent methicillin-resistant staph aureus sepsis I think we have to assume that this is adult respiratory distress syndrome. I have started the patient on Solu-Medrol. Will watch his status closely and if he deteriorates, he may end Up on mechanical ventilation. ABGs today on FiO2 of 50% show pH is 7.344, PCO2 of 56.5, PO2 of 58.6 and a bicarb of 27.7. I am going to start this patient on Diamox 250 IV push every morning. First dose today. Potassium is 3.4 and I will start KCl 10 mEq daily in addition to the 20 mEq per day he is already on. LDH is elevated 351. Alkaline Carla is elevated at 126. Natruretic peptide is 149. White count is improved to 4600. H&H is stable at 10.4/30.9 and platelets are improved to 98,000.. 11/30/2016. This is a 71-year-old white male who has a neuroendocrine lung carcinoma which is an admission. He has cellulitis of his chin and he was admitted with septicemia secondary to methicillin-resistant staph. He has underlying COPD with chronic hypoxemia mild hypercarbia. His chest x-ray after a few days showed a 5 lobe alveolar infiltrate with increased interstitial markings. He had a minor elevation of his BNP. This was adult respiratory distress syndrome secondary to his sepsis. On 11/29/2016 I started him on high- dose steroids. His chest x-ray is markedly better today but not resolved. We will continue to follow this on a daily basis. His ABGs on FiO2 of 50% shows a pH of 7.33, PCO2 54.6, PO2 of 57.4 and a bicarb of 26.1. I am going to decrease the patient's FiO2 to 2 L/min we will repeat his blood gases. I suspect that he will only breathe to keep his PO2 is in the mid to high 50s. He is on Diamox which was begun on 11/29/2016. Potassium is dropped to 3.0 and this will be replaced. Creatinine is 0.6 with a BUN of 15. White count has risen from 2000 112,700. H&H is 10.9/32.8 and platelets of increased 218,000. Plan is to follow daily lab, ABGs and chest x-ray. Continue high-dose steroids. If the patient deteriorates he should be intubated and put on mechanical ventilation with PEEP and pressure support and treated as respiratory failure secondary to adult respiratory distress syndrome. 12/03/2016. This patient recently had adult respiratory distress syndrome secondary to methicillin-resistant staph aureus sepsis. As soon as this was recognized he was treated aggressively with high-dose steroids and today's chest x-ray is remarkably better. We will continue the steroids for another day and will begin a gradual taper. Patient says his breathing is much better and he feels much better. ABGs have improved significantly. On FiO2 28% pH is 7.37, PCO2 is 37.4, PO2 is 76.3 and bicarb is 21.8. Electrolytes are normal. Creatinine is 0.7. White blood cell count is 24,900. H&H 11.2/33.9 and platelets are 191,000 12/04/2016. Today's chest x-ray is stable. There is a subtle increase in interstitial markings in all 5 lobes and there are scattered areas of alveolar filling. For all practical purposes the picture of adult respiratory distress syndrome has resolved. I will decrease the patient's Solu-Medrol today. We need to keep in mind that patients alveoli will be susceptible to leakage in the near future secondary to his sepsis injury. Labs been reviewed. Medicines have been reviewed. Patient is stable and has no new complete 12/05/2016. Today's x-ray is amazingly better. There is no residual evidence of adult respiratory distress syndrome. There are some areas of interstitial scarring in both lower lung thomas. Over time on an FiO2 of 28% p.o. to his gradually increased from 57.4-107.0. Electrolytes are normal. CBC is stable. White count is 19,100. Previous blood cultures and wound cultures were positive for methicillin-resistant staph aureus. Sepsis was the etiology of adult respiratory distress syndrome. Patient says his breathing is much better. Tomorrow will try to decrease his steroids again. Keep in mind that will probably take a month for his alveolar capillary membranes to heal. Physical exam. Vital signs. See below General. Patient sitting on side of his bed but easily eating deleon ingredients. He is not short of breath and he is in no apparent distress Psychiatric oriented 3. Face. Asymmetrically. No swelling of lips and tongue. Neck. Symmetrical. No meningismus. Lymphatics. No submandibular cervical supraclavicular or epitrochlear adenopathy Chest. Hyperinflated with mild prolonged expiration. No wheezing no rales Heart. Slightly lateral PMI and a grade 1/6 systolic ejection murmur at left sternal border without radiation Abdomen. Nontender bowel sounds are positive. Extremities. Trace of pedal and pretibial edema bilaterally. Neurologic. Cranial nerves are intact. 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 Long track motor functions intact. Neurological exam was not done. Gait was not tested The remainder the physical exam is negative Plan: 11/27/2006 #1: Agree with present antibiotics of Teflaro and vancomycin #2: Start inhalation therapy with DuoNeb 4 times daily and as needed #3: Start Singulair 10 mg p.o. daily #4: With regards pulmonary hypertension, will start Norvasc 5 mg daily and follow his response #5: Repeat chest x-ray in the morning #6: Sputum for Gram stain, culture and sensitivity #7: See orders 11/28/2016 1. Agree with Lasix 2. Chest x-ray and ABGs in the morning 3. Doppler venograms are negative for deep venous thrombophlebitis 4. See today's note 11/29/2016. 1. See today's note above 2. Solu-Medrol 3. Probable adult respiratory distress syndrome 4. Daily chest x-ray ABGs. If deteriorates will need intubation mechanical ventilation. 5. Diamox 6. Increase KCl replete 7. Dr. Valentín Hamm and I have discussed the case and coordinated our care 11/30/2016. 1. See today's note above. 2. Methicillin-resistant staph aureus septicemia with adult respiratory distress syndrome. Intubate if deteriorated 3. Hypoxemia and hypercarbia. 4. Daily chest x-ray, ABGs and lab 12/03/2016. 1. See today's note above. 2. Follow-up chest x-ray new 3. Probable begin taper of steroids tomorrow 12/04/2016. 1. Decrease steroids. 2. Watch for any tendency for adult respiratory distress syndrome to recur. Even though oxygenation and chest x-ray are better. An underlying alveolar capillary injury will take a while to heal 12/05/2016. 1. See my note for today above. 2. Chest x-ray back to normal 3. ABGs are close to normal. 4. We will try to decrease steroids tomorrow. Exam (Progress Note) - Constitutional Vitals: Period Temp Pulse Resp BP Sys/Yanes Pulse Ox Last 24 Hr 96.5 F-97.6 F 70-87 12-18 167-194/72-91 95-100 Results - Labs CBC & BMP: 12/05/16 04:00 12/05/16 04:31 Specialty Discharge - Follow Up or Referrals Follow up with: Reuben Olivares MD [Physician] - 12/17/16 9:30 am
[2016-12-05] MEDS: CHLORHEXIDINE 4% SOLN 118 ML BOTTLE TOP SCH (11:26)
[2016-12-05] MEDS: MUPIROCIN 2% OINT 22 GM TUBE TOP SCH ×2 (11:26→20:57)
[2016-12-05] MEDS: ENOXAPARIN 40 MG/0.4 ML SYRINGE SUBCUT SCH (13:40)
[2016-12-05] MEDS: MIRTAZAPINE 30 MG TABLET PO SCH (20:55)
[2016-12-05] MEDS: clonazePAM 0.5 MG TABLET PO SCH (20:57)
[2016-12-06] MEDS: ALBUTEROL/IPRATROPIUM 3 ML NEB RESP TX SCH ×4 (01:16→19:47)
[2016-12-06] MEDS: CEFTAROLINE 600 MG in SODIUM CHLORIDE 0.9% 100 ML IV SCH ×2 (02:25→14:19)
[2016-12-06] MEDS: methylPREDNISolone SOD SUC 125 MG/2 ML VIAL IV SCH ×2 (02:25→10:20)
[2016-12-06] MEDS: DEXT 5% NACL 0.45% KCL 40 MEQ 40 MEQ/1,000 ML BAG IV SCH ×2 (02:25→20:36)
[2016-12-06 03:10] LABS: ABG Base Excess -1.2 MMOL/L (-2.5-2.5); ABG HCO3 22.8 MMOL/L (20-26); ABG Oxygen Saturation 95.3 % (95-100); ABG PCO2 35.9 MM HG (35-48); ABG TCO2 23.9 MMOL/L (23-27); Allen Test Positive
[2016-12-06] MEDS: METHADONE 10 MG TABLET PO SCH ×4 (04:01→20:37)
--- NOTE | 2016-12-06 07:44 | Oncology Progress Note ---
Oncology Subjective PN Interval history: MRSA sepsis: This patient was admitted with MRSA sepsis and cellulitis of the chin. He has small cell carcinoma of the lung that has achieved a complete remission using etoposide and carboplatin. I question how good his hygiene is because he has not demonstrated good hygiene to the nurses or to me. He probably needs decolonization. Infection control has been consulted.The serum creatinine today is 0.6 which is acceptable. We are monitoring vancomycin toxicity. He is on it for MRSA sepsis. We are also continuing decolonization of the patient. His fever went to 102.9 on the evening of November 24. His temperature this morning is 97.5. He has been afebrile all night. We are also in the process of decolonizing him for MRSA. He has been on vancomycin since November 25, 2016. I anticipate continuing IV antibiotics for approximately 4 weeks. We need to be working on placement in an LTAC. 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 He received his third course of this combination on November 13 - November 15. The plan is to continue for 4 courses and then refer him for consideration for radiation therapy. His next dose of chemotherapy will be due December 11. I had planned to give 4 courses and then refer him for radiation. However, he has achieved a complete remission and I am seriously considering referring him for radiation therapy after 3 courses of chemotherapy. I am placing a consult to radiation oncology. He could be receiving radiation therapy at some point while continuing antibiotics. Monitoring for toxicity of chemotherapy and antibiotics: He is on IV vancomycin and we are monitoring for toxicity. His serum creatinine today is pending. It fell off the order list. I am reordering it. Exam - Constitutional Vitals: Period Temp Pulse Resp BP Sys/Yanes Pulse Ox Last 24 Hr 96.6 F-97.8 F 70-84 12-20 167-194/77-91 93-100 Results - Labs CBC & BMP: 12/05/16 04:00 12/05/16 04:31 Specialty Discharge - Follow Up or Referrals Follow up with: Reuben Olivares MD [Physician] - 12/17/16 9:30 am
--- NOTE | 2016-12-06 08:12 | XRay Report ---
XR chest 2V Indication: Lung cancer, hypoxemia Comparison: 05 December 2016 Findings: The heart and mediastinum are stable in size and configuration. Left subclavian Port-A-Cath is unchanged in position. The pulmonary vascularity is normal in caliber. No lung infiltrates, effusions, pneumothorax or other abnormality is demonstrated. Impression: No acute cardiopulmonary findings or significant change. PROCEDURE INTERPRETED AT [facility] DEPARTMENT OF RADIOLOGY Final Report Signed by: Dr. Ha Manley
[2016-12-06] MEDS: POTASSIUM CHLORIDE 10 MEQ TABLET PO SCH (08:29)
[2016-12-06] MEDS: MELOXICAM 7.5 MG TABLET PO SCH (08:57)
[2016-12-06] MEDS: VENLAFAXINE 75 MG TABLET PO SCH ×2 (08:58→20:37)
[2016-12-06] MEDS: PANTOPRAZOLE 40 MG TABLET PO SCH (08:58)
[2016-12-06] MEDS: cloNIDine 0.1 MG TABLET PO SCH ×2 (08:58→20:37)
[2016-12-06] MEDS: MONTELUKAST 10 MG TABLET PO SCH (08:58)
[2016-12-06] MEDS: BACLOFEN 10 MG TABLET PO SCH ×3 (08:58→20:37)
[2016-12-06] MEDS: amLODIPine 5 MG TABLET PO SCH (08:58)
[2016-12-06] MEDS: GABAPENTIN 400 MG CAPSULE PO SCH ×3 (08:58→20:37)
[2016-12-06] MEDS: MUPIROCIN 2% OINT 22 GM TUBE TOP SCH ×2 (10:22→20:38)
[2016-12-06] MEDS: VANCOMYCIN INJ 1,000 MG in SODIUM CHLORIDE 0.9% 250 ML IV SCH ×2 (10:22→22:25)
--- NOTE | 2016-12-06 11:02 | Pulmonology Progress Note ---
Pulmonary - PN: Subj Interval history: This is a 71-year-old white male whom I saw in pulmonary consultation on 2016. My impressions were. #1: Acute cellulitis of the chin secondary to MRSA #2: Sepsis secondary to MRSA #3: Neuroendocrine carcinoma of the lung, small cell, high-grade from right hilar mass biopsy done 09/13/2016. Note, Dr. Shetty states this is in remission. #4: COPD #5: Long history of tobacco abuse. Note, the patient stopped smoking sometime between 2009 and 2011. #6: Chronic pain. Under the care of Dr. Serrano. #7: Degenerative joint disease #8: Anemia #9: Thrombocytopenia #10: Pulmonary hypertension as noted on echocardiogram 11/25/2016. Pulmonary artery pressure 42 mmHg. #11: Possible early right upper lung infiltrate #12: See past history 11/28/2016. This morning the patient had hypoxemia and increased shortness of breath. His chest x-ray showed acute pulmonary edema. He was given 40 of Lasix IV push in the digits improved significantly. Doppler venograms were done and these showed no evidence of deep venous thrombophlebitis. Patient has recently had pulmonary arteriograms and these were negative. He has chronic hypoxemia and uses oxygen at home. His EKG shows no acute changes. Nitrated peptide was 190. Electrolytes are normal. Creatinine is 0.5 with a BUN of 7. H&H is 10.2/30.6 white count is 2200 and platelet count is 60,000. Total protein and albumin are low at 5.8 and 2.6 respectively. 11/29/2016. Today's chest x-ray shows cardiomegaly. Central vascular fullness. Patient has developed a generalized alveolar filling picture with associated interstitial edema. With his recent methicillin-resistant staph aureus sepsis I think we have to assume that this is adult respiratory distress syndrome. I have started the patient on Solu-Medrol. Will watch his status closely and if he deteriorates, he may end Up on mechanical ventilation. ABGs today on FiO2 of 50% show pH is 7.344, PCO2 of 56.5, PO2 of 58.6 and a bicarb of 27.7. I am going to start this patient on Diamox 250 IV push every morning. First dose today. Potassium is 3.4 and I will start KCl 10 mEq daily in addition to the 20 mEq per day he is already on. LDH is elevated 351. Alkaline Carla is elevated at 126. Natruretic peptide is 149. White count is improved to 4600. H&H is stable at 10.4/30.9 and platelets are improved to 98,000.. 11/30/2016. This is a 71-year-old white male who has a neuroendocrine lung carcinoma which is an admission. He has cellulitis of his chin and he was admitted with septicemia secondary to methicillin-resistant staph. He has underlying COPD with chronic hypoxemia mild hypercarbia. His chest x-ray after a few days showed a 5 lobe alveolar infiltrate with increased interstitial markings. He had a minor elevation of his BNP. This was adult respiratory distress syndrome secondary to his sepsis. On 11/29/2016 I started him on high- dose steroids. His chest x-ray is markedly better today but not resolved. We will continue to follow this on a daily basis. His ABGs on FiO2 of 50% shows a pH of 7.33, PCO2 54.6, PO2 of 57.4 and a bicarb of 26.1. I am going to decrease the patient's FiO2 to 2 L/min we will repeat his blood gases. I suspect that he will only breathe to keep his PO2 is in the mid to high 50s. He is on Diamox which was begun on 11/29/2016. Potassium is dropped to 3.0 and this will be replaced. Creatinine is 0.6 with a BUN of 15. White count has risen from 2000 112,700. H&H is 10.9/32.8 and platelets of increased 218,000. Plan is to follow daily lab, ABGs and chest x-ray. Continue high-dose steroids. If the patient deteriorates he should be intubated and put on mechanical ventilation with PEEP and pressure support and treated as respiratory failure secondary to adult respiratory distress syndrome. 12/03/2016. This patient recently had adult respiratory distress syndrome secondary to methicillin-resistant staph aureus sepsis. As soon as this was recognized he was treated aggressively with high-dose steroids and today's chest x-ray is remarkably better. We will continue the steroids for another day and will begin a gradual taper. Patient says his breathing is much better and he feels much better. ABGs have improved significantly. On FiO2 28% pH is 7.37, PCO2 is 37.4, PO2 is 76.3 and bicarb is 21.8. Electrolytes are normal. Creatinine is 0.7. White blood cell count is 24,900. H&H 11.2/33.9 and platelets are 191,000 12/04/2016. Today's chest x-ray is stable. There is a subtle increase in interstitial markings in all 5 lobes and there are scattered areas of alveolar filling. For all practical purposes the picture of adult respiratory distress syndrome has resolved. I will decrease the patient's Solu-Medrol today. We need to keep in mind that patients alveoli will be susceptible to leakage in the near future secondary to his sepsis injury. Labs been reviewed. Medicines have been reviewed. Patient is stable and has no new complete 12/05/2016. Today's x-ray is amazingly better. There is no residual evidence of adult respiratory distress syndrome. There are some areas of interstitial scarring in both lower lung thomas. Over time on an FiO2 of 28% p.o. to his gradually increased from 57.4-107.0. Electrolytes are normal. CBC is stable. White count is 19,100. Previous blood cultures and wound cultures were positive for methicillin-resistant staph aureus. Sepsis was the etiology of adult respiratory distress syndrome. Patient says his breathing is much better. Tomorrow will try to decrease his steroids again. Keep in mind that will probably take a month for his alveolar capillary membranes to heal. 12/06/2016. Chest x-ray is stable and ABGs are in an acceptable range. Patient continues to improve from a pulmonary standpoint. I have decreased his steroids again today. He has no new complaints. I have made no other changes in his regimen. Physical exam. Vital signs. See below General. Patient sitting on side of his bed but easily eating deleon ingredients. He is not short of breath and he is in no apparent distress Psychiatric oriented 3. Face. Asymmetrically. No swelling of lips and tongue. Neck. Symmetrical. No meningismus. Lymphatics. No submandibular cervical supraclavicular or epitrochlear adenopathy Chest. Hyperinflated with mild prolonged expiration. No wheezing no rales Heart. Slightly lateral PMI and a grade 1/6 systolic ejection murmur at left sternal border without radiation Abdomen. Nontender bowel sounds are positive. Extremities. Trace of pedal and pretibial edema bilaterally. Neurologic. Cranial nerves are intact. 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 Long track motor functions intact. Neurological exam was not done. Gait was not tested The remainder the physical exam is negative Plan: 11/27/2006 #1: Agree with present antibiotics of Teflaro and vancomycin #2: Start inhalation therapy with DuoNeb 4 times daily and as needed #3: Start Singulair 10 mg p.o. daily #4: With regards pulmonary hypertension, will start Norvasc 5 mg daily and follow his response #5: Repeat chest x-ray in the morning #6: Sputum for Gram stain, culture and sensitivity #7: See orders 11/28/2016 1. Agree with Lasix 2. Chest x-ray and ABGs in the morning 3. Doppler venograms are negative for deep venous thrombophlebitis 4. See today's note 11/29/2016. 1. See today's note above 2. Solu-Medrol 3. Probable adult respiratory distress syndrome 4. Daily chest x-ray ABGs. If deteriorates will need intubation mechanical ventilation. 5. Diamox 6. Increase KCl replete 7. Dr. Valentín Hamm and I have discussed the case and coordinated our care 11/30/2016. 1. See today's note above. 2. Methicillin-resistant staph aureus septicemia with adult respiratory distress syndrome. Intubate if deteriorated 3. Hypoxemia and hypercarbia. 4. Daily chest x-ray, ABGs and lab 12/03/2016. 1. See today's note above. 2. Follow-up chest x-ray new 3. Probable begin taper of steroids tomorrow 12/04/2016. 1. Decrease steroids. 2. Watch for any tendency for adult respiratory distress syndrome to recur. Even though oxygenation and chest x-ray are better. An underlying alveolar capillary injury will take a while to heal 12/05/2016. 1. See my note for today above. 2. Chest x-ray back to normal 3. ABGs are close to normal. 4. We will try to decrease steroids tomorrow. 12/06/2016. 1. See today's note above 2. Decrease steroids. Exam (Progress Note) - Constitutional Vitals: Period Temp Pulse Resp BP Sys/Yanes Pulse Ox Last 24 Hr 96.6 F-97.8 F 70-84 12-20 157-186/77-89 93-100 Results - Labs CBC & BMP: 12/05/16 04:00 12/06/16 08:20 Specialty Discharge - Follow Up or Referrals Follow up with: Reuben Olivares MD [Physician] - 12/17/16 9:30 am
[2016-12-06] MEDS: ENOXAPARIN 40 MG/0.4 ML SYRINGE SUBCUT SCH (13:14)
[2016-12-06] MEDS: CHLORHEXIDINE 4% SOLN 118 ML BOTTLE TOP SCH (13:22)
[2016-12-06] MEDS: methylPREDNISolone SOD SUC 40 MG/1 ML VIAL IV SCH (20:37)
[2016-12-06] MEDS: MIRTAZAPINE 30 MG TABLET PO SCH (20:37)
[2016-12-06] MEDS: clonazePAM 0.5 MG TABLET PO SCH (20:37)
[2016-12-07] MEDS: ALBUTEROL/IPRATROPIUM 3 ML NEB RESP TX SCH ×4 (01:02→21:10)
[2016-12-07] MEDS: CEFTAROLINE 600 MG in SODIUM CHLORIDE 0.9% 100 ML IV SCH ×2 (01:20→16:16)
[2016-12-07] MEDS: METHADONE 10 MG TABLET PO SCH ×4 (03:10→20:39)
[2016-12-07] MEDS: POTASSIUM CHLORIDE 10 MEQ TABLET PO SCH (08:06)
--- NOTE | 2016-12-07 08:47 | Oncology Progress Note ---
Oncology Subjective PN Interval history: MRSA sepsis: This patient was admitted with MRSA sepsis and cellulitis of the chin. He has small cell carcinoma of the lung that has achieved a complete remission using etoposide and carboplatin. I question how good his hygiene is because he has not demonstrated good hygiene to the nurses or to me. He probably needs decolonization. Infection control has been consulted.The serum creatinine today is 0.6 which is acceptable. We are monitoring vancomycin toxicity. He is on it for MRSA sepsis. We are also continuing decolonization of the patient. His fever went to 102.9 on the evening of November 24. His temperature this morning is 96.6. We are also in the process of decolonizing him for MRSA. He has been on vancomycin since November 25, 2016. I anticipate continuing IV antibiotics for a prolonged period of time. Probably 4 weeks since this is his second episode. We are working on long-term care and transfer. He has not been approved yet. This is the main reason that he is continuing to be hospitalized. We are waiting for a swing bed so that he can continue IV antibiotics there. He has too many medical problems to go home. 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 He received his third course of this combination on November 13 - November 15. The plan is to continue for 4 courses and then refer him for consideration for radiation therapy. His next dose of chemotherapy will be due December 11. I had initially planned to give 4 courses and then refer him for radiation. However, he has achieved a complete remission and I have consulted radiation oncology. Monitoring for toxicity of chemotherapy and antibiotics: He is on IV vancomycin and we are monitoring for toxicity. His serum creatinine today is 0.8. Anemia of chronic disease: This is been satisfactory. I will recheck it tomorrow and Saturday. Leukopenia: Has resolved. Lab will be checked in 1 and 3 days. Thrombocytopenia: Has resolved. Exam - Constitutional Vitals: Period Temp Pulse Resp BP Sys/Yanes Pulse Ox Last 24 Hr 96.8 F-99.2 F 70-85 16-20 127-172/62-81 92-100 Results - Labs CBC & BMP: 12/05/16 04:00 12/06/16 08:20 Specialty Discharge - Follow Up or Referrals Follow up with: Reuben Olivares MD [Physician] - 12/17/16 9:30 am
[2016-12-07] MEDS: BACLOFEN 10 MG TABLET PO SCH ×3 (09:41→20:38)
[2016-12-07] MEDS: amLODIPine 5 MG TABLET PO SCH (09:41)
[2016-12-07] MEDS: VENLAFAXINE 75 MG TABLET PO SCH ×2 (09:41→20:38)
[2016-12-07] MEDS: MELOXICAM 7.5 MG TABLET PO SCH (09:41)
[2016-12-07] MEDS: MONTELUKAST 10 MG TABLET PO SCH (09:41)
[2016-12-07] MEDS: PANTOPRAZOLE 40 MG TABLET PO SCH (09:42)
[2016-12-07] MEDS: cloNIDine 0.1 MG TABLET PO SCH ×2 (09:42→20:38)
[2016-12-07] MEDS: GABAPENTIN 400 MG CAPSULE PO SCH ×3 (09:42→20:39)
[2016-12-07] MEDS: methylPREDNISolone SOD SUC 40 MG/1 ML VIAL IV SCH ×2 (09:48→20:38)
[2016-12-07] MEDS: VANCOMYCIN INJ 1,000 MG in SODIUM CHLORIDE 0.9% 250 ML IV SCH ×2 (10:33→21:14)
[2016-12-07] MEDS: MUPIROCIN 2% OINT 22 GM TUBE TOP SCH ×2 (10:38→20:39)
[2016-12-07] MEDS: CHLORHEXIDINE 4% SOLN 118 ML BOTTLE TOP SCH (10:38)
--- NOTE | 2016-12-07 10:54 | Pulmonology Progress Note ---
Pulmonary - PN: Subj Interval history: Guicho Wang, [facility]-, acting as scribe for Dr. Tristen Bailey This is a 71-year-old white male who we saw in pulmonary consultation on 2016. At that time, our impressions were: #1: Acute cellulitis of the chin secondary to MRSA #2: Sepsis secondary to MRSA #3: Neuroendocrine carcinoma of the lung, small cell, high-grade from right hilar mass biopsy done 09/13/2016. Note, Dr. Shetty states this is in remission. #4: COPD #5: Long history of tobacco abuse. Note, the patient stopped smoking sometime between 2009 and 2011. #6: Chronic pain. Under the care of Dr. Serrano. #7: Degenerative joint disease #8: Anemia #9: Thrombocytopenia #10: Pulmonary hypertension as noted on echocardiogram 11/25/2016. Pulmonary artery pressure 42 mmHg. #11: Possible early right upper lung infiltrate #12: See past history 11/28/2016. This morning the patient had hypoxemia and increased shortness of breath. His chest x-ray showed acute pulmonary edema. He was given 40 of Lasix IV push in the digits improved significantly. Doppler venograms were done and these showed no evidence of deep venous thrombophlebitis. Patient has recently had pulmonary arteriograms and these were negative. He has chronic hypoxemia and uses oxygen at home. His EKG shows no acute changes. Nitrated peptide was 190. Electrolytes are normal. Creatinine is 0.5 with a BUN of 7. H&H is 10.2/30.6 white count is 2200 and platelet count is 60,000. Total protein and albumin are low at 5.8 and 2.6 respectively. 11/29/2016. Today's chest x-ray shows cardiomegaly. Central vascular fullness. Patient has developed a generalized alveolar filling picture with associated interstitial edema. With his recent methicillin-resistant staph aureus sepsis I think we have to assume that this is adult respiratory distress syndrome. I have started the patient on Solu-Medrol. Will watch his status closely and if he deteriorates, he may end Up on mechanical ventilation. ABGs today on FiO2 of 50% show pH is 7.344, PCO2 of 56.5, PO2 of 58.6 and a bicarb of 27.7. I am going to start this patient on Diamox 250 IV push every morning. First dose today. Potassium is 3.4 and I will start KCl 10 mEq daily in addition to the 20 mEq per day he is already on. LDH is elevated 351. Alkaline Stuart is elevated at 126. Natruretic peptide is 149. White count is improved to 4600. H&H is stable at 10.4/30.9 and platelets are improved to 98,000.. 11/30/2016. This is a 71-year-old white male who has a neuroendocrine lung carcinoma which is an admission. He has cellulitis of his chin and he was admitted with septicemia secondary to methicillin-resistant staph. He has underlying COPD with chronic hypoxemia mild hypercarbia. His chest x-ray after a few days showed a 5 lobe alveolar infiltrate with increased interstitial markings. He had a minor elevation of his BNP. This was adult respiratory distress syndrome secondary to his sepsis. On 11/29/2016 I started him on high- dose steroids. His chest x-ray is markedly better today but not resolved. We will continue to follow this on a daily basis. His ABGs on FiO2 of 50% shows a pH of 7.33, PCO2 54.6, PO2 of 57.4 and a bicarb of 26.1. I am going to decrease the patient's FiO2 to 2 L/min we will repeat his blood gases. I suspect that he will only breathe to keep his PO2 is in the mid to high 50s. He is on Diamox which was begun on 11/29/2016. Potassium is dropped to 3.0 and this will be replaced. Creatinine is 0.6 with a BUN of 15. White count has risen from 2000 112,700. H&H is 10.9/32.8 and platelets of increased 218,000. Plan is to follow daily lab, ABGs and chest x-ray. Continue high-dose steroids. If the patient deteriorates he should be intubated and put on mechanical ventilation with PEEP and pressure support and treated as respiratory failure secondary to adult respiratory distress syndrome. 12/03/2016. This patient recently had adult respiratory distress syndrome secondary to methicillin-resistant staph aureus sepsis. As soon as this was recognized he was treated aggressively with high-dose steroids and today's chest x-ray is remarkably better. We will continue the steroids for another day and will begin a gradual taper. Patient says his breathing is much better and he feels much better. ABGs have improved significantly. On FiO2 28% pH is 7.37, PCO2 is 37.4, PO2 is 76.3 and bicarb is 21.8. Electrolytes are normal. Creatinine is 0.7. White blood cell count is 24,900. H&H 11.2/33.9 and platelets are 191,000 12/04/2016. Today's chest x-ray is stable. There is a subtle increase in interstitial markings in all 5 lobes and there are scattered areas of alveolar filling. For all practical purposes the picture of adult respiratory distress syndrome has resolved. I will decrease the patient's Solu-Medrol today. We need to keep in mind that patients alveoli will be susceptible to leakage in the near future secondary to his sepsis injury. Labs been reviewed. Medicines have been reviewed. Patient is stable and has no new complete 12/05/2016. Today's x-ray is amazingly better. There is no residual evidence of adult respiratory distress syndrome. There are some areas of interstitial scarring in both lower lung thomas. Over time on an FiO2 of 28% p.o. to his gradually increased from 57.4-107.0. Electrolytes are normal. CBC is stable. White count is 19,100. Previous blood cultures and wound cultures were positive for methicillin-resistant staph aureus. Sepsis was the etiology of adult respiratory distress syndrome. Patient says his breathing is much better. Tomorrow will try to decrease his steroids again. Keep in mind that will probably take a month for his alveolar capillary membranes to heal. 12/06/2016. Chest x-ray is stable and ABGs are in an acceptable range. Patient continues to improve from a pulmonary standpoint. I have decreased his steroids again today. He has no new complaints. I have made no other changes in his regimen. 12/07/16. The patient's throat culture is growing a gram negative shana. Final ID is pending. This was discussed with Dr. Hamm and we have coordinated our care. We will start Fortaz one gram Q8H. Case management is working on swing bed placement. Overall, he is markedly improved since admission. We will repeat a CXR on Saturday. He is nicely recovering from ARDS. Medications have been reviewed. Fortaz has been added today. Labs have been reviewed. No new labs were drawn today. Exam (Progress Note) - Constitutional Vitals: Period Temp Pulse Resp BP Sys/Yanes Pulse Ox Last 24 Hr 96.6 F-99.2 F 68-85 16-20 127-172/62-84 92-100 Exam: Chest is hyperinflated with prolonged expiration Heart with a slightly lateral PMI Abd is nontender and nondistended; bowel sounds are positive x 4 Ext with nothing to suggest acute DVT Psych oriented x 3 Neuro unchanged Plan: Add Fortaz as above. This can be modified pending the final ID and sensitives of the throat culture when reported. Repeat CXR on Saturday. See orders. Results - Labs CBC & BMP: 12/05/16 04:00 12/06/16 08:20 Specialty Discharge - Follow Up or Referrals Follow up with: Reuben Olivares MD [Physician] - 12/17/16 9:30 am
--- NOTE | 2016-12-07 12:51 | XRay Report ---
XR chest 2V Indication: Lung cancer, hypoxemia Comparison: 06 December 2016 Findings: The heart and mediastinum are normal in size and configuration. Left subclavian Port-A-Cath is unchanged in position. The pulmonary vascularity is normal in caliber. Lung volumes are increased with prominent bronchial markings. No lung infiltrates, effusions, pneumothorax or other abnormality is demonstrated. Impression: Chronic lung changes. No acute process or significant change. PROCEDURE INTERPRETED AT [facility] DEPARTMENT OF RADIOLOGY Final Report Signed by: Dr. Ha Manley
[2016-12-07] MEDS: ENOXAPARIN 40 MG/0.4 ML SYRINGE SUBCUT SCH (13:58)
[2016-12-07] MEDS: DEXT 5% NACL 0.45% KCL 40 MEQ 40 MEQ/1,000 ML BAG IV SCH (15:42)
[2016-12-07] MEDS: MIRTAZAPINE 30 MG TABLET PO SCH (20:38)
[2016-12-07] MEDS: clonazePAM 0.5 MG TABLET PO SCH (20:39)
[2016-12-08] MEDS: ALBUTEROL/IPRATROPIUM 3 ML NEB RESP TX SCH ×4 (00:40→18:47)
[2016-12-08] MEDS ORDERED: HEPARIN LOCK FLUSH 500 UNIT/5 ML SYRINGE IV ONE (01:55)
[2016-12-08] MEDS: METHADONE 10 MG TABLET PO SCH ×4 (03:01→20:46)
[2016-12-08] MEDS: CEFTAROLINE 600 MG in SODIUM CHLORIDE 0.9% 100 ML IV SCH (03:46)
[2016-12-08 05:00] LABS: Basophils % 0.2 % (0.0-0.8); Hemoglobin 12.1 GM/DL (14.0-18.0); Immature Granulocytes % 6.3 %; Lymphocytes # 1.1 10*3/uL (1.4-4.0); Lymphocytes % 8.9 % (21.2-54.2); Mean Corpuscular HGB Conc 33.6 GM/DL (32-36); Mean Corpuscular Hemoglobin 32 PG (27-34); Mean Platelet Volume 10.6 FL (9.6-12.0); Monocytes # 0.4 10*3/uL (0.11-0.8); Monocytes % 2.9 % (1.7-12.7); NRBC # 0.02 10*3/uL; Neutrophils # 10.5 10*3/uL (1.4-7.4); Neutrophils % 81.7 % (38.7-73.9); Platelet Count 234 T/CUMM (130-400); Red Blood Count 3.83 MC/CUMM (3.8-5.5); Red Cell Distribution Width 15.9 % (9.3-17.3); White Blood Count 12.8 T/CUMM (4-12)
[2016-12-08 05:25] LABS: Albumin 2.8 G/DL (3.4-5.0); Bilirubin,Total 0.6 MG/DL (0.2-1.0); Calcium 8.4 MG/DL (8.5-10.1); Osmolality,Calculated 279.8 MOS/KG (273-304); Potassium 4.4 MMOL/L (3.5-5.1)
[2016-12-08 05:56] LABS: Band Neutrophils 1 % (0-10); Giant Platelets Few; Hypochromasia 1+; Lymphocytes 5 % (20-55); Microcytosis Slight; Ovalocytes Slight; Platelet Estimate Adequate; Segmented Neutrophils 90 % (50-85); Total Cells Counted 100
[2016-12-08] MEDS: GABAPENTIN 400 MG CAPSULE PO SCH ×3 (09:16→20:45)
[2016-12-08] MEDS: POTASSIUM CHLORIDE 10 MEQ TABLET PO SCH (09:17)
[2016-12-08] MEDS: MELOXICAM 7.5 MG TABLET PO SCH (09:26)
[2016-12-08] MEDS: cloNIDine 0.1 MG TABLET PO SCH ×2 (09:26→20:46)
[2016-12-08] MEDS: PANTOPRAZOLE 40 MG TABLET PO SCH (09:27)
[2016-12-08] MEDS: VENLAFAXINE 75 MG TABLET PO SCH ×2 (09:28→20:46)
[2016-12-08] MEDS: MONTELUKAST 10 MG TABLET PO SCH (09:29)
[2016-12-08] MEDS: BACLOFEN 10 MG TABLET PO SCH ×3 (09:29→20:46)
[2016-12-08] MEDS: amLODIPine 5 MG TABLET PO SCH (09:29)
[2016-12-08] MEDS: MUPIROCIN 2% OINT 22 GM TUBE TOP SCH ×2 (09:30→20:46)
[2016-12-08] MEDS: methylPREDNISolone SOD SUC 40 MG/1 ML VIAL IV SCH ×2 (09:31→20:45)
[2016-12-08] MEDS: CHLORHEXIDINE 4% SOLN 118 ML BOTTLE TOP SCH (09:34)
--- NOTE | 2016-12-08 09:43 | Pulmonology Progress Note ---
Pulmonary - PN: Subj Interval history: This 71-year-old man has a history of lung cancer in remission. He had a recent chin infection and developed sepsis with MRSA and ARDS. He is much improved. He got better with steroids. He has a sore throat. Throat swab is growing out Klebsiella it is sensitive to Fortaz. Exam (Progress Note) - Constitutional Vitals: Period Temp Pulse Resp BP Sys/Yanes Pulse Ox Last 24 Hr 96.4 F-97.2 F 65-77 16-20 129-167/65-81 94-100 Exam: Vital signs normal. Pupils react to light. Neck supple. Chest reveals a few scattered rhonchi equal breath sounds. Heart normal rate rhythm no murmurs. Abdomen soft nontender no masses. Extremities no clubbing cyanosis. Trace of edema. Calves nontender. Results - Labs CBC & BMP: 12/08/16 04:00 12/08/16 04:00 Lab Results: I have reviewed the past 24 hour labs Assessment and Plan (1) COPD (chronic obstructive pulmonary disease) Status: Acute Assessment and plan: Continuing bronchodilators. No active bronchospasm. Current Visit: No (2) Small cell lung cancer Status: Acute Assessment and plan: [place] to be in remission. I have her immune system may not be normal. Current Visit: No (3) Septicemia Status: Acute Assessment and plan: This is controlled with antibiotics. Current Visit: Yes Specialty Discharge - Follow Up or Referrals Follow up with: Reuben Olivares MD [Physician] - 12/17/16 9:30 am
[2016-12-08] MEDS: VANCOMYCIN INJ 1,000 MG in SODIUM CHLORIDE 0.9% 250 ML IV SCH ×2 (10:48→21:05)
--- NOTE | 2016-12-08 15:41 | Oncology Progress Note ---
Assessment and Plan (1) Septicemia Status: Acute Assessment and plan: a/w MRSA bacteremia due to cellulitis. -- sepsis has resolved. TTE without vegetations -- continues on Vancomycin with tentative plans to continue total 4 weeks antibiotics Current Visit: Yes (2) Cellulitis of lip Status: Acute Assessment and plan: resolved. Current Visit: Yes (3) COPD (chronic obstructive pulmonary disease) Status: Acute Assessment and plan: No wheezing noted today. Weaning steroids. Continue PRN bronchodilators. - Klebsiella growing from respiratory culture. Continue Vanc and Fortaz for now Current Visit: Yes (4) Small cell lung cancer Status: Chronic Assessment and plan: F/u with Dr. Hamm as to whether he will get a 4th cycle of chemo or start PCI Current Visit: No Oncology Subjective PN Interval history: 71 with small cell carcinoma of the lung a/w cellulitis with MRSA bacteremia. Hospitalization complicated by ARDS. Interval History: - feeling well this am. - Walking around his room with his rolling walker. Back to 2L NC, his home dose. - Feels he is breathing well and is gaining his strength back. - Denies chest pain, N/V/D, abdominal pain Exam - Constitutional Vitals: Period Temp Pulse Resp BP Sys/Yanes Pulse Ox Last 24 Hr 96.5 F-97.2 F 65-78 16-20 129-167/65-81 94-100 Exam: elderly white male, sitting up at side of bed, looks comfortable - Eye Eye Exam: Present: other (enucleated right eye with glass prosthesis. ). Absent : scleral icterus - Respiratory Respiratory exam: Present: other (normal rate and effort on 2L via NC. CTAB. Resonant at bases) - Cardiovascular Cardiovascular exam: Present: RRR. Absent: JVD - GI/Abdominal GI/Abdominal exam: Present: soft. Absent: tenderness - Extremities Exam Extremities exam: Absent: edema Results - Labs CBC & BMP: 12/08/16 04:00 12/08/16 04:00 Specialty Discharge - Follow Up or Referrals Follow up with: Reuben Olivares MD [Physician] - 12/17/16 9:30 am
[2016-12-08] MEDS: ENOXAPARIN 40 MG/0.4 ML SYRINGE SUBCUT SCH (16:11)
[2016-12-08] MEDS: DEXT 5% NACL 0.45% KCL 40 MEQ 40 MEQ/1,000 ML BAG IV SCH ×2 (20:44→20:45)
[2016-12-08] MEDS: clonazePAM 0.5 MG TABLET PO SCH (20:45)
[2016-12-08] MEDS: MIRTAZAPINE 30 MG TABLET PO SCH (20:45)
[2016-12-09] MEDS: ALBUTEROL/IPRATROPIUM 3 ML NEB RESP TX SCH ×4 (00:26→19:17)
[2016-12-09] MEDS: METHADONE 10 MG TABLET PO SCH ×4 (04:28→21:47)
[2016-12-09 06:41] LABS: Basophils % 0.1 % (0.0-0.8); Hematocrit 35.8 VOL% (42.0-52.0); Immature Granulocytes % 2.2 %; Immature Granulocytes Absolute 0.25 #; Lymphocytes # 1.3 10*3/uL (1.4-4.0); Lymphocytes % 11.2 % (21.2-54.2); Mean Corpuscular HGB Conc 33.5 GM/DL (32-36); Mean Corpuscular Hemoglobin 31 PG (27-34); Mean Corpuscular Volume 93.5 FL (87-102); Mean Platelet Volume 10.5 FL (9.6-12.0); Monocytes # 0.3 10*3/uL (0.11-0.8); Monocytes % 2.8 % (1.7-12.7); Neutrophils # 9.7 10*3/uL (1.4-7.4); Neutrophils % 83.7 % (38.7-73.9); Platelet Count 228 T/CUMM (130-400); Red Blood Count 3.83 MC/CUMM (3.8-5.5); Red Cell Distribution Width 15.7 % (9.3-17.3); White Blood Count 11.6 T/CUMM (4-12)
[2016-12-09 07:11] LABS: Calcium 8.6 MG/DL (8.5-10.1); Osmolality,Calculated 278.8 MOS/KG (273-304); Potassium 4.2 MMOL/L (3.5-5.1)
[2016-12-09 07:58] LABS: Band Neutrophils 2 % (0-10); Giant Platelets Few; Hypochromasia 1+; Lymphocytes 12 % (20-55); Microcytosis Slight; Ovalocytes Slight; Platelet Estimate Adequate; Segmented Neutrophils 85 % (50-85); Total Cells Counted 100
--- NOTE | 2016-12-09 09:34 | Pulmonology Progress Note ---
Pulmonary - PN: Subj Interval history: This 71-year-old man has a history of lung cancer in remission. He had a recent chin infection and developed sepsis with MRSA and ARDS. He is much improved. He got better with steroids. He has a sore throat. Throat swab is growing out Klebsiella it is sensitive to Fortaz. 12/09/2016 patient sore throat is better. Less short of breath. No new complaints. Exam (Progress Note) - Constitutional Vitals: Period Temp Pulse Resp BP Sys/Yanes Pulse Ox Last 24 Hr 96.5 F-97.8 F 68-88 18-22 146-185/65-90 90-99 Exam: Vital signs normal. Pupils react to light. Neck supple. Chest reveals a few scattered rhonchi equal breath sounds. Heart normal rate rhythm no murmurs. Abdomen soft nontender no masses. Extremities no clubbing cyanosis. Trace of edema. Calves nontender. Little change from yesterday. Results - Labs CBC & BMP: 12/09/16 04:15 12/09/16 04:40 Lab Results: I have reviewed the past 24 hour labs Assessment and Plan (1) COPD (chronic obstructive pulmonary disease) Status: Acute Assessment and plan: Continuing bronchodilators. No active bronchospasm. 12/09/2016 continuing bronchodilators and IV medications. Current Visit: Yes (2) Small cell lung cancer Status: Chronic Assessment and plan: [place] to be in remission. I have her immune system may not be normal. Current Visit: No (3) Septicemia Status: Acute Assessment and plan: This is controlled with antibiotics. 12/09/2016 controlled with antibiotics. Current Visit: Yes Specialty Discharge - Follow Up or Referrals Follow up with: Reuben Olivares MD [Physician] - 12/17/16 9:30 am
[2016-12-09] MEDS: POTASSIUM CHLORIDE 10 MEQ TABLET PO SCH (09:41)
[2016-12-09] MEDS: GABAPENTIN 400 MG CAPSULE PO SCH ×3 (09:43→21:47)
[2016-12-09] MEDS: VENLAFAXINE 75 MG TABLET PO SCH ×2 (09:44→21:47)
[2016-12-09] MEDS: MELOXICAM 7.5 MG TABLET PO SCH (09:45)
[2016-12-09] MEDS: PANTOPRAZOLE 40 MG TABLET PO SCH (09:45)
[2016-12-09] MEDS: cloNIDine 0.1 MG TABLET PO SCH ×2 (09:45→21:47)
[2016-12-09] MEDS: amLODIPine 10 MG TABLET PO SCH (09:47)
[2016-12-09] MEDS: MONTELUKAST 10 MG TABLET PO SCH (09:47)
[2016-12-09] MEDS: BACLOFEN 10 MG TABLET PO SCH ×3 (09:47→21:47)
[2016-12-09] MEDS: methylPREDNISolone SOD SUC 40 MG/1 ML VIAL IV SCH ×2 (09:49→21:49)
[2016-12-09] MEDS: MUPIROCIN 2% OINT 22 GM TUBE TOP SCH ×2 (09:55→21:49)
[2016-12-09] MEDS: DEXT 5% NACL 0.45% KCL 40 MEQ 40 MEQ/1,000 ML BAG IV SCH (10:28)
[2016-12-09] MEDS: VANCOMYCIN INJ 1,000 MG in SODIUM CHLORIDE 0.9% 250 ML IV SCH ×2 (10:31→21:51)
--- NOTE | 2016-12-09 12:51 | Oncology Progress Note ---
Assessment and Plan (1) Septicemia Status: Acute Assessment and plan: a/w MRSA bacteremia due to cellulitis. -- sepsis has resolved. TTE without vegetations -- continues on Vancomycin with tentative plans to continue total 4 weeks antibiotics -- awaiting LTAC placement Current Visit: Yes (2) Cellulitis of lip Status: Acute Assessment and plan: resolved. Current Visit: Yes (3) COPD (chronic obstructive pulmonary disease) Status: Acute Assessment and plan: No wheezing noted today. Weaning steroids. Continue PRN bronchodilators. - Klebsiella growing from respiratory culture. Continue Vanc and Fortaz for now Current Visit: Yes (4) Small cell lung cancer Status: Chronic Assessment and plan: F/u with Dr. Hamm as to whether he will get a 4th cycle of chemo or start PCI Current Visit: No Oncology Subjective PN Interval history: [place] to feel improved today. Less short of breath. Strength is improving. Walking around in his room with the rolling walker. Feeling well. Denies chest pain, abdominal pain, constipation, diarrhea. Exam - Constitutional Vitals: Period Temp Pulse Resp BP Sys/Yanes Pulse Ox Last 24 Hr 96.9 F-97.8 F 68-88 18-22 144-185/65-90 90-99 Exam: elderly white male, sitting up at side of bed, looks comfortable - Eye Eye Exam: Present: other (enucleated right eye with glass prosthesis) - Respiratory Respiratory exam: Present: CTAB (normal rate and effort on 2L via NC. CTAB) - Cardiovascular Cardiovascular exam: Present: RRR. Absent: JVD - GI/Abdominal GI/Abdominal exam: Present: soft. Absent: tenderness - Extremities Exam Extremities exam: Absent: edema - Psychiatric Psychiatric exam: Present: normal affect, normal mood - Skin Skin exam: Present: warm, dry Results - Labs CBC & BMP: 12/09/16 04:15 12/09/16 04:40 Specialty Discharge - Follow Up or Referrals Follow up with: Reuben Olivares MD [Physician] - 12/17/16 9:30 am
[2016-12-09] MEDS: CHLORHEXIDINE 4% SOLN 118 ML BOTTLE TOP SCH (15:41)
[2016-12-09] MEDS: ENOXAPARIN 40 MG/0.4 ML SYRINGE SUBCUT SCH (17:44)
[2016-12-09] MEDS: clonazePAM 0.5 MG TABLET PO SCH (21:47)
[2016-12-09] MEDS: MIRTAZAPINE 30 MG TABLET PO SCH (21:47)
[2016-12-10] MEDS: ALBUTEROL/IPRATROPIUM 3 ML NEB RESP TX SCH ×4 (00:28→19:06)
[2016-12-10] MEDS: METHADONE 10 MG TABLET PO SCH ×4 (03:29→20:14)
[2016-12-10 04:49] LABS: Hematocrit 35.1 VOL% (42.0-52.0); Hemoglobin 11.8 GM/DL (14.0-18.0); Immature Granulocytes % 1.3 %; Immature Granulocytes Absolute 0.15 #; Lymphocytes # 1.2 10*3/uL (1.4-4.0); Lymphocytes % 10.4 % (21.2-54.2); Mean Corpuscular HGB Conc 33.6 GM/DL (32-36); Mean Corpuscular Hemoglobin 32 PG (27-34); Mean Corpuscular Volume 94.4 FL (87-102); Mean Platelet Volume 10.2 FL (9.6-12.0); Monocytes # 0.3 10*3/uL (0.11-0.8); Monocytes % 2.5 % (1.7-12.7); Neutrophils # 9.8 10*3/uL (1.4-7.4); Neutrophils % 85.8 % (38.7-73.9); Platelet Count 235 T/CUMM (130-400); Red Blood Count 3.72 MC/CUMM (3.8-5.5); Red Cell Distribution Width 15.7 % (9.3-17.3); White Blood Count 11.4 T/CUMM (4-12)
[2016-12-10 05:29] LABS: Calcium 8.6 MG/DL (8.5-10.1); Osmolality,Calculated 281.8 MOS/KG (273-304); Potassium 4.3 MMOL/L (3.5-5.1)
--- NOTE | 2016-12-10 08:11 | Oncology Progress Note ---
Oncology Subjective PN Interval history: MRSA sepsis: This patient was admitted with MRSA sepsis and cellulitis of the chin. He has small cell carcinoma of the lung that has achieved a complete remission using etoposide and carboplatin. I question how good his hygiene is because he has not demonstrated good hygiene to the nurses or to me. He probably needs decolonization. Infection control has been consulted.The serum creatinine today is 0.7 which is acceptable. We are monitoring vancomycin toxicity. He is on it for MRSA sepsis. We are also continuing decolonization of the patient. His fever went to 102.9 on the evening of November 24. His temperature this morning is 96.6. We are also in the process of decolonizing him for MRSA. He has been on vancomycin since November 25, 2016. I anticipate continuing IV antibiotics for a prolonged period of time. Probably 4 weeks since this is his second episode. We are working on long-term care and transfer. He has not been approved yet. This is the main reason that he is continuing to be hospitalized. We are waiting for a swing bed so that he can continue IV antibiotics there. He has too many medical problems to go home. Klebsiella upper respiratory infection, not multidrug resistant: He has been on Fortaz since December 07. I would anticipate treatment until December 24. 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 He received his third course of this combination on November 13 - November 15. The plan is to continue for 4 courses and then refer him for consideration for radiation therapy. His next dose of chemotherapy will be due December 11. I had initially planned to give 4 courses and then refer him for radiation. However, he has achieved a complete remission and I have consulted radiation oncology. The chest x-ray has been done today and the results are pending. Monitoring for toxicity of chemotherapy and antibiotics: He is on IV vancomycin and we are monitoring for toxicity. His serum creatinine today is 0.8. Anemia of chronic disease: Hemoglobin 11.8 today. Leukopenia: Has resolved. White cell count 11,400 with ANC of 9800 today. Thrombocytopenia: Has resolved.Platelet count 235,000 today. Exam - Constitutional Vitals: Period Temp Pulse Resp BP Sys/Yanes Pulse Ox Last 24 Hr 96.8 F-98.3 F 74-87 12-22 133-164/63-74 94-100 Results - Labs CBC & BMP: 12/10/16 04:28 12/10/16 04:28 Specialty Discharge - Follow Up or Referrals Follow up with: Reuben Olivares MD [Physician] - 12/17/16 9:30 am
--- NOTE | 2016-12-10 08:13 | XRay Report ---
XR chest 2V Indication: Shortness of breath. Lung cancer. Recent ARDS. Chest 2 views: Comparison 12/07/2016. Mediport catheter, normal heart size and mediastinal contour and interstitial scarring of the lung bases appears stable. No new infiltrates are shown. Pleural spaces remain clear. Impression: No change. PROCEDURE INTERPRETED AT [facility] DEPARTMENT OF RADIOLOGY Final Report Signed by: Braulio Contreras M.D.
[2016-12-10] MEDS: MELOXICAM 7.5 MG TABLET PO SCH (09:45)
[2016-12-10] MEDS: POTASSIUM CHLORIDE 10 MEQ TABLET PO SCH (09:45)
[2016-12-10] MEDS: MONTELUKAST 10 MG TABLET PO SCH (09:45)
[2016-12-10] MEDS: amLODIPine 10 MG TABLET PO SCH (09:45)
[2016-12-10] MEDS: cloNIDine 0.1 MG TABLET PO SCH ×2 (09:45→20:14)
[2016-12-10] MEDS: BACLOFEN 10 MG TABLET PO SCH ×3 (09:45→20:14)
[2016-12-10] MEDS: GABAPENTIN 400 MG CAPSULE PO SCH ×3 (09:45→20:14)
[2016-12-10] MEDS: PANTOPRAZOLE 40 MG TABLET PO SCH (09:45)
[2016-12-10] MEDS: VENLAFAXINE 75 MG TABLET PO SCH ×2 (09:45→20:14)
[2016-12-10] MEDS: VANCOMYCIN INJ 1,000 MG in SODIUM CHLORIDE 0.9% 250 ML IV SCH ×2 (09:48→21:11)
[2016-12-10] MEDS: MUPIROCIN 2% OINT 22 GM TUBE TOP SCH ×2 (09:48→20:15)
[2016-12-10] MEDS: methylPREDNISolone SOD SUC 40 MG/1 ML VIAL IV SCH ×2 (09:48→20:13)
[2016-12-10] MEDS: CHLORHEXIDINE 4% SOLN 118 ML BOTTLE TOP SCH (09:48)
[2016-12-10] MEDS: DEXT 5% NACL 0.45% KCL 40 MEQ 40 MEQ/1,000 ML BAG IV SCH (09:54)
--- NOTE | 2016-12-10 10:05 | Pulmonology Progress Note ---
Pulmonary - PN: Subj Interval history: Guicho Wang, [facility]-, acting as scribe for Dr. Tristen Bailey This is a 71-year-old white male who we saw in pulmonary consultation on 2016. At that time, our impressions were: #1: Acute cellulitis of the chin secondary to MRSA #2: Sepsis secondary to MRSA #3: Neuroendocrine carcinoma of the lung, small cell, high-grade from right hilar mass biopsy done 09/13/2016. Note, Dr. Shetty states this is in remission. #4: COPD #5: Long history of tobacco abuse. Note, the patient stopped smoking sometime between 2009 and 2011. #6: Chronic pain. Under the care of Dr. Serrano. #7: Degenerative joint disease #8: Anemia #9: Thrombocytopenia #10: Pulmonary hypertension as noted on echocardiogram 11/25/2016. Pulmonary artery pressure 42 mmHg. #11: Possible early right upper lung infiltrate #12: See past history 11/28/2016. This morning the patient had hypoxemia and increased shortness of breath. His chest x-ray showed acute pulmonary edema. He was given 40 of Lasix IV push in the digits improved significantly. Doppler venograms were done and these showed no evidence of deep venous thrombophlebitis. Patient has recently had pulmonary arteriograms and these were negative. He has chronic hypoxemia and uses oxygen at home. His EKG shows no acute changes. Nitrated peptide was 190. Electrolytes are normal. Creatinine is 0.5 with a BUN of 7. H&H is 10.2/30.6 white count is 2200 and platelet count is 60,000. Total protein and albumin are low at 5.8 and 2.6 respectively. 11/29/2016. Today's chest x-ray shows cardiomegaly. Central vascular fullness. Patient has developed a generalized alveolar filling picture with associated interstitial edema. With his recent methicillin-resistant staph aureus sepsis I think we have to assume that this is adult respiratory distress syndrome. I have started the patient on Solu-Medrol. Will watch his status closely and if he deteriorates, he may end Up on mechanical ventilation. ABGs today on FiO2 of 50% show pH is 7.344, PCO2 of 56.5, PO2 of 58.6 and a bicarb of 27.7. I am going to start this patient on Diamox 250 IV push every morning. First dose today. Potassium is 3.4 and I will start KCl 10 mEq daily in addition to the 20 mEq per day he is already on. LDH is elevated 351. Alkaline Carla is elevated at 126. Natruretic peptide is 149. White count is improved to 4600. H&H is stable at 10.4/30.9 and platelets are improved to 98,000.. 11/30/2016. This is a 71-year-old white male who has a neuroendocrine lung carcinoma which is an admission. He has cellulitis of his chin and he was admitted with septicemia secondary to methicillin-resistant staph. He has underlying COPD with chronic hypoxemia mild hypercarbia. His chest x-ray after a few days showed a 5 lobe alveolar infiltrate with increased interstitial markings. He had a minor elevation of his BNP. This was adult respiratory distress syndrome secondary to his sepsis. On 11/29/2016 I started him on high- dose steroids. His chest x-ray is markedly better today but not resolved. We will continue to follow this on a daily basis. His ABGs on FiO2 of 50% shows a pH of 7.33, PCO2 54.6, PO2 of 57.4 and a bicarb of 26.1. I am going to decrease the patient's FiO2 to 2 L/min we will repeat his blood gases. I suspect that he will only breathe to keep his PO2 is in the mid to high 50s. He is on Diamox which was begun on 11/29/2016. Potassium is dropped to 3.0 and this will be replaced. Creatinine is 0.6 with a BUN of 15. White count has risen from 2000 112,700. H&H is 10.9/32.8 and platelets of increased 218,000. Plan is to follow daily lab, ABGs and chest x-ray. Continue high-dose steroids. If the patient deteriorates he should be intubated and put on mechanical ventilation with PEEP and pressure support and treated as respiratory failure secondary to adult respiratory distress syndrome. 12/03/2016. This patient recently had adult respiratory distress syndrome secondary to methicillin-resistant staph aureus sepsis. As soon as this was recognized he was treated aggressively with high-dose steroids and today's chest x-ray is remarkably better. We will continue the steroids for another day and will begin a gradual taper. Patient says his breathing is much better and he feels much better. ABGs have improved significantly. On FiO2 28% pH is 7.37, PCO2 is 37.4, PO2 is 76.3 and bicarb is 21.8. Electrolytes are normal. Creatinine is 0.7. White blood cell count is 24,900. H&H 11.2/33.9 and platelets are 191,000 12/04/2016. Today's chest x-ray is stable. There is a subtle increase in interstitial markings in all 5 lobes and there are scattered areas of alveolar filling. For all practical purposes the picture of adult respiratory distress syndrome has resolved. I will decrease the patient's Solu-Medrol today. We need to keep in mind that patients alveoli will be susceptible to leakage in the near future secondary to his sepsis injury. Labs been reviewed. Medicines have been reviewed. Patient is stable and has no new complete 12/05/2016. Today's x-ray is amazingly better. There is no residual evidence of adult respiratory distress syndrome. There are some areas of interstitial scarring in both lower lung thomas. Over time on an FiO2 of 28% p.o. to his gradually increased from 57.4-107.0. Electrolytes are normal. CBC is stable. White count is 19,100. Previous blood cultures and wound cultures were positive for methicillin-resistant staph aureus. Sepsis was the etiology of adult respiratory distress syndrome. Patient says his breathing is much better. Tomorrow will try to decrease his steroids again. Keep in mind that will probably take a month for his alveolar capillary membranes to heal. 12/06/2016. Chest x-ray is stable and ABGs are in an acceptable range. Patient continues to improve from a pulmonary standpoint. I have decreased his steroids again today. He has no new complaints. I have made no other changes in his regimen. 12/07/16. The patient's throat culture is growing a gram negative shana. Final ID is pending. This was discussed with Dr. Hamm and we have coordinated our care. We will start Fortaz one gram Q8H. Case management is working on swing bed placement. Overall, he is markedly improved since admission. We will repeat a CXR on Saturday. He is nicely recovering from ARDS. 12/10/2016. The patient was seen today along with Leola Carballo. Mr. Gabriel 's chest x-ray was reviewed and his previously noted infiltrates have now resolved. We agree with Dr. Hamm's plans of long-term antibiotic therapy secondary to his recurrent cellulitis. Case management is working on LTAC placement. Several days ago the patient complained of throat pain. Culture has grown Klebsiella pneumoniae. The onset of his symptoms we started Fortaz this is an SAIGE of less than 1 to the Klebsiella. This will be continued. From a pulmonary standpoint the patient continues to do well. He has no increased shortness of breath at this time. Medications have been reviewed. We made no changes today. Labs have been reviewed. White count is 11,400 with 85.8% segs. H&H 11.8/35.1 ; platelet count 235,000; creatinine 0.70, BUN 26, electrolytes are normal Exam (Progress Note) - Constitutional Vitals: Period Temp Pulse Resp BP Sys/Yanes Pulse Ox Last 24 Hr 96.8 F-98.3 F 74-87 12-22 133-164/63-74 94-100 Exam: Chest is hyperinflated with prolonged expiration; no appreciable wheeze Heart with a slightly lateral PMI Abd is nontender and nondistended; bowel sounds are positive x 4 Ext with nothing to suggest acute DVT Psych oriented x 3 Neuro unchanged Plan: Continue present treatment. Agree with prolonged Vancomycin as per Dr. Hamm. Continue Fortaz. Agree with LTAC. See orders. Results - Labs CBC & BMP: 12/10/16 04:28 12/10/16 04:28 Specialty Discharge - Follow Up or Referrals Follow up with: Reuben Olivares MD [Physician] - 12/17/16 9:30 am
[2016-12-10] MEDS: ENOXAPARIN 40 MG/0.4 ML SYRINGE SUBCUT SCH (16:59)
[2016-12-10] MEDS: clonazePAM 0.5 MG TABLET PO SCH (22:22)
[2016-12-10] MEDS: MIRTAZAPINE 30 MG TABLET PO SCH (22:22)
[2016-12-11] MEDS: ALBUTEROL/IPRATROPIUM 3 ML NEB RESP TX SCH ×4 (00:09→18:45)
[2016-12-11] MEDS ORDERED: HEPARIN LOCK FLUSH 500 UNIT/5 ML SYRINGE IV ONE ×2 (02:16→23:00)
[2016-12-11] MEDS: METHADONE 10 MG TABLET PO SCH ×4 (02:58→20:04)
[2016-12-11 07:30] LABS: Basophils % 0.1 % (0.0-0.8); Hematocrit 35.1 VOL% (42.0-52.0); Hemoglobin 11.6 GM/DL (14.0-18.0); Immature Granulocytes % 0.9 %; Immature Granulocytes Absolute 0.11 #; Lymphocytes % 8.4 % (21.2-54.2); Mean Corpuscular Hemoglobin 31 PG (27-34); Mean Corpuscular Volume 94.9 FL (87-102); Mean Platelet Volume 10.3 FL (9.6-12.0); Monocytes # 0.3 10*3/uL (0.11-0.8); Monocytes % 2.8 % (1.7-12.7); Neutrophils # 10.5 10*3/uL (1.4-7.4); Neutrophils % 87.8 % (38.7-73.9); Platelet Count 239 T/CUMM (130-400); Red Cell Distribution Width 15.9 % (9.3-17.3)
--- NOTE | 2016-12-11 07:31 | Oncology Progress Note ---
Oncology Subjective PN Interval history: We are having trouble getting Mr. Gabriel to an LTAC. They will not take him while he is on vancomycin and also getting radiation for his small cell lung cancer. They will accept him with one problem or the other but not both and I have no control over this. He should be able to receive IV antibiotics with monitoring and also be able to receive radiation therapy but due to policies that are local LTAC's, he cannot transfer presently. He has had a basic metabolic profile today but otherwise no lab work. I am ordering it now. MRSA sepsis: This patient was admitted with MRSA sepsis and cellulitis of the chin. He has small cell carcinoma of the lung that has achieved a complete remission using etoposide and carboplatin. I question how good his hygiene is because he has not demonstrated good hygiene to the nurses or to me. He probably needs decolonization. Infection control has been consulted. We are monitoring vancomycin toxicity. He is on it for MRSA sepsis. We are also continuing decolonization of the patient. His fever went to 102.9 on the evening of November 24. He remains afebrile. We are also in the process of decolonizing him for MRSA. He has been on vancomycin since November 25, 2016. I anticipate continuing IV antibiotics for a prolonged period of time. Probably 4 weeks since this is his second episode. We are working on long-term care and transfer. He has not been approved yet. This is the main reason that he is continuing to be hospitalized. We are waiting for a swing bed so that he can continue IV antibiotics there. He has too many medical problems to go home. Klebsiella upper respiratory infection, not multidrug resistant: He has been on Fortaz since December 07. I would anticipate treatment until December 24. 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 He received his third course of this combination on November 13 - November 15. The plan is to continue for 4 courses and then refer him for consideration for radiation therapy. His next dose of chemotherapy will be due December 11. I had initially planned to give 4 courses and then refer him for radiation. However, he has achieved a complete remission and I have consulted radiation oncology. The chest x-ray has been done today and the results are pending. Monitoring for toxicity of chemotherapy and antibiotics: He is on IV vancomycin and we are monitoring for toxicity. His serum creatinine today is 0.7. Anemia of chronic disease: Hemoglobin 11.2 Leukopenia: Has resolved. White cells 12,000 with ANC of 2500 Thrombocytopenia: Has resolved.Platelet count 239,000 Electrolytes are normal. Exam - Constitutional Vitals: Period Temp Pulse Resp BP Sys/Yanes Pulse Ox Last 24 Hr 96.1 F-97.6 F 65-89 14-18 129-157/61-76 93-100 Results - Labs CBC & BMP: 12/11/16 05:10 12/11/16 05:10 Specialty Discharge - Follow Up or Referrals Follow up with: Reuben Olivares MD [Physician] - 12/17/16 9:30 am
[2016-12-11 08:02] LABS: Albumin 2.9 G/DL (3.4-5.0); Bilirubin,Total 0.4 MG/DL (0.2-1.0); Calcium 8.6 MG/DL (8.5-10.1); Potassium 4.2 MMOL/L (3.5-5.1)
[2016-12-11] MEDS: GABAPENTIN 400 MG CAPSULE PO SCH ×3 (08:56→20:04)
[2016-12-11] MEDS: MELOXICAM 7.5 MG TABLET PO SCH (08:56)
[2016-12-11] MEDS: cloNIDine 0.1 MG TABLET PO SCH ×2 (08:56→20:04)
[2016-12-11] MEDS: MONTELUKAST 10 MG TABLET PO SCH (08:56)
[2016-12-11] MEDS: BACLOFEN 10 MG TABLET PO SCH ×3 (08:56→20:04)
[2016-12-11] MEDS: PANTOPRAZOLE 40 MG TABLET PO SCH (08:57)
[2016-12-11] MEDS: POTASSIUM CHLORIDE 10 MEQ TABLET PO SCH (08:57)
[2016-12-11] MEDS: VENLAFAXINE 75 MG TABLET PO SCH ×2 (08:57→20:04)
[2016-12-11] MEDS: amLODIPine 10 MG TABLET PO SCH (08:57)
[2016-12-11] MEDS: MUPIROCIN 2% OINT 22 GM TUBE TOP SCH ×2 (08:57→20:04)
[2016-12-11] MEDS: CHLORHEXIDINE 4% SOLN 118 ML BOTTLE TOP SCH (08:57)
[2016-12-11] MEDS: methylPREDNISolone SOD SUC 40 MG/1 ML VIAL IV SCH ×2 (09:00→20:03)
[2016-12-11] MEDS: VANCOMYCIN INJ 1,000 MG in SODIUM CHLORIDE 0.9% 250 ML IV SCH ×2 (09:01→21:02)
--- NOTE | 2016-12-11 11:40 | Pulmonology Progress Note ---
Pulmonary - PN: Subj Interval history: Guicho Wang, [facility]-, acting as scribe for Dr. Tristen Bailey This is a 71-year-old white male who we saw in pulmonary consultation on 2016. At that time, our impressions were: #1: Acute cellulitis of the chin secondary to MRSA #2: Sepsis secondary to MRSA #3: Neuroendocrine carcinoma of the lung, small cell, high-grade from right hilar mass biopsy done 09/13/2016. Note, Dr. Shetty states this is in remission. #4: COPD #5: Long history of tobacco abuse. Note, the patient stopped smoking sometime between 2009 and 2011. #6: Chronic pain. Under the care of Dr. Serrano. #7: Degenerative joint disease #8: Anemia #9: Thrombocytopenia #10: Pulmonary hypertension as noted on echocardiogram 11/25/2016. Pulmonary artery pressure 42 mmHg. #11: Possible early right upper lung infiltrate #12: See past history 11/28/2016. This morning the patient had hypoxemia and increased shortness of breath. His chest x-ray showed acute pulmonary edema. He was given 40 of Lasix IV push in the digits improved significantly. Doppler venograms were done and these showed no evidence of deep venous thrombophlebitis. Patient has recently had pulmonary arteriograms and these were negative. He has chronic hypoxemia and uses oxygen at home. His EKG shows no acute changes. Nitrated peptide was 190. Electrolytes are normal. Creatinine is 0.5 with a BUN of 7. H&H is 10.2/30.6 white count is 2200 and platelet count is 60,000. Total protein and albumin are low at 5.8 and 2.6 respectively. 11/29/2016. Today's chest x-ray shows cardiomegaly. Central vascular fullness. Patient has developed a generalized alveolar filling picture with associated interstitial edema. With his recent methicillin-resistant staph aureus sepsis I think we have to assume that this is adult respiratory distress syndrome. I have started the patient on Solu-Medrol. Will watch his status closely and if he deteriorates, he may end Up on mechanical ventilation. ABGs today on FiO2 of 50% show pH is 7.344, PCO2 of 56.5, PO2 of 58.6 and a bicarb of 27.7. I am going to start this patient on Diamox 250 IV push every morning. First dose today. Potassium is 3.4 and I will start KCl 10 mEq daily in addition to the 20 mEq per day he is already on. LDH is elevated 351. Alkaline [place]la is elevated at 126. Natruretic peptide is 149. White count is improved to 4600. H&H is stable at 10.4/30.9 and platelets are improved to 98,000.. 11/30/2016. This is a 71-year-old white male who has a neuroendocrine lung carcinoma which is an admission. He has cellulitis of his chin and he was admitted with septicemia secondary to methicillin-resistant staph. He has underlying COPD with chronic hypoxemia mild hypercarbia. His chest x-ray after a few days showed a 5 lobe alveolar infiltrate with increased interstitial markings. He had a minor elevation of his BNP. This was adult respiratory distress syndrome secondary to his sepsis. On 11/29/2016 I started him on high- dose steroids. His chest x-ray is markedly better today but not resolved. We will continue to follow this on a daily basis. His ABGs on FiO2 of 50% shows a pH of 7.33, PCO2 54.6, PO2 of 57.4 and a bicarb of 26.1. I am going to decrease the patient's FiO2 to 2 L/min we will repeat his blood gases. I suspect that he will only breathe to keep his PO2 is in the mid to high 50s. He is on Diamox which was begun on 11/29/2016. Potassium is dropped to 3.0 and this will be replaced. Creatinine is 0.6 with a BUN of 15. White count has risen from 2000 112,700. H&H is 10.9/32.8 and platelets of increased 218,000. Plan is to follow daily lab, ABGs and chest x-ray. Continue high-dose steroids. If the patient deteriorates he should be intubated and put on mechanical ventilation with PEEP and pressure support and treated as respiratory failure secondary to adult respiratory distress syndrome. 12/03/2016. This patient recently had adult respiratory distress syndrome secondary to methicillin-resistant staph aureus sepsis. As soon as this was recognized he was treated aggressively with high-dose steroids and today's chest x-ray is remarkably better. We will continue the steroids for another day and will begin a gradual taper. Patient says his breathing is much better and he feels much better. ABGs have improved significantly. On FiO2 28% pH is 7.37, PCO2 is 37.4, PO2 is 76.3 and bicarb is 21.8. Electrolytes are normal. Creatinine is 0.7. White blood cell count is 24,900. H&H 11.2/33.9 and platelets are 191,000 12/04/2016. Today's chest x-ray is stable. There is a subtle increase in interstitial markings in all 5 lobes and there are scattered areas of alveolar filling. For all practical purposes the picture of adult respiratory distress syndrome has resolved. I will decrease the patient's Solu-Medrol today. We need to keep in mind that patients alveoli will be susceptible to leakage in the near future secondary to his sepsis injury. Labs been reviewed. Medicines have been reviewed. Patient is stable and has no new complete 12/05/2016. Today's x-ray is amazingly better. There is no residual evidence of adult respiratory distress syndrome. There are some areas of interstitial scarring in both lower lung thomas. Over time on an FiO2 of 28% p.o. to his gradually increased from 57.4-107.0. Electrolytes are normal. CBC is stable. White count is 19,100. Previous blood cultures and wound cultures were positive for methicillin-resistant staph aureus. Sepsis was the etiology of adult respiratory distress syndrome. Patient says his breathing is much better. Tomorrow will try to decrease his steroids again. Keep in mind that will probably take a month for his alveolar capillary membranes to heal. 12/06/2016. Chest x-ray is stable and ABGs are in an acceptable range. Patient continues to improve from a pulmonary standpoint. I have decreased his steroids again today. He has no new complaints. I have made no other changes in his regimen. 12/07/16. The patient's throat culture is growing a gram negative shana. Final ID is pending. This was discussed with Dr. Hamm and we have coordinated our care. We will start Fortaz one gram Q8H. Case management is working on swing bed placement. Overall, he is markedly improved since admission. We will repeat a CXR on Saturday. He is nicely recovering from ARDS. 12/10/2016. The patient was seen today along with Leola Carballo. Mr. Gabriel 's chest x-ray was reviewed and his previously noted infiltrates have now resolved. We agree with Dr. Hamm's plans of long-term antibiotic therapy secondary to his recurrent cellulitis. Case management is working on LTAC placement. Several days ago the patient complained of throat pain. Culture has grown Klebsiella pneumoniae. The onset of his symptoms we started Fortaz this is an SAIGE of less than 1 to the Klebsiella. This will be continued. From a pulmonary standpoint the patient continues to do well. He has no increased shortness of breath at this time. Medications have been reviewed. We made no changes today. Labs have been reviewed. White count is 11,400 with 85.8% segs. H&H 11.8/35.1 ; platelet count 235,000; creatinine 0.70, BUN 26, electrolytes are normal 12/11/2016. Mr. Gabriel continues to do well from a pulmonary standpoint. He is continuing with IV Fortaz for the previously noted Klebsiella pneumoniae from his throat culture. He is continuing on vancomycin for his MRSA sepsis as per Dr. Hamm. Please see his note for more information. We wholeheartedly agree with his plans. We are having trouble with LTAC placement as he has noted. Medications have been reviewed. We made no changes today. Labs been reviewed. White count is 12,000 with 87.8% segs; H&H 11.6/35.1; platelet count 239,000; creatinine 0.70, BUN 31; electrolytes normal; liver function tests within normal limits; LDH 232; calcium 8.6, albumin 2.9, total protein 6.0 Exam (Progress Note) - Constitutional Vitals: Period Temp Pulse Resp BP Sys/Yanes Pulse Ox Last 24 Hr 96.1 F-97.6 F 65-89 14-20 129-186/61-84 93-100 Exam: Chest is hyperinflated with prolonged expiration; no appreciable wheeze Heart with a slightly lateral PMI Abd is nontender and nondistended; bowel sounds are positive x 4 Ext with nothing to suggest acute DVT Psych oriented x 3 Neuro unchanged Plan: Continue present treatment. Agree with prolonged Vancomycin as per Dr. Hamm. Continue Fortaz. Agree with LTAC when policy permits. See orders. Results - Labs CBC & BMP: 12/11/16 05:10 12/11/16 05:10 Specialty Discharge - Follow Up or Referrals Follow up with: Reuben Olivares MD [Physician] - 12/17/16 9:30 am
[2016-12-11] MEDS: ENOXAPARIN 40 MG/0.4 ML SYRINGE SUBCUT SCH (15:00)
[2016-12-11] MEDS: clonazePAM 0.5 MG TABLET PO SCH (20:04)
[2016-12-11] MEDS: MIRTAZAPINE 30 MG TABLET PO SCH (20:04)
[2016-12-11] MEDS: DEXT 5% NACL 0.45% KCL 40 MEQ 40 MEQ/1,000 ML BAG IV SCH (23:05)
[2016-12-12] MEDS: METHADONE 10 MG TABLET PO SCH ×3 (02:49→18:09)
[2016-12-12 04:22] LABS: Hematocrit 34.9 VOL% (42.0-52.0); Hemoglobin 11.7 GM/DL (14.0-18.0); Immature Granulocytes % 0.8 %; Immature Granulocytes Absolute 0.09 #; Lymphocytes # 0.9 10*3/uL (1.4-4.0); Lymphocytes % 8.1 % (21.2-54.2); Mean Corpuscular HGB Conc 33.5 GM/DL (32-36); Mean Corpuscular Hemoglobin 32 PG (27-34); Mean Corpuscular Volume 94.1 FL (87-102); Monocytes # 0.3 10*3/uL (0.11-0.8); Monocytes % 3.1 % (1.7-12.7); Neutrophils # 9.5 10*3/uL (1.4-7.4); Platelet Count 224 T/CUMM (130-400); Red Blood Count 3.71 MC/CUMM (3.8-5.5); Red Cell Distribution Width 15.6 % (9.3-17.3); White Blood Count 10.8 T/CUMM (4-12)
[2016-12-12] MEDS: ALBUTEROL/IPRATROPIUM 3 ML NEB RESP TX SCH ×5 (07:14→23:59)
--- NOTE | 2016-12-12 08:09 | Oncology Progress Note ---
Oncology Subjective PN Interval history: MRSA sepsis: This patient was admitted with MRSA sepsis and cellulitis of the chin. He has small cell carcinoma of the lung that has achieved a complete remission using etoposide and carboplatin. I question how good his hygiene is because he has not demonstrated good hygiene to the nurses or to me. He probably needs decolonization. Infection control has been consulted. We are monitoring vancomycin toxicity. He is on it for MRSA sepsis. We are also continuing decolonization of the patient. His fever went to 102.9 on the evening of November 24. He is currently afebrile. We are also in the process of decolonizing him for MRSA. He has been on vancomycin since November 25, 2016. I anticipate continuing IV for 4 weeks since this is his second episode. We are working on long-term care and transfer. He has not been approved yet. This is the main reason that he is continuing to be hospitalized. We are waiting for a swing bed so that he can continue IV antibiotics there. He has too many medical problems to go home. Klebsiella upper respiratory infection, not multidrug resistant: He has been on Fortaz since December 07. I would anticipate treatment until December 14. 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 He received his third course of this combination on November 13 - November 15. The plan is to continue for 4 courses and then refer him for consideration for radiation therapy. His next dose of chemotherapy will be due December 11. I had initially planned to give 4 courses and then refer him for radiation. However, he has achieved a complete remission and I have consulted radiation oncology. The chest x-ray has been done today and the results are pending. Monitoring for toxicity of chemotherapy and antibiotics:We do not have a serum creatinine today. I am ordering one stat. He is on IV vancomycin and we are monitoring for toxicity. Anemia of chronic disease: Hemoglobin 11.8 Leukopenia: Has resolved. White cells 10,800. Platelet count 224,000 Exam - Constitutional Vitals: Period Temp Pulse Resp BP Sys/Yanes Pulse Ox Last 24 Hr 96.5 F-97.8 F 74-87 14-20 144-168/63-75 90-100 Results - Labs CBC & BMP: 12/12/16 04:00 12/12/16 04:00 Specialty Discharge - Follow Up or Referrals Follow up with: Reuben Olivares MD [Physician] - 12/17/16 9:30 am
[2016-12-12 08:30] LABS: Alanine Aminotransferase 44 U/L (16-61); Albumin 2.8 G/DL (3.4-5.0); Alkaline Phosphatase 82 U/L (45-117); Aspartate Amino Transferase 14 U/L (0-37); Bilirubin,Total < 0.39 MG/DL (0.2-1.0); Blood Urea Nitrogen 28 MG/DL (7-18); Calcium 8.7 MG/DL (8.5-10.1); Glucose 150 MG/DL (74-106); Osmolality,Calculated 281.8 MOS/KG (273-304); Potassium 4.2 MMOL/L (3.5-5.1); Sodium 137 MMOL/L (136-145)
[2016-12-12] MEDS: VANCOMYCIN INJ 1,000 MG in SODIUM CHLORIDE 0.9% 250 ML IV SCH ×2 (09:24→21:40)
[2016-12-12] MEDS: methylPREDNISolone SOD SUC 40 MG/1 ML VIAL IV SCH ×2 (09:26→21:11)
[2016-12-12] MEDS: MELOXICAM 7.5 MG TABLET PO SCH (09:26)
[2016-12-12] MEDS: BACLOFEN 10 MG TABLET PO SCH ×3 (09:26→21:10)
[2016-12-12] MEDS: PANTOPRAZOLE 40 MG TABLET PO SCH (09:27)
[2016-12-12] MEDS: cloNIDine 0.1 MG TABLET PO SCH ×2 (09:27→21:10)
[2016-12-12] MEDS: VENLAFAXINE 75 MG TABLET PO SCH ×2 (09:27→21:10)
[2016-12-12] MEDS: MONTELUKAST 10 MG TABLET PO SCH (09:27)
[2016-12-12] MEDS: amLODIPine 10 MG TABLET PO SCH (09:27)
[2016-12-12] MEDS: POTASSIUM CHLORIDE 10 MEQ TABLET PO SCH (09:27)
[2016-12-12] MEDS: MUPIROCIN 2% OINT 22 GM TUBE TOP SCH ×2 (09:28→21:25)
[2016-12-12] MEDS: GABAPENTIN 400 MG CAPSULE PO SCH ×3 (09:31→21:10)
[2016-12-12] MEDS: CHLORHEXIDINE 4% SOLN 118 ML BOTTLE TOP SCH (09:34)
--- NOTE | 2016-12-12 10:11 | Pulmonology Progress Note ---
Pulmonary - PN: Subj Interval history: This is a 71-year-old white male whom I saw in pulmonary consultation on 2016. My impressions were. #1: Acute cellulitis of the chin secondary to MRSA #2: Sepsis secondary to MRSA #3: Neuroendocrine carcinoma of the lung, small cell, high-grade from right hilar mass biopsy done 09/13/2016. Note, Dr. Shetty states this is in remission. #4: COPD #5: Long history of tobacco abuse. Note, the patient stopped smoking sometime between 2009 and 2011. #6: Chronic pain. Under the care of Dr. Serrnao. #7: Degenerative joint disease #8: Anemia #9: Thrombocytopenia #10: Pulmonary hypertension as noted on echocardiogram 11/25/2016. Pulmonary artery pressure 42 mmHg. #11: Possible early right upper lung infiltrate #12: See past history 11/28/2016. This morning the patient had hypoxemia and increased shortness of breath. His chest x-ray showed acute pulmonary edema. He was given 40 of Lasix IV push in the digits improved significantly. Doppler venograms were done and these showed no evidence of deep venous thrombophlebitis. Patient has recently had pulmonary arteriograms and these were negative. He has chronic hypoxemia and uses oxygen at home. His EKG shows no acute changes. Nitrated peptide was 190. Electrolytes are normal. Creatinine is 0.5 with a BUN of 7. H&H is 10.2/30.6 white count is 2200 and platelet count is 60,000. Total protein and albumin are low at 5.8 and 2.6 respectively. 11/29/2016. Today's chest x-ray shows cardiomegaly. Central vascular fullness. Patient has developed a generalized alveolar filling picture with associated interstitial edema. With his recent methicillin-resistant staph aureus sepsis I think we have to assume that this is adult respiratory distress syndrome. I have started the patient on Solu-Medrol. Will watch his status closely and if he deteriorates, he may end Up on mechanical ventilation. ABGs today on FiO2 of 50% show pH is 7.344, PCO2 of 56.5, PO2 of 58.6 and a bicarb of 27.7. I am going to start this patient on Diamox 250 IV push every morning. First dose today. Potassium is 3.4 and I will start KCl 10 mEq daily in addition to the 20 mEq per day he is already on. LDH is elevated 351. Alkaline [place] is elevated at 126. Natruretic peptide is 149. White count is improved to 4600. H&H is stable at 10.4/30.9 and platelets are improved to 98,000.. 11/30/2016. This is a 71-year-old white male who has a neuroendocrine lung carcinoma which is an admission. He has cellulitis of his chin and he was admitted with septicemia secondary to methicillin-resistant staph. He has underlying COPD with chronic hypoxemia mild hypercarbia. His chest x-ray after a few days showed a 5 lobe alveolar infiltrate with increased interstitial markings. He had a minor elevation of his BNP. This was adult respiratory distress syndrome secondary to his sepsis. On 11/29/2016 I started him on high- dose steroids. His chest x-ray is markedly better today but not resolved. We will continue to follow this on a daily basis. His ABGs on FiO2 of 50% shows a pH of 7.33, PCO2 54.6, PO2 of 57.4 and a bicarb of 26.1. I am going to decrease the patient's FiO2 to 2 L/min we will repeat his blood gases. I suspect that he will only breathe to keep his PO2 is in the mid to high 50s. He is on Diamox which was begun on 11/29/2016. Potassium is dropped to 3.0 and this will be replaced. Creatinine is 0.6 with a BUN of 15. White count has risen from 2000 112,700. H&H is 10.9/32.8 and platelets of increased 218,000. Plan is to follow daily lab, ABGs and chest x-ray. Continue high-dose steroids. If the patient deteriorates he should be intubated and put on mechanical ventilation with PEEP and pressure support and treated as respiratory failure secondary to adult respiratory distress syndrome. 12/03/2016. This patient recently had adult respiratory distress syndrome secondary to methicillin-resistant staph aureus sepsis. As soon as this was recognized he was treated aggressively with high-dose steroids and today's chest x-ray is remarkably better. We will continue the steroids for another day and will begin a gradual taper. Patient says his breathing is much better and he feels much better. ABGs have improved significantly. On FiO2 28% pH is 7.37, PCO2 is 37.4, PO2 is 76.3 and bicarb is 21.8. Electrolytes are normal. Creatinine is 0.7. White blood cell count is 24,900. H&H 11.2/33.9 and platelets are 191,000 12/04/2016. Today's chest x-ray is stable. There is a subtle increase in interstitial markings in all 5 lobes and there are scattered areas of alveolar filling. For all practical purposes the picture of adult respiratory distress syndrome has resolved. I will decrease the patient's Solu-Medrol today. We need to keep in mind that patients alveoli will be susceptible to leakage in the near future secondary to his sepsis injury. Labs been reviewed. Medicines have been reviewed. Patient is stable and has no new complete 12/05/2016. Today's x-ray is amazingly better. There is no residual evidence of adult respiratory distress syndrome. There are some areas of interstitial scarring in both lower lung thomas. Over time on an FiO2 of 28% p.o. to his gradually increased from 57.4-107.0. Electrolytes are normal. CBC is stable. White count is 19,100. Previous blood cultures and wound cultures were positive for methicillin-resistant staph aureus. Sepsis was the etiology of adult respiratory distress syndrome. Patient says his breathing is much better. Tomorrow will try to decrease his steroids again. Keep in mind that will probably take a month for his alveolar capillary membranes to heal. 12/06/2016. Chest x-ray is stable and ABGs are in an acceptable range. Patient continues to improve from a pulmonary standpoint. I have decreased his steroids again today. He has no new complaints. I have made no other changes in his regimen. 12/12/2016. Patient's chest x-ray from 12/10/2016 look fine. Adult respiratory distress syndrome has resolved. Patient is being treated for Klebsiella infection of the throat as well as methicillin-resistant staph aureus cellulitis of the chin with associated sepsis and adult respiratory distress syndrome. White count is dropped to 10,800 with 88 segs. H&H 11.7/34.9. Platelets are 224,000. Electrolytes are normal. Creatinine is 0.70 with a BUN of 28. Most recent liver function tests are normal. Protein and albumin are low at 6.0 and 2.8. Globulin is 3.2. Patient continues to improve. He requires continuation of his antibiotic therapy. See Dr. Hamm's note. Physical exam. Vital signs. See below General. Patient sitting on side of his bed reading the morning paper. He is not short of breath and he is in no apparent distress Psychiatric oriented 3. Face. Asymmetrically. No swelling of lips and tongue. Neck. Symmetrical. No meningismus. Lymphatics. No submandibular cervical supraclavicular or epitrochlear adenopathy Chest. Hyperinflated with mild prolonged expiration. No wheezing no rales Heart. Slightly lateral PMI and a grade 1/6 systolic ejection murmur at left sternal border without radiation Abdomen. Nontender bowel sounds are positive. Extremities. Trace of pedal and pretibial edema bilaterally. Neurologic. Cranial nerves are intact. 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 Long track motor functions intact. Neurological exam was not done. Gait was not tested The remainder the physical exam is negative Plan: 11/27/2006 #1: Agree with present antibiotics of Teflaro and vancomycin #2: Start inhalation therapy with DuoNeb 4 times daily and as needed #3: Start Singulair 10 mg p.o. daily #4: With regards pulmonary hypertension, will start Norvasc 5 mg daily and follow his response #5: Repeat chest x-ray in the morning #6: Sputum for Gram stain, culture and sensitivity #7: See orders 11/28/2016 1. Agree with Lasix 2. Chest x-ray and ABGs in the morning 3. Doppler venograms are negative for deep venous thrombophlebitis 4. See today's note 11/29/2016. 1. See today's note above 2. Solu-Medrol 3. Probable adult respiratory distress syndrome 4. Daily chest x-ray ABGs. If deteriorates will need intubation mechanical ventilation. 5. Diamox 6. Increase KCl replete 7. Dr. Valentín Hamm and I have discussed the case and coordinated our care 11/30/2016. 1. See today's note above. 2. Methicillin-resistant staph aureus septicemia with adult respiratory distress syndrome. Intubate if deteriorated 3. Hypoxemia and hypercarbia. 4. Daily chest x-ray, ABGs and lab 12/03/2016. 1. See today's note above. 2. Follow-up chest x-ray new 3. Probable begin taper of steroids tomorrow 12/04/2016. 1. Decrease steroids. 2. Watch for any tendency for adult respiratory distress syndrome to recur. Even though oxygenation and chest x-ray are better. An underlying alveolar capillary injury will take a while to heal 12/05/2016. 1. See my note for today above. 2. Chest x-ray back to normal 3. ABGs are close to normal. 4. We will try to decrease steroids tomorrow. 12/06/2016. 1. See today's note above 2. Decrease steroids. 12/11/2016. 1. See today's note, above 2. No changes have been made. 3. I have discussed the case with Dr. Hamm today and I agree with present course of treatment. Exam (Progress Note) - Constitutional Vitals: Period Temp Pulse Resp BP Sys/Yanes Pulse Ox Last 24 Hr 96.5 F-97.8 F 62-87 14-20 144-168/63-77 90-100 Results - Labs CBC & BMP: 12/12/16 04:00 12/12/16 04:00 Specialty Discharge - Follow Up or Referrals Follow up with: Reuben Olivares MD [Physician] - 12/17/16 9:30 am
[2016-12-12] MEDS: FLUCONAZOLE 200 MG TABLET PO SCH (14:06)
[2016-12-12] MEDS: NYSTATIN 500,000 UNIT/5 ML UDCUP SWISH/SWAL SCH ×3 (14:08→21:11)
[2016-12-12] MEDS: ENOXAPARIN 40 MG/0.4 ML SYRINGE SUBCUT SCH (14:08)
[2016-12-12] MEDS: MIRTAZAPINE 30 MG TABLET PO SCH (21:10)
[2016-12-12] MEDS: clonazePAM 0.5 MG TABLET PO SCH (21:10)
[2016-12-13] MEDS: METHADONE 10 MG TABLET PO SCH ×4 (00:12→18:33)
[2016-12-13 05:25] LABS: Hematocrit 34.3 VOL% (42.0-52.0); Hemoglobin 11.4 GM/DL (14.0-18.0); Immature Granulocytes % 0.6 %; Immature Granulocytes Absolute 0.05 #; Lymphocytes # 0.6 10*3/uL (1.4-4.0); Lymphocytes % 7.2 % (21.2-54.2); Mean Corpuscular HGB Conc 33.2 GM/DL (32-36); Mean Corpuscular Hemoglobin 31 PG (27-34); Mean Corpuscular Volume 94.2 FL (87-102); Mean Platelet Volume 9.9 FL (9.6-12.0); Monocytes # 0.3 10*3/uL (0.11-0.8); Monocytes % 3.7 % (1.7-12.7); Neutrophils # 7.3 10*3/uL (1.4-7.4); Neutrophils % 88.5 % (38.7-73.9); Platelet Count 207 T/CUMM (130-400); Red Blood Count 3.64 MC/CUMM (3.8-5.5); Red Cell Distribution Width 15.6 % (9.3-17.3); White Blood Count 8.3 T/CUMM (4-12)
[2016-12-13 05:57] LABS: Albumin 2.8 G/DL (3.4-5.0); Bilirubin,Total 0.4 MG/DL (0.2-1.0); Calcium 8.4 MG/DL (8.5-10.1); Potassium 3.9 MMOL/L (3.5-5.1); Total Protein 5.8 G/DL (6.4-8.3)
[2016-12-13] MEDS: DEXT 5% NACL 0.45% KCL 40 MEQ 40 MEQ/1,000 ML BAG IV SCH ×2 (06:28→21:21)
[2016-12-13] MEDS: ALBUTEROL/IPRATROPIUM 3 ML NEB RESP TX SCH ×3 (07:13→19:26)
--- NOTE | 2016-12-13 07:26 | Oncology Progress Note ---
Oncology Subjective PN Interval history: MRSA sepsis: This patient was admitted with MRSA sepsis and cellulitis of the chin. He has small cell carcinoma of the lung that has achieved a complete remission using etoposide and carboplatin. I question how good his hygiene is because he has not demonstrated good hygiene to the nurses or to me. He probably needs decolonization. Infection control has been consulted. We are monitoring vancomycin toxicity. He is on it for MRSA sepsis. We are also continuing decolonization of the patient. His fever went to 102.9 on the evening of November 24. He is currently afebrile. We are also in the process of decolonizing him for MRSA. He has been on vancomycin since November 25, 2016. I anticipate continuing IV for 4 weeks since this is his second episode. We are working on long-term care and transfer. He has not been approved yet. This is the main reason that he is continuing to be hospitalized. We are waiting for a swing bed so that he can continue IV antibiotics there. He has too many medical problems to go home. Klebsiella upper respiratory infection, not multidrug resistant: He has been on Fortaz since December 07. I anticipate treatment until December 14. 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 He received his third course of this combination on November 13 - November 15. The plan is to continue for 4 courses and then refer him for consideration for radiation therapy. His next dose of chemotherapy will be due December 11. I had initially planned to give 4 courses and then refer him for radiation. Radiation therapy is in progress. This is the other reason he remains hospitalized here. None of the LTAC's will take a patient who is known radiation therapy and receiving IV antibiotics. Monitoring for toxicity of chemotherapy and antibiotics:Serum creatinine today is normal at 0.7. Anemia of chronic disease: Hemoglobin 11.8 Leukopenia: Has resolved. White cells 10,800. Platelet count 224,000 Exam - Constitutional Vitals: Period Temp Pulse Resp BP Sys/Yanes Pulse Ox Last 24 Hr 97.0 F-98.6 F 71-88 16-20 126-169/59-77 93-99 Results - Labs CBC & BMP: 12/13/16 04:38 12/13/16 04:38 Specialty Discharge - Follow Up or Referrals Follow up with: Reuben Olivares MD [Physician] - 12/17/16 9:30 am
[2016-12-13] MEDS: methylPREDNISolone SOD SUC 40 MG/1 ML VIAL IV SCH ×2 (08:44→21:18)
[2016-12-13] MEDS: VENLAFAXINE 75 MG TABLET PO SCH ×2 (08:45→21:13)
[2016-12-13] MEDS: MELOXICAM 7.5 MG TABLET PO SCH (08:45)
[2016-12-13] MEDS: BACLOFEN 10 MG TABLET PO SCH ×3 (08:45→21:14)
[2016-12-13] MEDS: GABAPENTIN 400 MG CAPSULE PO SCH ×3 (08:45→21:13)
[2016-12-13] MEDS: POTASSIUM CHLORIDE 10 MEQ TABLET PO SCH (08:46)
[2016-12-13] MEDS: MONTELUKAST 10 MG TABLET PO SCH (08:46)
[2016-12-13] MEDS: cloNIDine 0.1 MG TABLET PO SCH ×2 (08:46→21:13)
[2016-12-13] MEDS: FLUCONAZOLE 200 MG TABLET PO SCH (08:46)
[2016-12-13] MEDS: amLODIPine 10 MG TABLET PO SCH (08:46)
[2016-12-13] MEDS: PANTOPRAZOLE 40 MG TABLET PO SCH (08:46)
[2016-12-13] MEDS: NYSTATIN 500,000 UNIT/5 ML UDCUP SWISH/SWAL SCH ×4 (08:47→21:14)
[2016-12-13] MEDS: MUPIROCIN 2% OINT 22 GM TUBE TOP SCH ×2 (08:50→21:20)
[2016-12-13] MEDS: CHLORHEXIDINE 4% SOLN 118 ML BOTTLE TOP SCH (08:52)
--- NOTE | 2016-12-13 10:21 | Pulmonology Progress Note ---
Pulmonary - PN: Subj Interval history: This is a 71-year-old white male whom I saw in pulmonary consultation on 2016. My impressions were. #1: Acute cellulitis of the chin secondary to MRSA #2: Sepsis secondary to MRSA #3: Neuroendocrine carcinoma of the lung, small cell, high-grade from right hilar mass biopsy done 09/13/2016. Note, Dr. Shetty states this is in remission. #4: COPD #5: Long history of tobacco abuse. Note, the patient stopped smoking sometime between 2009 and 2011. #6: Chronic pain. Under the care of Dr. Serrano. #7: Degenerative joint disease #8: Anemia #9: Thrombocytopenia #10: Pulmonary hypertension as noted on echocardiogram 11/25/2016. Pulmonary artery pressure 42 mmHg. #11: Possible early right upper lung infiltrate #12: See past history 11/28/2016. This morning the patient had hypoxemia and increased shortness of breath. His chest x-ray showed acute pulmonary edema. He was given 40 of Lasix IV push in the digits improved significantly. Doppler venograms were done and these showed no evidence of deep venous thrombophlebitis. Patient has recently had pulmonary arteriograms and these were negative. He has chronic hypoxemia and uses oxygen at home. His EKG shows no acute changes. Nitrated peptide was 190. Electrolytes are normal. Creatinine is 0.5 with a BUN of 7. H&H is 10.2/30.6 white count is 2200 and platelet count is 60,000. Total protein and albumin are low at 5.8 and 2.6 respectively. 11/29/2016. Today's chest x-ray shows cardiomegaly. Central vascular fullness. Patient has developed a generalized alveolar filling picture with associated interstitial edema. With his recent methicillin-resistant staph aureus sepsis I think we have to assume that this is adult respiratory distress syndrome. I have started the patient on Solu-Medrol. Will watch his status closely and if he deteriorates, he may end Up on mechanical ventilation. ABGs today on FiO2 of 50% show pH is 7.344, PCO2 of 56.5, PO2 of 58.6 and a bicarb of 27.7. I am going to start this patient on Diamox 250 IV push every morning. First dose today. Potassium is 3.4 and I will start KCl 10 mEq daily in addition to the 20 mEq per day he is already on. LDH is elevated 351. Alkaline Kenton is elevated at 126. Natruretic peptide is 149. White count is improved to 4600. H&H is stable at 10.4/30.9 and platelets are improved to 98,000.. 11/30/2016. This is a 71-year-old white male who has a neuroendocrine lung carcinoma which is an admission. He has cellulitis of his chin and he was admitted with septicemia secondary to methicillin-resistant staph. He has underlying COPD with chronic hypoxemia mild hypercarbia. His chest x-ray after a few days showed a 5 lobe alveolar infiltrate with increased interstitial markings. He had a minor elevation of his BNP. This was adult respiratory distress syndrome secondary to his sepsis. On 11/29/2016 I started him on high- dose steroids. His chest x-ray is markedly better today but not resolved. We will continue to follow this on a daily basis. His ABGs on FiO2 of 50% shows a pH of 7.33, PCO2 54.6, PO2 of 57.4 and a bicarb of 26.1. I am going to decrease the patient's FiO2 to 2 L/min we will repeat his blood gases. I suspect that he will only breathe to keep his PO2 is in the mid to high 50s. He is on Diamox which was begun on 11/29/2016. Potassium is dropped to 3.0 and this will be replaced. Creatinine is 0.6 with a BUN of 15. White count has risen from 2000 112,700. H&H is 10.9/32.8 and platelets of increased 218,000. Plan is to follow daily lab, ABGs and chest x-ray. Continue high-dose steroids. If the patient deteriorates he should be intubated and put on mechanical ventilation with PEEP and pressure support and treated as respiratory failure secondary to adult respiratory distress syndrome. 12/03/2016. This patient recently had adult respiratory distress syndrome secondary to methicillin-resistant staph aureus sepsis. As soon as this was recognized he was treated aggressively with high-dose steroids and today's chest x-ray is remarkably better. We will continue the steroids for another day and will begin a gradual taper. Patient says his breathing is much better and he feels much better. ABGs have improved significantly. On FiO2 28% pH is 7.37, PCO2 is 37.4, PO2 is 76.3 and bicarb is 21.8. Electrolytes are normal. Creatinine is 0.7. White blood cell count is 24,900. H&H 11.2/33.9 and platelets are 191,000 12/04/2016. Today's chest x-ray is stable. There is a subtle increase in interstitial markings in all 5 lobes and there are scattered areas of alveolar filling. For all practical purposes the picture of adult respiratory distress syndrome has resolved. I will decrease the patient's Solu-Medrol today. We need to keep in mind that patients alveoli will be susceptible to leakage in the near future secondary to his sepsis injury. Labs been reviewed. Medicines have been reviewed. Patient is stable and has no new complete 12/05/2016. Today's x-ray is amazingly better. There is no residual evidence of adult respiratory distress syndrome. There are some areas of interstitial scarring in both lower lung thomas. Over time on an FiO2 of 28% p.o. to his gradually increased from 57.4-107.0. Electrolytes are normal. CBC is stable. White count is 19,100. Previous blood cultures and wound cultures were positive for methicillin-resistant staph aureus. Sepsis was the etiology of adult respiratory distress syndrome. Patient says his breathing is much better. Tomorrow will try to decrease his steroids again. Keep in mind that will probably take a month for his alveolar capillary membranes to heal. 12/06/2016. Chest x-ray is stable and ABGs are in an acceptable range. Patient continues to improve from a pulmonary standpoint. I have decreased his steroids again today. He has no new complaints. I have made no other changes in his regimen. 12/12/2016. Patient's chest x-ray from 12/10/2016 look fine. Adult respiratory distress syndrome has resolved. Patient is being treated for Klebsiella infection of the throat as well as methicillin-resistant staph aureus cellulitis of the chin with associated sepsis and adult respiratory distress syndrome. White count is dropped to 10,800 with 88 segs. H&H 11.7/34.9. Platelets are 224,000. Electrolytes are normal. Creatinine is 0.70 with a BUN of 28. Most recent liver function tests are normal. Protein and albumin are low at 6.0 and 2.8. Globulin is 3.2. Patient continues to improve. He requires continuation of his antibiotic therapy. See Dr. Hamm's note. 12/13/2016. On 12/12/2016 the patient complained of a burning tongue. His tongue was coated white looked like early oral candidiasis. He was started on medicines and today he says this is cleared up. The patient has had a gram- negative infection from his throat. He is been on Fortaz for this. We will reculture his stroke but I suspect we will be able to stop his Fortaz soon. He continues on treatment for methicillin-resistant staph aureus sepsis. From a pulmonary standpoint this patient continues to improve. Lab was reviewed today and everything is stable. Also medicines have been reviewed. Physical exam. Vital signs. See below General. Patient sitting on side of his bed reading the morning paper, as usual. He is not short of breath and he is in no apparent distress Psychiatric oriented 3. Face. Asymmetrically. No swelling of lips and tongue. Neck. Symmetrical. No meningismus. Lymphatics. No submandibular cervical supraclavicular or epitrochlear adenopathy Chest. Hyperinflated with mild prolonged expiration. No wheezing no rales Heart. Slightly lateral PMI and a grade 1/6 systolic ejection murmur at left sternal border without radiation Abdomen. Nontender bowel sounds are positive. Extremities. Trace of pedal and pretibial edema bilaterally. Neurologic. Cranial nerves are intact. 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 Long track motor functions intact. Neurological exam was not done. Gait was not tested The remainder the physical exam is negative Plan: 11/27/2006 #1: Agree with present antibiotics of Teflaro and vancomycin #2: Start inhalation therapy with DuoNeb 4 times daily and as needed #3: Start Singulair 10 mg p.o. daily #4: With regards pulmonary hypertension, will start Norvasc 5 mg daily and follow his response #5: Repeat chest x-ray in the morning #6: Sputum for Gram stain, culture and sensitivity #7: See orders 11/28/2016 1. Agree with Bernice 2. Chest x-ray and ABGs in the morning 3. Doppler venograms are negative for deep venous thrombophlebitis 4. See today's note 11/29/2016. 1. See today's note above 2. Solu-Medrol 3. Probable adult respiratory distress syndrome 4. Daily chest x-ray ABGs. If deteriorates will need intubation mechanical ventilation. 5. Diamox 6. Increase KCl replete 7. Dr. Valentín Hamm and I have discussed the case and coordinated our care 11/30/2016. 1. See today's note above. 2. Methicillin-resistant staph aureus septicemia with adult respiratory distress syndrome. Intubate if deteriorated 3. Hypoxemia and hypercarbia. 4. Daily chest x-ray, ABGs and lab 12/03/2016. 1. See today's note above. 2. Follow-up chest x-ray new 3. Probable begin taper of steroids tomorrow 12/04/2016. 1. Decrease steroids. 2. Watch for any tendency for adult respiratory distress syndrome to recur. Even though oxygenation and chest x-ray are better. An underlying alveolar capillary injury will take a while to heal 12/05/2016. 1. See my note for today above. 2. Chest x-ray back to normal 3. ABGs are close to normal. 4. We will try to decrease steroids tomorrow. 12/06/2016. 1. See today's note above 2. Decrease steroids. 12/12/2016. 1. See today's note, above 2. No changes have been made. 3. I have discussed the case with Dr. Hamm today and I agree with present course of treatment. 12/13/2016. 1. See today's note above 2. Oral candidiasis is improved Exam (Progress Note) - Constitutional Vitals: Period Temp Pulse Resp BP Sys/Yanes Pulse Ox Last 24 Hr 97.0 F-98.6 F 71-88 16-20 126-169/59-71 93-100 Results - Labs CBC & BMP: 12/13/16 04:38 12/13/16 04:38 Specialty Discharge - Follow Up or Referrals Follow up with: Reuben Olivares MD [Physician] - 12/17/16 9:30 am
[2016-12-13 10:29] LABS: ABG Base Excess -4.1 MMOL/L (-2.5-2.5); ABG Oxygen Saturation 96.4 % (95-100); ABG PCO2 38.2 MM HG (35-48); ABG PO2 89.7 MM HG (80-95); ABG TCO2 18.8 MMOL/L (23-27)
[2016-12-13] MEDS: acetaZOLAMIDE 250 MG TABLET PO SCH ×2 (11:00→21:14)
[2016-12-13] MEDS: VANCOMYCIN INJ 1,000 MG in SODIUM CHLORIDE 0.9% 250 ML IV SCH ×2 (11:01→21:12)
[2016-12-13] MEDS: ENOXAPARIN 40 MG/0.4 ML SYRINGE SUBCUT SCH (13:55)
[2016-12-13] MEDS: MIRTAZAPINE 30 MG TABLET PO SCH (21:14)
[2016-12-13] MEDS: clonazePAM 0.5 MG TABLET PO SCH (21:14)
[2016-12-14] MEDS: METHADONE 10 MG TABLET PO SCH ×4 (00:17→18:02)
[2016-12-14] MEDS: DEXT 5% NACL 0.45% KCL 40 MEQ 40 MEQ/1,000 ML BAG IV SCH (00:18)
[2016-12-14] MEDS: ALBUTEROL/IPRATROPIUM 3 ML NEB RESP TX SCH ×4 (00:36→19:34)
[2016-12-14 05:44] LABS: Hematocrit 33.8 VOL% (42.0-52.0); Hemoglobin 11.2 GM/DL (14.0-18.0); Immature Granulocytes % 0.9 %; Immature Granulocytes Absolute 0.06 #; Lymphocytes # 0.4 10*3/uL (1.4-4.0); Lymphocytes % 5.4 % (21.2-54.2); Mean Corpuscular HGB Conc 33.1 GM/DL (32-36); Mean Corpuscular Hemoglobin 32 PG (27-34); Mean Corpuscular Volume 96.3 FL (87-102); Mean Platelet Volume 10.5 FL (9.6-12.0); Monocytes # 0.3 10*3/uL (0.11-0.8); Monocytes % 3.7 % (1.7-12.7); Neutrophils # 6.3 10*3/uL (1.4-7.4); Platelet Count 193 T/CUMM (130-400); Red Blood Count 3.51 MC/CUMM (3.8-5.5); Red Cell Distribution Width 15.8 % (9.3-17.3)
[2016-12-14 06:07] LABS: Alanine Aminotransferase 38 U/L (16-61); Albumin 2.9 G/DL (3.4-5.0); Alkaline Phosphatase 73 U/L (45-117); Aspartate Amino Transferase 12 U/L (0-37); Bilirubin,Total < 0.39 MG/DL (0.2-1.0); Blood Urea Nitrogen 32 MG/DL (7-18); Calcium 8.5 MG/DL (8.5-10.1); Glucose 169 MG/DL (74-106); Osmolality,Calculated 285.7 MOS/KG (273-304); Potassium 3.9 MMOL/L (3.5-5.1); Sodium 138 MMOL/L (136-145)
--- NOTE | 2016-12-14 07:42 | Oncology Progress Note ---
Oncology Subjective PN Interval history: MRSA sepsis: This patient was admitted with MRSA sepsis and cellulitis of the chin. He has small cell carcinoma of the lung that has achieved a complete remission using etoposide and carboplatin. I question how good his hygiene is because he has not demonstrated good hygiene to the nurses or to me. He probably needs decolonization. Infection control has been consulted. We are monitoring vancomycin toxicity. He is on it for MRSA sepsis. We are also continuing decolonization of the patient. His fever went to 102.9 on the evening of November 24. He is currently afebrile. We are also in the process of decolonizing him for MRSA. He has been on vancomycin since November 25, 2016. I anticipate continuing IV for 4 weeks since this is his second episode. We are working on long-term care and transfer. He has not been approved yet. This is the main reason that he is continuing to be hospitalized. We are waiting for a swing bed so that he can continue IV antibiotics there. He has too many medical problems to go home. In addition, his strength is improving so he actually may end up going home rather than to an LTAC once we finish his vancomycin. Klebsiella upper respiratory infection, not multidrug resistant: He has been on Fortaz since December 07. I am discontinuing it today. 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 He received his third course of this combination on November 13 - November 15. The plan is to continue for 4 courses and then refer him for consideration for radiation therapy. His next dose of chemotherapy will be due December 11. I had initially planned to give 4 courses and then refer him for radiation. Radiation therapy is in progress. This is the other reason he remains hospitalized here. None of the LTAC's will take a patient who is known radiation therapy and receiving IV antibiotics. Monitoring for toxicity of chemotherapy and antibiotics:Serum creatinine today is normal at 0.7. Anemia of chronic disease: Hemoglobin 11.2 Leukopenia: Has resolved. White cells 7,000. platelets 193,000 Exam - Constitutional Vitals: Period Temp Pulse Resp BP Sys/Yanes Pulse Ox Last 24 Hr 96.3 F-98.2 F 71-103 18-20 121-150/58-71 90-100 Results - Labs CBC & BMP: 12/14/16 03:50 12/14/16 03:50 Specialty Discharge - Follow Up or Referrals Follow up with: Reuben Olivares MD [Physician] - 12/17/16 9:30 am
[2016-12-14] MEDS: amLODIPine 10 MG TABLET PO SCH (09:05)
[2016-12-14] MEDS: BACLOFEN 10 MG TABLET PO SCH ×3 (09:05→20:52)
[2016-12-14] MEDS: FLUCONAZOLE 200 MG TABLET PO SCH (09:06)
[2016-12-14] MEDS: POTASSIUM CHLORIDE 10 MEQ TABLET PO SCH (09:06)
[2016-12-14] MEDS: acetaZOLAMIDE 250 MG TABLET PO SCH ×2 (09:06→20:51)
[2016-12-14] MEDS: PANTOPRAZOLE 40 MG TABLET PO SCH (09:06)
[2016-12-14] MEDS: GABAPENTIN 400 MG CAPSULE PO SCH ×3 (09:06→20:52)
[2016-12-14] MEDS: cloNIDine 0.1 MG TABLET PO SCH ×2 (09:06→20:52)
[2016-12-14] MEDS: MELOXICAM 7.5 MG TABLET PO SCH (09:06)
[2016-12-14] MEDS: VENLAFAXINE 75 MG TABLET PO SCH ×2 (09:07→20:52)
[2016-12-14] MEDS: CHLORHEXIDINE 4% SOLN 118 ML BOTTLE TOP SCH (09:07)
[2016-12-14] MEDS: methylPREDNISolone SOD SUC 40 MG/1 ML VIAL IV SCH ×2 (09:07→20:52)
[2016-12-14] MEDS: MONTELUKAST 10 MG TABLET PO SCH (09:07)
[2016-12-14] MEDS: MUPIROCIN 2% OINT 22 GM TUBE TOP SCH ×2 (09:07→20:55)
[2016-12-14] MEDS: NYSTATIN 500,000 UNIT/5 ML UDCUP SWISH/SWAL SCH ×4 (09:07→20:52)
[2016-12-14] MEDS: VANCOMYCIN INJ 1,000 MG in SODIUM CHLORIDE 0.9% 250 ML IV SCH ×2 (10:46→21:00)
[2016-12-14] MEDS ORDERED: HEPARIN LOCK FLUSH 500 UNIT/5 ML SYRINGE IV ONE (10:51)
--- NOTE | 2016-12-14 12:07 | Pulmonology Progress Note ---
Pulmonary - PN: Subj Interval history: Guicho Wang, [facility]-, acting as scribe for Dr. Tristen Bailey This is a 71-year-old white male who we saw in pulmonary consultation on 2016. At that time, our impressions were: #1: Acute cellulitis of the chin secondary to MRSA #2: Sepsis secondary to MRSA #3: Neuroendocrine carcinoma of the lung, small cell, high-grade from right hilar mass biopsy done 09/13/2016. Note, Dr. Shetty states this is in remission. #4: COPD #5: Long history of tobacco abuse. Note, the patient stopped smoking sometime between 2009 and 2011. #6: Chronic pain. Under the care of Dr. Serrano. #7: Degenerative joint disease #8: Anemia #9: Thrombocytopenia #10: Pulmonary hypertension as noted on echocardiogram 11/25/2016. Pulmonary artery pressure 42 mmHg. #11: Possible early right upper lung infiltrate #12: See past history 11/28/2016. This morning the patient had hypoxemia and increased shortness of breath. His chest x-ray showed acute pulmonary edema. He was given 40 of Lasix IV push in the digits improved significantly. Doppler venograms were done and these showed no evidence of deep venous thrombophlebitis. Patient has recently had pulmonary arteriograms and these were negative. He has chronic hypoxemia and uses oxygen at home. His EKG shows no acute changes. Nitrated peptide was 190. Electrolytes are normal. Creatinine is 0.5 with a BUN of 7. H&H is 10.2/30.6 white count is 2200 and platelet count is 60,000. Total protein and albumin are low at 5.8 and 2.6 respectively. 11/29/2016. Today's chest x-ray shows cardiomegaly. Central vascular fullness. Patient has developed a generalized alveolar filling picture with associated interstitial edema. With his recent methicillin-resistant staph aureus sepsis I think we have to assume that this is adult respiratory distress syndrome. I have started the patient on Solu-Medrol. Will watch his status closely and if he deteriorates, he may end Up on mechanical ventilation. ABGs today on FiO2 of 50% show pH is 7.344, PCO2 of 56.5, PO2 of 58.6 and a bicarb of 27.7. I am going to start this patient on Diamox 250 IV push every morning. First dose today. Potassium is 3.4 and I will start KCl 10 mEq daily in addition to the 20 mEq per day he is already on. LDH is elevated 351. Alkaline Carla is elevated at 126. Natruretic peptide is 149. White count is improved to 4600. H&H is stable at 10.4/30.9 and platelets are improved to 98,000.. 11/30/2016. This is a 71-year-old white male who has a neuroendocrine lung carcinoma which is an admission. He has cellulitis of his chin and he was admitted with septicemia secondary to methicillin-resistant staph. He has underlying COPD with chronic hypoxemia mild hypercarbia. His chest x-ray after a few days showed a 5 lobe alveolar infiltrate with increased interstitial markings. He had a minor elevation of his BNP. This was adult respiratory distress syndrome secondary to his sepsis. On 11/29/2016 I started him on high- dose steroids. His chest x-ray is markedly better today but not resolved. We will continue to follow this on a daily basis. His ABGs on FiO2 of 50% shows a pH of 7.33, PCO2 54.6, PO2 of 57.4 and a bicarb of 26.1. I am going to decrease the patient's FiO2 to 2 L/min we will repeat his blood gases. I suspect that he will only breathe to keep his PO2 is in the mid to high 50s. He is on Diamox which was begun on 11/29/2016. Potassium is dropped to 3.0 and this will be replaced. Creatinine is 0.6 with a BUN of 15. White count has risen from 2000 112,700. H&H is 10.9/32.8 and platelets of increased 218,000. Plan is to follow daily lab, ABGs and chest x-ray. Continue high-dose steroids. If the patient deteriorates he should be intubated and put on mechanical ventilation with PEEP and pressure support and treated as respiratory failure secondary to adult respiratory distress syndrome. 12/03/2016. This patient recently had adult respiratory distress syndrome secondary to methicillin-resistant staph aureus sepsis. As soon as this was recognized he was treated aggressively with high-dose steroids and today's chest x-ray is remarkably better. We will continue the steroids for another day and will begin a gradual taper. Patient says his breathing is much better and he feels much better. ABGs have improved significantly. On FiO2 28% pH is 7.37, PCO2 is 37.4, PO2 is 76.3 and bicarb is 21.8. Electrolytes are normal. Creatinine is 0.7. White blood cell count is 24,900. H&H 11.2/33.9 and platelets are 191,000 12/04/2016. Today's chest x-ray is stable. There is a subtle increase in interstitial markings in all 5 lobes and there are scattered areas of alveolar filling. For all practical purposes the picture of adult respiratory distress syndrome has resolved. I will decrease the patient's Solu-Medrol today. We need to keep in mind that patients alveoli will be susceptible to leakage in the near future secondary to his sepsis injury. Labs been reviewed. Medicines have been reviewed. Patient is stable and has no new complete 12/05/2016. Today's x-ray is amazingly better. There is no residual evidence of adult respiratory distress syndrome. There are some areas of interstitial scarring in both lower lung thomas. Over time on an FiO2 of 28% p.o. to his gradually increased from 57.4-107.0. Electrolytes are normal. CBC is stable. White count is 19,100. Previous blood cultures and wound cultures were positive for methicillin-resistant staph aureus. Sepsis was the etiology of adult respiratory distress syndrome. Patient says his breathing is much better. Tomorrow will try to decrease his steroids again. Keep in mind that will probably take a month for his alveolar capillary membranes to heal. 12/06/2016. Chest x-ray is stable and ABGs are in an acceptable range. Patient continues to improve from a pulmonary standpoint. I have decreased his steroids again today. He has no new complaints. I have made no other changes in his regimen. 12/07/16. The patient's throat culture is growing a gram negative hsana. Final ID is pending. This was discussed with Dr. Hamm and we have coordinated our care. We will start Fortaz one gram Q8H. Case management is working on swing bed placement. Overall, he is markedly improved since admission. We will repeat a CXR on Saturday. He is nicely recovering from ARDS. 12/10/2016. The patient was seen today along with Leola Carballo. Mr. Gabriel 's chest x-ray was reviewed and his previously noted infiltrates have now resolved. We agree with Dr. Hamm's plans of long-term antibiotic therapy secondary to his recurrent cellulitis. Case management is working on LTAC placement. Several days ago the patient complained of throat pain. Culture has grown Klebsiella pneumoniae. The onset of his symptoms we started Fortaz this is an SAIGE of less than 1 to the Klebsiella. This will be continued. From a pulmonary standpoint the patient continues to do well. He has no increased shortness of breath at this time. Medications have been reviewed. We made no changes today. Labs have been reviewed. White count is 11,400 with 85.8% segs. H&H 11.8/35.1 ; platelet count 235,000; creatinine 0.70, BUN 26, electrolytes are normal 12/11/2016. Mr. Gabriel continues to do well from a pulmonary standpoint. He is continuing with IV Fortaz for the previously noted Klebsiella pneumoniae from his throat culture. He is continuing on vancomycin for his MRSA sepsis as per Dr. Hamm. Please see his note for more information. We wholeheartedly agree with his plans. We are having trouble with LTAC placement as he has noted. Medications have been reviewed. We made no changes today. Labs been reviewed. White count is 12,000 with 87.8% segs; H&H 11.6/35.1; platelet count 239,000; creatinine 0.70, BUN 31; electrolytes normal; liver function tests within normal limits; LDH 232; calcium 8.6, albumin 2.9, total protein 6.0 12/12/2016. Patient's chest x-ray from 12/10/2016 look fine. Adult respiratory distress syndrome has resolved. Patient is being treated for Klebsiella infection of the throat as well as methicillin-resistant staph aureus cellulitis of the chin with associated sepsis and adult respiratory distress syndrome. White count is dropped to 10,800 with 88 segs. H&H 11.7/34.9. Platelets are 224,000. Electrolytes are normal. Creatinine is 0.70 with a BUN of 28. Most recent liver function tests are normal. Protein and albumin are low at 6.0 and 2.8. Globulin is 3.2. Patient continues to improve. He requires continuation of his antibiotic therapy. See Dr. Hamm's note. 12/13/2016. On 12/12/2016 the patient complained of a burning tongue. His tongue was coated white looked like early oral candidiasis. He was started on medicines and today he says this is cleared up. The patient has had a gram- negative infection from his throat. He is been on Fortaz for this. We will reculture his stroke but I suspect we will be able to stop his Fortaz soon. He continues on treatment for methicillin-resistant staph aureus sepsis. From a pulmonary standpoint this patient continues to improve. Lab was reviewed today and everything is stable. Also medicines have been reviewed. 12/14/2016. Mr. Gabriel continues to do well from a pulmonary standpoint. Throat culture is pending. Once we have a negative report, we will discontinue his IV Fortaz. Throat culture previously grew Klebsiella pneumoniae. We spoke with his outsole caser today and it is our understanding that plans are for him to continue IV vancomycin until Saturday of next week and at that time he will be discharged home. He is recovering nicely from his previous arts. His MRSA cellulitis/bacteremia is also resolving quite well. He has oral candidiasis and he is receiving nystatin and Diflucan for this. Medications have been reviewed. We made no changes today. Labs been reviewed. White count is 7000 with 90.0% segs; H&H 11.2/33.8; platelet count 193,000; creatinine 0.70, BUN 32, electrolytes are normal; calcium 8.5, albumin 2.9, total protein 6.0; liver function tests within normal limits Exam (Progress Note) - Constitutional Vitals: Period Temp Pulse Resp BP Sys/Yanes Pulse Ox Last 24 Hr 96.3 F-98.2 F 71-103 18-20 121-171/58-76 90-100 Exam: Chest is hyperinflated with prolonged expiration; no appreciable wheeze Heart with a slightly lateral PMI Abd is nontender and nondistended; bowel sounds are positive x 4 Ext with nothing to suggest acute DVT Psych oriented x 3 Neuro unchanged Plan: Continue present treatment. Agree with prolonged Vancomycin as per Dr. Hamm. Continue Fortaz until a negative throat cultures returned. See orders. We will see the patient back on Saturday. Dr. Gonzáles is typewriter ribbon winder this weekend and she will see the patient if needed. Results - Labs CBC & BMP: 12/14/16 03:50 12/14/16 03:50 Specialty Discharge - Follow Up or Referrals Follow up with: Reuben Olivares MD [Physician] - 12/17/16 9:30 am
[2016-12-14] MEDS: ENOXAPARIN 40 MG/0.4 ML SYRINGE SUBCUT SCH (13:50)
[2016-12-14] MEDS: clonazePAM 0.5 MG TABLET PO SCH (20:52)
[2016-12-14] MEDS: MIRTAZAPINE 30 MG TABLET PO SCH (20:52)
[2016-12-15] MEDS: METHADONE 10 MG TABLET PO SCH ×4 (00:04→17:38)
[2016-12-15] MEDS: ALBUTEROL/IPRATROPIUM 3 ML NEB RESP TX SCH ×4 (00:48→19:52)
[2016-12-15] MEDS ORDERED: HEPARIN LOCK FLUSH 500 UNIT/5 ML SYRINGE IV ONE (03:32)
[2016-12-15 05:15] LABS: Hematocrit 31.9 VOL% (42.0-52.0); Hemoglobin 10.4 GM/DL (14.0-18.0); Immature Granulocytes % 0.6 %; Immature Granulocytes Absolute 0.06 #; Lymphocytes # 0.3 10*3/uL (1.4-4.0); Lymphocytes % 2.9 % (21.2-54.2); Mean Corpuscular HGB Conc 32.6 GM/DL (32-36); Mean Corpuscular Hemoglobin 31 PG (27-34); Mean Corpuscular Volume 96.4 FL (87-102); Mean Platelet Volume 10.2 FL (9.6-12.0); Monocytes # 0.3 10*3/uL (0.11-0.8); Monocytes % 2.4 % (1.7-12.7); Neutrophils # 9.6 10*3/uL (1.4-7.4); Neutrophils % 94.1 % (38.7-73.9); Platelet Count 189 T/CUMM (130-400); Red Blood Count 3.31 MC/CUMM (3.8-5.5); Red Cell Distribution Width 15.7 % (9.3-17.3); White Blood Count 10.2 T/CUMM (4-12)
[2016-12-15 05:32] LABS: Alanine Aminotransferase 41 U/L (16-61); Alkaline Phosphatase 67 U/L (45-117); Aspartate Amino Transferase 15 U/L (0-37); Bilirubin,Total < 0.39 MG/DL (0.2-1.0); Blood Urea Nitrogen 33 MG/DL (7-18); Calcium 8.4 MG/DL (8.5-10.1); Glucose 146 MG/DL (74-106); Osmolality,Calculated 282.8 MOS/KG (273-304); Sodium 137 MMOL/L (136-145); Total Protein 5.7 G/DL (6.4-8.3)
[2016-12-15 06:08] LABS: Lymphocytes 4 % (20-55); Platelet Estimate Normal; Segmented Neutrophils 94 % (50-85); Total Cells Counted 100
--- NOTE | 2016-12-15 07:47 | Oncology Progress Note ---
Oncology Subjective PN Interval history: Patient with small cell carcinoma with prolonged hospitalization. Previously received chemotherapy. Treating for MRSA bacteremia. He is stable at this time. Respirations are even and nonlabored. Heart rhythm is regular. Creatinine remains unchanged at 0.7. Continuing present therapy. There were discussions for rehab placement. The patient also states that he will be starting radiotherapy as a next step in his cancer treatment Exam - Constitutional Vitals: Period Temp Pulse Resp BP Sys/Yanes Pulse Ox Last 24 Hr 96.4 F-98.0 F 74-92 18-22 124-171/64-76 96-99 Results - Labs CBC & BMP: 12/15/16 04:00 12/15/16 04:00 Specialty Discharge - Follow Up or Referrals Follow up with: Reuben Olivares MD [Physician] - 12/17/16 9:30 am
[2016-12-15] MEDS: PANTOPRAZOLE 40 MG TABLET PO SCH (09:05)
[2016-12-15] MEDS: FLUCONAZOLE 200 MG TABLET PO SCH (09:05)
[2016-12-15] MEDS: POTASSIUM CHLORIDE 10 MEQ TABLET PO SCH (09:05)
[2016-12-15] MEDS: cloNIDine 0.1 MG TABLET PO SCH ×2 (09:05→20:45)
[2016-12-15] MEDS: DEXT 5% NACL 0.45% KCL 40 MEQ 40 MEQ/1,000 ML BAG IV SCH (09:06)
[2016-12-15] MEDS: NYSTATIN 500,000 UNIT/5 ML UDCUP SWISH/SWAL SCH ×4 (09:06→20:46)
[2016-12-15] MEDS: MELOXICAM 7.5 MG TABLET PO SCH (09:06)
[2016-12-15] MEDS: MONTELUKAST 10 MG TABLET PO SCH (09:06)
[2016-12-15] MEDS: BACLOFEN 10 MG TABLET PO SCH ×3 (09:06→20:44)
[2016-12-15] MEDS: methylPREDNISolone SOD SUC 40 MG/1 ML VIAL IV SCH ×2 (09:06→20:46)
[2016-12-15] MEDS: amLODIPine 10 MG TABLET PO SCH (09:06)
[2016-12-15] MEDS: acetaZOLAMIDE 250 MG TABLET PO SCH ×2 (09:06→20:45)
[2016-12-15] MEDS: GABAPENTIN 400 MG CAPSULE PO SCH ×3 (09:06→20:45)
[2016-12-15] MEDS: VENLAFAXINE 75 MG TABLET PO SCH ×2 (09:06→20:44)
[2016-12-15] MEDS: MUPIROCIN 2% OINT 22 GM TUBE TOP SCH ×2 (09:07→20:50)
[2016-12-15] MEDS: CHLORHEXIDINE 4% SOLN 118 ML BOTTLE TOP SCH (09:07)
[2016-12-15] MEDS: VANCOMYCIN INJ 1,000 MG in SODIUM CHLORIDE 0.9% 250 ML IV SCH ×2 (10:49→22:10)
[2016-12-15] MEDS: ENOXAPARIN 40 MG/0.4 ML SYRINGE SUBCUT SCH (12:38)
[2016-12-15] MEDS: clonazePAM 0.5 MG TABLET PO SCH (20:45)
[2016-12-15] MEDS: MIRTAZAPINE 30 MG TABLET PO SCH (20:45)
[2016-12-16] MEDS: METHADONE 10 MG TABLET PO SCH ×4 (01:01→17:42)
[2016-12-16] MEDS: ALBUTEROL/IPRATROPIUM 3 ML NEB RESP TX SCH ×5 (02:00→23:57)
[2016-12-16 05:43] LABS: Hematocrit 31.4 VOL% (42.0-52.0); Hemoglobin 10.4 GM/DL (14.0-18.0); Immature Granulocytes % 0.8 %; Immature Granulocytes Absolute 0.05 #; Lymphocytes # 0.2 10*3/uL (1.4-4.0); Mean Corpuscular HGB Conc 33.1 GM/DL (32-36); Mean Corpuscular Hemoglobin 32 PG (27-34); Mean Corpuscular Volume 96.3 FL (87-102); Mean Platelet Volume 9.8 FL (9.6-12.0); Monocytes # 0.2 10*3/uL (0.11-0.8); Monocytes % 3.6 % (1.7-12.7); Neutrophils # 5.6 10*3/uL (1.4-7.4); Neutrophils % 92.6 % (38.7-73.9); Platelet Count 180 T/CUMM (130-400); Red Blood Count 3.26 MC/CUMM (3.8-5.5); Red Cell Distribution Width 15.9 % (9.3-17.3)
[2016-12-16 06:28] LABS: Albumin 2.9 G/DL (3.4-5.0); Calcium 8.3 MG/DL (8.5-10.1); Osmolality,Calculated 287.5 MOS/KG (273-304); Total Protein 5.7 G/DL (6.4-8.3)
[2016-12-16 06:30] LABS: Anisocytosis 1+; Lymphocytes 7 % (20-55); Myelocytes 1 %; Platelet Estimate Normal; Segmented Neutrophils 91 % (50-85); Total Cells Counted 100
[2016-12-16] MEDS: VENLAFAXINE 75 MG TABLET PO SCH ×2 (09:57→20:54)
[2016-12-16] MEDS: NYSTATIN 500,000 UNIT/5 ML UDCUP SWISH/SWAL SCH ×4 (09:57→20:55)
[2016-12-16] MEDS: methylPREDNISolone SOD SUC 40 MG/1 ML VIAL IV SCH ×2 (09:57→20:55)
[2016-12-16] MEDS: acetaZOLAMIDE 250 MG TABLET PO SCH ×2 (09:57→20:54)
[2016-12-16] MEDS: MELOXICAM 7.5 MG TABLET PO SCH (09:57)
[2016-12-16] MEDS: amLODIPine 10 MG TABLET PO SCH (09:57)
[2016-12-16] MEDS: FLUCONAZOLE 200 MG TABLET PO SCH (09:57)
[2016-12-16] MEDS: cloNIDine 0.1 MG TABLET PO SCH ×2 (09:58→20:54)
[2016-12-16] MEDS: GABAPENTIN 400 MG CAPSULE PO SCH ×3 (09:58→20:54)
[2016-12-16] MEDS: MUPIROCIN 2% OINT 22 GM TUBE TOP SCH ×2 (09:58→21:01)
[2016-12-16] MEDS: PANTOPRAZOLE 40 MG TABLET PO SCH (09:58)
[2016-12-16] MEDS: MONTELUKAST 10 MG TABLET PO SCH (09:58)
[2016-12-16] MEDS: BACLOFEN 10 MG TABLET PO SCH ×3 (09:58→20:54)
[2016-12-16] MEDS: POTASSIUM CHLORIDE 10 MEQ TABLET PO SCH (09:58)
[2016-12-16] MEDS: CHLORHEXIDINE 4% SOLN 118 ML BOTTLE TOP SCH (09:59)
[2016-12-16] MEDS: VANCOMYCIN INJ 1,000 MG in SODIUM CHLORIDE 0.9% 250 ML IV SCH ×2 (10:02→21:59)
--- NOTE | 2016-12-16 10:18 | Oncology Progress Note ---
Oncology Subjective PN Interval history: Patient with small cell lung cancer with extended hospitalization remaining on antibiotics. He is stable this morning. Right eye prosthesis in place. Lungs are clear on posterior bilateral auscultation without wheezes or crackles. Creatinine remaining stable at 0.8 Exam - Constitutional Vitals: Period Temp Pulse Resp BP Sys/Yanes Pulse Ox Last 24 Hr 96.0 F-97.3 F 71-88 8-20 132-162/63-81 96-99 Results - Labs CBC & BMP: 12/16/16 04:40 12/16/16 04:40 Specialty Discharge - Follow Up or Referrals Follow up with: Reuben Olivares MD [Physician] - 12/17/16 9:30 am
[2016-12-16] MEDS: ENOXAPARIN 40 MG/0.4 ML SYRINGE SUBCUT SCH (14:20)
[2016-12-16] MEDS: DEXT 5% NACL 0.45% KCL 40 MEQ 40 MEQ/1,000 ML BAG IV SCH (17:44)
[2016-12-16] MEDS: clonazePAM 0.5 MG TABLET PO SCH (20:54)
[2016-12-16] MEDS: MIRTAZAPINE 30 MG TABLET PO SCH (20:54)
[2016-12-17] MEDS: METHADONE 10 MG TABLET PO SCH ×6 (01:02→23:49)
[2016-12-17 06:16] LABS: Hematocrit 31.1 VOL% (42.0-52.0); Hemoglobin 10.3 GM/DL (14.0-18.0); Immature Granulocytes % 0.6 %; Immature Granulocytes Absolute 0.03 #; Lymphocytes # 0.2 10*3/uL (1.4-4.0); Lymphocytes % 3.7 % (21.2-54.2); Mean Corpuscular HGB Conc 33.1 GM/DL (32-36); Mean Corpuscular Hemoglobin 32 PG (27-34); Mean Corpuscular Volume 96.3 FL (87-102); Monocytes # 0.2 10*3/uL (0.11-0.8); Monocytes % 3.4 % (1.7-12.7); Neutrophils # 4.9 10*3/uL (1.4-7.4); Neutrophils % 92.3 % (38.7-73.9); Platelet Count 158 T/CUMM (130-400); Red Blood Count 3.23 MC/CUMM (3.8-5.5); Red Cell Distribution Width 15.9 % (9.3-17.3); White Blood Count 5.3 T/CUMM (4-12)
[2016-12-17 06:42] LABS: Albumin 2.9 G/DL (3.4-5.0); Bilirubin,Total 0.4 MG/DL (0.2-1.0); Calcium 8.3 MG/DL (8.5-10.1); Osmolality,Calculated 287.4 MOS/KG (273-304); Potassium 3.7 MMOL/L (3.5-5.1); Total Protein 5.7 G/DL (6.4-8.3)
[2016-12-17 06:48] LABS: Hypochromasia 1+; Lymphocytes 3 % (20-55); Platelet Estimate Adequate; Segmented Neutrophils 94 % (50-85); Total Cells Counted 100
[2016-12-17] MEDS: ALBUTEROL/IPRATROPIUM 3 ML NEB RESP TX SCH ×3 (07:01→19:11)
--- NOTE | 2016-12-17 07:49 | Oncology Progress Note ---
Oncology Subjective PN Interval history: MRSA sepsis: This patient was admitted with MRSA sepsis and cellulitis of the chin. He has small cell carcinoma of the lung that has achieved a complete remission using etoposide and carboplatin. I question how good his hygiene is because he has not demonstrated good hygiene to the nurses or to me. He probably needs decolonization. Infection control has been consulted. We are monitoring vancomycin toxicity. He is on it for MRSA sepsis. We are also continuing decolonization of the patient. His fever went to 102.9 on the evening of November 24. He is currently afebrile. We are also in the process of decolonizing him for MRSA. He has been on vancomycin since November 25, 2016. I anticipate continuing IV for approximately 4 weeks since this is his second episode. I anticipate discharge this if all goes well. MRSA sepsis is the main reason that he is continuing to be hospitalized. We were considering a swing bed but his strength is improving and he thinks he can manage at home and continue radiation from there. Klebsiella upper respiratory infection, not multidrug resistant: Fortaz has been discontinued. 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 He received his third course of this combination on November 13 - November 15. The plan is to continue for 4 courses and then refer him for consideration for radiation therapy. His next dose of chemotherapy will be due December 11. I had initially planned to give 4 courses and then refer him for radiation. Radiation therapy is in progress. This is the other reason he remains hospitalized here. None of the LTAC's will take a patient who is known radiation therapy and receiving IV antibiotics. He is tolerating radiation therapy surprisingly well. He has some slight tongue soreness but no odynophagia or dysphagia. Monitoring for toxicity of antibiotics:Serum creatinine today is normal at 0.6. Anemia of chronic disease: Hemoglobin 10.3. Leukopenia: Has resolved. White cells 5300. platelets 158,000. General examination: He appears chronically ill but in no acute distress. Eyes: Has an artificial right eye. His left eye demonstrates normal lids and conjunctivae. ENT: His oral mucosa and pharynx are normal. His trachea is midline. His hearing is normal. Respiratory: His respirations are unlabored. Neurologic: He demonstrates no focal neurologic deficits. Psychiatric: He is oriented to time, place, person and situation. We will continue radiation therapy and continue IV vancomycin for treatment of MRSA. We are also monitoring for vancomycin toxicity. Exam - Constitutional Vitals: Period Temp Pulse Resp BP Sys/Yanes Pulse Ox Last 24 Hr 96.6 F-97.7 F 78-125 10-20 106-162/51-75 93-98 Results - Labs CBC & BMP: 12/17/16 04:49 12/17/16 04:49 Specialty Discharge - Follow Up or Referrals Follow up with: Reuben Olivares MD [Physician] - 12/17/16 9:30 am
[2016-12-17] MEDS: FLUCONAZOLE 200 MG TABLET PO SCH (10:02)
[2016-12-17] MEDS: GABAPENTIN 400 MG CAPSULE PO SCH ×3 (10:03→20:34)
[2016-12-17] MEDS: POTASSIUM CHLORIDE 10 MEQ TABLET PO SCH (10:03)
[2016-12-17] MEDS: BACLOFEN 10 MG TABLET PO SCH ×3 (10:03→20:35)
[2016-12-17] MEDS: MELOXICAM 7.5 MG TABLET PO SCH (10:03)
[2016-12-17] MEDS: PANTOPRAZOLE 40 MG TABLET PO SCH (10:03)
[2016-12-17] MEDS: acetaZOLAMIDE 250 MG TABLET PO SCH ×2 (10:03→20:34)
[2016-12-17] MEDS: VENLAFAXINE 75 MG TABLET PO SCH ×2 (10:03→20:34)
[2016-12-17] MEDS: amLODIPine 10 MG TABLET PO SCH (10:04)
[2016-12-17] MEDS: MONTELUKAST 10 MG TABLET PO SCH (10:04)
[2016-12-17] MEDS: cloNIDine 0.1 MG TABLET PO SCH ×2 (10:05→20:35)
[2016-12-17] MEDS: NYSTATIN 500,000 UNIT/5 ML UDCUP SWISH/SWAL SCH (10:05)
[2016-12-17] MEDS: methylPREDNISolone SOD SUC 40 MG/1 ML VIAL IV SCH ×2 (10:07→20:37)
[2016-12-17] MEDS: VANCOMYCIN INJ 1,000 MG in SODIUM CHLORIDE 0.9% 250 ML IV SCH ×2 (10:07→22:02)
[2016-12-17] MEDS: MUPIROCIN 2% OINT 22 GM TUBE TOP SCH ×2 (10:08→20:39)
[2016-12-17] MEDS: DEXT 5% NACL 0.45% KCL 40 MEQ 40 MEQ/1,000 ML BAG IV SCH (10:08)
[2016-12-17] MEDS: CHLORHEXIDINE 4% SOLN 118 ML BOTTLE TOP SCH (10:08)
[2016-12-17] MEDS: ENOXAPARIN 40 MG/0.4 ML SYRINGE SUBCUT SCH (16:54)
[2016-12-17] MEDS: MIRTAZAPINE 30 MG TABLET PO SCH (20:34)
[2016-12-18] MEDS: ALBUTEROL/IPRATROPIUM 3 ML NEB RESP TX SCH ×4 (00:57→20:23)
[2016-12-18] MEDS: METHADONE 10 MG TABLET PO SCH ×3 (06:19→20:32)
--- NOTE | 2016-12-18 07:43 | Oncology Progress Note ---
Oncology Subjective PN Interval history: MRSA sepsis: This patient was admitted with MRSA sepsis and cellulitis of the chin. He has small cell carcinoma of the lung that has achieved a complete remission using etoposide and carboplatin. I question how good his hygiene is because he has not demonstrated good hygiene to the nurses or to me. He probably needs decolonization. Infection control has been consulted. We are monitoring vancomycin toxicity. He is on it for MRSA sepsis. We are also continuing decolonization of the patient. At this point I plan to continue antibiotics through until this coming Saturday at which time I will discharge him if all goes well. Klebsiella upper respiratory infection, not multidrug resistant: Fortaz has been discontinued. 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 He received his third course of this combination on November 13 - November 15. He achieved complete remission and I have made the decision not to proceed with his fourth course of chemotherapy, instead, proceeding with radiation therapy which she is currently receiving. He is tolerating radiation therapy well. He has had no mouth or throat irritation. He has had no dysphagia or odynophagia. Monitoring for toxicity of antibiotics:Serum creatinine today is normal at 0.6. Anemia of chronic disease: Hemoglobin 10.3 yesterday. Leukopenia: Has resolved. White cells 5300 yesterday. platelets 158,000 yesterday. Exam - Constitutional Vitals: Period Temp Pulse Resp BP Sys/Yanes Pulse Ox Last 24 Hr 96.0 F-97.3 F 65-91 12-20 135-167/65-81 94-100 Results - Labs CBC & BMP: 12/17/16 04:49 12/18/16 04:50 Specialty Discharge - Follow Up or Referrals Follow up with: Reuben Olivares MD [Physician] - 12/17/16 9:30 am
[2016-12-18] MEDS: acetaZOLAMIDE 250 MG TABLET PO SCH ×2 (08:57→20:32)
[2016-12-18] MEDS: cloNIDine 0.1 MG TABLET PO SCH ×2 (08:59→20:33)
[2016-12-18] MEDS: predniSONE 20 MG TABLET PO SCH ×2 (08:59→20:32)
[2016-12-18] MEDS: BACLOFEN 10 MG TABLET PO SCH ×3 (08:59→20:32)
[2016-12-18] MEDS: MELOXICAM 7.5 MG TABLET PO SCH (08:59)
[2016-12-18] MEDS: FLUCONAZOLE 200 MG TABLET PO SCH (08:59)
[2016-12-18] MEDS: MONTELUKAST 10 MG TABLET PO SCH (08:59)
[2016-12-18] MEDS: GABAPENTIN 400 MG CAPSULE PO SCH ×3 (08:59→20:31)
[2016-12-18] MEDS: VENLAFAXINE 75 MG TABLET PO SCH ×2 (08:59→20:32)
[2016-12-18] MEDS: amLODIPine 10 MG TABLET PO SCH (08:59)
[2016-12-18] MEDS: POTASSIUM CHLORIDE 10 MEQ TABLET PO SCH (09:00)
[2016-12-18] MEDS: PANTOPRAZOLE 40 MG TABLET PO SCH (09:00)
[2016-12-18] MEDS: MUPIROCIN 2% OINT 22 GM TUBE TOP SCH ×2 (09:02→20:38)
[2016-12-18] MEDS: VANCOMYCIN INJ 1,000 MG in SODIUM CHLORIDE 0.9% 250 ML IV SCH ×2 (09:02→23:12)
[2016-12-18] MEDS: CHLORHEXIDINE 4% SOLN 118 ML BOTTLE TOP SCH (09:02)
--- NOTE | 2016-12-18 12:00 | Pulmonology Progress Note ---
Pulmonary - PN: Subj Interval history: Guicho Wang, [facility]-, acting as scribe for Dr. Tristen Bailey This is a 71-year-old white male who we saw in pulmonary consultation on 2016. At that time, our impressions were: #1: Acute cellulitis of the chin secondary to MRSA #2: Sepsis secondary to MRSA #3: Neuroendocrine carcinoma of the lung, small cell, high-grade from right hilar mass biopsy done 09/13/2016. Note, Dr. Shetty states this is in remission. #4: COPD #5: Long history of tobacco abuse. Note, the patient stopped smoking sometime between 2009 and 2011. #6: Chronic pain. Under the care of Dr. Serrano. #7: Degenerative joint disease #8: Anemia #9: Thrombocytopenia #10: Pulmonary hypertension as noted on echocardiogram 11/25/2016. Pulmonary artery pressure 42 mmHg. #11: Possible early right upper lung infiltrate #12: See past history 11/28/2016. This morning the patient had hypoxemia and increased shortness of breath. His chest x-ray showed acute pulmonary edema. He was given 40 of Lasix IV push in the digits improved significantly. Doppler venograms were done and these showed no evidence of deep venous thrombophlebitis. Patient has recently had pulmonary arteriograms and these were negative. He has chronic hypoxemia and uses oxygen at home. His EKG shows no acute changes. Nitrated peptide was 190. Electrolytes are normal. Creatinine is 0.5 with a BUN of 7. H&H is 10.2/30.6 white count is 2200 and platelet count is 60,000. Total protein and albumin are low at 5.8 and 2.6 respectively. 11/29/2016. Today's chest x-ray shows cardiomegaly. Central vascular fullness. Patient has developed a generalized alveolar filling picture with associated interstitial edema. With his recent methicillin-resistant staph aureus sepsis I think we have to assume that this is adult respiratory distress syndrome. I have started the patient on Solu-Medrol. Will watch his status closely and if he deteriorates, he may end Up on mechanical ventilation. ABGs today on FiO2 of 50% show pH is 7.344, PCO2 of 56.5, PO2 of 58.6 and a bicarb of 27.7. I am going to start this patient on Diamox 250 IV push every morning. First dose today. Potassium is 3.4 and I will start KCl 10 mEq daily in addition to the 20 mEq per day he is already on. LDH is elevated 351. Alkaline Carla is elevated at 126. Natruretic peptide is 149. White count is improved to 4600. H&H is stable at 10.4/30.9 and platelets are improved to 98,000.. 11/30/2016. This is a 71-year-old white male who has a neuroendocrine lung carcinoma which is an admission. He has cellulitis of his chin and he was admitted with septicemia secondary to methicillin-resistant staph. He has underlying COPD with chronic hypoxemia mild hypercarbia. His chest x-ray after a few days showed a 5 lobe alveolar infiltrate with increased interstitial markings. He had a minor elevation of his BNP. This was adult respiratory distress syndrome secondary to his sepsis. On 11/29/2016 I started him on high- dose steroids. His chest x-ray is markedly better today but not resolved. We will continue to follow this on a daily basis. His ABGs on FiO2 of 50% shows a pH of 7.33, PCO2 54.6, PO2 of 57.4 and a bicarb of 26.1. I am going to decrease the patient's FiO2 to 2 L/min we will repeat his blood gases. I suspect that he will only breathe to keep his PO2 is in the mid to high 50s. He is on Diamox which was begun on 11/29/2016. Potassium is dropped to 3.0 and this will be replaced. Creatinine is 0.6 with a BUN of 15. White count has risen from 2000 112,700. H&H is 10.9/32.8 and platelets of increased 218,000. Plan is to follow daily lab, ABGs and chest x-ray. Continue high-dose steroids. If the patient deteriorates he should be intubated and put on mechanical ventilation with PEEP and pressure support and treated as respiratory failure secondary to adult respiratory distress syndrome. 12/03/2016. This patient recently had adult respiratory distress syndrome secondary to methicillin-resistant staph aureus sepsis. As soon as this was recognized he was treated aggressively with high-dose steroids and today's chest x-ray is remarkably better. We will continue the steroids for another day and will begin a gradual taper. Patient says his breathing is much better and he feels much better. ABGs have improved significantly. On FiO2 28% pH is 7.37, PCO2 is 37.4, PO2 is 76.3 and bicarb is 21.8. Electrolytes are normal. Creatinine is 0.7. White blood cell count is 24,900. H&H 11.2/33.9 and platelets are 191,000 12/04/2016. Today's chest x-ray is stable. There is a subtle increase in interstitial markings in all 5 lobes and there are scattered areas of alveolar filling. For all practical purposes the picture of adult respiratory distress syndrome has resolved. I will decrease the patient's Solu-Medrol today. We need to keep in mind that patients alveoli will be susceptible to leakage in the near future secondary to his sepsis injury. Labs been reviewed. Medicines have been reviewed. Patient is stable and has no new complete 12/05/2016. Today's x-ray is amazingly better. There is no residual evidence of adult respiratory distress syndrome. There are some areas of interstitial scarring in both lower lung thomas. Over time on an FiO2 of 28% p.o. to his gradually increased from 57.4-107.0. Electrolytes are normal. CBC is stable. White count is 19,100. Previous blood cultures and wound cultures were positive for methicillin-resistant staph aureus. Sepsis was the etiology of adult respiratory distress syndrome. Patient says his breathing is much better. Tomorrow will try to decrease his steroids again. Keep in mind that will probably take a month for his alveolar capillary membranes to heal. 12/06/2016. Chest x-ray is stable and ABGs are in an acceptable range. Patient continues to improve from a pulmonary standpoint. I have decreased his steroids again today. He has no new complaints. I have made no other changes in his regimen. 12/07/16. The patient's throat culture is growing a gram negative shana. Final ID is pending. This was discussed with Dr. Hamm and we have coordinated our care. We will start Fortaz one gram Q8H. Case management is working on swing bed placement. Overall, he is markedly improved since admission. We will repeat a CXR on Saturday. He is nicely recovering from ARDS. 12/10/2016. The patient was seen today along with Leola Carballo. Mr. Gabriel 's chest x-ray was reviewed and his previously noted infiltrates have now resolved. We agree with Dr. Hamm's plans of long-term antibiotic therapy secondary to his recurrent cellulitis. Case management is working on LTAC placement. Several days ago the patient complained of throat pain. Culture has grown Klebsiella pneumoniae. The onset of his symptoms we started Fortaz this is an SAIGE of less than 1 to the Klebsiella. This will be continued. From a pulmonary standpoint the patient continues to do well. He has no increased shortness of breath at this time. Medications have been reviewed. We made no changes today. Labs have been reviewed. White count is 11,400 with 85.8% segs. H&H 11.8/35.1 ; platelet count 235,000; creatinine 0.70, BUN 26, electrolytes are normal 12/11/2016. Mr. Gabriel continues to do well from a pulmonary standpoint. He is continuing with IV Fortaz for the previously noted Klebsiella pneumoniae from his throat culture. He is continuing on vancomycin for his MRSA sepsis as per Dr. Hamm. Please see his note for more information. We wholeheartedly agree with his plans. We are having trouble with LTAC placement as he has noted. Medications have been reviewed. We made no changes today. Labs been reviewed. White count is 12,000 with 87.8% segs; H&H 11.6/35.1; platelet count 239,000; creatinine 0.70, BUN 31; electrolytes normal; liver function tests within normal limits; LDH 232; calcium 8.6, albumin 2.9, total protein 6.0 12/12/2016. Patient's chest x-ray from 12/10/2016 look fine. Adult respiratory distress syndrome has resolved. Patient is being treated for Klebsiella infection of the throat as well as methicillin-resistant staph aureus cellulitis of the chin with associated sepsis and adult respiratory distress syndrome. White count is dropped to 10,800 with 88 segs. H&H 11.7/34.9. Platelets are 224,000. Electrolytes are normal. Creatinine is 0.70 with a BUN of 28. Most recent liver function tests are normal. Protein and albumin are low at 6.0 and 2.8. Globulin is 3.2. Patient continues to improve. He requires continuation of his antibiotic therapy. See Dr. Hamm's note. 12/13/2016. On 12/12/2016 the patient complained of a burning tongue. His tongue was coated white looked like early oral candidiasis. He was started on medicines and today he says this is cleared up. The patient has had a gram- negative infection from his throat. He is been on Fortaz for this. We will reculture his stroke but I suspect we will be able to stop his Fortaz soon. He continues on treatment for methicillin-resistant staph aureus sepsis. From a pulmonary standpoint this patient continues to improve. Lab was reviewed today and everything is stable. Also medicines have been reviewed. 12/14/2016. Mr. Gabriel continues to do well from a pulmonary standpoint. Throat culture is pending. Once we have a negative report, we will discontinue his IV Fortaz. Throat culture previously grew Klebsiella pneumoniae. We spoke with his correctional case manager today and it is our understanding that plans are for him to continue IV vancomycin until Saturday of next week and at that time he will be discharged home. He is recovering nicely from his previous ARDS. His MRSA cellulitis/bacteremia is also resolving quite well. He has oral candidiasis and he is receiving nystatin and Diflucan for this. Medications have been reviewed. We made no changes today. Labs been reviewed. White count is 7000 with 90.0% segs; H&H 11.2/33.8; platelet count 193,000; creatinine 0.70, BUN 32, electrolytes are normal; calcium 8.5, albumin 2.9, total protein 6.0; liver function tests within normal limits 12/18/2016. The patient was seen today along with Shantel Martinez RN. Patient's most recent throat culture was negative. His Fortaz was discontinued. He denies any current throat discomfort. He continues with IV vancomycin as per Dr. Hamm. Plans are to continue it until 12/21/2016. At that time, the patient will be discharged home. He is doing well from a pulmonary/medical standpoint. He denies any increased shortness of breath, dyspnea on exertion, or cough. He will continue on radiation therapy as per Dr. Hamm and Dr. Iam Olivares. Medications have been reviewed. We made no changes today. Labs been reviewed. Creatinine 0.60 Exam (Progress Note) - Constitutional Vitals: Period Temp Pulse Resp BP Sys/Yanes Pulse Ox Last 24 Hr 96.0 F-97.3 F 65-91 14-20 135-167/65-81 94-100 Exam: Chest is hyperinflated with prolonged expiration; no appreciable wheeze Heart with a slightly lateral PMI Abd is nontender and nondistended; bowel sounds are positive x 4 Ext with nothing to suggest acute DVT Psych oriented x 3 Neuro unchanged Plan: He is stable from a pulmonary standpoint. Agree with Dr. Hamm's plans. We will sign off. Please reconsult as needed Results - Labs CBC & BMP: 12/17/16 04:49 12/18/16 04:50 Specialty Discharge - Follow Up or Referrals Follow up with: Reuben Olivares MD [Physician] - 12/17/16 9:30 am
[2016-12-18] MEDS: DEXT 5% NACL 0.45% KCL 40 MEQ 40 MEQ/1,000 ML BAG IV SCH (15:36)
[2016-12-18] MEDS: ENOXAPARIN 40 MG/0.4 ML SYRINGE SUBCUT SCH (15:36)
[2016-12-18] MEDS: MIRTAZAPINE 30 MG TABLET PO SCH (20:33)
[2016-12-19] MEDS: ALBUTEROL/IPRATROPIUM 3 ML NEB RESP TX SCH ×4 (01:01→19:18)
[2016-12-19] MEDS: METHADONE 10 MG TABLET PO SCH ×4 (04:45→20:42)
--- NOTE | 2016-12-19 08:32 | Oncology Progress Note ---
Oncology Subjective PN Interval history: MRSA sepsis: This patient was admitted with MRSA sepsis and cellulitis of the chin. He has small cell carcinoma of the lung that has achieved a complete remission using etoposide and carboplatin. I question how good his hygiene is because he has not demonstrated good hygiene to the nurses or to me. He probably needs decolonization. Infection control has been consulted. We are monitoring vancomycin toxicity. He is on it for MRSA sepsis. We are also continuing decolonization of the patient. At this point I plan to continue antibiotics through until this coming Saturday at which time I will discharge him if all goes well. Klebsiella upper respiratory infection, not multidrug resistant: Fortaz has been discontinued. 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 He received his third course of this combination on November 13 - November 15. He achieved complete remission and I have made the decision not to proceed with his fourth course of chemotherapy, instead, proceeding with radiation therapy which she is currently receiving. He is tolerating radiation therapy well. He has had no mouth or throat irritation. He has had no dysphagia or odynophagia. Monitoring for toxicity of antibiotics:Serum creatinine today is normal at 0.7. Anemia of chronic disease: Hemoglobin 10.3 2 days ago. We will recheck tomorrow.. Leukopenia: Has resolved. White cells 5300 2 days ago. We will recheck tomorrow.. He is doing well today. He has had no dysphagia or mouth or throat soreness. He has had no significant dyspnea. He is continuing physical therapy. Physical examination: General: He appears chronically ill but in no acute distress. Oral mucosa and the remainder of ENT exam is normal. Lungs: Coarse breath sounds throughout with a few scattered rhonchi but no rales. Breath sounds are coarse. Cardiovascular: His heart rhythm is regular without murmur, gallop or rub. No jugular venous distention, clubbing or cyanosis. Neurologic: Cranial nerves II through XII are intact. No focal neurologic deficits. Exam - Constitutional Vitals: Period Temp Pulse Resp BP Sys/Yanes Pulse Ox Last 24 Hr 96.3 F-97.2 F 76-97 14-20 114-154/68-75 96-99 Results - Labs CBC & BMP: 12/17/16 04:49 12/19/16 04:40 Specialty Discharge - Follow Up or Referrals Follow up with: Reuben Olivares MD [Physician] - 12/17/16 9:30 am
[2016-12-19] MEDS: VENLAFAXINE 75 MG TABLET PO SCH ×2 (09:10→20:43)
[2016-12-19] MEDS: POTASSIUM CHLORIDE 10 MEQ TABLET PO SCH (09:10)
[2016-12-19] MEDS: GABAPENTIN 400 MG CAPSULE PO SCH ×3 (09:11→20:42)
[2016-12-19] MEDS: MELOXICAM 7.5 MG TABLET PO SCH (09:11)
[2016-12-19] MEDS: acetaZOLAMIDE 250 MG TABLET PO SCH ×2 (09:11→20:43)
[2016-12-19] MEDS: MONTELUKAST 10 MG TABLET PO SCH (09:11)
[2016-12-19] MEDS: BACLOFEN 10 MG TABLET PO SCH ×3 (09:12→20:42)
[2016-12-19] MEDS: amLODIPine 10 MG TABLET PO SCH (09:12)
[2016-12-19] MEDS: cloNIDine 0.1 MG TABLET PO SCH ×2 (09:12→20:43)
[2016-12-19] MEDS: FLUCONAZOLE 200 MG TABLET PO SCH (09:12)
[2016-12-19] MEDS: predniSONE 20 MG TABLET PO SCH ×2 (09:12→20:42)
[2016-12-19] MEDS: CHLORHEXIDINE 4% SOLN 118 ML BOTTLE TOP SCH (09:12)
[2016-12-19] MEDS: MUPIROCIN 2% OINT 22 GM TUBE TOP SCH ×2 (09:12→20:47)
[2016-12-19] MEDS: PANTOPRAZOLE 40 MG TABLET PO SCH (09:12)
[2016-12-19] MEDS: VANCOMYCIN INJ 1,000 MG in SODIUM CHLORIDE 0.9% 250 ML IV SCH ×2 (11:27→22:22)
[2016-12-19] MEDS: ENOXAPARIN 40 MG/0.4 ML SYRINGE SUBCUT SCH (13:48)
[2016-12-19] MEDS: DEXT 5% NACL 0.45% KCL 40 MEQ 40 MEQ/1,000 ML BAG IV SCH (14:02)
[2016-12-19] MEDS: MIRTAZAPINE 30 MG TABLET PO SCH (20:43)
[2016-12-20] MEDS: ALBUTEROL/IPRATROPIUM 3 ML NEB RESP TX SCH ×4 (00:21→19:59)
[2016-12-20] MEDS: METHADONE 10 MG TABLET PO SCH ×4 (03:12→20:41)
[2016-12-20 04:27] LABS: Eosinophils % 0.4 % (0.00-10.9); Hematocrit 31.3 VOL% (42.0-52.0); Hemoglobin 10.5 GM/DL (14.0-18.0); Immature Granulocytes % 0.6 %; Immature Granulocytes Absolute 0.03 #; Lymphocytes # 0.3 10*3/uL (1.4-4.0); Lymphocytes % 5.5 % (21.2-54.2); Mean Corpuscular HGB Conc 33.5 GM/DL (32-36); Mean Corpuscular Hemoglobin 32 PG (27-34); Mean Corpuscular Volume 94.8 FL (87-102); Monocytes # 0.2 10*3/uL (0.11-0.8); Monocytes % 3.6 % (1.7-12.7); Neutrophils # 4.8 10*3/uL (1.4-7.4); Neutrophils % 89.9 % (38.7-73.9); Platelet Count 107 T/CUMM (130-400); Red Cell Distribution Width 16.5 % (9.3-17.3); White Blood Count 5.3 T/CUMM (4-12)
[2016-12-20 04:54] LABS: Albumin 2.8 G/DL (3.4-5.0); Bilirubin,Total 0.6 MG/DL (0.2-1.0); Osmolality,Calculated 284.4 MOS/KG (273-304); Potassium 3.7 MMOL/L (3.5-5.1); Total Protein 5.6 G/DL (6.4-8.3)
--- NOTE | 2016-12-20 08:03 | Oncology Progress Note ---
Oncology Subjective PN Interval history: MRSA sepsis: This patient was admitted with MRSA sepsis and cellulitis of the chin. He has small cell carcinoma of the lung that has achieved a complete remission using etoposide and carboplatin. I question how good his hygiene is because he has not demonstrated good hygiene to the nurses or to me. He probably needs decolonization. Infection control has been consulted. We are monitoring vancomycin toxicity. He is on it for MRSA sepsis. We are also continuing decolonization of the patient. At this point I plan to continue antibiotics through until this coming Saturday at which time I will discharge him if all goes well. Klebsiella upper respiratory infection, not multidrug resistant: Fortaz has been discontinued. 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 He received his third course of this combination on November 13 - November 15. He achieved complete remission and I have made the decision not to proceed with his fourth course of chemotherapy, instead, proceeding with radiation therapy which she is currently receiving. He is tolerating radiation therapy well. He has had no mouth or throat irritation. He has had no dysphagia or odynophagia. His appetite is good. He is getting stronger and he is prepared to be discharged home. Monitoring for toxicity of antibiotics:Serum creatinine today is normal at 0.6. Anemia of chronic disease: Hemoglobin 10.5 today. Leukopenia: Has resolved. White cells 5300 today. Thrombocytopenia:Platelet count 107,000 Exam - Constitutional Vitals: Period Temp Pulse Resp BP Sys/Yanes Pulse Ox Last 24 Hr 96.5 F-97 F 77-93 14-20 135-150/62-76 94-98 Results - Labs CBC & BMP: 12/20/16 04:00 12/20/16 04:00 Specialty Discharge - Follow Up or Referrals Follow up with: Reuben Olivares MD [Physician] - 12/17/16 9:30 am
[2016-12-20] MEDS: cloNIDine 0.1 MG TABLET PO SCH ×2 (09:00→20:42)
[2016-12-20] MEDS: MONTELUKAST 10 MG TABLET PO SCH (09:00)
[2016-12-20] MEDS: predniSONE 20 MG TABLET PO SCH ×2 (09:00→20:42)
[2016-12-20] MEDS: POTASSIUM CHLORIDE 10 MEQ TABLET PO SCH (09:00)
[2016-12-20] MEDS: acetaZOLAMIDE 250 MG TABLET PO SCH ×2 (09:01→20:41)
[2016-12-20] MEDS: CHLORHEXIDINE 4% SOLN 118 ML BOTTLE TOP SCH (09:01)
[2016-12-20] MEDS: MELOXICAM 7.5 MG TABLET PO SCH (09:01)
[2016-12-20] MEDS: PANTOPRAZOLE 40 MG TABLET PO SCH (09:01)
[2016-12-20] MEDS: VENLAFAXINE 75 MG TABLET PO SCH ×2 (09:01→20:40)
[2016-12-20] MEDS: amLODIPine 10 MG TABLET PO SCH (09:01)
[2016-12-20] MEDS: MUPIROCIN 2% OINT 22 GM TUBE TOP SCH ×2 (09:01→20:43)
[2016-12-20] MEDS: GABAPENTIN 400 MG CAPSULE PO SCH ×3 (09:01→20:41)
[2016-12-20] MEDS: BACLOFEN 10 MG TABLET PO SCH ×3 (09:01→20:40)
[2016-12-20] MEDS: VANCOMYCIN INJ 1,000 MG in SODIUM CHLORIDE 0.9% 250 ML IV SCH ×2 (10:22→21:40)
[2016-12-20] MEDS: ENOXAPARIN 40 MG/0.4 ML SYRINGE SUBCUT SCH (13:03)
[2016-12-20] MEDS: DEXT 5% NACL 0.45% KCL 40 MEQ 40 MEQ/1,000 ML BAG IV SCH (15:27)
[2016-12-20] MEDS: MIRTAZAPINE 30 MG TABLET PO SCH (20:41)
[2016-12-21] MEDS: ALBUTEROL/IPRATROPIUM 3 ML NEB RESP TX SCH ×2 (00:53→08:00)
[2016-12-21] MEDS: METHADONE 10 MG TABLET PO SCH ×2 (02:52→08:19)
[2016-12-21 07:53] VITALS: BP 150/70
[2016-12-21] MEDS: VENLAFAXINE 75 MG TABLET PO SCH (08:18)
[2016-12-21] MEDS: POTASSIUM CHLORIDE 10 MEQ TABLET PO SCH (08:18)
[2016-12-21] MEDS: BACLOFEN 10 MG TABLET PO SCH (08:18)
[2016-12-21] MEDS: amLODIPine 10 MG TABLET PO SCH (08:18)
[2016-12-21] MEDS: PANTOPRAZOLE 40 MG TABLET PO SCH (08:19)
[2016-12-21] MEDS: MELOXICAM 7.5 MG TABLET PO SCH (08:19)
[2016-12-21] MEDS: acetaZOLAMIDE 250 MG TABLET PO SCH (08:19)
[2016-12-21] MEDS: cloNIDine 0.1 MG TABLET PO SCH (08:19)
[2016-12-21] MEDS: MONTELUKAST 10 MG TABLET PO SCH (08:19)
[2016-12-21] MEDS: predniSONE 20 MG TABLET PO SCH (08:19)
[2016-12-21] MEDS: GABAPENTIN 400 MG CAPSULE PO SCH (08:19)
[2016-12-21] MEDS: CHLORHEXIDINE 4% SOLN 118 ML BOTTLE TOP SCH (08:20)
[2016-12-21] MEDS: MUPIROCIN 2% OINT 22 GM TUBE TOP SCH (08:20)
--- NOTE | 2016-12-21 08:31 | Oncology Progress Note ---
Oncology Subjective PN Interval history: Diagnoses: MRSA sepsis: Klebsiella upper respiratory infection, not multidrug resistant: Fortaz has been discontinued. 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 Thrombocytopenia: Mr. Gabriel was admitted with MRSA sepsis and cellulitis of the chin. He has small cell carcinoma of the lung that has achieved a complete remission using etoposide and carboplatin. I question how good his hygiene has been because he has not demonstrated good hygiene to the nurses or to me. During this hospitalization, the patient was decolonized for MRSA using Hibiclens baths daily. His overall condition appears to be improving markedly. He was treated with IV antibiotics for 4 weeks consisting of vancomycin while we monitored him for toxicity. He has completed the 4 weeks of vancomycin now. We monitored for toxicity of vancomycin, checking creatinines on a regular basis. The serum creatinine remains normal. I do not plan to continue antibiotics at the time of discharge because he has been on vancomycin for a full 4 weeks. He was also found to have a Klebsiella upper respiratory tract infection and was treated for a week with Fortaz. He had stage IIIb small cell carcinoma of the lung. He received 3 courses of chemotherapy. His chemotherapy has consisted of etoposide 200 mg IV daily for 3 days and carboplatin 600 mg IV on day 2 only. He received his third course of this combination on November 13 - November 15. He achieved complete remission and I have made the decision not to proceed with his fourth course of chemotherapy, instead, proceeding with radiation therapy which she is currently receiving. He is tolerating radiation therapy well and we will plan to continue it outpatient. He had anemia during this hospital stay. His most recent hemoglobin was 10.5 and he does not require transfusion. His white cell count is normal. His platelet count has been mildly diminished and was 107,000 yesterday. Exam - Constitutional Vitals: Period Temp Pulse Resp BP Sys/Yanes Pulse Ox Last 24 Hr 96.3 F-97.7 F 76-101 12-20 100-150/58-74 96-99 Results - Labs CBC & BMP: 12/20/16 04:00 12/21/16 06:01 Specialty Discharge - Follow Up or Referrals Follow up with: Reuben Olivares MD [Physician] - 12/17/16 9:30 am
--- NOTE | 2016-12-21 09:35 | Discharge Summary ---
Hospital Course - Hospital Course Hospital Course: Diagnoses: MRSA sepsis: Klebsiella upper respiratory infection, not multidrug resistant: Fortaz has been discontinued. 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 Thrombocytopenia: Mr. Gabriel was admitted with MRSA sepsis and cellulitis of the chin. He has small cell carcinoma of the lung that has achieved a complete remission using etoposide and carboplatin. I question how good his hygiene has been because he has not demonstrated good hygiene to the nurses or to me. During this hospitalization, the patient was decolonized for MRSA using Hibiclens baths daily. His overall condition appears to be improving markedly. He was treated with IV antibiotics for 4 weeks consisting of vancomycin while we monitored him for toxicity. He has completed the 4 weeks of vancomycin now. We monitored for toxicity of vancomycin, checking creatinines on a regular basis. The serum creatinine remains normal. I do not plan to continue antibiotics at the time of discharge because he has been on vancomycin for a full 4 weeks. He was also found to have a Klebsiella upper respiratory tract infection and was treated for a week with Fortaz. He had stage IIIb small cell carcinoma of the lung. He received 3 courses of chemotherapy. His chemotherapy has consisted of etoposide 200 mg IV daily for 3 days and carboplatin 600 mg IV on day 2 only. He received his third course of this combination on November 13 - November 15. He achieved complete remission and I have made the decision not to proceed with his fourth course of chemotherapy, instead, proceeding with radiation therapy which she is currently receiving. He is tolerating radiation therapy well and we will plan to continue it outpatient. He had anemia during this hospital stay. His most recent hemoglobin was 10.5 and he does not require transfusion. His white cell count is normal. His platelet count has been mildly diminished and was 107,000 yesterday. He will continue radiation therapy outpatient. My plan will be to check lab work on him weekly and to set up a follow-up visit in my office in about 4 weeks but I have explained to him that I am available prior to that time if needed and if he becomes acutely ill he is instructed to return to the emergency room for reevaluation. Specialty Discharge - Follow Up or Referrals Follow up with: Reuben Olivares MD [Physician] - 12/17/16 9:30 am Discharge Plan - Discharge Data Disposition: Disch To Home/Self Care Condition at Discharge: Guarded Discharge Diet: advance to your usual diet Activity: resume usual activities as tolerated Hygiene: no restrictions Weight Bearing at Discharge: weight bear as tolerated Driving: other Contact your physician if you experience:: fever over 101, Difficulty voiding, Redness or swelling, Nausea/Vomiting, Shortness of breath, Bleeding, pain uncontrolled by pain medications - Discharge Medications Continue Mv-Mins/Folic/Lycopene/Ginkgo [One Daily Men's 50+ Tablet] 1 each PO QAM Mirtazapine 30 mg PO BEDTIME Baclofen Tab [Lioresal] 10 mg PO TID cloNIDine TAB [Catapres Tab] 0.1 mg PO BID Pravastatin Sodium 80 mg PO QPM Hydrocodone/Acetaminophen [Cameron 10-325 Tablet] 1 each PO TID PRN PRN Reason: Pain Gabapentin 400 mg PO TID Biotin 5 mg PO DAILY Docusate Sodium 500 mg PO BEDTIME Meloxicam 15 mg PO QAM Venlafaxine HCl [Venlafaxine HCl ER] 150 mg PO BID clonazePAM [Clonazepam] 1 mg PO BEDTIME Potassium Chloride [Klor-Con 10] 20 meq PO DAILY W/BREAKFAST [place] Oil 1 tablespoon PO DAILY PRN PRN Reason: PROSTHETIC EYE Methadone 10 mg PO QID tablet Hydrocodone/Acetaminophen [Cameron 10-325 Tablet] 1 each PO TID PRN PRN Reason: Pain - Follow Up or Referral Follow Up: Reuben Olivares MD [Physician] - 12/17/16 9:30 am - Forms/Instructions Additional Discharge Instructions: CBC and comprehensive metabolic profile at my office weekly on or Saturday. Appointment to see me in 4 weeks with CBC, CMP, LDH and chest x-ray PA and lateral. Exam - Constitutional Vitals: Period Temp Pulse Resp BP Sys/Yanes Pulse Ox Last 24 Hr 96.3 F-97.7 F 76-101 12-20 100-150/58-74 96-99 Discharge Results Procedures and tests throughout hospitalization: Pending Orders 12/22/16 04:00 Creatinine IN AM 12/23/16 04:00 Creatinine IN AM Labs on day of discharge: Labs from last 24 hours 12/21/16 06:01 Creatinine 0.60 L GFR Calculation 111 DS: Provider Date of admission: 11/26/16 08:26 Primary care physician: Nabeel Vargas DO Attending physician on admission: Braulio Hamm MD Consults: 11/27/16 08:02 Consult to Physician [CONS] Routine Comment: patient known to you. please evaluate Consulting Provider: Tristen Norton Consulting Provider Notified: Yes When should Consulting Provider be notified: Now Consult to Specialist Group: Pulmonology When should Consulting Provider be notified: Now Person Notified: DR NORTON CONSULTED-HAS SEEN PT-STEVO NOTIFIED OF IT Date Notified: 11/27/16 Time Notified: 13:07 12/03/16 08:24 Consult to Physical Therapy [CONS] Routine Reason for Physical Therapy: Evaluate and Treat 12/03/16 08:25 Consult to Radiation Oncology [CONS] Routine Comment: Small cell lung cancer. Consulting Provider: Reuben Olivares Reason for Radiation Oncology: Radiation Therapy Consult Comment: SPOKE WITH DARIUSZ AT 0900 12/05/16 10:17 Consult to Case Mgmt/Social Srvs [CONS] Routine Reason for Case Mgmt/Social Srvs: Swingbed/SNF/Longterm Consult Comment: Needs strengthening before going home alone 12/10/16 09:10 Consult to Case Mgmt/Social Srvs [CONS] Routine Reason for Case Mgmt/Social Srvs: LTAC Consult Comment: Needed for iv antibiotics for extended time 12/21/16 07:36 Consult to Case Mgmt/Social Srvs [CONS] Routine Reason for Case Mgmt/Social Srvs: Equipment Consult Comment: Rollator walker for home Discharging clinician: Braulio Hamm MD
[2016-12-21] MEDS: VANCOMYCIN INJ 1,000 MG in SODIUM CHLORIDE 0.9% 250 ML IV SCH (09:41)
[2016-12-21] MEDS ORDERED: HEPARIN LOCK FLUSH 500 UNIT/5 ML SYRINGE IV PRN (11:20)
[2016-12-21] MEDS: ENOXAPARIN 40 MG/0.4 ML SYRINGE SUBCUT SCH (13:59)
== END 2016-12-21 13:58 | disposition home or self-care (01) | DRG 871 ==
LOC: EDUNIT# → EDBD → N.ED 09:07 → N.4E 09:07
PROVIDERS: ADMIT Specialist; ATTEND Specialist

== ENCOUNTER 2017-04-03 22:33 | Inpatient (IN) ==
[2017-04-04 00:05] LABS: Basophils % 0.1 % (0.0-0.8); Eosinophils % 0.1 % (0.00-10.9); Hematocrit 49.9 VOL% (42.0-52.0); Hemoglobin 16.5 GM/DL (14.0-18.0); Immature Granulocytes % 0.3 %; Immature Granulocytes Absolute 0.03 #; Lymphocytes # 0.3 10*3/uL (1.4-4.0); Lymphocytes % 2.9 % (21.2-54.2); Mean Corpuscular HGB Conc 33.1 GM/DL (32-36); Mean Corpuscular Hemoglobin 30 PG (27-34); Mean Corpuscular Volume 91.6 FL (87-102); Mean Platelet Volume 9.6 FL (9.6-12.0); Monocytes # 0.9 10*3/uL (0.11-0.8); Monocytes % 9.3 % (1.7-12.7); Neutrophils # 8.6 10*3/uL (1.4-7.4); Neutrophils % 87.3 % (38.7-73.9); Platelet Count 267 T/CUMM (130-400); Red Blood Count 5.45 MC/CUMM (3.8-5.5); White Blood Count 9.8 T/CUMM (4-12)
[2017-04-04 00:18] LABS: Alanine Aminotransferase 15 U/L (16-61); Albumin 2.5 G/DL (3.4-5.0); Alkaline Phosphatase 147 U/L (45-117); Aspartate Amino Transferase 27 U/L (0-37); Bilirubin,Total < 0.39 MG/DL (0.2-1.0); Blood Urea Nitrogen 24 MG/DL (7-18); Calcium 8.9 MG/DL (8.5-10.1); Glucose 111 MG/DL (74-106); Osmolality,Calculated 270.4 MOS/KG (273-304); Potassium 3.7 MMOL/L (3.5-5.1); Sodium 133 MMOL/L (136-145); Total Protein 6.5 G/DL (6.4-8.3)
[2017-04-04 00:32] LABS: Band Neutrophils 6 % (0-10); Lymphocytes 4 % (20-55); Segmented Neutrophils 77 % (50-85); Total Cells Counted 100
[2017-04-04 02:31] LABS: Apearance,Urine Slightly Hazy (Clear); Bilirubin,Urine Negative (Negative); Blood, Urine Negative (Negative); Glucose,Urine (UA) Negative (Negative); Ketones,Urine Negative (Negative); Mucus,Urine Occasional /LPF (Occasional); Nitrite,Urine Negative (Negative); Protein,Urine 30 MG/DL; RBC,Urine 4 /HPF (0-4); Squamous Epithelial Cell,Urine Occasional /HPF (0-10); Urine Color Yellow (Yellow); Urine Specific Gravity 1.047 (1.001-1.035); Urine Urobilinogen < 2.0 EU/DL (0.2-1.0); WBC,Urine 2 /HPF (0-6)
[2017-04-04] MEDS ORDERED: VANCOMYCIN INJ 1,000 MG in SODIUM CHLORIDE 0.9% 250 ML IV STA (03:21)
[2017-04-04] MEDS ORDERED: CEFEPIME 2,000 MG in SODIUM CHLORIDE 0.9% 100 ML IV STA (03:21)
[2017-04-04] MEDS ORDERED: VANCOMYCIN 1,000 MG VIAL ONE (03:27)
[2017-04-04] MEDS ORDERED: ONDANSETRON 4 MG/2 ML VIAL IV PRN (04:11)
[2017-04-04] MEDS ORDERED: ENOXAPARIN 60 MG/0.6 ML SYRINGE ONE (05:16)
[2017-04-04] MEDS: ENOXAPARIN 60 MG/0.6 ML SYRINGE SUBCUT SCH ×2 (05:20→16:36)
[2017-04-04] MEDS ORDERED: NITROGLYCERIN SL 0.4 MG TABLET SL PRN (05:43)
[2017-04-04] MEDS: AZITHROMYCIN INJ 500 MG in SODIUM CHLORIDE 0.9% 250 ML IV SCH (06:52)
[2017-04-04] MEDS: LEVALBUTEROL 1.25 MG/3 ML NEB RESP TX SCH ×3 (07:56→21:50)
[2017-04-04 09:46] LABS: Risk Ratio 2.5; VLDL CHOLESTEROL 21.4 MG/DL
[2017-04-04] MEDS: METHADONE 10 MG TABLET PO SCH ×4 (10:05→21:23)
[2017-04-04] MEDS: MELOXICAM 7.5 MG TABLET PO SCH (10:05)
[2017-04-04] MEDS: PANTOPRAZOLE 40 MG TABLET PO SCH (10:06)
[2017-04-04] MEDS: METOPROLOL TARTRATE 25 MG TABLET PO SCH ×2 (10:06→21:24)
[2017-04-04] MEDS: BACLOFEN 10 MG TABLET PO SCH ×3 (10:06→21:23)
[2017-04-04] MEDS: ASPIRIN 325 MG TABLET PO SCH (10:06)
[2017-04-04] MEDS: GABAPENTIN 400 MG CAPSULE PO SCH ×3 (10:06→21:23)
[2017-04-04] MEDS: MULTIVITAMIN (BEROCCA) TABLET PO SCH (10:06)
[2017-04-04] MEDS: POTASSIUM CHLORIDE 20 MEQ TABLET PO SCH (10:06)
[2017-04-04] MEDS: VENLAFAXINE XR 75 MG CAPSULE PO SCH ×2 (10:06→21:23)
[2017-04-04] MEDS: FLUTICASONE/SALMETEROL 250-50 DISKUS 14 DOSE INH SCH ×2 (10:45→21:29)
[2017-04-04] MEDS: MONTELUKAST 10 MG TABLET PO SCH (12:04)
[2017-04-04] MEDS ORDERED: CASTOR OIL 59 ML BOTTLE PO PRN (12:08)
[2017-04-04] MEDS: cefTRIAXone 1,000 MG in SYRINGE 1 EACH IV SCH (16:33)
[2017-04-04] MEDS: VANCOMYCIN INJ 1,000 MG in SODIUM CHLORIDE 0.9% 250 ML IV SCH (16:33)
[2017-04-04] MEDS ORDERED: PRAVASTATIN 40 MG TABLET PO SCH (19:00)
[2017-04-04] MEDS: MIRTAZAPINE 30 MG TABLET PO SCH (21:23)
[2017-04-04] MEDS: PRAVASTATIN 40 MG TABLET PO SCH (21:23)
[2017-04-04] MEDS: DOCUSATE SODIUM 100 MG CAPSULE PO SCH (21:23)
[2017-04-04] MEDS: DORNASE ALFA 2.5 MG/2.5 ML VIAL RESP TX SCH (21:50)
[2017-04-05] MEDS: LEVALBUTEROL 1.25 MG/3 ML NEB RESP TX SCH ×4 (00:40→18:56)
[2017-04-05] MEDS: VANCOMYCIN INJ 1,000 MG in SODIUM CHLORIDE 0.9% 250 ML IV SCH ×2 (03:53→14:34)
[2017-04-05] MEDS: ENOXAPARIN 60 MG/0.6 ML SYRINGE SUBCUT SCH ×2 (03:53→16:38)
[2017-04-05 05:51] LABS: Albumin 1.8 G/DL (3.4-5.0); Bilirubin,Total 0.4 MG/DL (0.2-1.0); Calcium 8.2 MG/DL (8.5-10.1); Osmolality,Calculated 277.8 MOS/KG (273-304); Potassium 3.8 MMOL/L (3.5-5.1); Total Protein 5.5 G/DL (6.4-8.3)
[2017-04-05] MEDS: AZITHROMYCIN INJ 500 MG in SODIUM CHLORIDE 0.9% 250 ML IV SCH (06:08)
[2017-04-05] MEDS: METOPROLOL TARTRATE 25 MG TABLET PO SCH ×3 (06:08→21:37)
[2017-04-05 06:26] LABS: Eosinophils # 0.1 10*3/uL (0.0-0.87); Hematocrit 29.1 VOL% (42.0-52.0); Immature Granulocytes % 0.4 %; Immature Granulocytes Absolute 0.03 #; Lymphocytes # 0.5 10*3/uL (1.4-4.0); Mean Corpuscular HGB Conc 32.3 GM/DL (32-36); Mean Corpuscular Hemoglobin 30 PG (27-34); Mean Corpuscular Volume 93.6 FL (87-102); Mean Platelet Volume 9.7 FL (9.6-12.0); Monocytes # 0.9 10*3/uL (0.11-0.8); Monocytes % 10.8 % (1.7-12.7); Neutrophils # 6.6 10*3/uL (1.4-7.4); Neutrophils % 81.8 % (38.7-73.9); Platelet Count 311 T/CUMM (130-400); Red Cell Distribution Width 15.2 % (9.3-17.3)
[2017-04-05 06:31] LABS: Hemoglobin 9.4 GM/DL (14.0-18.0); Red Blood Count 3.11 MC/CUMM (3.8-5.5)
[2017-04-05] MEDS: POTASSIUM CHLORIDE 20 MEQ TABLET PO SCH (09:50)
[2017-04-05] MEDS: BACLOFEN 10 MG TABLET PO SCH ×3 (09:50→21:38)
[2017-04-05] MEDS: METHADONE 10 MG TABLET PO SCH ×4 (09:50→23:03)
[2017-04-05] MEDS: ASPIRIN 325 MG TABLET PO SCH (09:50)
[2017-04-05] MEDS: PANTOPRAZOLE 40 MG TABLET PO SCH (09:50)
[2017-04-05] MEDS: MULTIVITAMIN (BEROCCA) TABLET PO SCH (09:50)
[2017-04-05] MEDS: MONTELUKAST 10 MG TABLET PO SCH (09:50)
[2017-04-05] MEDS: GABAPENTIN 400 MG CAPSULE PO SCH ×3 (09:50→21:38)
[2017-04-05] MEDS: VENLAFAXINE XR 75 MG CAPSULE PO SCH ×2 (09:50→21:36)
[2017-04-05] MEDS: MELOXICAM 7.5 MG TABLET PO SCH (09:50)
[2017-04-05] MEDS: FLUTICASONE/SALMETEROL 250-50 DISKUS 14 DOSE INH SCH ×2 (09:51→21:39)
[2017-04-05] MEDS ORDERED: FLUCONAZOLE INJ 200 MG in PREMIX 1 EACH IV SCH (13:30)
[2017-04-05] MEDS: cefTRIAXone 1,000 MG in SYRINGE 1 EACH IV SCH (14:36)
[2017-04-05] MEDS: DORNASE ALFA 2.5 MG/2.5 ML VIAL RESP TX SCH ×2 (17:14→18:56)
[2017-04-05] MEDS: MICAFUNGIN 100 MG in SODIUM CHLORIDE 0.9% 100 ML IV SCH (21:31)
[2017-04-05] MEDS: DOCUSATE SODIUM 100 MG CAPSULE PO SCH (21:37)
[2017-04-05] MEDS: PRAVASTATIN 40 MG TABLET PO SCH (21:38)
[2017-04-05] MEDS: MIRTAZAPINE 30 MG TABLET PO SCH (21:38)
[2017-04-06] MEDS: VANCOMYCIN INJ 1,000 MG in SODIUM CHLORIDE 0.9% 250 ML IV SCH ×2 (03:20→15:17)
[2017-04-06 05:02] LABS: Eosinophils # 0.3 10*3/uL (0.0-0.87); Eosinophils % 3.9 % (0.00-10.9); Hematocrit 27.5 VOL% (42.0-52.0); Hemoglobin 8.9 GM/DL (14.0-18.0); Immature Granulocytes % 0.3 %; Immature Granulocytes Absolute 0.02 #; Lymphocytes # 0.6 10*3/uL (1.4-4.0); Lymphocytes % 8.6 % (21.2-54.2); Mean Corpuscular HGB Conc 32.4 GM/DL (32-36); Mean Corpuscular Hemoglobin 31 PG (27-34); Mean Corpuscular Volume 94.2 FL (87-102); Monocytes # 0.7 10*3/uL (0.11-0.8); Monocytes % 9.6 % (1.7-12.7); Neutrophils # 5.4 10*3/uL (1.4-7.4); Neutrophils % 77.6 % (38.7-73.9); Platelet Count 282 T/CUMM (130-400); Red Blood Count 2.92 MC/CUMM (3.8-5.5); Red Cell Distribution Width 15.3 % (9.3-17.3)
[2017-04-06 05:30] LABS: Calcium 7.9 MG/DL (8.5-10.1); Magnesium 1.9 MG/DL (1.8-2.4); Osmolality,Calculated 277.7 MOS/KG (273-304); Potassium 3.9 MMOL/L (3.5-5.1)
[2017-04-06] MEDS: ENOXAPARIN 60 MG/0.6 ML SYRINGE SUBCUT SCH ×2 (05:31→18:38)
[2017-04-06 06:37] LABS: Band Neutrophils 7 % (0-10); Eosinophils 4 % (0-10); Hypochromasia 1+; Lymphocytes 3 % (20-55); Platelet Estimate Adequate; Segmented Neutrophils 77 % (50-85); Total Cells Counted 100
[2017-04-06] MEDS: LEVALBUTEROL 1.25 MG/3 ML NEB RESP TX SCH ×4 (07:48→19:22)
[2017-04-06] MEDS: DORNASE ALFA 2.5 MG/2.5 ML VIAL RESP TX SCH ×2 (07:58→19:22)
[2017-04-06] MEDS: MULTIVITAMIN (BEROCCA) TABLET PO SCH (09:42)
[2017-04-06] MEDS: MELOXICAM 7.5 MG TABLET PO SCH (09:42)
[2017-04-06] MEDS: VENLAFAXINE XR 75 MG CAPSULE PO SCH ×2 (09:42→21:28)
[2017-04-06] MEDS: BACLOFEN 10 MG TABLET PO SCH ×3 (09:43→21:28)
[2017-04-06] MEDS: METOPROLOL TARTRATE 25 MG TABLET PO SCH ×2 (09:43→21:27)
[2017-04-06] MEDS: ASPIRIN 325 MG TABLET PO SCH (09:43)
[2017-04-06] MEDS: PANTOPRAZOLE 40 MG TABLET PO SCH (09:43)
[2017-04-06] MEDS: MONTELUKAST 10 MG TABLET PO SCH (09:44)
[2017-04-06] MEDS: POTASSIUM CHLORIDE 20 MEQ TABLET PO SCH (09:44)
[2017-04-06] MEDS: GABAPENTIN 400 MG CAPSULE PO SCH ×3 (09:44→21:28)
[2017-04-06] MEDS: METHADONE 10 MG TABLET PO SCH ×4 (09:45→21:59)
[2017-04-06] MEDS: FLUTICASONE/SALMETEROL 250-50 DISKUS 14 DOSE INH SCH ×3 (09:46→21:36)
[2017-04-06] MEDS: methylPREDNISolone SOD SUC 40 MG/1 ML VIAL IV SCH ×3 (11:04→22:33)
[2017-04-06] MEDS ORDERED: METOPROLOL TARTRATE 5 MG/5 ML VIAL IV ONE (11:41)
[2017-04-06 13:48] LABS: Procalcitonin, S 1.6 ng/mL (<=0.15)
[2017-04-06] MEDS: cefTRIAXone 1,000 MG in SYRINGE 1 EACH IV SCH (15:09)
[2017-04-06] MEDS: MICAFUNGIN 100 MG in SODIUM CHLORIDE 0.9% 100 ML IV SCH (21:27)
[2017-04-06] MEDS: PRAVASTATIN 40 MG TABLET PO SCH (21:28)
[2017-04-06] MEDS: DOCUSATE SODIUM 100 MG CAPSULE PO SCH (21:28)
[2017-04-06] MEDS: MIRTAZAPINE 30 MG TABLET PO SCH (21:28)
[2017-04-07] MEDS: LEVALBUTEROL 1.25 MG/3 ML NEB RESP TX SCH ×4 (00:35→21:12)
[2017-04-07] MEDS: ENOXAPARIN 60 MG/0.6 ML SYRINGE SUBCUT SCH ×2 (04:24→19:29)
[2017-04-07] MEDS: methylPREDNISolone SOD SUC 40 MG/1 ML VIAL IV SCH ×3 (05:05→19:31)
[2017-04-07 05:17] LABS: Calcium 8.2 MG/DL (8.5-10.1); Magnesium 1.9 MG/DL (1.8-2.4); Osmolality,Calculated 283.4 MOS/KG (273-304); Potassium 3.7 MMOL/L (3.5-5.1)
[2017-04-07 05:58] LABS: Eosinophils % 0.2 % (0.00-10.9); Hematocrit 31.5 VOL% (42.0-52.0); Hemoglobin 10.1 GM/DL (14.0-18.0); Immature Granulocytes % 0.9 %; Immature Granulocytes Absolute 0.04 #; Lymphocytes # 0.4 10*3/uL (1.4-4.0); Lymphocytes % 9.2 % (21.2-54.2); Mean Corpuscular HGB Conc 32.1 GM/DL (32-36); Mean Corpuscular Hemoglobin 30 PG (27-34); Mean Corpuscular Volume 93.2 FL (87-102); Mean Platelet Volume 10.3 FL (9.6-12.0); Monocytes # 0.2 10*3/uL (0.11-0.8); Monocytes % 5.1 % (1.7-12.7); Neutrophils # 3.7 10*3/uL (1.4-7.4); Neutrophils % 84.6 % (38.7-73.9); Platelet Count 383 T/CUMM (130-400); Red Blood Count 3.38 MC/CUMM (3.8-5.5); Red Cell Distribution Width 15.3 % (9.3-17.3); White Blood Count 4.3 T/CUMM (4-12)
[2017-04-07] MEDS: VANCOMYCIN INJ 1,000 MG in SODIUM CHLORIDE 0.9% 250 ML IV SCH (06:05)
[2017-04-07] MEDS: DORNASE ALFA 2.5 MG/2.5 ML VIAL RESP TX SCH ×2 (08:30→21:13)
[2017-04-07] MEDS: cefTRIAXone 1,000 MG in SYRINGE 1 EACH IV SCH (14:48)
[2017-04-07] MEDS: VANCOMYCIN INJ 1,000 MG in SODIUM CHLORIDE 0.45% 250 ML IV SCH (19:16)
[2017-04-07] MEDS: POTASSIUM CHLORIDE 20 MEQ TABLET PO SCH (19:26)
[2017-04-07] MEDS: VENLAFAXINE XR 75 MG CAPSULE PO SCH ×2 (19:27→21:53)
[2017-04-07] MEDS: FLUTICASONE/SALMETEROL 250-50 DISKUS 14 DOSE INH SCH ×2 (19:27→21:56)
[2017-04-07] MEDS: MULTIVITAMIN (BEROCCA) TABLET PO SCH (19:27)
[2017-04-07] MEDS: ASPIRIN 325 MG TABLET PO SCH (19:27)
[2017-04-07] MEDS: BACLOFEN 10 MG TABLET PO SCH ×2 (19:27→21:52)
[2017-04-07] MEDS: METOPROLOL TARTRATE 25 MG TABLET PO SCH ×2 (19:28→21:52)
[2017-04-07] MEDS: METHADONE 10 MG TABLET PO SCH ×4 (19:28→21:51)
[2017-04-07] MEDS: GABAPENTIN 400 MG CAPSULE PO SCH ×3 (19:28→21:53)
[2017-04-07] MEDS: MELOXICAM 7.5 MG TABLET PO SCH (19:28)
[2017-04-07] MEDS: PANTOPRAZOLE 40 MG TABLET PO SCH (19:29)
[2017-04-07] MEDS: MONTELUKAST 10 MG TABLET PO SCH (19:29)
[2017-04-07] MEDS: MICAFUNGIN 100 MG in SODIUM CHLORIDE 0.9% 100 ML IV SCH (21:52)
[2017-04-07] MEDS: MIRTAZAPINE 30 MG TABLET PO SCH (21:55)
[2017-04-07] MEDS: DOCUSATE SODIUM 100 MG CAPSULE PO SCH (21:56)
[2017-04-07] MEDS: PRAVASTATIN 40 MG TABLET PO SCH (21:56)
[2017-04-08] MEDS: methylPREDNISolone SOD SUC 40 MG/1 ML VIAL IV SCH ×5 (00:01→23:23)
[2017-04-08] MEDS: LEVALBUTEROL 1.25 MG/3 ML NEB RESP TX SCH ×4 (01:19→20:35)
[2017-04-08] MEDS: ENOXAPARIN 60 MG/0.6 ML SYRINGE SUBCUT SCH ×2 (05:26→15:30)
[2017-04-08] MEDS: VANCOMYCIN INJ 1,000 MG in SODIUM CHLORIDE 0.45% 250 ML IV SCH ×2 (05:27→19:05)
[2017-04-08 06:37] LABS: Hematocrit 31.2 VOL% (42.0-52.0); Hemoglobin 10.2 GM/DL (14.0-18.0); Immature Granulocytes % 0.7 %; Immature Granulocytes Absolute 0.06 #; Lymphocytes # 0.5 10*3/uL (1.4-4.0); Lymphocytes % 5.6 % (21.2-54.2); Mean Corpuscular HGB Conc 32.7 GM/DL (32-36); Mean Corpuscular Hemoglobin 30 PG (27-34); Mean Corpuscular Volume 92.9 FL (87-102); Mean Platelet Volume 9.9 FL (9.6-12.0); Monocytes # 0.6 10*3/uL (0.11-0.8); Monocytes % 6.4 % (1.7-12.7); Neutrophils # 7.6 10*3/uL (1.4-7.4); Neutrophils % 87.3 % (38.7-73.9); Platelet Count 384 T/CUMM (130-400); Red Blood Count 3.36 MC/CUMM (3.8-5.5); White Blood Count 8.8 T/CUMM (4-12)
[2017-04-08 07:09] LABS: Calcium 8.6 MG/DL (8.5-10.1); Osmolality,Calculated 290.1 MOS/KG (273-304); Potassium 3.5 MMOL/L (3.5-5.1)
[2017-04-08 07:10] LABS: Calcium 8.7 MG/DL (8.5-10.1); Magnesium 2.1 MG/DL (1.8-2.4); Osmolality,Calculated 288.3 MOS/KG (273-304); Potassium 3.5 MMOL/L (3.5-5.1)
[2017-04-08] MEDS: DORNASE ALFA 2.5 MG/2.5 ML VIAL RESP TX SCH ×2 (08:25→20:35)
[2017-04-08] MEDS: POTASSIUM CHLORIDE 20 MEQ TABLET PO SCH (08:53)
[2017-04-08] MEDS: BACLOFEN 10 MG TABLET PO SCH ×3 (08:55→22:16)
[2017-04-08] MEDS: VENLAFAXINE XR 75 MG CAPSULE PO SCH ×2 (08:55→22:18)
[2017-04-08] MEDS: MELOXICAM 7.5 MG TABLET PO SCH (08:56)
[2017-04-08] MEDS: ASPIRIN 325 MG TABLET PO SCH (08:59)
[2017-04-08] MEDS: GABAPENTIN 400 MG CAPSULE PO SCH ×3 (09:00→22:17)
[2017-04-08] MEDS: MONTELUKAST 10 MG TABLET PO SCH (09:00)
[2017-04-08] MEDS: METOPROLOL TARTRATE 25 MG TABLET PO SCH ×2 (09:00→22:20)
[2017-04-08] MEDS: PANTOPRAZOLE 40 MG TABLET PO SCH (09:02)
[2017-04-08] MEDS: FLUTICASONE/SALMETEROL 250-50 DISKUS 14 DOSE INH SCH ×2 (09:02→22:21)
[2017-04-08] MEDS: MULTIVITAMIN (BEROCCA) TABLET PO SCH (09:02)
[2017-04-08] MEDS: METHADONE 10 MG TABLET PO SCH ×4 (09:07→22:15)
[2017-04-08] MEDS: cefTRIAXone 1,000 MG in SYRINGE 1 EACH IV SCH (15:31)
[2017-04-08] MEDS: MICAFUNGIN 100 MG in SODIUM CHLORIDE 0.9% 100 ML IV SCH (22:16)
[2017-04-08] MEDS: MIRTAZAPINE 30 MG TABLET PO SCH (22:20)
[2017-04-08] MEDS: PRAVASTATIN 40 MG TABLET PO SCH (22:21)
[2017-04-08] MEDS: DOCUSATE SODIUM 100 MG CAPSULE PO SCH (22:21)
[2017-04-09] MEDS: LEVALBUTEROL 1.25 MG/3 ML NEB RESP TX SCH ×4 (02:37→19:37)
[2017-04-09] MEDS: ENOXAPARIN 60 MG/0.6 ML SYRINGE SUBCUT SCH ×2 (04:58→16:39)
[2017-04-09] MEDS: VANCOMYCIN INJ 1,000 MG in SODIUM CHLORIDE 0.45% 250 ML IV SCH ×2 (05:00→18:13)
[2017-04-09 05:24] LABS: Basophils % 0.1 % (0.0-0.8); Hematocrit 32.9 VOL% (42.0-52.0); Hemoglobin 10.6 GM/DL (14.0-18.0); Immature Granulocytes % 0.8 %; Immature Granulocytes Absolute 0.07 #; Lymphocytes # 0.5 10*3/uL (1.4-4.0); Lymphocytes % 6.1 % (21.2-54.2); Mean Corpuscular HGB Conc 32.2 GM/DL (32-36); Mean Corpuscular Hemoglobin 30 PG (27-34); Mean Corpuscular Volume 93.7 FL (87-102); Mean Platelet Volume 10.1 FL (9.6-12.0); Monocytes # 0.5 10*3/uL (0.11-0.8); Monocytes % 5.3 % (1.7-12.7); Neutrophils # 7.5 10*3/uL (1.4-7.4); Neutrophils % 87.7 % (38.7-73.9); Platelet Count 414 T/CUMM (130-400); Red Blood Count 3.51 MC/CUMM (3.8-5.5); Red Cell Distribution Width 15.2 % (9.3-17.3); White Blood Count 8.6 T/CUMM (4-12)
[2017-04-09 05:32] LABS: INR 1.1; PT Patient Result 11.9 SECS; Partial Thromboplastin Time 27.5 SECS (0-40)
[2017-04-09] MEDS: methylPREDNISolone SOD SUC 40 MG/1 ML VIAL IV SCH ×4 (06:02→23:09)
[2017-04-09] MEDS ORDERED: MEPERIDINE 50 MG/1 ML VIAL IM ONE (07:30)
[2017-04-09] MEDS ORDERED: BENZONATATE 100 MG CAPSULE PO ONE (07:30)
[2017-04-09] MEDS ORDERED: diphenhydrAMINE 50 MG/1 ML VIAL IM ONE (07:30)
[2017-04-09] MEDS ORDERED: LIDOCAINE 2% 20 ML VIAL RESP TX ONE (08:00)
[2017-04-09] MEDS ORDERED: LIDOCAINE 1% 20 ML VIAL MISC INJ ONE (08:00)
[2017-04-09] MEDS ORDERED: LIDOCAINE 2% VISCOUS 100 ML BOTTLE SWISH/SPIT ONE (08:00)
[2017-04-09] MEDS: DORNASE ALFA 2.5 MG/2.5 ML VIAL RESP TX SCH ×2 (08:32→19:42)
[2017-04-09] MEDS ORDERED: MIDAZOLAM 2 MG/2 ML VIAL ONE (09:13)
[2017-04-09] MEDS ORDERED: EPINEPHrine 1 MG/ML VIAL ET ONE (09:34)
[2017-04-09] MEDS ORDERED: EPINEPHrine 1 MG/ML VIAL ONE (10:16)
[2017-04-09] MEDS: GABAPENTIN 400 MG CAPSULE PO SCH ×3 (10:22→21:52)
[2017-04-09] MEDS: BACLOFEN 10 MG TABLET PO SCH ×3 (10:22→21:52)
[2017-04-09] MEDS: METHADONE 10 MG TABLET PO SCH ×4 (10:22→21:53)
[2017-04-09] MEDS: MELOXICAM 7.5 MG TABLET PO SCH (12:13)
[2017-04-09] MEDS: MONTELUKAST 10 MG TABLET PO SCH (12:14)
[2017-04-09] MEDS: MULTIVITAMIN (BEROCCA) TABLET PO SCH (12:14)
[2017-04-09] MEDS: VENLAFAXINE XR 75 MG CAPSULE PO SCH ×2 (12:14→21:52)
[2017-04-09] MEDS: PANTOPRAZOLE 40 MG TABLET PO SCH (12:14)
[2017-04-09] MEDS: ASPIRIN 325 MG TABLET PO SCH (12:14)
[2017-04-09] MEDS: METOPROLOL TARTRATE 25 MG TABLET PO SCH ×2 (12:14→21:52)
[2017-04-09] MEDS: FLUTICASONE/SALMETEROL 250-50 DISKUS 14 DOSE INH SCH ×2 (12:15→22:39)
[2017-04-09] MEDS: POTASSIUM CHLORIDE 20 MEQ TABLET PO SCH (12:15)
[2017-04-09] MEDS: cefTRIAXone 1,000 MG in SYRINGE 1 EACH IV SCH (16:25)
[2017-04-09] MEDS: MICAFUNGIN 100 MG in SODIUM CHLORIDE 0.9% 100 ML IV SCH (21:41)
[2017-04-09] MEDS: MIRTAZAPINE 30 MG TABLET PO SCH (21:52)
[2017-04-09] MEDS: DOCUSATE SODIUM 100 MG CAPSULE PO SCH (22:39)
[2017-04-09] MEDS: PRAVASTATIN 40 MG TABLET PO SCH (22:40)
[2017-04-10] MEDS: LEVALBUTEROL 1.25 MG/3 ML NEB RESP TX SCH ×4 (01:10→19:43)
[2017-04-10] MEDS: methylPREDNISolone SOD SUC 40 MG/1 ML VIAL IV SCH ×3 (05:21→18:03)
[2017-04-10] MEDS: ENOXAPARIN 60 MG/0.6 ML SYRINGE SUBCUT SCH ×2 (05:21→16:49)
[2017-04-10] MEDS: DORNASE ALFA 2.5 MG/2.5 ML VIAL RESP TX SCH ×2 (08:42→19:43)
[2017-04-10] MEDS: MULTIVITAMIN (BEROCCA) TABLET PO SCH (10:21)
[2017-04-10] MEDS: ASPIRIN 325 MG TABLET PO SCH (10:21)
[2017-04-10] MEDS: BACLOFEN 10 MG TABLET PO SCH ×3 (10:21→22:32)
[2017-04-10] MEDS: METOPROLOL TARTRATE 25 MG TABLET PO SCH ×2 (10:21→22:32)
[2017-04-10] MEDS: MELOXICAM 7.5 MG TABLET PO SCH (10:21)
[2017-04-10] MEDS: GABAPENTIN 400 MG CAPSULE PO SCH ×3 (10:22→22:31)
[2017-04-10] MEDS: POTASSIUM CHLORIDE 20 MEQ TABLET PO SCH (10:22)
[2017-04-10] MEDS: MONTELUKAST 10 MG TABLET PO SCH (10:22)
[2017-04-10] MEDS: PANTOPRAZOLE 40 MG TABLET PO SCH (10:24)
[2017-04-10] MEDS: METHADONE 10 MG TABLET PO SCH ×4 (10:30→22:31)
[2017-04-10] MEDS: FLUTICASONE/SALMETEROL 250-50 DISKUS 14 DOSE INH SCH ×2 (10:31→22:32)
[2017-04-10] MEDS: VENLAFAXINE XR 75 MG CAPSULE PO SCH ×2 (10:32→22:31)
[2017-04-10] MEDS: VANCOMYCIN INJ 1,000 MG in SODIUM CHLORIDE 0.45% 250 ML IV SCH (16:21)
[2017-04-10] MEDS ORDERED: ceFAZolin 2,000 MG in PREMIX 1 EACH IV ONE (17:17)
[2017-04-10] MEDS: cefTRIAXone 1,000 MG in SYRINGE 1 EACH IV SCH (18:01)
[2017-04-10] MEDS: PRAVASTATIN 40 MG TABLET PO SCH (22:31)
[2017-04-10] MEDS: MIRTAZAPINE 30 MG TABLET PO SCH (22:31)
[2017-04-10] MEDS: DOCUSATE SODIUM 100 MG CAPSULE PO SCH (22:32)
[2017-04-11] MEDS: VANCOMYCIN INJ 1,000 MG in SODIUM CHLORIDE 0.45% 250 ML IV SCH ×3 (00:24→18:04)
[2017-04-11] MEDS: MICAFUNGIN 100 MG in SODIUM CHLORIDE 0.9% 100 ML IV SCH ×2 (00:43→22:06)
[2017-04-11] MEDS: methylPREDNISolone SOD SUC 40 MG/1 ML VIAL IV SCH ×5 (00:43→23:07)
[2017-04-11] MEDS: LEVALBUTEROL 1.25 MG/3 ML NEB RESP TX SCH ×4 (00:44→20:46)
[2017-04-11 05:03] LABS: Basophils % 0.1 % (0.0-0.8); Eosinophils % 0.3 % (0.00-10.9); Hematocrit 33.3 VOL% (42.0-52.0); Hemoglobin 10.8 GM/DL (14.0-18.0); Immature Granulocytes % 1.1 %; Immature Granulocytes Absolute 0.17 #; Lymphocytes # 0.6 10*3/uL (1.4-4.0); Lymphocytes % 3.6 % (21.2-54.2); Mean Corpuscular HGB Conc 32.4 GM/DL (32-36); Mean Corpuscular Hemoglobin 30 PG (27-34); Mean Corpuscular Volume 93.3 FL (87-102); Mean Platelet Volume 10.4 FL (9.6-12.0); Monocytes # 0.4 10*3/uL (0.11-0.8); Monocytes % 2.6 % (1.7-12.7); Neutrophils # 14.5 10*3/uL (1.4-7.4); Neutrophils % 92.3 % (38.7-73.9); Platelet Count 429 T/CUMM (130-400); Red Blood Count 3.57 MC/CUMM (3.8-5.5); Red Cell Distribution Width 15.2 % (9.3-17.3); White Blood Count 15.7 T/CUMM (4-12)
[2017-04-11 05:14] LABS: INR 1.4; PT Patient Result 14.9 SECS; Partial Thromboplastin Time 28.5 SECS (0-40)
[2017-04-11 05:28] LABS: Calcium 8.4 MG/DL (8.5-10.1); Osmolality,Calculated 286.3 MOS/KG (273-304)
[2017-04-11 05:49] LABS: Eosinophils 1 % (0-10); Lymphocytes 3 % (20-55); Segmented Neutrophils 95 % (50-85); Total Cells Counted 100
[2017-04-11 05:50] LABS: Hypochromasia Slight; Microcytosis 1+
[2017-04-11] MEDS: DORNASE ALFA 2.5 MG/2.5 ML VIAL RESP TX SCH ×2 (07:51→20:46)
[2017-04-11] MEDS ORDERED: BUPIVACAINE 0.25% 50 ML VIAL ONE (10:33)
[2017-04-11] MEDS ORDERED: LIDOCAINE 1%/EPI INJ 20 ML VIAL ONE (10:34)
[2017-04-11] MEDS ORDERED: ceFAZolin 1,000 MG VIAL ONE (10:36)
[2017-04-11] MEDS ORDERED: TISSUE ADHESIVE 1 EACH APPLICATOR TOP ONE (11:35)
[2017-04-11] MEDS ORDERED: HYDROmorphone 2 MG/1 ML VIAL IV PRN (11:46)
[2017-04-11] MEDS ORDERED: ACETAMINOPHEN 325 MG TABLET PO PRN (11:46)
[2017-04-11] MEDS ORDERED: oxyCODONE/ACETAMINOPHEN 5-325 MG TABLET PO PRN (11:46)
[2017-04-11] MEDS ORDERED: MIDAZOLAM 2 MG/2 ML VIAL ONE (12:00)
[2017-04-11] MEDS ORDERED: PROPOFOL 200 MG/20 ML VIAL IV ONE (12:00)
[2017-04-11] MEDS ORDERED: fentaNYL 100 MCG/2 ML VIAL ONE (12:01)
[2017-04-11] MEDS ORDERED: ONDANSETRON 4 MG/2 ML VIAL ONE (12:01)
[2017-04-11] MEDS: MELOXICAM 7.5 MG TABLET PO SCH (14:19)
[2017-04-11] MEDS: METHADONE 10 MG TABLET PO SCH ×4 (14:19→22:06)
[2017-04-11] MEDS: PANTOPRAZOLE 40 MG TABLET PO SCH (14:19)
[2017-04-11] MEDS: ASPIRIN 325 MG TABLET PO SCH (14:19)
[2017-04-11] MEDS: BACLOFEN 10 MG TABLET PO SCH ×3 (14:20→22:05)
[2017-04-11] MEDS: METOPROLOL TARTRATE 25 MG TABLET PO SCH ×2 (14:20→22:05)
[2017-04-11] MEDS: MULTIVITAMIN (BEROCCA) TABLET PO SCH (14:20)
[2017-04-11] MEDS: GABAPENTIN 400 MG CAPSULE PO SCH ×3 (14:20→22:06)
[2017-04-11] MEDS: MONTELUKAST 10 MG TABLET PO SCH (14:20)
[2017-04-11] MEDS: POTASSIUM CHLORIDE 20 MEQ TABLET PO SCH (14:21)
[2017-04-11] MEDS: FLUTICASONE/SALMETEROL 250-50 DISKUS 14 DOSE INH SCH ×2 (14:21→22:06)
[2017-04-11] MEDS: VENLAFAXINE XR 75 MG CAPSULE PO SCH ×2 (14:25→22:05)
[2017-04-11] MEDS: LACTATED RINGERS 1,000 ML IV SCH (14:32)
[2017-04-11] MEDS: cefTRIAXone 1,000 MG in SYRINGE 1 EACH IV SCH (16:34)
[2017-04-11] MEDS: ceFAZolin 2,000 MG in PREMIX 1 EACH IV SCH (17:32)
[2017-04-11] MEDS: MIRTAZAPINE 30 MG TABLET PO SCH (22:05)
[2017-04-11] MEDS: PRAVASTATIN 40 MG TABLET PO SCH (22:05)
[2017-04-11] MEDS: DOCUSATE SODIUM 100 MG CAPSULE PO SCH (22:06)
[2017-04-12] MEDS: LEVALBUTEROL 1.25 MG/3 ML NEB RESP TX SCH ×3 (01:17→13:40)
[2017-04-12] MEDS: ceFAZolin 2,000 MG in PREMIX 1 EACH IV SCH (01:46)
[2017-04-12] MEDS: VANCOMYCIN INJ 1,000 MG in SODIUM CHLORIDE 0.45% 250 ML IV SCH (05:29)
[2017-04-12] MEDS: methylPREDNISolone SOD SUC 40 MG/1 ML VIAL IV SCH ×2 (05:29→11:33)
[2017-04-12 05:46] LABS: Hematocrit 32.1 VOL% (42.0-52.0); Hemoglobin 10.4 GM/DL (14.0-18.0)
[2017-04-12 06:17] LABS: Calcium 8.1 MG/DL (8.5-10.1); Osmolality,Calculated 284.5 MOS/KG (273-304); Potassium 4.5 MMOL/L (3.5-5.1)
[2017-04-12] MEDS: DORNASE ALFA 2.5 MG/2.5 ML VIAL RESP TX SCH (07:25)
[2017-04-12] MEDS: MONTELUKAST 10 MG TABLET PO SCH (08:36)
[2017-04-12] MEDS: GABAPENTIN 400 MG CAPSULE PO SCH ×2 (08:36→15:11)
[2017-04-12] MEDS: MELOXICAM 7.5 MG TABLET PO SCH (08:36)
[2017-04-12] MEDS: MULTIVITAMIN (BEROCCA) TABLET PO SCH (08:36)
[2017-04-12] MEDS: VENLAFAXINE XR 75 MG CAPSULE PO SCH (08:36)
[2017-04-12] MEDS: METHADONE 10 MG TABLET PO SCH ×2 (08:36→13:08)
[2017-04-12] MEDS: POTASSIUM CHLORIDE 20 MEQ TABLET PO SCH (08:36)
[2017-04-12] MEDS: ASPIRIN 325 MG TABLET PO SCH (08:36)
[2017-04-12] MEDS: PANTOPRAZOLE 40 MG TABLET PO SCH (08:37)
[2017-04-12] MEDS: BACLOFEN 10 MG TABLET PO SCH ×2 (08:37→15:11)
[2017-04-12] MEDS: FLUTICASONE/SALMETEROL 250-50 DISKUS 14 DOSE INH SCH (08:37)
[2017-04-12] MEDS: METOPROLOL TARTRATE 25 MG TABLET PO SCH (08:39)
[2017-04-12] MEDS: LACTATED RINGERS 1,000 ML IV SCH (10:38)
[2017-04-12] MEDS ORDERED: LIDOCAINE 2% VISCOUS 100 ML BOTTLE SWISH/SWAL PRN (11:23)
[2017-04-12 12:38] VITALS: BP 133/73
[2017-04-12] MEDS ORDERED: NYSTATIN 500,000 UNIT/5 ML UDCUP SWISH/SWAL SCH (13:00)
[2017-04-12] MEDS: cefTRIAXone 1,000 MG in SYRINGE 1 EACH IV SCH (15:11)
== END 2017-04-12 16:20 | DRG 166 ==
LOC: EDUNIT# → EDBD → N.ED 22:33 → N.EDINP 04-04 04:03 → SUATTDRO 04-04 04:03 → N.TELEN 04-04 05:00
PROVIDERS: ADMIT Surgery

== ENCOUNTER 2019-02-11 13:52 | Inpatient (IN) ==
[2019-02-11] MEDS ORDERED: ALBUTEROL 2.5 MG/3 ML NEB RESP TX SCH (14:30)
[2019-02-11 14:36] LABS: Basophils % 0.2 % (0.0-0.8); Eosinophils # 0.2 10*3/uL (0.0-0.87); Eosinophils % 2.2 % (0.00-10.9); Hematocrit 40.8 VOL% (42.0-52.0); Hemoglobin 13.4 GM/DL (14.0-18.0); Immature Granulocytes % 0.4 %; Immature Granulocytes Absolute 0.04 #; Lymphocytes # 1.8 10*3/uL (1.4-4.0); Lymphocytes % 18.8 % (21.2-54.2); Mean Corpuscular HGB Conc 32.8 GM/DL (32-36); Mean Corpuscular Volume 102.8 FL (87-102); Mean Platelet Volume 9.5 FL (9.6-12.0); Monocytes % 5.5 % (1.7-12.7); Neutrophils % 72.9 % (38.7-73.9); Platelet Count 342 T/CUMM (130-400); Red Blood Count 3.97 MC/CUMM (3.8-5.5); Red Cell Distribution Width 13.3 % (9.3-17.3); White Blood Count 9.5 T/CUMM (4-12)
[2019-02-11 14:53] LABS: Alanine Aminotransferase 47 U/L (16-61); Alkaline Phosphatase 128 U/L (45-117); Aspartate Amino Transferase 47 U/L (0-37); Bilirubin,Total < 0.39 MG/DL (0.2-1.0); Blood Urea Nitrogen 23 MG/DL (7-18); Calcium 9.8 MG/DL (8.5-10.1); Estimated Glom Filtration Rate 103 ML/MIN; Glucose 149 MG/DL (74-106); Osmolality,Calculated 287.3 MOS/KG (273-304); Total Protein 7.9 G/DL (6.4-8.3)
[2019-02-11 16:06] LABS: Apearance,Urine CLEAR (Clear); Bacteria,Urine Occasional /HPF (Few); Bilirubin,Urine Negative (Negative); Blood, Urine Negative (Negative); Glucose,Urine (UA) Negative (Negative); Ketones,Urine Negative (Negative); Nitrite,Urine Negative (Negative); Protein,Urine Negative; RBC,Urine 6 /HPF (0-4); Squamous Epithelial Cell,Urine Occasional /HPF (0-10); Urine Color Yellow (Yellow); Urine Specific Gravity 1.021 (1.001-1.035); Urine Urobilinogen < 2.0 EU/DL (0.2-1.0); WBC,Urine 5 /HPF (0-6)
[2019-02-11] MEDS ORDERED: PROPOFOL 200 MG/20 ML VIAL IV ONE (16:17)
[2019-02-11] MEDS ORDERED: ACETAMINOPHEN 325 MG TABLET PO PRN (16:31)
[2019-02-11] MEDS ORDERED: ONDANSETRON 4 MG/2 ML VIAL IV PRN (16:31)
[2019-02-11] MEDS ORDERED: GLUCAGON 1 MG VIAL IM PRN (17:07)
[2019-02-11] MEDS ORDERED: DEXTROSE 50% 25 GM/50 ML VIAL IV PRN (17:07)
[2019-02-11] MEDS ORDERED: COLCHICINE 0.6 MG CAPSULE PO PRN (23:28)
[2019-02-11] MEDS ORDERED: MONTELUKAST 10 MG TABLET PO SCH (23:33)
[2019-02-12] MEDS: OMEGA 3 ACID ETHYL ESTERS 1 GM CAPSULE PO SCH ×3 (00:01→20:16)
[2019-02-12] MEDS: VENLAFAXINE 75 MG TABLET PO SCH ×3 (00:01→20:15)
[2019-02-12] MEDS: MIRTAZAPINE 30 MG TABLET PO SCH ×2 (00:02→20:26)
[2019-02-12] MEDS: traZODone 50 MG TABLET PO SCH ×2 (00:02→20:15)
[2019-02-12] MEDS: BACLOFEN 10 MG TABLET PO SCH ×2 (00:03→20:15)
[2019-02-12] MEDS: METOPROLOL TARTRATE 25 MG TABLET PO SCH ×3 (00:03→20:16)
[2019-02-12] MEDS: GABAPENTIN 400 MG CAPSULE PO SCH ×5 (00:03→20:16)
[2019-02-12] MEDS: CETIRIZINE 10 MG TABLET PO SCH ×2 (00:03→20:16)
[2019-02-12] MEDS: MINERAL OIL/PETROLATUM OPH OINT 3.5 GM TUBE RIGHT EYE SCH ×2 (00:12→20:19)
[2019-02-12 04:40] LABS: Basophils # 0.1 10*3/uL (0.0-0.2); Basophils % 0.4 % (0.0-0.8); Eosinophils # 0.2 10*3/uL (0.0-0.87); Eosinophils % 1.2 % (0.00-10.9); Hematocrit 40.1 VOL% (42.0-52.0); Hemoglobin 13.2 GM/DL (14.0-18.0); Immature Granulocytes % 0.4 %; Immature Granulocytes Absolute 0.05 #; Lymphocytes # 2.1 10*3/uL (1.4-4.0); Lymphocytes % 17.5 % (21.2-54.2); Mean Corpuscular HGB Conc 32.9 GM/DL (32-36); Mean Corpuscular Volume 101.5 FL (87-102); Mean Platelet Volume 9.8 FL (9.6-12.0); Monocytes % 5.1 % (1.7-12.7); Neutrophils % 75.4 % (38.7-73.9); Platelet Count 390 T/CUMM (130-400); Red Blood Count 3.95 MC/CUMM (3.8-5.5); Red Cell Distribution Width 13.2 % (9.3-17.3); White Blood Count 12.2 T/CUMM (4-12)
[2019-02-12 05:03] LABS: Calcium 10.1 MG/DL (8.5-10.1); Osmolality,Calculated 279.5 MOS/KG (273-304)
[2019-02-12] MEDS ORDERED: ALBUTEROL/IPRATROPIUM 3 ML NEB RESP TX PRN (08:26)
[2019-02-12] MEDS: XTAMPZA 13.5 MG PO SCH ×2 (09:00→20:16)
[2019-02-12] MEDS: PANTOPRAZOLE 40 MG TABLET PO SCH (09:03)
[2019-02-12] MEDS: MONTELUKAST 10 MG TABLET PO SCH (09:04)
[2019-02-12] MEDS: ALLOPURINOL 300 MG TABLET PO SCH (09:06)
[2019-02-12] MEDS ORDERED: DEXTROSE 50% 25 GM/50 ML VIAL IV PRN (09:41)
[2019-02-12] MEDS: ALBUTEROL/IPRATROPIUM 3 ML NEB RESP TX SCH ×2 (10:34→19:40)
[2019-02-12] MEDS: DORNASE ALFA 2.5 MG/2.5 ML VIAL RESP TX SCH (10:39)
[2019-02-12] MEDS ORDERED: POLYETHYLENE GLYCOL POWDER 17 GM PACK PO PRN (12:04)
[2019-02-12] MEDS: ENOXAPARIN 40 MG/0.4 ML SYRINGE SUBCUT SCH (13:02)
[2019-02-12] MEDS: oxyCODONE/ACETAMINOPHEN 5-325 MG TABLET PO PRN (20:24)
[2019-02-13] MEDS: DORNASE ALFA 2.5 MG/2.5 ML VIAL RESP TX SCH ×3 (00:14→19:30)
[2019-02-13] MEDS: ALBUTEROL/IPRATROPIUM 3 ML NEB RESP TX SCH ×4 (00:14→19:30)
[2019-02-13] MEDS: oxyCODONE/ACETAMINOPHEN 5-325 MG TABLET PO PRN ×2 (06:34→18:17)
[2019-02-13] MEDS: XTAMPZA 13.5 MG PO SCH ×2 (08:28→20:42)
[2019-02-13] MEDS: OMEGA 3 ACID ETHYL ESTERS 1 GM CAPSULE PO SCH ×2 (08:29→20:44)
[2019-02-13] MEDS: ALLOPURINOL 300 MG TABLET PO SCH (08:30)
[2019-02-13] MEDS: METOPROLOL TARTRATE 25 MG TABLET PO SCH ×2 (08:30→20:43)
[2019-02-13] MEDS: MONTELUKAST 10 MG TABLET PO SCH (08:30)
[2019-02-13] MEDS: PANTOPRAZOLE 40 MG TABLET PO SCH (08:30)
[2019-02-13] MEDS: GABAPENTIN 400 MG CAPSULE PO SCH ×3 (08:31→20:44)
[2019-02-13] MEDS: VENLAFAXINE 75 MG TABLET PO SCH ×2 (08:31→20:44)
[2019-02-13] MEDS: ENOXAPARIN 40 MG/0.4 ML SYRINGE SUBCUT SCH (12:50)
[2019-02-13] MEDS: MIRTAZAPINE 30 MG TABLET PO SCH (20:43)
[2019-02-13] MEDS: CETIRIZINE 10 MG TABLET PO SCH (20:43)
[2019-02-13] MEDS: traZODone 50 MG TABLET PO SCH (20:45)
[2019-02-13] MEDS: BACLOFEN 10 MG TABLET PO SCH (20:45)
[2019-02-13] MEDS: MINERAL OIL/PETROLATUM OPH OINT 3.5 GM TUBE RIGHT EYE SCH (20:52)
[2019-02-14] MEDS: ALBUTEROL/IPRATROPIUM 3 ML NEB RESP TX SCH ×4 (01:16→19:30)
[2019-02-14] MEDS: oxyCODONE/ACETAMINOPHEN 5-325 MG TABLET PO PRN ×3 (06:30→20:21)
[2019-02-14] MEDS: DORNASE ALFA 2.5 MG/2.5 ML VIAL RESP TX SCH ×2 (07:16→19:38)
[2019-02-14] MEDS: GABAPENTIN 400 MG CAPSULE PO SCH ×3 (09:09→20:15)
[2019-02-14] MEDS: METOPROLOL TARTRATE 25 MG TABLET PO SCH ×2 (09:10→20:16)
[2019-02-14] MEDS: VENLAFAXINE 75 MG TABLET PO SCH ×2 (09:10→20:16)
[2019-02-14] MEDS: MONTELUKAST 10 MG TABLET PO SCH (09:10)
[2019-02-14] MEDS: ALLOPURINOL 300 MG TABLET PO SCH (09:11)
[2019-02-14] MEDS: PANTOPRAZOLE 40 MG TABLET PO SCH (09:11)
[2019-02-14] MEDS: XTAMPZA 13.5 MG PO SCH ×2 (09:28→20:14)
[2019-02-14] MEDS: OMEGA 3 ACID ETHYL ESTERS 1 GM CAPSULE PO SCH ×2 (09:28→20:15)
[2019-02-14] MEDS: ENOXAPARIN 40 MG/0.4 ML SYRINGE SUBCUT SCH (12:22)
[2019-02-14] MEDS ORDERED: MAGNESIUM HYDROXIDE SUSP 30 ML UDCUP PO ONE (14:21)
[2019-02-14] MEDS ORDERED: MAGNESIUM HYDROXIDE SUSP 30 ML UDCUP PO PRN (14:21)
[2019-02-14] MEDS: DOCUSATE SODIUM 100 MG CAPSULE PO SCH ×2 (14:52→20:16)
[2019-02-14] MEDS: BACLOFEN 10 MG TABLET PO SCH (20:16)
[2019-02-14] MEDS: LACTULOSE 20 GM/30 ML UDCUP PO SCH (20:16)
[2019-02-14] MEDS: traZODone 50 MG TABLET PO SCH (20:16)
[2019-02-14] MEDS: MIRTAZAPINE 30 MG TABLET PO SCH (20:16)
[2019-02-14] MEDS: CETIRIZINE 10 MG TABLET PO SCH (20:16)
[2019-02-14] MEDS: MINERAL OIL/PETROLATUM OPH OINT 3.5 GM TUBE RIGHT EYE SCH (20:23)
[2019-02-15] MEDS: ALBUTEROL/IPRATROPIUM 3 ML NEB RESP TX SCH ×4 (01:58→19:08)
[2019-02-15] MEDS: oxyCODONE/ACETAMINOPHEN 5-325 MG TABLET PO PRN ×3 (06:10→21:46)
[2019-02-15] MEDS: DORNASE ALFA 2.5 MG/2.5 ML VIAL RESP TX SCH ×2 (07:08→19:12)
[2019-02-15] MEDS: XTAMPZA 13.5 MG PO SCH ×2 (08:52→22:26)
[2019-02-15] MEDS: LACTULOSE 20 GM/30 ML UDCUP PO SCH ×2 (08:53→22:31)
[2019-02-15] MEDS: VENLAFAXINE 75 MG TABLET PO SCH ×2 (08:55→21:48)
[2019-02-15] MEDS: MONTELUKAST 10 MG TABLET PO SCH (08:55)
[2019-02-15] MEDS: ALLOPURINOL 300 MG TABLET PO SCH (08:55)
[2019-02-15] MEDS: PANTOPRAZOLE 40 MG TABLET PO SCH (08:55)
[2019-02-15] MEDS: METOPROLOL TARTRATE 25 MG TABLET PO SCH ×2 (08:56→21:50)
[2019-02-15] MEDS: DOCUSATE SODIUM 100 MG CAPSULE PO SCH ×2 (08:56→21:49)
[2019-02-15] MEDS: OMEGA 3 ACID ETHYL ESTERS 1 GM CAPSULE PO SCH ×2 (08:56→21:50)
[2019-02-15] MEDS: GABAPENTIN 400 MG CAPSULE PO SCH ×3 (08:57→21:48)
[2019-02-15] MEDS: ENOXAPARIN 40 MG/0.4 ML SYRINGE SUBCUT SCH (12:32)
[2019-02-15] MEDS: MIRTAZAPINE 30 MG TABLET PO SCH (21:48)
[2019-02-15] MEDS: traZODone 50 MG TABLET PO SCH (21:48)
[2019-02-15] MEDS: CETIRIZINE 10 MG TABLET PO SCH (21:49)
[2019-02-15] MEDS: BACLOFEN 10 MG TABLET PO SCH (21:50)
[2019-02-15] MEDS: MINERAL OIL/PETROLATUM OPH OINT 3.5 GM TUBE RIGHT EYE SCH (22:28)
[2019-02-15] MEDS: POLYETHYLENE GLYCOL POWDER 17 GM PACK PO SCH (22:31)
[2019-02-16] MEDS: ALBUTEROL/IPRATROPIUM 3 ML NEB RESP TX SCH ×4 (00:40→19:27)
[2019-02-16] MEDS: DORNASE ALFA 2.5 MG/2.5 ML VIAL RESP TX SCH ×2 (07:15→19:49)
[2019-02-16] MEDS: OMEGA 3 ACID ETHYL ESTERS 1 GM CAPSULE PO SCH ×2 (08:46→20:46)
[2019-02-16] MEDS: VENLAFAXINE 75 MG TABLET PO SCH ×2 (08:46→20:49)
[2019-02-16] MEDS: MONTELUKAST 10 MG TABLET PO SCH (08:46)
[2019-02-16] MEDS: LACTULOSE 20 GM/30 ML UDCUP PO SCH ×2 (08:47→20:52)
[2019-02-16] MEDS: METOPROLOL TARTRATE 25 MG TABLET PO SCH ×2 (08:47→20:49)
[2019-02-16] MEDS: DOCUSATE SODIUM 100 MG CAPSULE PO SCH ×2 (08:47→20:47)
[2019-02-16] MEDS: GABAPENTIN 400 MG CAPSULE PO SCH ×3 (08:47→20:46)
[2019-02-16] MEDS: POLYETHYLENE GLYCOL POWDER 17 GM PACK PO SCH ×2 (08:48→20:52)
[2019-02-16] MEDS: ALLOPURINOL 300 MG TABLET PO SCH (08:48)
[2019-02-16] MEDS: PANTOPRAZOLE 40 MG TABLET PO SCH (08:48)
[2019-02-16] MEDS: oxyCODONE/ACETAMINOPHEN 5-325 MG TABLET PO PRN ×2 (08:49→20:43)
[2019-02-16] MEDS: XTAMPZA 13.5 MG PO SCH ×2 (09:06→20:45)
[2019-02-16] MEDS: ENOXAPARIN 40 MG/0.4 ML SYRINGE SUBCUT SCH (11:57)
[2019-02-16] MEDS ORDERED: guaiFENesin 200 MG/10 ML UDCUP PO PRN (18:20)
[2019-02-16] MEDS: BACLOFEN 10 MG TABLET PO SCH (20:47)
[2019-02-16] MEDS: CETIRIZINE 10 MG TABLET PO SCH (20:47)
[2019-02-16] MEDS: MIRTAZAPINE 30 MG TABLET PO SCH (20:47)
[2019-02-16] MEDS: traZODone 50 MG TABLET PO SCH (20:49)
[2019-02-16] MEDS: PHENOL 1.4% THROAT SPRAY 177 ML BOTTLE PO PRN (20:52)
[2019-02-16] MEDS: MINERAL OIL/PETROLATUM OPH OINT 3.5 GM TUBE RIGHT EYE SCH (20:52)
[2019-02-17] MEDS: ALBUTEROL/IPRATROPIUM 3 ML NEB RESP TX SCH ×4 (01:27→19:00)
[2019-02-17 03:06] LABS: Basophils % 0.2 % (0.0-0.8); Eosinophils # 0.2 10*3/uL (0.0-0.87); Eosinophils % 2.2 % (0.00-10.9); Hematocrit 36.7 VOL% (42.0-52.0); Hemoglobin 11.7 GM/DL (14.0-18.0); Immature Granulocytes % 0.4 %; Immature Granulocytes Absolute 0.04 #; Lymphocytes # 1.9 10*3/uL (1.4-4.0); Lymphocytes % 20.8 % (21.2-54.2); Mean Corpuscular HGB Conc 31.9 GM/DL (32-36); Mean Corpuscular Volume 103.1 FL (87-102); Mean Platelet Volume 9.5 FL (9.6-12.0); Monocytes % 5.7 % (1.7-12.7); Neutrophils % 70.7 % (38.7-73.9); Platelet Count 345 T/CUMM (130-400); Red Blood Count 3.56 MC/CUMM (3.8-5.5); Red Cell Distribution Width 13.2 % (9.3-17.3); White Blood Count 9.2 T/CUMM (4-12)
[2019-02-17] MEDS: DORNASE ALFA 2.5 MG/2.5 ML VIAL RESP TX SCH ×2 (07:23→19:00)
[2019-02-17] MEDS: DOCUSATE SODIUM 100 MG CAPSULE PO SCH ×2 (09:44→21:28)
[2019-02-17] MEDS: XTAMPZA 13.5 MG PO SCH ×2 (09:44→21:23)
[2019-02-17] MEDS: LACTULOSE 20 GM/30 ML UDCUP PO SCH ×2 (09:44→21:33)
[2019-02-17] MEDS: PANTOPRAZOLE 40 MG TABLET PO SCH (09:45)
[2019-02-17] MEDS: ALLOPURINOL 300 MG TABLET PO SCH (09:45)
[2019-02-17] MEDS: OMEGA 3 ACID ETHYL ESTERS 1 GM CAPSULE PO SCH ×2 (09:45→21:28)
[2019-02-17] MEDS: VENLAFAXINE 75 MG TABLET PO SCH ×2 (09:45→21:26)
[2019-02-17] MEDS: METOPROLOL TARTRATE 25 MG TABLET PO SCH ×2 (09:45→21:28)
[2019-02-17] MEDS: GABAPENTIN 400 MG CAPSULE PO SCH ×3 (09:45→21:28)
[2019-02-17] MEDS: MONTELUKAST 10 MG TABLET PO SCH (09:45)
[2019-02-17] MEDS: POLYETHYLENE GLYCOL POWDER 17 GM PACK PO SCH ×2 (09:46→21:33)
[2019-02-17] MEDS: oxyCODONE/ACETAMINOPHEN 5-325 MG TABLET PO PRN ×3 (09:52→21:24)
[2019-02-17 11:05] LABS: Albumin 3.4 G/DL (3.4-5.0); Bilirubin,Total 0.4 MG/DL (0.2-1.0); Calcium 9.8 MG/DL (8.5-10.1); Total Protein 8.4 G/DL (6.4-8.3)
[2019-02-17] MEDS: ENOXAPARIN 40 MG/0.4 ML SYRINGE SUBCUT SCH (12:45)
[2019-02-17] MEDS: CETIRIZINE 10 MG TABLET PO SCH (21:25)
[2019-02-17] MEDS: traZODone 50 MG TABLET PO SCH (21:26)
[2019-02-17] MEDS: BACLOFEN 10 MG TABLET PO SCH (21:27)
[2019-02-17] MEDS: MIRTAZAPINE 30 MG TABLET PO SCH (21:28)
[2019-02-17] MEDS: MINERAL OIL/PETROLATUM OPH OINT 3.5 GM TUBE RIGHT EYE SCH (21:31)
[2019-02-17] MEDS: PHENOL 1.4% THROAT SPRAY 177 ML BOTTLE PO PRN (21:31)
[2019-02-18] MEDS: ALBUTEROL/IPRATROPIUM 3 ML NEB RESP TX SCH ×4 (00:25→20:41)
[2019-02-18] MEDS: DORNASE ALFA 2.5 MG/2.5 ML VIAL RESP TX SCH ×2 (07:26→20:41)
[2019-02-18] MEDS: oxyCODONE/ACETAMINOPHEN 5-325 MG TABLET PO PRN ×3 (08:30→21:20)
[2019-02-18] MEDS: OMEGA 3 ACID ETHYL ESTERS 1 GM CAPSULE PO SCH ×2 (08:31→21:25)
[2019-02-18] MEDS: MONTELUKAST 10 MG TABLET PO SCH (08:31)
[2019-02-18] MEDS: VENLAFAXINE 75 MG TABLET PO SCH ×2 (08:31→21:22)
[2019-02-18] MEDS: PANTOPRAZOLE 40 MG TABLET PO SCH (08:31)
[2019-02-18] MEDS: DOCUSATE SODIUM 100 MG CAPSULE PO SCH ×2 (08:31→21:25)
[2019-02-18] MEDS: POLYETHYLENE GLYCOL POWDER 17 GM PACK PO SCH ×2 (08:31→21:42)
[2019-02-18] MEDS: ALLOPURINOL 300 MG TABLET PO SCH (08:31)
[2019-02-18] MEDS: METOPROLOL TARTRATE 25 MG TABLET PO SCH ×2 (08:32→21:41)
[2019-02-18] MEDS: LACTULOSE 20 GM/30 ML UDCUP PO SCH ×2 (08:32→21:42)
[2019-02-18] MEDS: GABAPENTIN 400 MG CAPSULE PO SCH ×3 (08:32→21:25)
[2019-02-18] MEDS: XTAMPZA 13.5 MG PO SCH ×2 (08:42→21:21)
[2019-02-18] MEDS: ENOXAPARIN 40 MG/0.4 ML SYRINGE SUBCUT SCH (12:34)
[2019-02-18] MEDS: CETIRIZINE 10 MG TABLET PO SCH (21:22)
[2019-02-18] MEDS: traZODone 50 MG TABLET PO SCH (21:23)
[2019-02-18] MEDS: BACLOFEN 10 MG TABLET PO SCH (21:25)
[2019-02-18] MEDS: MIRTAZAPINE 30 MG TABLET PO SCH (21:25)
[2019-02-18] MEDS: PHENOL 1.4% THROAT SPRAY 177 ML BOTTLE PO PRN (21:37)
[2019-02-18] MEDS: MINERAL OIL/PETROLATUM OPH OINT 3.5 GM TUBE RIGHT EYE SCH (21:38)
[2019-02-19] MEDS ORDERED: oxyCODONE/ACETAMINOPHEN 5-325 MG TABLET PO SCH
[2019-02-19] MEDS: ALBUTEROL/IPRATROPIUM 3 ML NEB RESP TX SCH ×4 (01:03→19:53)
[2019-02-19] MEDS: oxyCODONE/ACETAMINOPHEN 5-325 MG TABLET PO PRN ×5 (03:20→20:25)
[2019-02-19] MEDS: DORNASE ALFA 2.5 MG/2.5 ML VIAL RESP TX SCH ×2 (07:32→19:53)
[2019-02-19] MEDS: XTAMPZA 13.5 MG PO SCH ×2 (09:37→21:26)
[2019-02-19] MEDS: DOCUSATE SODIUM 100 MG CAPSULE PO SCH ×2 (09:37→20:26)
[2019-02-19] MEDS: LACTULOSE 20 GM/30 ML UDCUP PO SCH ×2 (09:37→20:32)
[2019-02-19] MEDS: ALLOPURINOL 300 MG TABLET PO SCH (09:39)
[2019-02-19] MEDS: VENLAFAXINE 75 MG TABLET PO SCH ×2 (09:39→20:25)
[2019-02-19] MEDS: POLYETHYLENE GLYCOL POWDER 17 GM PACK PO SCH ×2 (09:39→20:32)
[2019-02-19] MEDS: MONTELUKAST 10 MG TABLET PO SCH (09:39)
[2019-02-19] MEDS: PANTOPRAZOLE 40 MG TABLET PO SCH (09:39)
[2019-02-19] MEDS: OMEGA 3 ACID ETHYL ESTERS 1 GM CAPSULE PO SCH ×2 (09:39→20:26)
[2019-02-19] MEDS: GABAPENTIN 400 MG CAPSULE PO SCH ×3 (09:39→20:24)
[2019-02-19] MEDS: METOPROLOL TARTRATE 25 MG TABLET PO SCH ×2 (09:40→20:26)
[2019-02-19 10:46] LABS: Basophils % 0.2 % (0.0-0.8); Eosinophils # 0.3 10*3/uL (0.0-0.87); Eosinophils % 2.6 % (0.00-10.9); Hemoglobin 12.7 GM/DL (14.0-18.0); Immature Granulocytes % 0.5 %; Immature Granulocytes Absolute 0.06 #; Lymphocytes # 1.2 10*3/uL (1.4-4.0); Lymphocytes % 10.1 % (21.2-54.2); Mean Corpuscular HGB Conc 32.6 GM/DL (32-36); Mean Corpuscular Volume 101.6 FL (87-102); Mean Platelet Volume 9.4 FL (9.6-12.0); Monocytes % 4.9 % (1.7-12.7); Neutrophils % 81.7 % (38.7-73.9); Platelet Count 390 T/CUMM (130-400); Red Blood Count 3.84 MC/CUMM (3.8-5.5); White Blood Count 11.5 T/CUMM (4-12)
[2019-02-19 11:17] LABS: Albumin 3.3 G/DL (3.4-5.0); Bilirubin,Total 0.4 MG/DL (0.2-1.0); Calcium 9.7 MG/DL (8.5-10.1); Osmolality,Calculated 272.1 MOS/KG (273-304); Total Protein 8.3 G/DL (6.4-8.3)
[2019-02-19] MEDS: ENOXAPARIN 40 MG/0.4 ML SYRINGE SUBCUT SCH (11:42)
[2019-02-19] MEDS: CETIRIZINE 10 MG TABLET PO SCH (20:24)
[2019-02-19] MEDS: traZODone 50 MG TABLET PO SCH (20:26)
[2019-02-19] MEDS: MIRTAZAPINE 30 MG TABLET PO SCH (20:26)
[2019-02-19] MEDS: BACLOFEN 10 MG TABLET PO SCH (20:26)
[2019-02-19] MEDS: MINERAL OIL/PETROLATUM OPH OINT 3.5 GM TUBE RIGHT EYE SCH (20:29)
[2019-02-20] MEDS: ALBUTEROL/IPRATROPIUM 3 ML NEB RESP TX SCH ×4 (00:45→19:51)
[2019-02-20] MEDS: oxyCODONE/ACETAMINOPHEN 5-325 MG TABLET PO PRN ×4 (02:08→22:23)
[2019-02-20] MEDS: DORNASE ALFA 2.5 MG/2.5 ML VIAL RESP TX SCH ×2 (07:06→19:51)
[2019-02-20] MEDS: GABAPENTIN 400 MG CAPSULE PO SCH ×3 (09:23→20:33)
[2019-02-20] MEDS: METOPROLOL TARTRATE 25 MG TABLET PO SCH ×2 (09:23→20:34)
[2019-02-20] MEDS: PANTOPRAZOLE 40 MG TABLET PO SCH (09:23)
[2019-02-20] MEDS: ALLOPURINOL 300 MG TABLET PO SCH (09:24)
[2019-02-20] MEDS: VENLAFAXINE 75 MG TABLET PO SCH ×2 (09:24→20:34)
[2019-02-20] MEDS: OMEGA 3 ACID ETHYL ESTERS 1 GM CAPSULE PO SCH ×2 (09:24→20:34)
[2019-02-20] MEDS: DOCUSATE SODIUM 100 MG CAPSULE PO SCH ×2 (09:24→20:34)
[2019-02-20] MEDS: MONTELUKAST 10 MG TABLET PO SCH (09:24)
[2019-02-20] MEDS: POLYETHYLENE GLYCOL POWDER 17 GM PACK PO SCH ×3 (09:25→20:54)
[2019-02-20] MEDS: LACTULOSE 20 GM/30 ML UDCUP PO SCH ×3 (09:25→20:31)
[2019-02-20] MEDS: XTAMPZA 13.5 MG PO SCH ×2 (09:26→20:33)
[2019-02-20] MEDS: ENOXAPARIN 40 MG/0.4 ML SYRINGE SUBCUT SCH (12:46)
[2019-02-20] MEDS: CETIRIZINE 10 MG TABLET PO SCH (20:34)
[2019-02-20] MEDS: BACLOFEN 10 MG TABLET PO SCH (20:34)
[2019-02-20] MEDS: MIRTAZAPINE 30 MG TABLET PO SCH (20:34)
[2019-02-20] MEDS: traZODone 50 MG TABLET PO SCH (20:34)
[2019-02-20 20:54] VITALS: BP 141/79
[2019-02-20] MEDS: MINERAL OIL/PETROLATUM OPH OINT 3.5 GM TUBE RIGHT EYE SCH (20:55)
== END 2019-02-21 | disposition hospice, home (50) | DRG 199 ==
LOC: EDBD → EDUNIT# → N.ED 13:52 → SUATTDRO 16:31 → N.EDINP 16:31 → N.4E 18:11
PROVIDERS: ADMIT Hospitalist; ATTEND Internal Medicine

== ENCOUNTER 2020-06-15 21:16 | Observation (INO) ==
[2020-06-15] MEDS ORDERED: MORPHINE 4 MG/1 ML VIAL IV STA (21:48)
[2020-06-15] MEDS ORDERED: methylPREDNISolone SOD SUC 125 MG/2 ML VIAL IV STA (21:48)
[2020-06-15] MEDS ORDERED: ONDANSETRON 4 MG/2 ML VIAL IV STA (21:48)
[2020-06-15 21:59] LABS: Basophils % 0.3 % (0.0-0.8); Eosinophils # 0.4 10*3/uL (0.0-0.87); Eosinophils % 2.7 % (0.00-10.9); Hematocrit 39.6 VOL% (42.0-52.0); Immature Granulocytes % 0.4 %; Immature Granulocytes Absolute 0.05 #; Lymphocytes # 1.5 10*3/uL (1.4-4.0); Lymphocytes % 10.8 % (21.2-54.2); Mean Corpuscular HGB Conc 32.8 GM/DL (32-36); Mean Corpuscular Volume 100.5 FL (87-102); Mean Platelet Volume 9.8 FL (9.6-12.0); Monocytes % 4.3 % (1.7-12.7); Neutrophils % 81.5 % (38.7-73.9); Platelet Count 314 T/CUMM (130-400); Red Blood Count 3.94 MC/CUMM (3.8-5.5); Red Cell Distribution Width 12.8 % (9.3-17.3); White Blood Count 13.8 T/CUMM (4-12)
[2020-06-15] MEDS ORDERED: ALBUTEROL NEB SOLN 5 MG/ML 20 ML/BOTTLE CONT NEB SCH (22:00)
[2020-06-15 22:05] LABS: PT Patient Result 10.3 SECS (9.8-11.9)
[2020-06-15 22:53] LABS: Alanine Aminotransferase 27 U/L (16-61); Albumin 3.9 G/DL (3.4-5.0); Alkaline Phosphatase 129 U/L (45-117); Aspartate Amino Transferase 31 U/L (0-37); Bilirubin,Total < 0.39 MG/DL (0.2-1.0); Blood Urea Nitrogen 19 MG/DL (7-18); Calcium 9.5 MG/DL (8.5-10.1); Carbon Dioxide 29 MMOL/L (21-32); Estimated Glom Filtration Rate 107 ML/MIN; Glucose 101 MG/DL (74-106); Osmolality,Calculated 274.8 MOS/KG (273-304); Potassium 4.4 MMOL/L (3.5-5.1); Sodium 137 MMOL/L (136-145); Total Protein 7.8 G/DL (6.4-8.3)
[2020-06-16] MEDS ORDERED: DEXTROSE 50% 25 GM/50 ML VIAL IV PRN ×2 (00:33→00:56)
[2020-06-16] MEDS ORDERED: ONDANSETRON 4 MG/2 ML VIAL IV PRN (00:33)
[2020-06-16] MEDS ORDERED: GLUCAGON 1 MG VIAL IM PRN ×2 (00:33→00:56)
[2020-06-16] MEDS ORDERED: oxyCODONE/ACETAMINOPHEN 5-325 MG TABLET PO PRN (00:39)
[2020-06-16] MEDS: ALBUTEROL/IPRATROPIUM 3 ML NEB RESP TX SCH ×4 (03:02→19:11)
[2020-06-16 04:31] LABS: Basophils % 0.2 % (0.0-0.8); Eosinophils % 0.1 % (0.00-10.9); Hematocrit 38.1 VOL% (42.0-52.0); Hemoglobin 12.3 GM/DL (14.0-18.0); Immature Granulocytes % 0.4 %; Immature Granulocytes Absolute 0.04 #; Lymphocytes # 0.6 10*3/uL (1.4-4.0); Lymphocytes % 5.8 % (21.2-54.2); Mean Corpuscular HGB Conc 32.3 GM/DL (32-36); Mean Corpuscular Volume 101.6 FL (87-102); Mean Platelet Volume 9.6 FL (9.6-12.0); Monocytes % 0.4 % (1.7-12.7); Neutrophils % 93.1 % (38.7-73.9); Platelet Count 300 T/CUMM (130-400); Red Blood Count 3.75 MC/CUMM (3.8-5.5); Red Cell Distribution Width 12.9 % (9.3-17.3); White Blood Count 10.5 T/CUMM (4-12)
[2020-06-16 05:05] LABS: Hypochromasia 1+; Lymphocytes 10 % (20-55); Microcytosis 1+; Platelet Estimate Adequate; Segmented Neutrophils 90 % (50-85); Total Cells Counted 100
[2020-06-16 05:19] LABS: Calcium 9.1 MG/DL (8.5-10.1); Osmolality,Calculated 279.7 MOS/KG (273-304)
[2020-06-16] MEDS: methylPREDNISolone SOD SUC 40 MG/1 ML VIAL IV SCH ×3 (05:55→16:46)
[2020-06-16 06:34] LABS: Bilirubin,Urine Negative (Negative); Blood, Urine Negative (Negative); Glucose,Urine (UA) Negative (Negative); Ketones,Urine Negative (Negative); Mucus,Urine Occasional /LPF (Occasional); Nitrite,Urine Negative (Negative); Protein,Urine Negative; RBC,Urine 3 /HPF (0-4); Urine Appearance CLEAR (Clear); Urine Color Yellow (Yellow); Urine Specific Gravity 1.025 (1.001-1.035); Urine Urobilinogen < 2.0 EU/DL (0.2-1.0); WBC,Urine 2 /HPF (0-6)
[2020-06-16] MEDS: DOXAZOSIN 1 MG TABLET PO SCH (08:46)
[2020-06-16] MEDS: DICLOFENAC SODIUM 50 MG TABLET PO SCH ×2 (08:46→20:31)
[2020-06-16] MEDS: DOCUSATE SODIUM 100 MG CAPSULE PO SCH (08:46)
[2020-06-16] MEDS: allopurinoL 300 MG TABLET PO SCH (08:47)
[2020-06-16] MEDS: VENLAFAXINE XR 75 MG CAPSULE PO SCH ×2 (08:47→20:30)
[2020-06-16] MEDS: POTASSIUM CHLORIDE 20 MEQ TABLET PO SCH (08:47)
[2020-06-16] MEDS: MULTIVITAMIN (CENTRUM) TABLET PO SCH (08:47)
[2020-06-16] MEDS: ENOXAPARIN 40 MG/0.4 ML SYRINGE SUBCUT SCH (08:48)
[2020-06-16] MEDS: GABAPENTIN 300 MG CAPSULE PO SCH ×3 (08:48→20:31)
[2020-06-16] MEDS: amLODIPine 5 MG TABLET PO SCH (08:48)
[2020-06-16] MEDS: PANTOPRAZOLE 40 MG TABLET PO SCH (08:48)
[2020-06-16] MEDS: MORPHINE ER 15 MG TABLET PO SCH ×2 (08:48→20:31)
[2020-06-16] MEDS ORDERED: NON-FORMULARY MEDICATION (Biotin 1 mg Tablet) PO SCH (09:00)
[2020-06-16] MEDS ORDERED: INSULIN LISPRO 100 UNIT/ML SUBCUT SCH (09:00)
[2020-06-16] MEDS ORDERED: CYANOCOBALAMIN 1000 MCG/1 ML VIAL IM SCH (09:00)
[2020-06-16] MEDS ORDERED: GABAPENTIN 100 MG CAPSULE PO SCH (09:00)
[2020-06-16] MEDS ORDERED: DOCUSATE/SENNA 50-8.6 MG TABLET PO SCH (09:00)
[2020-06-16] MEDS: oxyCODONE/ACETAMINOPHEN 5-325 MG TABLET PO PRN ×2 (10:55→15:54)
[2020-06-16] MEDS ORDERED: MIRTAZAPINE 30 MG TABLET PO SCH (21:00)
[2020-06-16] MEDS ORDERED: BACLOFEN 10 MG TABLET PO SCH (21:00)
[2020-06-17] MEDS: ALBUTEROL/IPRATROPIUM 3 ML NEB RESP TX SCH ×2 (00:01→07:40)
[2020-06-17] MEDS: methylPREDNISolone SOD SUC 40 MG/1 ML VIAL IV SCH ×2 (00:22→08:13)
[2020-06-17 06:48] LABS: Basophils % 0.1 % (0.0-0.8); Hematocrit 37.3 VOL% (42.0-52.0); Hemoglobin 12.5 GM/DL (14.0-18.0); Immature Granulocytes % 0.3 %; Immature Granulocytes Absolute 0.03 #; Lymphocytes # 1.1 10*3/uL (1.4-4.0); Lymphocytes % 9.9 % (21.2-54.2); Mean Corpuscular HGB Conc 33.5 GM/DL (32-36); Mean Corpuscular Volume 98.4 FL (87-102); Mean Platelet Volume 9.9 FL (9.6-12.0); Monocytes % 2.1 % (1.7-12.7); Neutrophils % 87.6 % (38.7-73.9); Platelet Count 309 T/CUMM (130-400); Red Blood Count 3.79 MC/CUMM (3.8-5.5); Red Cell Distribution Width 12.6 % (9.3-17.3); White Blood Count 11.3 T/CUMM (4-12)
[2020-06-17 07:11] LABS: Calcium 9.1 MG/DL (8.5-10.1); Potassium 4.1 MMOL/L (3.5-5.1)
[2020-06-17] MEDS ORDERED: LEVOFLOXACIN INJ 750 MG in PREMIX 1 EACH IV SCH (08:00)
[2020-06-17] MEDS: MORPHINE ER 15 MG TABLET PO SCH (08:10)
[2020-06-17] MEDS: POTASSIUM CHLORIDE 20 MEQ TABLET PO SCH (08:10)
[2020-06-17] MEDS: allopurinoL 300 MG TABLET PO SCH (08:10)
[2020-06-17] MEDS: DOCUSATE SODIUM 100 MG CAPSULE PO SCH (08:10)
[2020-06-17] MEDS: VENLAFAXINE XR 75 MG CAPSULE PO SCH (08:10)
[2020-06-17] MEDS: MULTIVITAMIN (CENTRUM) TABLET PO SCH (08:10)
[2020-06-17] MEDS: GABAPENTIN 300 MG CAPSULE PO SCH (08:10)
[2020-06-17] MEDS: PANTOPRAZOLE 40 MG TABLET PO SCH (08:10)
[2020-06-17] MEDS: DOXAZOSIN 1 MG TABLET PO SCH (08:11)
[2020-06-17] MEDS: amLODIPine 5 MG TABLET PO SCH (08:11)
[2020-06-17] MEDS: ENOXAPARIN 40 MG/0.4 ML SYRINGE SUBCUT SCH (08:14)
[2020-06-17 08:20] VITALS: BP 132/72
[2020-06-17] MEDS: DICLOFENAC SODIUM 50 MG TABLET PO SCH (08:27)
[2020-06-17] MEDS: oxyCODONE/ACETAMINOPHEN 5-325 MG TABLET PO PRN (09:42)
== END 2020-06-17 11:42 | disposition home or self-care (01) ==
LOC: N.ED 21:16 → N.EDINP 21:16 → SUATTDRO 06-16 00:33 → N.EDINP 06-16 01:41 → N.5E 06-16 01:42
PROVIDERS: ADMIT Internal Medicine; ATTEND Internal Medicine